=== PATIENT | male | born 1950 | race Caucasian/White ===

== ENCOUNTER 2017-11-09 06:55 | Outpatient (CLI) | payer MEDICARE, OTHER, SELFPAY ==
[2017-11-09 07:41] LABS: HCT 49.1 % (40.0-50.0); HGB 17.2 g/dL (13.5-17.5); Mean Corpuscular Hemoglobin 31.9 pg (27.0-33.0); Mean Corpuscular Volume 90.9 fL (80-95); Mean Platelet Volume 10.5 fL (8.0-11.0); Platelet Count 193 x1000/uL (130-400); RBC Distribution Width 13.9 % (11.8-14.1); White Blood Cell Count 8.32 k/cumm (4.4-10.8)
[2017-11-09 08:41] LABS: Ferritin 103 ng/mL (8-388)
[2017-11-10 09:35] LABS: PSA, Screening 1.5 ng/ml (0-4.5)
== END 2017-11-09 07:15 ==
PROVIDERS: PCP Family Medicine; Visit Provider Family Medicine
DX: E83.119 Hemochromatosis, unspecified (principal); Z12.5 Encounter for screening for malignant neoplasm of prostate; R73.01 Impaired fasting glucose; K76.0 Fatty (change of) liver, not elsewhere classified
CPT/HCPCS: 36415; 84153; 85027; 82728

== ENCOUNTER 2018-06-12 09:14 | Outpatient (CLI) | payer MEDICARE, OTHER, SELFPAY ==
[2018-06-12 14:05] LABS: HGB 16.3 g/dL (13.5-17.5)
[2018-06-12 15:30] LABS: Ferritin 146 ng/mL (8-388)
== END 2018-06-12 09:34 ==
PROVIDERS: PCP Family Medicine; Visit Provider Family Medicine
DX: E83.119 Hemochromatosis, unspecified (principal)
CPT/HCPCS: 36415; 82728; 85018

== ENCOUNTER 2018-09-19 10:18 | Outpatient (CLI) | payer MEDICARE, OTHER, SELFPAY ==
[2018-09-19 14:26] LABS: HCT 45.3 % (40.0-50.0); HGB 16.2 g/dL (13.5-17.5); Mean Corp. HGB Concentration 35.8 g/dL (32.0-36.0); Mean Corpuscular Hemoglobin 32.1 pg (27.0-33.0); Mean Corpuscular Volume 89.7 fL (80-95); Mean Platelet Volume 10.5 fL (8.0-11.0); Platelet Count 196 x1000/uL (130-400); RBC 5.05 m/cumm (4.50-6.00); RBC Distribution Width 13.9 % (11.8-14.1); White Blood Cell Count 8.47 k/cumm (4.4-10.8)
[2018-09-19 15:27] LABS: Ferritin 179 ng/mL (8-388)
== END 2018-09-19 10:38 ==
PROVIDERS: PCP Family Medicine; Visit Provider Family Medicine
DX: E83.119 Hemochromatosis, unspecified (principal); Z12.5 Encounter for screening for malignant neoplasm of prostate
CPT/HCPCS: 36415; 84153; 85027; 82728

== ENCOUNTER 2018-11-10 08:37 | Outpatient (CLI) | payer MEDICARE, OTHER, SELFPAY ==
[2018-11-10 16:36] LABS: ALT 39 U/L (16-63); AST 22 U/L (15-37); Albumin 4.2 g/dL (3.4-5.0); Alkaline Phosphatase 87 U/L (46-116); Bilirubin, Direct 0.12 mg/dL (0.00-0.20); Bilirubin, Total 0.6 mg/dL (0.2-1.0); CREATININE 0.92 mg/dL (0.70-1.30); Potassium 4.1 mmol/L (3.5-5.1); Total Protein 7.6 g/dL (6.4-8.2)
[2018-11-10 17:00] LABS: Ferritin 134 ng/mL (8-388)
== END 2018-11-10 08:57 ==
PROVIDERS: PCP Family Medicine; Visit Provider Family Medicine
DX: E83.119 Hemochromatosis, unspecified (principal); K76.0 Fatty (change of) liver, not elsewhere classified; I10 Essential (primary) hypertension
CPT/HCPCS: 36415; 80076; 82565; 82728; 84132

== ENCOUNTER 2019-01-01 02:16 | Outpatient (CLI) | payer MEDICARE, OTHER, SELFPAY | END 2019-01-01 02:36 | PROVIDERS: PCP Family Medicine; Visit Provider Family Medicine | DX: R00.0 Tachycardia, unspecified (principal); I47.2 Ventricular tachycardia; I49.1 Atrial premature depolarization | CPT/HCPCS: 93225 ==

== ENCOUNTER 2019-01-03 09:28 | Outpatient (CLI) | payer MEDICARE, OTHER, SELFPAY ==
[2019-01-03 16:03] LABS: Calculated LDL 108 mg/dL; Cholesterol 195 mg/dL (50-200); HDL Cholesterol 50 mg/dL (40-60); Triglyceride 188 mg/dL (30-150)
== END 2019-01-03 09:48 ==
PROVIDERS: PCP Family Medicine; Visit Provider Family Medicine
DX: K76.0 Fatty (change of) liver, not elsewhere classified (principal)
CPT/HCPCS: 36415; 80061

== ENCOUNTER 2019-01-03 16:31 | Outpatient (CLI) | payer MEDICARE, OTHER, SELFPAY ==
--- NOTE | 2019-01-04 08:21 | W.HOLTRPT ---
Holter Monitor Report Holter Monitor Note: This is a 2-day Holter monitor ordered for the indication of tachycardia. ?The patient was in normal sinus rhythm for the majority of the recording period. Heart rate ranged from 49 bpm to 136 bpm. Mean heart rate 72 bpm ?There were 5 episodes of supraventricular tachycardia. The longest lasted 4 beats. ?There were rare (less than 1%) PACs ?There were no episodes of ventricular tachycardia. There were rare (less than 1%) single ventricular ectopic beats. ?There were no episodes of atrial fibrillation, no pauses greater than 3 seconds, and no episodes of high degree heart block. Date of service: 01/04/19 Time of Service: 08:21
== END 2019-01-03 16:51 ==
PROVIDERS: PCP Family Medicine; Visit Provider Family Medicine
DX: R00.0 Tachycardia, unspecified (principal); I47.2 Ventricular tachycardia; I49.1 Atrial premature depolarization; K76.0 Fatty (change of) liver, not elsewhere classified
CPT/HCPCS: 36415; 80061; 93226

== ENCOUNTER 2019-01-04 08:21 | Outpatient (CLI) | payer MEDICARE, OTHER, SELFPAY | END 2019-01-04 08:41 | PROVIDERS: PCP Family Medicine; Referring Provider Family Medicine; Visit Provider Internal Medicine Cardiovascular Disease | DX: R00.0 Tachycardia, unspecified (principal); I47.2 Ventricular tachycardia; I49.1 Atrial premature depolarization | CPT/HCPCS: 93227 ==

== ENCOUNTER 2019-09-27 01:52 | Outpatient (CLI) | payer MEDICARE, OTHER, SELFPAY ==
[2019-09-27 13:40] LABS: ALT 21 U/L (16-63); AST 16 U/L (15-37); Albumin 4.3 g/dL (3.4-5.0); Alkaline Phosphatase 80 U/L (46-116); Bilirubin, Total 0.8 mg/dL (0.2-1.0); CREATININE 0.92 mg/dL (0.70-1.30); Calculated LDL 101 mg/dL (<100); Cholesterol 169 mg/dL (<200); Ferritin 127 ng/mL (26-388); HDL Cholesterol 50 mg/dL (40-60); Potassium 4.6 mmol/L (3.5-5.1); Total Protein 7.5 g/dL (6.4-8.2); Triglyceride 93 mg/dL (<150)
[2019-09-28 09:03] LABS: PSA, Screening 1.3 ng/mL (0.0-4.5)
== END 2019-09-27 02:12 ==
PROVIDERS: PCP Family Medicine; Visit Provider Family Medicine
DX: D64.9 Anemia, unspecified (principal); E83.119 Hemochromatosis, unspecified; I10 Essential (primary) hypertension; Z12.5 Encounter for screening for malignant neoplasm of prostate; G72.81 Critical illness myopathy; E78.5 Hyperlipidemia, unspecified
CPT/HCPCS: 36415; 80061; 80076; 84153; 82565; 82728; 84132

== ENCOUNTER 2020-06-24 02:32 | Outpatient (CLI) | payer MEDICARE, SELFPAY ==
[2020-06-24 13:19] LABS: AST 18 U/L (15-37); Calculated LDL 57 mg/dL (<100); Cholesterol 130 mg/dL (<200); Ferritin 178 ng/mL (26-388); HDL Cholesterol 64 mg/dL (40-60); Triglyceride 49 mg/dL (<150)
[2020-06-24 22:36] LABS: PSA, Screening 1.5 ng/mL (0.0-4.5)
== END 2020-06-24 02:33 | disposition home or self-care (01) ==
PROVIDERS: PCP Family Medicine; Visit Provider Family Medicine
DX: D64.9 Anemia, unspecified (principal); E78.5 Hyperlipidemia, unspecified; K76.0 Fatty (change of) liver, not elsewhere classified; Z12.5 Encounter for screening for malignant neoplasm of prostate
CPT/HCPCS: 36415; 80061; 84153; 82728; 84450

== ENCOUNTER 2020-10-02 04:12 | Outpatient (CLI) | payer MEDICARE, SELFPAY ==
[2020-10-02 16:23] LABS: Ferritin 187 ng/mL (26-388)
== END 2020-10-02 04:13 | disposition home or self-care (01) ==
LOC: LBO 04:12
PROVIDERS: PCP Family Medicine; Visit Provider Family Medicine
DX: D64.9 Anemia, unspecified (principal)
CPT/HCPCS: 36415; 82728

== ENCOUNTER 2020-10-15 08:59 | Outpatient (CLI) | payer MEDICARE, SELFPAY ==
[2020-10-15 15:35] LABS: HCT 40.8 % (40.0-50.0); HGB 14.1 g/dL (13.5-17.5); MCH 31.2 pg (27.0-33.0); MCHC 34.6 % (32.0-36.0); MCV 90.3 fL (80-95); MPV 10.7 fL (8.0-11.0); Platelet Count 233 10^3/uL (130-400); RBC 4.52 10^6/uL (4.36-5.78); RDW 13.3 % (11.8-14.1); RDW-SD 43.8 fL
[2020-10-15 16:48] LABS: Ferritin 178 ng/mL (26-388)
== END 2020-10-15 09:00 | disposition home or self-care (01) ==
LOC: LBO 09:01
PROVIDERS: PCP Family Medicine; Visit Provider Nurse Practitioner Family
DX: E83.119 Hemochromatosis, unspecified (principal)
CPT/HCPCS: 36415; 85027; 82728

== ENCOUNTER 2021-06-17 10:32 | Outpatient (CLI) | payer MEDICARE, SELFPAY ==
[2021-06-17 12:02] LABS: Anion Gap 9.9 mmol/L (3-11); BUN 11 mg/dL (7-18); CO2 29.1 mmol/L (21.0-32.0); CREATININE 0.8 mg/dL (0.70-1.30); Calcium 9.2 mg/dL (8.5-10.1); Calculated LDL 62 mg/dL (<100); Chloride 104 mmol/L (98-107); Cholesterol 135 mg/dL (<200); Ferritin 188 ng/mL (26-388); Glucose 102 mg/dL (74-106); HDL Cholesterol 49 mg/dL (40-60); Potassium 4.2 mmol/L (3.5-5.1); Sodium 143 mmol/L (136-145); Triglyceride 123 mg/dL (<150)
[2021-06-17 18:12] LABS: PSA, Screening 1.6 ng/mL (<=6.5)
[2021-06-18 20:12] LABS: Lab Add On Test DONE
[2021-06-18 20:23] LABS: Uric Acid 4.3 mg/dL (3.5-7.2)
[2021-06-23 14:41] LABS: Testosterone, Free 9.04 ng/dL (3.28-12.2); Testosterone, Total 476 ng/dL (240-950)
== END 2021-06-17 10:33 | disposition home or self-care (01) ==
LOC: LBO 10:34
PROVIDERS: PCP Family Medicine; Visit Provider Family Medicine
DX: Z00.00 Encounter for general adult medical examination without abnormal findings (principal); E87.1 Hypo-osmolality and hyponatremia; D64.9 Anemia, unspecified; Z12.5 Encounter for screening for malignant neoplasm of prostate; I10 Essential (primary) hypertension
CPT/HCPCS: 36415; 80048; 80061; 84153; 84402; 84403; 82728; 84550

== ENCOUNTER 2021-11-02 04:05 | Outpatient (CLI) | payer MEDICARE, SELFPAY ==
[2021-11-02 19:58] LABS: Ferritin 143 ng/mL (26-388)
== END 2021-11-02 04:06 | disposition home or self-care (01) ==
LOC: LBO 04:05
PROVIDERS: PCP Family Medicine; Visit Provider Family Medicine
DX: E83.119 Hemochromatosis, unspecified (principal)
CPT/HCPCS: 36415; 82728

== ENCOUNTER → 2021-11-16 08:31 | Outpatient (BNVA) | payer MEDICARE, SELFPAY | PROVIDERS: PCP Family Medicine; Referring Provider Family Medicine; Visit Provider Surgery | DX: Z12.11 Encounter for screening for malignant neoplasm of colon (principal) ==

== ENCOUNTER 2021-11-26 10:04 | Day surgery (SDC) | payer MEDICARE, SELFPAY ==
--- NOTE | 2021-11-25 21:21 | COLE_ITS ---
Colonoscopy Report Date of procedure: 11/26/21 Pre-op diagnosis general: screening colonoscopy Post-op diagnosis procedure note: other (Diverticulosis) Procedure: Screening colonoscopy Surgeon: Sin Christensen Anesthesia Type: General:No Airway Estimated blood loss (mL): 0 Pathology: none sent Complications: None Disposition: same day Prep: Miralax/Dulcolax Procedure Start Time: 13:32 Procedure End Time: 13:48 Retraction Time: 12 Findings: Pandiverticulosis Procedure Description: After the induction of monitored anesthetic care, and with the patient in left lateral decubitus position, I began by performing an external anorectal exam.? Perineum and skin were normal, as was the anal verge.? There was no evidence of external hemorrhoids.? Next, I performed a digital rectal exam.? I did not appreciate any abnormal findings.? Next, I advanced a colonoscope into the rectal vault.? I performed retroflexion.? I did not see signs of pathologic internal hemorrhoids.? Using insufflation, I then advanced the colonoscope beyond the rectal folds and into the sigmoid colon before advancing towards the cecum.? There was extensive pandiverticulosis. the quality of the prep was excellent.? The scope was noted to be in the cecum by identification of the ileocecal valve and appendiceal orifice.? I then began withdrawing the colon oscope using repeated irrigation as necessary for full evaluation of the colonic mucosa. ?Once the scope was withdrawn to the level of the rectum, great care was taken to examine portions of the rectal folds.? Finally, the scope was withdrawn and the patient was brought to the same-day surgery recovery unit as the anesthetic wore off. ?The findings and instructions were shared with the patient prior to discharge.
--- NOTE | 2021-11-25 21:22 | DSE_ITS ---
Date of service: 11/26/21 DS: Diagnosis Discharge Diagnosis (1) Diverticulosis: Status: Acute Asessment and Plan: Eat a blanced diet high in fiber Next screening colonoscopy 10 years Discharge Plan Disposition Patient Disposition: HOME Condition: Good Discharge Details Reason For Visit: Screening colonoscopy Attending Provider: Sin Christensen Primary Care Provider: Corbin Caban Home Meds and New Rx's Prescriptions: No Action magnesium 200 mg tablet 200 mg PO DAILY atorvastatin 10 mg tablet 10 mg PO DAILY cbd oil gel capsules PO PRN bisacodyl [Dulcolax (bisacodyl)] 5 mg tablet,delayed release (DR/EC) 5 mg PO ONCE Qty: 4 0RF Rx Instructions: Take according to provider's instructions for colonoscopy prep. polyethylene glycol 3350 17 gram/dose powder 17 g PO ONCE Qty: 238 0RF Rx Instructions: To be taken as directed by prescriber's office for colonoscopy prep. multivitamin [Daily Vitamin] 1 EACH tablet 1 tab PO DAILY ascorbic acid (vitamin C) [Vitamin C] 500 MG tablet 500 mg PO DAILY zinc amino acid chelate 50 MG tablet 50 mg PO DAILY budesonide-formoterol [Symbicort] 80-4.5 mcg/actuation HFA aerosol inhaler 2 puff IH BID Qty: 30.6 3RF amlodipine-benazepril 5-20 mg capsule 1 cap PO HS Discharge Instructions Instructions: Colonoscopy (DC) Additional Instructions: 1. If tolerated, consume a soft, low fiber diet for 1-2 days. [address] not drive, drink alcohol, operate machinery, make critical decisions, or do activities that require coordination or balance for 24 hours. 3. Because air was put into your colon during the procedure, expelling air from your rectum (passing gas or farting) is normal. 4. You may not have a bowel movement for 1-3 days because of the colonoscopy prep. This is normal. 5. Go directly to the emergency room if you notice any of the following: Develop chills (warm to touch), or if you have a thermometer and your temperature is above 101 Difficulty breathing or difficultly swallowing Persistent vomiting Severe abdominal pain, other than gas cramps Severe chest pain Black, tarry stools Any bleeding ? exceeding one tablespoon 6. Call your physician if the site where your intravenous was started becomes red, swollen, painful, and warm to touch. 7. Your physician has reviewed your pre-procedure medications. Please continue to take those medications as previously ordered. You will be given specific information/education regarding any changes to your medications before leaving. Activity:: Activity as Tolerated Diet:: As Tolerated Discharge Orders Discharge Orders: Discharge Order (Routine); Ordered 11/26/21 Ordered By: Sin Christensen DS: Data Vitals/I&O Vitals and I&O: Intake & Output 11/24/21 11/25/21 11/25/21 23:59 11:59 23:59 Weight 204 lb 15.984 oz PFSH All Active Problems Diverticulosis (Acute) Alcohol abuse (Acute 09/28/11) Aortic root dilatation (Acute) echo 10/17 echo 05/18-4.8 cm Asthma (Acute 01/05/11) Essential hypertension (Acute 04/10/13) Fatty liver (Acute 04/11/13) Hemochromatosis (Acute 08/21/12) Rosacea (Acute 04/27/07) Splenomegaly (Acute 04/11/13) Uric acid urolithiasis (Acute 04/11/13) History of umbilical hernia repair (Acute) Screening for colon cancer (Acute) Surgical History History of cataract surgery bilateral Repair of umbilical hernia (~06/2011) S/P rotator cuff repair left and right Family History Mother , AGE 90 Essential hypertension Heart disease Father , AGE 85 Essential hypertension Heart disease Stroke Sister Essential hypertension Asthma Maternal Grandfather Diabetes Essential hypertension Heart disease Paternal Grandfather No problems noted. Maternal Grandmother No problems noted. Paternal Grandmother Essential hypertension Heart disease Son Asthma Social History Smoking/Tobacco Use Status: Never Smoking risk assessment performed?: Yes Alcohol Intake: current Alcohol Intake frequency: 3 or more drinks per day Drug use: Occasionally Substance use type: marijuana Caregiver/Support person: No Household members: spouse Housing: house Communication Needs: None Do you need help understanding health information?: Never Pets and animals: No Sexually active: Yes Do you think of yourself as: straight/heterosexual Current gender identity: male What is your relationship status?: How often do you talk on the phone with friends or family?: once per week How often do you get together with friends or relatives?: three or more times per week How often do you attend religion or holiness services?: 1-3 times per year Do you belong to any clubs or organized social groups?: yes Panel score (0-1 are the most socially isolated patients): 3 Duration: 15-30 minutes/day Frequency: 1-2 times per week Anjelica/Yazidism: No preference Special anjelica needs: No Seatbelt use: always Helmet use: Yes Helmet use: always Drive intox or ride w/intox newspaper delivery driver: No Do you feel safe at home: Yes Do you feel safe in your relationship?: Yes
[2021-11-26 10:30] VITALS: BP 120/90; PULSE 66; RESP 18; TEMP 36.6; O2SAT 96
[2021-11-26] MEDS: Lactated Ringers 1,000 ML 80 ML IV (10:59)
--- NOTE | 2021-11-26 11:45 | ANES.PREOP_ITS ---
General Info Date of Service Date Performed: 11/26/21 Height: 5 ft 8.75 in Weight: 89.6 kg Body Mass Index (BMI): 29.3 Surgical Procedure: Operation Date: 11/26/21 11:50 Proposed Procedure Side Surgeon hattie Christensen MD Meds Allergies and Home Medications Allergies Allergy/AdvReac Type Severity Reaction Status Date / Time No Known Allergies Allergy Verified 11/26/21 10:42 Home Medication Medication Instructions Recorded multivitamin (Daily Vitamin tablet) 1 tab PO DAILY 06/15/12 ascorbic acid (vitamin C) 500 mg 500 mg PO DAILY 07/24/12 tablet (Vitamin C) zinc amino acid chelate 50 mg 50 mg PO DAILY 10/22/15 tablet magnesium 200 mg tablet 200 mg PO DAILY 10/16/19 atorvastatin 10 mg tablet 10 mg PO DAILY 07/01/20 cbd oil gel capsules PO PRN 10/10/20 budesonide-formoterol HFA 80 2 puff inhalation BID #30.6 grams 12/26/20 mcg-4.5 mcg/actuation aerosol inhaler (Symbicort) bisacodyl 5 mg tablet,delayed 5 mg PO ONCE #4 tabs 11/16/21 release (Dulcolax (bisacodyl)) polyethylene glycol 3350 17 17 g PO ONCE #238 grams 11/16/21 gram/dose oral powder amlodipine 5 mg-benazepril 20 mg 1 cap PO HS 11/25/21 capsule Current Visit Medications: Current Medications Generic Name Dose Route Start Last Admin Trade Name Freq PRN Reason Stop Dose Admin Hyoscyamine Sulfate 0.125 mg 11/26/21 08:25 Hyoscyamine 0.125 Mg Sl/Oral/Chew SL DIRECTED PRN Ringer's Solution 1,000 mls @ 80 mls/hr 11/26/21 06:00 11/26/21 10:59 IV 12/25/21 23:59 80 mls/hr INFUSION EDELMIRA Administration IV Miscellaneous Supplies 1 each 11/26/21 06:00 Iv Access IV 12/25/21 23:59 DIRECTED EDELMIRA Ondansetron HCl 4 mg 11/26/21 08:25 Ondansetron 4 Mg/2 Ml Vial IVP Q4H PRN PRN Nausea / Vomiting Sodium Chloride 0 ml 11/26/21 06:00 Normal Saline Flush 10 Ml Syr IV 12/25/21 23:59 PRN PRN Sodium Chloride 0 ml 11/26/21 06:00 Normal Saline 10 Ml Vial IJ 12/25/21 23:59 DIRECTED PRN Sterile Water 0 ml 11/26/21 06:00 Water,Injection,Sterile 10 Ml Vial IJ 12/25/21 23:59 DIRECTED PRN PFSH Active Problems Active Problems: Problem Status Onset Code Alcohol abuse 09/28/11 F10.10 Aortic root dilatation I77.810 Asthma 01/05/11 J45.909 Essential hypertension 04/10/13 I10 Fatty liver 04/11/13 K76.0 Hemochromatosis 08/21/12 E83.119 Rosacea 04/27/07 L71.9 Splenomegaly 04/11/13 R16.1 Uric acid urolithiasis 04/11/13 N20.9 History of umbilical hernia repair Z98.890, Z87.19 Screening for colon cancer Z12.11 Surgical History Surgical History (Updated 11/26/21 @ 10:41 by Faby Masterson) History of cataract surgery bilateral Repair of umbilical hernia (~06/2011) S/P rotator cuff repair left and right Tobacco Smoking/Tobacco Use Status: Never Passive smoking exposure: Yes Alcohol Alcohol Intake: current Alcohol intake frequency: 3 or more drinks per day Substance Use Substance use: Occasionally Substance use type: marijuana Vital Signs and Lab Results Vital Signs Most Recent Vital Signs in EMR: Most Recent Vital Signs Temp Pulse Resp BP Pulse Ox 36.6 C 66 18 120/90 96 11/26/21 10:30 11/26/21 10:30 11/26/21 10:30 11/26/21 10:30 11/26/21 10:30 Lab Results Blood Type / Crossmatch: No Data to Display Complete Blood Count: 2 No Data to Display Complete Metabolic Panel: No Data to Display Liver Function Panel: No Data to Display Coagulation Panel: No Data to Display Cardiac Panel: No Data to Display Arterial Blood Gas: No Data to Display Venous Blood Gas: No Data to Display Pancreas Panel: No Data to Display Thyroid Panel: No Data to Display Infectious Disease: No Data to Display Blood Cultures: No Data to Display Toxicology Panel: No Data to Display Anesthesia Assessment and Plan Anesthesia History Personal History: No History of Anesthesia Complications Family History: No Family History of Anesthesia Complications Exercise Tolerance Exercise Tolerance: Metabolic Equivalents>4 Pertinent Negatives Pertinent Negatives: No Symptoms of GERD Cardiac & Pulmonary Exam Cardiac Exam: Normal S1/S2 Heart Sounds Pulmonary Exam: Clear Bilateral Breath Sounds Implantable Cardiac Device Does patient have a Pacemaker or an ICD?: No Airway Exam Known Difficult Airway: No Mallampati Class: 1 Mouth Opening: Normal (> 3cm) Thyromental Distance: Greater than 3 cm Facial Hair: Full Gay Neck Range of Motion: Full ROM Neck Circumference: Normal Teeth Condition: Normal Dentition Airway Comments: Multiple crowns ASA Classification ASA Score: ASA 2 Emergency Case?: No NPO Status NPO Status: NPO Clears >2 hours, Solids >8 hours Anesthesia Plan Resuscitation Status: Full Code Anesthesia Technique: General Anesthesia Airway Planned: Natural Airway Monitors Used: Standard Monitors
[2021-11-26 11:47] VITALS: BMI 29.3
--- NOTE | 2021-11-26 13:55 | W.PM.DSUDISC ---
Discharge Plan Disposition Patient Disposition: HOME Condition: Good Discharge Details Reason For Visit: Screening colonoscopy Attending Provider: Sin Christensen Primary Care Provider: Corbin Caban Home Meds and New Rx's Prescriptions: Continued magnesium 200 mg tablet 200 mg PO DAILY atorvastatin 10 mg tablet 10 mg PO DAILY cbd oil gel capsules PO PRN multivitamin [Daily Vitamin] 1 EACH tablet 1 tab PO DAILY ascorbic acid (vitamin C) [Vitamin C] 500 MG tablet 500 mg PO DAILY zinc amino acid chelate 50 MG tablet 50 mg PO DAILY budesonide-formoterol [Symbicort] 80-4.5 mcg/actuation HFA aerosol inhaler 2 puff IH BID Qty: 30.6 3RF amlodipine-benazepril 5-20 mg capsule 1 cap PO HS Discontinued bisacodyl [Dulcolax (bisacodyl)] 5 mg tablet,delayed release (DR/EC) 5 mg PO ONCE Qty: 4 0RF Rx Instructions: Take according to provider's instructions for colonoscopy prep. polyethylene glycol 3350 17 gram/dose powder 17 g PO ONCE Qty: 238 0RF Rx Instructions: To be taken as directed by prescriber's office for colonoscopy prep. Discharge Instructions Instructions: Colonoscopy (DC), Diverticulitis Diet (DC), Diverticulosis (DC) Additional Instructions: 1. If tolerated, consume a soft, low fiber diet for 1-2 days. [address] not drive, drink alcohol, operate machinery, make critical decisions, or do activities that require coordination or balance for 24 hours. 3. Because air was put into your colon during the procedure, expelling air from your rectum (passing gas or farting) is normal. 4. You may not have a bowel movement for 1-3 days because of the colonoscopy prep. This is normal. 5. Go directly to the emergency room if you notice any of the following: Develop chills (warm to touch), or if you have a thermometer and your temperature is above 101 Difficulty breathing or difficultly swallowing Persistent vomiting Severe abdominal pain, other than gas cramps Severe chest pain Black, tarry stools Any bleeding ? exceeding one tablespoon 6. Call your physician if the site where your intravenous was started becomes red, swollen, painful, and warm to touch. 7. Your physician has reviewed your pre-procedure medications. Please continue to take those medications as previously ordered. You will be given specific information/education regarding any changes to your medications before leaving. Activity:: Activity as Tolerated Diet:: As Tolerated Discharge Orders Discharge Orders: Discharge Order (Routine); Ordered 11/26/21 Ordered By: Sin Christensen DS: Diagnosis Discharge Diagnosis (1) Diverticulosis: Status: Acute Asessment and Plan: Eat a balanced diet high in fiber Next colonoscopy in 10 years
[2021-11-26 13:56] VITALS: BP 94/64; PULSE 70; RESP 18; TEMP 36.6; O2SAT 98
--- NOTE | 2021-11-26 14:04 | W.ANESPOSTOP ---
Postoperative Evaluation Date, Time and Location Date Performed: 11/26/21 Time Performed: 13:56 Patient Location: Day Surgery Unit Vital Signs Most Recent Imported Vital Signs: Most Recent Vital Signs Temp Pulse Resp BP Pulse Ox 36.6 C 70 18 94/64 L 98 11/26/21 13:56 11/26/21 13:56 11/26/21 13:56 11/26/21 13:56 11/26/21 13:56 Pain Score Most Recent Pain Score: Most Recent Pain Score Pain Level 0 11/26/21 13:56 Assessment Mental Status: Awake (Alert & Oriented to Patient Baseline) Airway and Respiratory Function: Patent airway with normal (patient baseline) respiratory exam Cardiovascular Function: Hemodynamically Stable Hydration Status: Adequately Hydrated Nausea & Vomiting: No Nausea or Vomiting Pain: Pt. Denies Any Pain Peripheral Nerve Block: Patient did not receive a nerve block
[2021-11-26 14:26] VITALS: BP 120/81; PULSE 56; RESP 18; TEMP 36.2; O2SAT 99
--- NOTE | 2021-11-26 14:47 | W.ANESPOSTOP ---
Postoperative Evaluation Date, Time and Location Date Performed: 11/26/21 Time Performed: 14:48 Patient Location: Day Surgery Unit Vital Signs Most Recent Imported Vital Signs: Most Recent Vital Signs Temp Pulse Resp BP Pulse Ox 36.2 C L 56 L 18 120/81 99 11/26/21 14:26 11/26/21 14:26 11/26/21 14:26 11/26/21 14:26 11/26/21 14:26 Most Recent Vital Signs Temp Pulse Resp BP Pulse Ox 36.6 C 70 18 94/64 L 98 11/26/21 13:56 11/26/21 13:56 11/26/21 13:56 11/26/21 13:56 11/26/21 13:56 Pain Score Most Recent Pain Score: Most Recent Pain Score Pain Level 0 11/26/21 14:26 Assessment Mental Status: Awake (Alert & Oriented to Patient Baseline) Airway and Respiratory Function: Patent airway with normal (patient baseline) respiratory exam Cardiovascular Function: Hemodynamically Stable Hydration Status: Adequately Hydrated Nausea & Vomiting: No Nausea or Vomiting Pain: Pt. Denies Any Pain Peripheral Nerve Block: Patient did not receive a nerve block Postoperative Comments:: Patient was discharged prior to anesthesia being able to see them. Per RN patient was stable and denied any questions. Wanted to go home.
== END 2021-11-26 14:40 | disposition home or self-care (01) ==
PROVIDERS: PCP Family Medicine; Visit Provider Surgery
PROC: 0DJD8ZZ Inspection of Lower Intestinal Tract, Via Natural or Artificial Opening Endoscopic (ICD-10-PCS; CPT 45378; principal; 2021-11-26 11:45)
DX: Z12.11 Encounter for screening for malignant neoplasm of colon (principal); K57.30 Diverticulosis of large intestine without perforation or abscess without bleeding
CPT/HCPCS: G0121

== ENCOUNTER 2022-07-09 01:21 | Outpatient (CLI) | payer MEDICARE, SELFPAY ==
[2022-07-09 12:40] LABS: Calculated LDL 63 mg/dL (<100); Cholesterol 147 mg/dL (<200); Ferritin 139 ng/mL (26-388); HDL Cholesterol 63 mg/dL (40-60); Triglyceride 107 mg/dL (<150)
[2022-07-12 09:13] LABS: PSA, Screening 1.8 ng/mL (<=6.5)
== END 2022-07-09 01:22 | disposition home or self-care (01) ==
LOC: LOS 01:21
PROVIDERS: PCP Family Medicine; Visit Provider Family Medicine
DX: D64.9 Anemia, unspecified (principal); E78.5 Hyperlipidemia, unspecified; Z12.5 Encounter for screening for malignant neoplasm of prostate
CPT/HCPCS: 36415; 80061; 84153; 82728

== ENCOUNTER 2022-11-11 04:15 | Outpatient (CLI) | payer MEDICARE, SELFPAY ==
[2022-11-11 16:09] LABS: Ferritin 119 ng/mL (26-388)
== END 2022-11-11 04:16 | disposition home or self-care (01) ==
LOC: LBO 04:15
PROVIDERS: PCP Family Medicine; Visit Provider Family Medicine
DX: D64.9 Anemia, unspecified (principal)
CPT/HCPCS: 36415; 82728

== ENCOUNTER 2023-07-06 05:18 | Outpatient (CLI) | payer MEDICARE, SELFPAY ==
[2023-07-06 12:44] LABS: AST 16 U/L (15-37); Albumin 4.3 g/dL (3.4-5.0); Alkaline Phosphatase 76 U/L (46-116); Calculated LDL 96 mg/dL (<100); Cholesterol 181 mg/dL (<200); Ferritin 114 ng/mL (26-388); HDL Cholesterol 66 mg/dL (40-60); Triglyceride 96 mg/dL (<150)
[2023-07-06 13:00] LABS: ALT 22 U/L (16-63); Bilirubin, Total 1.1 mg/dL (0.2-1.0); Total Protein 7.7 g/dL (6.4-8.2)
[2023-07-06 13:09] LABS: Bilirubin, Direct 0.2 mg/dL (0.0-0.2)
[2023-07-06 18:23] LABS: PSA, Screening 1.7 ng/mL (<=6.5)
== END 2023-07-06 05:19 | disposition home or self-care (01) ==
LOC: LOS 05:19
PROVIDERS: PCP Family Medicine; Visit Provider Family Medicine
DX: D64.9 Anemia, unspecified (principal); Z12.5 Encounter for screening for malignant neoplasm of prostate; G72.89 Other specified myopathies; E78.5 Hyperlipidemia, unspecified
CPT/HCPCS: 36415; 80061; 80076; 84153; 82728

== ENCOUNTER 2023-11-02 14:08 | Outpatient (CLI) | payer MEDICARE, SELFPAY ==
--- OUTSIDE RECORDS SUMMARY | 2023-11-02 14:11 | XMS_ITS | Encounter Summary ---
Author Organization [facility] Address [facility] [place] [address] Care Team Providers Care Flooring Salesperson Name Role Phone Corbin Caban MD Primary Care Provider [phone] Reason for Visit * Reason Comments Medication Refill Encounter Details Date Type Department Care Team (Late st Contact Info) Description 05/05/2020 Refill Cardiology at [address] [id number] Jairo Davila MD [facility] [place] [address] Medication Refill Social History Tobacco Use Types Packs/Day Years Used Date Smoking Tobacco: Never Smokeless Tobacco: Never Alcohol Use Standard Drinks/Week Comments Yes 0 (1 standard drink = 0.6 oz pur e alcohol) Sex and Gender Information Value Date Recorded Sex Assigned at Not on file Gender Identity Not on file Sexual Orientation Not on file documented as of this encounter Miscellaneous Notes * Telephone Encounter - Vane Gibson RN - 05/09/2020 9:44 AM EST MIRELA: 11/16/19 Per assessment and Plan: #ASCVD, nonobstructive (aortic and coronary calcium), not on lipid lowering therapy, last??LDL 101,no anginal symptoms He attempted to take atorvastatin at a 20 mg dose but tells me it made him feel weird. He specifically denies muscle aches or history of rhabdomyolysis. This agent is indicated for both his ASCVD and thoracic aortic aneurysm. We will attempt a lower dose, and can increase in the future if patienttolerates. The patient was encouraged to reduce his daily alcohol intake. -Continue current BP medications. Use of rate lowering agents precluded by physiologic sinus bradycardia. -Monitor BP at home daily and record. -Re-attempt statin; script for atorvastatin 10 mg sent. -Follow up in 1 year with TTE at that time for surveillance of TAA. Next f/u visit scheduled for: not scheduled yet Vane Gibson fws faculty assistant [facility] [phone] documented in this encounter Plan of Treatment Upcoming Encounters Date Type Department Care Team (Late st Contact Info) Description 02/08/2024 9:00 AM EST Appointment Non-[place] [address] Garth Gaspar MD [facility] [place] [address] documented as of this encounter Visit Diagnoses Diagnosis ASCVD (arteriosclerotic cardiovascular disease) Unspecified cardiovascular disease documented in this encounter Care Teams Flooring Salesperson Relationship Specialty Start Date End Date Corbin Caban MD [address] [place] [address] PCP - General 11/12/14 documented as of this encounter
--- OUTSIDE RECORDS SUMMARY | 2023-11-02 14:11 | XMS_ITS | Encounter Summary ---
Author Organization [facility] Address [facility] [place] [address] Care Team Providers Care Structural [employer] Equipment Erector Name Role Phone Corbin Caban MD Primary Care Provider [phone] Reason for Referral * Diagnostic Test (Routine) - Closed Specialty Diagnoses / Procedures Referred By Contac t Referred To Contact Cardiology Diagnoses Ascending aorta dilatation Procedures Echocardiogram Transthoracic([facility]) Jairo Davila MD [facility] [place] [address] [facility] [place] [address] Referral ID Status Reason Start Date Expiration Date V isits Requested Visits Authorized [id number] Closed Specialty Service Requested 10/24/2020 10/24/2021 1 1 Reason for Visit * Diagnostic Test (Routine) - Closed Specialty Diagnoses / Procedures Referred By Contac t Referred To Contact Cardiology Diagnoses Ascending aorta dilatation Procedures Echocardiogram Transthoracic([facility] or [facility]) Jairo Davila MD [facility] [place] [address] [facility] [place] [address] Referral ID Status Reason Start Date Expiration Date V isits Requested Visits Authorized [id number] Closed Specialty Service Requested 10/24/2020 10/24/2021 1 1 Encounter Details Date Type Department Care Team (Latest Contact Info) Description 12/22/2020 9:05 AM EDT - 12/22/2020 11:59 PM EDT Hospital Encounter Non-[place] [phone] Jairo Davila MD [facility] [place] [address] Ascending aorta dilatation Discharge Disposition: Home Social History Tobacco Use Types Packs/Day Years Used Date Smoking Tobacco: Never Smokeless Tobacco: Never Alcohol Use Standard Drinks/Week Comments Yes 0 (1 standard drink = 0.6 oz pur e alcohol) Sex and Gender Information Value Date Recorded Sex Assigned at Not on file Gender Identity Not on file Sexual Orientation Not on file documented as of this encounter Medications at Time of Discharge Medication Sig Dispensed Refills Start Date End Date GARLIC ORAL Take by mouth daily. SYMBICORT 80-4.5 mcg/actuation HFA Aerosol Inhaler 11/17/2018 magnesium 250 mg Tablet Take 250 mg by mouth daily. ascorbic acid, Vitamin C, (Vitamin C) 500 mg tablet Take 500 mg by mouth daily. allopurinol (ZYLOPRIM) 300 mg tablet Take 150 mg by mouth daily. amlodipine-benazepril (LOTREL) 5-20 mg per capsule Take 1 capsule by mouth daily. multivitamin (THERAGRAN) tablet Take 1 tablet by mouth daily. ZINC ACETATE ORAL Take 1 tablet by mouth daily. atorvastatin (Lipitor) 10 mg TabletIndications:ASCVD (arteriosclerotic cardiovascular disease) TAKE 1 TABLET BY MOUTH EVERY EVENING 90 tablet 1 05/09/2020 03/09/2021 documented as of this encounter Plan of Treatment Upcoming Encounters Date Type Department Care Team (Late st Contact Info) Description 02/08/2024 9:00 AM EST Appointment Non[place] [id number] Garth Gaspar MD [facility] [place] [address] documented as of this encounter Procedures Procedure Name Priority Date/Time Associated Diagnosis Comments ECHO COMPLETE Routine 12/22/2020 9:56 AM EDT Ascending aorta dilatation documented in this encounter Results * ECHO COMPLETE (12/22/2020 9:56 AM EDT) EF 66 HEARTLAB SYSTEM Anatomical Region Laterality Modality Other 12/22/2020 Narrative 12/22/2020 10:23 AM EDT Procedure: ?Transthoracic Echocardiogram Patient: ?BUTTS DB ?(Age): 1950(70y) Med Rec#: ? [id number] ?Sex: ?M ? Site Loc: ? [facility] [place] ?Ht / Wt: ??175.26(cm)/88.4 Pt. Loc: ?Echo Lab ?BSA: ?2.04 Study Date: ?? 12/22/2020 ?Pt. Type: Outpatient Tape: ? Referring: SOCORRO Reading: David Delgado ([id number]) [employer] Vice President [employer] (Ex ): Lyric Barrera Diagnosis: *Thoracic aortic ectasia (I77.810) BP: ? 139/81 SUMMARY: 1. The left ventricular chamber size is normal. ??There is normal global left ventricular systolic function. ??The quantitative left ventricular ejection fraction by biplane Sagastume's method is 66%. ??There are no left ventricular segmental wall motion abnormalities. 2. The left atrium is normal in size. 3. There is mild (1+/4+) mitral regurgitation present. 4. There is mild (1+/4+) tricuspid regurgitation present. 5. There is moderate dilatation of the aortic root. 4.8 cm. 6. There is moderate dilatation of the ascending aorta. 4.4 cm. 7. Other details as noted below. 8. IMPRESSION: Measurements of the aortic root and ascending aorta are similar to the prior study from 11/16/19 (reported as 4.9 cm, 4.7 cm on prior respectively). ??Consider further follow-up with CT or MRI as clinically indicated. Findings ? : Study Quality: ? Adequate Left Ventricle: ? The left ventricular chamber size is normal. ?Left ventricular wall thickness is normal. ?There is normal global left ventricular systolic function. ?The quantitative left ventricular ejection fraction by biplane Sagastume's method is 66%. ?There are no left ventricular segmental wall motion abnormalities. ?There is a left ventricular septal wall motion abnormality observed, possibly due to the presence of a right bundle branch block. ?Left ventricular diastolic function is normal. ?Doppler assessment is consistent with normal left sided filling pressure. Left Atrium: ? The left atrium is normal in size. Right Ventricle: ? The right ventricle is normal in size. ?Right ventricular global systolic function is normal. ?No pulmonary hypertension is noted. ?The estimated pulmonary artery systolic pressure is [id number] mmHg. ?The estimated right atrial pressure is 3 mmHg. Right Atrium: ? The right atrium is mildly dilated. Aortic Valve: ? The aortic valve is trileaflet. The leaflets are thin with normal excursion. There is no aortic stenosis or regurgitation present. Mitral Valve: ? The mitral valve leaflets appear normal. ?Mitral valve leaflet mobility appears normal. ?There is no evidence of mitral stenosis. ?There is mild (1+/4+) mitral regurgitation present. Tricuspid Valve: ? The tricuspid valve leaflets are morphologically normal. ?Tricuspid valve leaflet mobility appears normal. ?There is mild (1+/4+) tricuspid regurgitation present. Pulmonic Valve: ? The pulmonic valve appears normal. ?There is mild (1+/4+) pulmonic regurgitation present. Pericardium: ? The pericardium appears normal and there is no evidence of a pericardial effusion. Aorta: ? There is moderate dilatation of the aortic root.4.8 (4.9 RPS) ?There is moderate dilatation of the ascending aorta.4.4 (4.7 RPS) ?There is mild dilatation of the aortic arch.3.6 cm ?The descending aorta is normal in size. ?The abdominal aorta is normal in size. Pulmonary Artery: ? The main pulmonary artery appears normal. Venous: ? The inferior vena cava appears normal in size. ?There is a greater than 50% respiratory change in the inferior vena cava dimension. Chambers 2D ?Value ?Units (Range) ? RVIDd ??Base ? 4 ?cm ? RVIDd ??Mid (AP) ? 3.1 ?cm ? IVSd (2D) ? 0.88 ? cm ? LVPWd (2D) ?0.88 ? cm ? IVS:LVPW ratio (2D) 1 ?ratio ? RWT (2D) ?0.39 ? ratio ? RWT PW (2D) ? 0.39 ? ratio ? LVIDd (2D) ?4.49 ? cm ? LVIDs (2D) ?3.15 ? cm ? LVIDd (2D) index ?2.2 ?cm/m2 ? LVIDs (2D) index ?1.54 ? cm/m2 ? LV FS (2D) ?29.78 ?% ? EF Teichholz (2D) ?? 57.03 ?% ? Ao root diameter (2D4.82 ? cm (2.1 - 3.6) ? Ascending Ao ?4.53 ? cm (2 - 3.5) ? Descending Ao ? 2.8 ?cm ? Volumes/Mass ?Value ?Units (Range) ? LA Area 4 CH ?15 ? cm2 (<21) ? LA ESV BP (A/L) inde20.75 ?ml/m2 ? RA AREA 4CH ? 18 ? cm2 ? LV ESV SP 4CH (MOD) 44.9 ? ml ? LV ESV SP 2CH (MOD) 42.35 ?ml ? LV EDV BP ? 133 ?ml ? LV ESV BP ? 44.84 ?ml ? LV EDV BP index ? 65.08 ?ml/m2 ? LV ESV BP index ? 21.94 ?ml/m2 ? BP EF (MOD) ? 66.28 ?% ? LV mass (2D) ?128.18 ? g ? LV mass (2D) index ??62.72 ?g/m2 ? Diastolic/Systolic Function ?Value ?Units (Range) ? MV E-wave Vmax ?0.86 ? m/sec ? MV deceleration qonf219.04 ? msec ? MV A-wave Vmax ?0.73 ? m/sec ? MV E:A ratio ?1.17 ? ratio ? LV septal e' Vmax ?? 0.09 ? m/sec ? LV lateral e' Vmax ??0.1 ?m/sec ? LV average e' Vmax ??0.1 ?m/sec ? LV E:e' septal ratio9.51 ? ratio ? LV E:e' lateral rati8.56 ? ratio ? LV average E:e' rati9.01 ? ratio ? Aortic Valve ?Value ?Units (Range) ? LVOT diameter ? 1.97 ? cm ? LVOT Vmax ? 1.11 ? m/sec ? LVOT VTI ?22.81 ?cm ? LVOT peak gradient ??4.91 ? mmHg ? LVOT mean gradient ??3.39 ? mmHg ? SV LVOT ? 69.4 ? ml ? CO LVOT ? 7.62 ? l/min ? Cardiac index ? 3.73 ? l/min/m2 ? Tricuspid Valve ?Value ?Units (Range) ? TAPSE ? 26 ? cm ? TR Vmax ? 1.82 ? m/sec ? TR peak gradient ?13.32 ?mmHg ? RAP ? 3 ?mmHg ? RVSP ?16.32 ?mmHg ? IVC diameter ?2 ?cm ? IVC Inspiration Vari50 ? % ? Pulmonic Valve/Qp:Qs ?Value ?Units (Range) ? MO end-diastolic Vma0.93 ? m/sec ? PA end-diastolic pre6.46 ? mmHg ? This report has been electronically signed by: David Delgado MD ? 12/22/2020 10:22:39 Images reviewed and interpretation verified [facility] Cardiac Ultrasound Laboratory Procedure Note David Delgado MD - 12/22/2020 Procedure: Transthoracic Echocardiogram Patient: RASHAWN ACE (Age): 1950(70y) Med Rec#: [id number] Sex: M Site Loc: [facility] [place] Ht / Wt: 175.26(cm)/88.4 Pt. Loc: Echo Lab BSA: 2.04 Study Date: 12/22/2020 Pt. Type: Outpatient Tape: Referring: SOCORRO Reading: David Delgado ([id number]) [employer]ant [employer]. Vice President [employer] (Ex ): Lyric Barrera Diagnosis: *Thoracic aortic ectasia (I77.810) BP: 139/81 SUMMARY: 1. The left ventricular chamber size is normal. There is normal global left ventricular systolic function. The quantitative left ventricular ejection fraction by biplane Sagastume's method is 66%. There are no left ventricular segmental wall motion abnormalities. 2. The left atrium is normal in size. 3. There is mild (1+/4+) mitral regurgitation present. 4. There is mild (1+/4+) tricuspid regurgitation present. 5. There is moderate dilatation of the aortic root. 4.8 cm. 6. There is moderate dilatation of the ascending aorta. 4.4 cm. 7. Other details as noted below. 8. IMPRESSION: Measurements of the aortic root and ascending aorta are similar to the prior study from 11/16/19 (reported as 4.9 cm, 4.7 cm on prior respectively). Consider further follow-up with CT or MRI as clinically indicated. Findings : Study Quality: Adequate Left Ventricle: The left ventricular chamber size is normal. Left ventricular wall thickness is normal. There is normal global left ventricular systolic function. The quantitative left ventricular ejection fraction by biplane Sagastume's method is 66%. There are no left ventricular segmental wall motion abnormalities. There is a left ventricular septal wall motion abnormality observed, possibly due to the presence of a right bundle branch block. Left ventricular diastolic function is normal. Doppler assessment is consistent with normal left sided filling pressure. Left Atrium: The left atrium is normal in size. Right Ventricle: The right ventricle is normal in size. Right ventricular global systolic function is normal. No pulmonary hypertension is noted. The estimated pulmonary artery systolic pressure is [id number] mmHg. The estimated right atrial pressure is 3 mmHg. Right Atrium: The right atrium is mildly dilated. Aortic Valve: The aortic valve is trileaflet. The leaflets are thin with normal excursion. There is no aortic stenosis or regurgitation present. Mitral Valve: The mitral valve leaflets appear normal. Mitral valve leaflet mobility appears normal. There is no evidence of mitral stenosis. There is mild (1+/4+) mitral regurgitation present. Tricuspid Valve: The tricuspid valve leaflets are morphologically normal. Tricuspid valve leaflet mobility appears normal. There is mild (1+/4+) tricuspid regurgitation present. Pulmonic Valve: The pulmonic valve appears normal. There is mild (1+/4+) pulmonic regurgitation present. Pericardium: The pericardium appears normal and there is no evidence of a pericardial effusion. Aorta: There is moderate dilatation of the aortic root.4.8 (4.9 RPS) There is moderate dilatation of the ascending aorta.4.4 (4.7 RPS) There is mild dilatation of the aortic arch.3.6 cm The descending aorta is normal in size. The abdominal aorta is normal in size. Pulmonary Artery: The main pulmonary artery appears normal. Venous: The inferior vena cava appears normal in size. There is a greater than 50% respiratory change in the inferior vena cava dimension. Chambers 2D Value Units (Range) RVIDd Base 4 cm RVIDd Mid (AP) 3.1 cm IVSd (2D) 0.88 cm LVPWd (2D) 0.88 cm IVS:LVPW ratio (2D) 1 ratio RWT (2D) 0.39 ratio RWT PW (2D) 0.39 ratio LVIDd (2D) 4.49 cm LVIDs (2D) 3.15 cm LVIDd (2D) index 2.2 cm/m2 LVIDs (2D) index 1.54 cm/m2 LV FS (2D) 29.78 % EF Teichholz (2D) 57.03 % Ao root diameter (2D4.82 cm (2.1 - 3.6) Ascending Ao 4.53 cm (2 - 3.5) Descending Ao 2.8 cm Volumes/Mass Value Units (Range) LA Area 4 CH 15 cm2 (<21) LA ESV BP (A/L) inde20.75 ml/m2 RA AREA 4CH 18 cm2 LV ESV SP 4CH (MOD) 44.9 ml LV ESV SP 2CH (MOD) 42.35 ml LV EDV BP 133 ml LV ESV BP 44.84 ml LV EDV BP index 65.08 ml/m2 LV ESV BP index 21.94 ml/m2 BP EF (MOD) 66.28 % LV mass (2D) 128.18 g LV mass (2D) index 62.72 g/m2 Diastolic/Systolic Function Value Units (Range) MV E-wave Vmax 0.86 m/sec MV deceleration [id number] msec MV A-wave Vmax 0.73 m/sec MV E:A ratio 1.17 ratio LV septal e' Vmax 0.09 m/sec LV lateral e' Vmax 0.1 m/sec LV average e' Vmax 0.1 m/sec LV E:e' septal ratio9.51 ratio LV E:e' lateral rati8.56 ratio LV average E:e' rati9.01 ratio Aortic Valve Value Units (Range) LVOT diameter 1.97 cm LVOT Vmax 1.11 m/sec LVOT VTI 22.81 cm LVOT peak gradient 4.91 mmHg LVOT mean gradient 3.39 mmHg SV LVOT 69.4 ml CO LVOT 7.62 l/min Cardiac index 3.73 l/min/m2 Tricuspid Valve Value Units (Range) TAPSE 26 cm TR Vmax 1.82 m/sec TR peak gradient 13.32 mmHg RAP 3 mmHg RVSP 16.32 mmHg IVC diameter 2 cm IVC Inspiration Vari50 % Pulmonic Valve/Qp:Qs Value Units (Range) MO end-diastolic Vma0.93 m/sec PA end-diastolic pre6.46 mmHg This report has been electronically signed by: David Delgado MD 12/22/2020 10:22:39 Images reviewed and interpretation verified [facility] Cardiac Ultrasound [facility] Jairo Davila MD ECHO ORDERABLES documented in this encounter Visit Diagnoses Diagnosis Ascending aorta dilatation Thoracic aortic ectasia documented in this encounter Care Teams Structural [employer] Equipment Erector Relationship Specialty Start Date End Date Corbin Caban MD [address] [place] [address] PCP - General 11/12/14 documented as of this encounter
--- OUTSIDE RECORDS SUMMARY | 2023-11-02 14:11 | XMS_ITS | Encounter Summary ---
Author Organization [facility] Address [facility] [place] [address] Care Team Providers Care Health Researcher Name Role Phone Corbin Caban MD Primary Care Provider [phone] Reason for Referral * Diagnostic Test (Routine) - Closed Specialty Diagnoses / Procedures Referred By Nikhil t Referred To Contact Cardiology Diagnoses Ascending aorta dilatation Procedures Echocardiogram Transthoracic Julisa Davila MD [facility] [place] [address] [facility] [place] [address] Referral ID Status Reason Start Date Expiration Date V isits Requested Visits Authorized [id number] Closed Specialty Service Requested 09/09/2022 09/09/2023 1 1 Encounter Details Date Type Department Care Team (Late st Contact Info) Description 09/09/2022 Orders Only Cardiology at [address] [phone] Julisa Davila MD [facility] [place] [address] Ascending aorta dilatation (Primary Dx) Social History Tobacco Use Types Packs/Day Years Used Date Smoking Tobacco: Never Smokeless Tobacco: Never Alcohol Use Standard Drinks/Week Comments Yes 0 (1 standard drink = 0.6 oz pur e alcohol) Sex and Gender Information Value Date Recorded Sex Assigned at Not on file Gender Identity Not on file Sexual Orientation Not on file documented as of this encounter Plan of Treatment Upcoming Encounters Date Type Department Care Team (Late st Contact Info) Description 02/08/2024 9:00 AM EST Appointment Non-Invasive Cardiology Lab [facility] [place] [phone] Garth Gaspar MD [facility] [place] [place] [address] documented as of this encounter Results * ECHO COMPLETE (12/07/2022 1:00 PM EDT) EF 55 HEARTLAB SYSTEM Anatomical Region Laterality Modality Cardiac Other 12/07/2022 12:3 2 PM EDT Narrative 12/07/2022 1:34 PM EDT ? Echocardiogram Report Name: DB LEVIN ? Study Date: 12/07/2022 12:32 PMBP: 127/77 mmHg ? Patient Location: 4A : 1950 ? Height: 69 in ? Account: [id number] Age: 72 yrs ? Weight: 200 lb Gender: Male ?BSA: 2.1 m2 Ordering Physician: JULISA DAVILA Referring Physician: JULISA DAVILA Performed By: Kourtney Molina RDCS Reason For Study: Ascending aorta dilatation [I77.810 (ICD-10-CM)] Exam Location: [facility]. Interpretation Summary 1. The left ventricle is normal in size and systolic function. LVEF is 55% by Sagastume's biplane. 2. The right ventricle is normal in size and function. PASP is estimated at 26 mmHg, assuming a right atrial pressure of 3 mmHg. 3. The aortic root is dilated, measured at 4.9 cm at the level of the sinuses of Valsalva. The ascending aorta is dilated, measured at 4.5 cm in maximum dimension. 4. There is no hemodynamically significant valve disease. 5. See body of report for additional findings. Aortic measurements are similar to the previous study dated 12/22/20, with root 4.9 cm (from 4.8 cm) and ascending 4.5 cm (from 4.4 cm). Procedure Complete-[id number]. Satisfactory quality. Left Ventricle Left ventricle is of normal size. Wall thickness is mildly increased. Left ventricular systolic function is normal. The left ventricular ejection fraction is 55% by Sagastume's biplane. Global longitudinal strain is measured at -18.0 %. (GE). There are no segmental wall motion abnormalities. Right Ventricle The right ventricle is of normal size. Right ventricular systolic function is normal. Left Atrium The left atrium is normal. There is no evidence for a patent foramen ovale. Right Atrium The right atrium is normal. Aortic Valve The aortic valve is structurally normal. There is no aortic stenosis. There is no aortic regurgitation. Mitral Valve The mitral valve is structurally and functionally normal. There is trace mitral regurgitation. Tricuspid Valve The tricuspid valve is structurally normal. There is trace tricuspid regurgitation. Pulmonic Valve The pulmonic valve appears to be structurally and functionally normal. There is trace pulmonic valve regurgitation. Great Arteries The aortic root is dilated. The diameter at the level of the sinuses of Valsalva is 4.9 cm. The maximum diameter of the ascending aorta is 4.5 cm. Venous Inferior vena cava is normal in size. Inferior vena cava collapse greater than 50% with respiration. Pericardium/Pleural The pericardium appears normal. Hemodynamics The peak right ventricular systolic pressure is 25.7 mmHg . The estimated right atrial pressure is 3mmHg. Left ventricular diastolic function is normal. Left ventricular filling pressure is normal. Ejection Fraction ?2D Measurements ? Volumes EF(MOD-bp): 54.5 % ?IVSd: 1.3 cm ? LAV(MOD- bp) Indexed: ?LVIDd: 4.3 cm ?LVIDs: 2.7 cm ?28.9 ml/m2 ?LVPWd: 1.2 cm ?RA A4Cs_phl: 17.2 cm2 ? EDV (MOD-bp) Index: 57.1 ?LV mass(C)d: 191.1 grams ? ESV (MOD-bp) Index: 26.0 ?LV mass(C)dI: 92.5 grams/m2 ?Ao root diam: 4.9 cm ?Ao root diam index: 2.4 ?asc Aorta Diam: 4.5 cm ?TAPSE_phl: 2.6 cm Doppler ?3D/Strain/TomTec TR max quinn: 238.1 cm/sec ??LV GLS (S3P): -18.0 % RVSP(TR): 25.7 mmHg LV V1 VTI: 21.9 cm Ao V2 VTI: 26.3 cm Ao Max: 119.7 cm/sec Ao valve max: 5.7 mmHg Ao valve mean: 3.1 mmHg MV E max quinn: 96.5 cm/sec MV A max quinn: 78.8 cm/sec MV E/A: 1.2 MVA(P1/2t): 4.8 cm2 Lat Peak E' Quinn: 8.8 cm/sec E/ e' (lat): 10.9 Med Peak E' Quinn: 8.0 cm/sec E/e' (med): 12.1 E/e' Average: 11.5 Dimensionless index Aov: 0.83 I ?WMSI = 1.00 ? % Normal = 100 ?Segments ??Size X - Cannot ?2 - ?4 - ?1-2 ? small Interpret ?1 - Normal ?? Hypokinetic 3 - Akinetic Dyskinetic ?? 3-5 ? moderate 5 - ? 6-14 ?large Aneurysmal ?15-16 ?? diffuse Procedure Note Virginia Perez MD - 12/07/2022 Echocardiogram Report Name: DB LEVIN Study Date: :32 PMBP: 127/77 mmHg Patient Location: : 1950 Height: 69 in Account: [id number] Age: 72 yrs Weight: 200 lb Gender: Male BSA: 2.1 m2 Ordering Physician: JULISA DAVILA Referring Physician: JULISA DAVILA Performed By: Kourtney Molina RDCS Reason For Study: Ascending aorta dilatation [I77.810 (ICD-10-CM)] Exam Location: [facility]. Interpretation Summary 1. The left ventricle is normal in size and systolic function. LVEF is 55%by Sagastume's biplane. 2. The right ventricle is normal in size and function. PASP is estimatedat 26 mmHg, assuming a right atrial pressure of 3 mmHg. 3. The aortic root is dilated, measured at 4.9 cm at the level of thesinuses of Valsalva. The ascending aorta is dilated, measured at 4.5 cm in maximumdimension. 4. There is no hemodynamically significant valve disease. 5. See body of report for additional findings. Aortic measurements aresimilar to the previous study dated 12/22/20, with root 4.9 cm (from 4.8 cm) andascending 4.5 cm (from 4.4 cm). Procedure Complete-[id number]. Satisfactory quality. Left Ventricle Left ventricle is of normal size. Wall thickness is mildly increased.Left ventricular systolic function is normal. The left ventricular ejectionfraction is 55% by Sagastume's biplane. Global longitudinal strain is measured at -18.0%. (GE). There are no segmental wall motion abnormalities. Right Ventricle The right ventricle is of normal size. Right ventricular systolic functionis normal. Left Atrium The left atrium is normal. There is no evidence for a patent foramenovale. Right Atrium The right atrium is normal. Aortic Valve The aortic valve is structurally normal. There is no aortic stenosis.There is no aortic regurgitation. Mitral Valve The mitral valve is structurally and functionally normal. There is tracemitral regurgitation. Tricuspid Valve The tricuspid valve is structurally normal. There is trace tricuspid regurgitation. Pulmonic Valve The pulmonic valve appears to be structurally and functionally normal.There is trace pulmonic valve regurgitation. Great Arteries The aortic root is dilated. The diameter at the level of the sinuses ofValsalva is 4.9 cm. The maximum diameter of the ascending aorta is 4.5 cm. Venous Inferior vena cava is normal in size. Inferior vena cava collapse greaterthan 50% with respiration. Pericardium/Pleural The pericardium appears normal. Hemodynamics The peak right ventricular systolic pressure is 25.7 mmHg . The estimatedright atrial pressure is 3mmHg. Left ventricular diastolic function is normal.Left ventricular filling pressure is normal. Ejection Fraction 2D Measurements Volumes EF(MOD-bp): 54.5 % IVSd: 1.3 cm LAV(MOD-bp)Indexed: LVIDd: 4.3 cm LVIDs: 2.7 cm 28.9 ml/m2 LVPWd: 1.2 cm RA A4Cs_phl: 17.2cm2 EDV (MOD-bp)Index: 57.1 LV mass(C)d: 191.1 grams ESV (MOD-bp)Index: 26.0 LV mass(C)dI: 92.5 grams/m2 Ao root diam: 4.9 cm Ao root diam index: 2.4 asc Aorta Diam: 4.5 cm TAPSE_phl: 2.6 cm Doppler 3D/Strain/TomTec TR max quinn: 238.1 cm/sec LV GLS (S3P): -18.0 % RVSP(TR): 25.7 mmHg LV V1 VTI: 21.9 cm Ao V2 VTI: 26.3 cm Ao Max: 119.7 cm/sec Ao valve max: 5.7 mmHg Ao valve mean: 3.1 mmHg MV E max quinn: 96.5 cm/sec MV A max quinn: 78.8 cm/sec MV E/A: 1.2 MVA(P1/2t): 4.8 cm2 Lat Peak E' Quinn: 8.8 cm/sec E/ e' (lat): 10.9 Med Peak E' Quinn: 8.0 cm/sec E/e' (med): 12.1 E/e' Average: 11.5 Dimensionless index Aov: 0.83 I WMSI = 1.00 % Normal = 100 SegmentsSize X - Cannot 2 - 4 - 1-2small Interpret 1 - Normal Hypokinetic 3 - Akinetic Dyskinetic 3-5moderate 5 - 6-14large Aneurysmal 15-16diffuse Julisa Davila MD E[facility] ORDERABLES documented in this encounter Visit Diagnoses Diagnosis Ascending aorta dilatation- Primary Thoracic aortic ectasia Ascending aorta dilatation Thoracic aortic ectasia documented in this encounter Care Teams Health Researcher Relationship Specialty Start Date End Date Corbin Caban MD [address] [place] [address] [address] [place] [address] PCP - General 11/12/14 documented as of this encounter
--- OUTSIDE RECORDS SUMMARY | 2023-11-02 14:11 | XMS_ITS | Encounter Summary ---
Author Organization [facility] [place] [address] Care Team Providers Care Grind Operator Name Role Phone Corbin Caban MD Primary Care Provider [phone] Reason for Visit * Reason Onset Date Comments Medication Refill 12/14/2019 Encounter Details Date Type Department Care Team (Late st Contact Info) Description 12/14/2019 Refill Cardiology at [address] [phone] Jairo Davila MD [facility] [place] [address] Medication Refill Social History Tobacco Use Types [...] 9:00 AM EST Appointment Non[place] [phone] Garth Gaspar MD [facility] [place] [address] documented as of this encounter Visit Diagnoses Diagnosis ASCVD (arteriosclerotic cardiovascular disease)- Primary Unspecified cardiovascular disease documented in this encounter Care Teams Grind Operator Relationship Specialty Start Date End Date Corbin Caban MD [address] [place] [address] [address] PCP - General 11/12/14 documented as of this encounter
--- OUTSIDE RECORDS SUMMARY | 2023-11-02 14:11 | XMS_ITS | Encounter Summary ---
Author Organization [facility] [place] [address] Care Team Providers Care Home Improvement Installer Name Role Phone Corbin Caban MD Primary Care Provider [phone] Reason for Referral * Diagnostic Test (Routine) - Closed Specialty Diagnoses / Procedures Referred By Contac t Referred To Contact Cardiology Diagnoses Thoracic aortic aneurysm without rupture Procedures Echocardiogram Transthoracic([facility]) Jairo Davila MD [facility] [address] [facility] [place] [address] Referral ID Status Reason Start Date Expiration Date V isits Requested Visits Authorized [id number] Closed Specialty Service Requested 08/06/2019 08/05/2020 1 1 Encounter Details Date Type Department Care Team (Latest Contact Info) Description 08/06/2019 1:00 PM EDT TH Visit (TeleHealth) Cardiology at [address] [address] Jairo Davila MD [facility] [address] Thoracic aortic aneurysm without rupture; Essential hypertension Social History Tobacco Use Types Packs/Day Years Used Date Smoking Tobacco: Never Smokeless Tobacco: Never Alcohol Use Standard Drinks/Week Comments Yes 0 (1 standard drink = 0.6 oz pur e alcohol) Sex and Gender Information Value Date Recorded Sex Assigned at Not on file Gender Identity Not on file Sexual Orientation Not on file documented as of this encounter Progress Notes * Jairo Davila MD - 08/06/2019 1:00 PM EDT [facility] CARDIOLOGY TELEHEALTH VISIT Today's Date: 08/06/19 Patient: Db Levin Date of : 1950 The patient verbally consented for a virtual visit, and understands that this visit will be billed.I explained that audio and visual tools may not be adequate for the care needed and that an in-person visit may be required. In the interest of providing needed care during this public health emergency, I proceeded with a telemedicine visit. HPI: Db Levin is a 69 y.o. year old male initially referred for the evaluation of tachycardia. Thepatient has had elevated heart rates at multiple visits with his cardiac surgeon, Dr. Merida, as well as the finding of a right bundle branch block. The patient previously followed with Dr. Macias at [facility]. Cardiac history is remarkable for thoracic aortic aneurysm, stable on serial follow-up with a trileaflet aortic valve. The patient also reports a history of shortness of breath attributed to asthma. He also has hemochromatosis treated with phlebotomy. Patient concerns today: None. Feeling well. Was in [place] for the winter, back in [place]. Keeping busy by fishing, doing outdoor work. No palpitations, chest pain, or other cardiopulmonary complaints. Satisfied with current quality of life, pleasantly conversational on interview today. He has intentionally lost weight, almost 20 pounds, and is very happy with this. Brief review of systems: Activity level: Moderate. No new orthopnea, PND, LE edema. No lightheadedness, dizziness, syncope/pre- syncope. No new CP. Patient Active Problem List Diagnosis ??? Hypertension ??? Hemochromatosis ??? Ascending aorta dilatation ??? Elevated liver function tests Past Medical History: Diagnosis Date ??? Asthma ??? Elevated liver function tests 10/07/2011 ??? Hypertension ??? Kidney stone Past Surgical History: Procedure Laterality Date ??? CATARACT REMOVAL WITH IMPLANT ??? ROTATOR CUFF REPAIR ??? UMBILICAL HERNIA REPAIR Allergies: No Known Allergies Current Outpatient Medications Medication Sig Dispense Refill ??? GARLIC ORAL Take by mouth daily. ??? SYMBICORT 80-4.5 mcg/actuation HFA Aerosol Inhaler ??? magnesium 250 mg Tablet Take 250 mg by mouth daily. ??? ascorbic acid (VITAMIN C) 500 mg tablet Take 500 mg by mouth daily. ??? allopurinol (ZYLOPRIM) 300 mg tablet Take 300 mg by mouth daily. ??? amlodipine-benazepril (LOTREL) 5-20 mg per capsule Take 1 capsule by mouth daily. ??? multivitamin (THERAGRAN) tablet Take 1 tablet by mouth daily. ??? ZINC ACETATE ORAL Take 1 tablet by mouth daily. Family History Problem Relation Age of Onset ??? Hypertension Father ??? Stroke Father ??? Hypertension Mother ??? Dementia Mother Social History Socioeconomic History ??? Marital status: Spouse name: Not on file ??? Number of children: Not on file ??? Years of education: Not on file ??? Highest education level: Not on file Occupational History ??? Not on file Social Needs ??? Financial resource strain: Not on file ??? Food insecurity Worry: Not on file Inability: Not on file ??? Transportation needs Medical: Not on file Non-medical: Not on file Tobacco Use ??? Smoking status: Never Smoker ??? Smokeless tobacco: Never Used Substance and Sexual Activity ??? Alcohol use: Yes ??? Drug use: No ??? Sexual activity: Not on file Lifestyle ??? Physical activity Days per week: Not on file Minutes per session: Not on file ??? Stress: Not on file Relationships ??? Social connections Talks on phone: Not on file Gets together: Not on file Attends catholic service: Not on file Active member of club or organization: Not on file Attends meetings of clubs or organizations: Not on file Relationship status: Not on file ??? Intimate partner violence Fear of current or ex partner: Not on file Emotionally abused: Not on file Physically abused: Not on file Forced sexual activity: Not on file Other Topics Concern ??? Service No ??? Blood Transfusions No ??? Caffeine Concern Not Asked ??? Occupational Exposure Not Asked ??? Hobby Hazards Not Asked ??? Sleep Concern Not Asked ??? Stress Concern Not Asked ??? Weight Concern Not Asked ??? Special Diet Not Asked ??? Back Care Not Asked ??? Exercise Not Asked ??? Bike Helmet Not Asked ??? Seat Belt Not Asked ??? Self-Exams Not Asked Social History Narrative Lives with significant other Son age 22 healthy Retired, worked as [employer] for the [employer] 4-5 oz of alcohol an evening, for the 5-10 years Vital signs at home: Not taking BP at home Weight 194 lbs. Labs: CBC, CMP, lipids reviewed in scanned documents. ?? ECGs: ECGs personally reviewed. 11/2013: Sinus tachycardia at 110 bpm. Possible inferior infarct. 11/18/17: Sinus rhythm at 73 bpm. Sinus arrhtymia. RBBB. 12/2018: Sinus bradycardia at 58 bpm. RBBB. ?? TTE (11/24/18): Transthoracic echo personally reviewed. 1. The left ventricular chamber size is normal. Left ventricular wall thickness is normal. There is normal global left ventricular systolic function. The quantitative left ventricular ejection fraction by biplane Sagastume's method is 67%. There are no left ventricular segmental wall motion abnormalities. 2. Right ventricular chamber size and systolic function are within normal limits. The estimated pulmonary artery systolic pressure is 21 mmHg. 3. The left atrium is normal in size. The right atrium is normal in size. 4. There is no hemodynamically significant valve disease. 5. There is moderate dilatation of the aortic root (4.8 cm), moderate dilatation of the ascending aorta (4.4 cm), and moderate dilatation of the aortic arch (4.1 cm). Compared to a prior study dated 11/18/17, aortic dimensions are unchanged. 6. See remainder of report for additional findings. Holter reviewed in scanned documents. CTA chest from 2013 personally reviewed. ? Assessment: #Question of arrhythmia, with sinus bradycardia on ECG, no evidence of arrhythmia with average HR 72 bpm on recent Holter #Thoracic aortic aneurysm, degenerative, with trileaflet and competent AV, no FH aortic dissection,stable on serial imaging, follows with Dr. Merida #ASCVD, nonobstructive (aortic and coronary calcium), not on lipid lowering therapy, last LDL 108, no anginal symptoms #Hypertension, borderline controlled #Right bundle branch block, chronic, without symptoms of bradyarrhythmia Noncardiac #Hemochromatosis, treated with phlebotomy This is a very pleasant 69 y.o. male with history as above who presents in follow-up. There was some concern about tachycardia prompted by resting ECGs at his cardiac surgeon's office, but Holter monitoring has shown no arrhythmia, and the patient reports no symptoms consistent with arrhythmia. Thepatient simply needs follow-up for his thoracic aortic aneurysm, hypertension, and nonobstructive ASCVD. The patient has 2 indications for initiation of lipid lowering therapy regardless of his lipidlevels, namely a degenerative thoracic aortic aneurysm and the finding of coronary calcium and aortic calcium, markers for likely nonobstructive ASCVD. The patient does deny any symptoms consistent with obstructive coronary disease. I recommended that he consider starting a statin despite the fact that his LDL is not significantly elevated. Plan as outlined below. -Start atorvastatin 20 mg daily. -Continue current blood pressure medications. Check BP at home and record. -A primary prevention aspirin should be considered. -TTE in 11/2019 for surveillance of TAA. -Follow up in 11/2019 at time of echo. Jairo Davila MD, [facility] Thank you for this referral. If you would like to discuss this patient, please contact me at [phone] or by email at [email or web address]. CC: MD Carlos Alberto Andrade MD [ X ]Today's visit utilized an audio only (telephone) connection. [ ]Today's visit utilized synchronous audio and video connection. documented in this encounter Plan of Treatment Upcoming Encounters Date Type Department Care Team (Late st Contact Info) Description 02/08/2024 9:00 AM EST Appointment [place] [address] Garth Gaspar MD [facility] [address] documented as of this encounter Results * ECHO COMPLETE (11/16/2019 2:40 PM EDT) EF 64 HEARTLAB SYSTEM Anatomical Region Laterality Modality Other 11/16/2019 Narrative 11/16/2019 3:58 PM EDT Procedure: ?Transthoracic Echocardiogram Patient: ?RASHAWN DB ?(Age): 1950(69y) Med Rec#: ? [id number] ?Sex: ?M ? Site Loc: ? [facility] ?Ht / Wt: ??175(cm)/98(kg) Pt. Loc: ?Echo Lab ?BSA: ?2.13 Study Date: ?? 11/16/2019 ?Pt. Type: Outpatient Tape: ? Referring: [facility] Reading: Naman Coe ([id number]) Rehab/Pre Vocational Counselor: Sandip Carmona RDCS Interpreting Fellow: Keyon Carvajal ([id number]) Diagnosis: *Thoracic aortic aneurysm, without rupture (I71.2) BP: ? 133/77 SUMMARY: 1. The left ventricular chamber size is normal. Basal septal hypertrophy is observed with no evidence of LVOT obstruction. There is normal global left ventricular systolic function with EF 64%. There are no left ventricular segmental wall motion abnormalities. 2. The right ventricle is normal in size with normal global systolic function. ??Pulmonary artery hypertension could not be assessed due to inadequate tricuspid regurgitation jet. 3. The left atrium is mildly dilated. The right atrium appears normal. 4. There is no hemodynamically significant valvular disease. 5. There is severe dilatation of the aortic root to 5.0 cm. There is moderate dilatation of the ascending aorta to 4.6 cm. There is mild dilatation of the aortic arch to 3.6 cm. 6. Compared to the prior echocardiogram from 11/24/2018, the measured aortic diameters have mildly increased. 7. See remainder of report for additional findings. Findings ? : Study Quality: ? Adequate Left Ventricle: ? The left ventricular chamber size is normal. ?Basal septal hypertrophy is observed. ?There is no evidence of LVOT obstruction. ?No ventricular septal defect is visualized. ?There is normal global left ventricular systolic function. ?The quantitative left ventricular ejection fraction by biplane Sagastume's method is 64%. ?There are no left ventricular segmental wall motion abnormalities. ?Left ventricular diastolic function is normal. ?Doppler assessment is consistent with normal left sided filling pressure. Left Atrium: ? The left atrium is mildly dilated.36.2 ml/m2 Right Ventricle: ? The right ventricle is normal in size. ?Right ventricular global systolic function is normal. ?Pulmonary artery hypertension could not be assessed due to inadequate tricuspid regurgitation jet. Right Atrium: ? The right atrium appears normal. Aortic Valve: ? The aortic valve is tricuspid. ?The aortic valve leaflets are mildly thickened. ?Systolic excursion of the aortic valve is normal. ?There is no evidence of aortic valve stenosis. ?There is no evidence of aortic regurgitation. Mitral Valve: ? The mitral valve leaflets are mildly thickened. ?There is no evidence of mitral stenosis. ?There is trace mitral regurgitation present. Tricuspid Valve: ? The tricuspid valve appears normal in structure and function. ?There is trace tricuspid regurgitation present. Pulmonic Valve: ? The pulmonic valve appears normal in structure and function. ?There is mild (1+/4+) pulmonic regurgitation present. Pericardium: ? The pericardium appears normal and there is no evidence of a pericardial effusion. ?A pericardial fat pad is visualized. Aorta: ? There is severe dilatation of the aortic root.5.0 cm ?There is moderate dilatation of the ascending aorta.4.6 cm ?There is mild dilatation of the aortic arch.3.6 cm Pulmonary Artery: ? The main pulmonary artery is not well visualized. Venous: ? The inferior vena cava appears dilated. ?There is a greater than 50% respiratory change in the inferior vena cava dimension. Misc: ? See remainder of report for additional findings. ?Two-dimensional echo, spectral Doppler and color Doppler performed. Chambers 2D ?Value ?Units (Range) ? IVSd (2D) ? 1.42 ? cm ? LVPWd (2D) ?1.01 ? cm ? IVS:LVPW ratio (2D) 1.41 ? ratio ? RWT (2D) ?0.57 ? ratio ? RWT PW (2D) ? 0.48 ? ratio ? LVIDd (2D) ?4.23 ? cm ? LVIDs (2D) ?2.83 ? cm ? LVIDd (2D) index ?1.98 ? cm/m2 ? LVIDs (2D) index ?1.33 ? cm/m2 ? LV FS (2D) ?33.1 ? % ? EF Teichholz (2D) ?? 62.04 ?% ? Ao root diameter (2D5 ?cm (2.1 - 3.6) ? Ascending Ao ?4.6 ?cm (2 - 3.5) ? Descending Ao ? 3.6 ?cm ? Volumes/Mass ?Value ?Units (Range) ? LA Area 4 CH ?23 ? cm2 (<21) ? RA AREA 4CH ? 15 ? cm2 ? LA ESV BP (MOD) inde36.16 ?ml/m2 ? LV ESV SP 4CH (MOD) 33.1 ? ml ? LV ESV SP 2CH (MOD) 20.7 ? ml ? LV EDV BP ? 78.9 ? ml ? LV ESV BP ? 28.2 ? ml ? LV EDV BP index ? 37 ? ml/m2 ? LV ESV BP index ? 13.23 ?ml/m2 ? BP EF (MOD) ? 64.26 ?% ? LV mass (2D) ?183.41 ? g ? LV mass (2D) index ??86.02 ?g/m2 ? Diastolic/Systolic Function ?Value ?Units (Range) ? MV E-wave Vmax ?0.78 ? m/sec ? MV deceleration [id number] ?msec ? MV A-wave Vmax ?0.74 ? m/sec ? MV E:A ratio ?1.05 ? ratio ? LV septal e' Vmax ?? 0.06 ? m/sec ? LV lateral e' Vmax ??0.09 ? m/sec ? LV average e' Vmax ??0.08 ? m/sec ? LV E:e' septal ratio13 ? ratio ? LV E:e' lateral rati8.67 ? ratio ? LV average E:e' rati10.4 ? ratio ? Tricuspid Valve ?Value ?Units (Range) ? RAP ? 8 ?mmHg ? Wall Motion: Segment Name ?Rest ? Base-Anteroseptal ?? Normal ? Base-Anterior ? Normal ? Base-Anterolateral ??Normal ? Base-Posterolateral Normal ? Base-Inferior ? Normal ? Base-Inferoseptal ?? Normal ? Mid-Anteroseptal ?Normal ? Mid-Anterior ?Normal ? Mid-Anterolateral ?? Normal ? Mid-Posterolateral ??Normal ? Mid-Inferior ?Normal ? Mid-Inferoseptal ?Normal ? Patrick-Septal ? Normal ? Patrick-Anterior ? Normal ? Patrick-Lateral ?Normal ? Patrick-Inferior ? Normal ? Patrick-Tip ?Normal ? This report has been electronically signed by: Naman Coe MD ? 11/16/2019 15:57:53 Images reviewed and interpretation verified [facility] Procedure Note Naman Coe MD - 11/16/2019 Procedure: Transthoracic Echocardiogram Patient: RASHAWN ACE (Age): 1950(69y) Med Rec#: [id number] Sex: M Site Loc: [facility] Ht / Wt: 175(cm)/98(kg) Pt. Loc: Echo Lab BSA: 2.13 Study Date: 11/16/2019 Pt. Type: Outpatient Tape: Referring: [facility] Reading: Naman Coe ([id number]) Rehab/Pre Vocational Counselor: Sandip Carmona [facility] Interpreting Fellow: Keyon Carvajal ([id number]) Diagnosis: *Thoracic aortic aneurysm, without rupture (I71.2) BP: 133/77 SUMMARY: 1. The left ventricular chamber size is normal. Basal septal hypertrophy is observed with no evidence of LVOT obstruction. There is normal global left ventricular systolic function with EF 64%. There are no left ventricular segmental wall motion abnormalities. 2. The right ventricle is normal in size with normal global systolic function. Pulmonary artery hypertension could not be assessed due to inadequate tricuspid regurgitation jet. 3. The left atrium is mildly dilated. The right atrium appears normal. 4. There is no hemodynamically significant valvular disease. 5. There is severe dilatation of the aortic root to 5.0 cm. There is moderate dilatation of the ascending aorta to 4.6 cm. There is mild dilatation of the aortic arch to 3.6 cm. 6. Compared to the prior echocardiogram from 11/24/2018, the measured aortic diameters have mildly increased. 7. See remainder of report for additional findings. Findings : Study Quality: Adequate Left Ventricle: The left ventricular chamber size is normal. Basal septal hypertrophy is observed. There is no evidence of LVOT obstruction. No ventricular septal defect is visualized. There is normal global left ventricular systolic function. The quantitative left ventricular ejection fraction by biplane Sagastume's method is 64%. There are no left ventricular segmental wall motion abnormalities. Left ventricular diastolic function is normal. Doppler assessment is consistent with normal left sided filling pressure. Left Atrium: The left atrium is mildly dilated.36.2 ml/m2 Right Ventricle: The right ventricle is normal in size. Right ventricular global systolic function is normal. Pulmonary artery hypertension could not be assessed due to inadequate tricuspid regurgitation jet. Right Atrium: The right atrium appears normal. Aortic Valve: The aortic valve is tricuspid. The aortic valve leaflets are mildly thickened. Systolic excursion of the aortic valve is normal. There is no evidence of aortic valve stenosis. There is no evidence of aortic regurgitation. Mitral Valve: The mitral valve leaflets are mildly thickened. There is no evidence of mitral stenosis. There is trace mitral regurgitation present. Tricuspid Valve: The tricuspid valve appears normal in structure and function. There is trace tricuspid regurgitation present. Pulmonic Valve: The pulmonic valve appears normal in structure and function. There is mild (1+/4+) pulmonic regurgitation present. Pericardium: The pericardium appears normal and there is no evidence of a pericardial effusion. A pericardial fat pad is visualized. Aorta: There is severe dilatation of the aortic root.5.0 cm There is moderate dilatation of the ascending aorta.4.6 cm There is mild dilatation of the aortic arch.3.6 cm Pulmonary Artery: The main pulmonary artery is not well visualized. Venous: The inferior vena cava appears dilated. There is a greater than 50% respiratory change in the inferior vena cava dimension. Misc: See remainder of report for additional findings. Two-dimensional echo, spectral Doppler and color Doppler performed. Chambers 2D Value Units (Range) IVSd (2D) 1.42 cm LVPWd (2D) 1.01 cm IVS:LVPW ratio (2D) 1.41 ratio RWT (2D) 0.57 ratio RWT PW (2D) 0.48 ratio LVIDd (2D) 4.23 cm LVIDs (2D) 2.83 cm LVIDd (2D) index 1.98 cm/m2 LVIDs (2D) index 1.33 cm/m2 LV FS (2D) 33.1 % EF Teichholz (2D) 62.04 % Ao root diameter (2D5 cm (2.1 - 3.6) Ascending Ao 4.6 cm (2 - 3.5) Descending Ao 3.6 cm Volumes/Mass Value Units (Range) LA Area 4 CH 23 cm2 (<21) RA AREA 4CH 15 cm2 LA ESV BP (MOD) inde36.16 ml/m2 LV ESV SP 4CH (MOD) 33.1 ml LV ESV SP 2CH (MOD) 20.7 ml LV EDV BP 78.9 ml LV ESV BP 28.2 ml LV EDV BP index 37 ml/m2 LV ESV BP index 13.23 ml/m2 BP EF (MOD) 64.26 % LV mass (2D) 183.41 g LV mass (2D) index 86.02 g/m2 Diastolic/Systolic Function Value Units (Range) MV E-wave Vmax 0.78 m/sec MV deceleration [id number] msec MV A-wave Vmax 0.74 m/sec MV E:A ratio 1.05 ratio LV septal e' Vmax 0.06 m/sec LV lateral e' Vmax 0.09 m/sec LV average e' Vmax 0.08 m/sec LV E:e' septal ratio13 ratio LV E:e' lateral rati8.67 ratio LV average E:e' rati10.4 ratio Tricuspid Valve Value Units (Range) RAP 8 mmHg Wall Motion: Segment Name Rest Base-Anteroseptal Normal Base-Anterior Normal Base-Anterolateral Normal Base-Posterolateral Normal Base-Inferior Normal Base-Inferoseptal Normal Mid-Anteroseptal Normal Mid-Anterior Normal Mid-Anterolateral Normal Mid-Posterolateral Normal Mid-Inferior Normal Mid-Inferoseptal Normal Patrick-Septal Normal Patrick-Anterior Normal Patrick-Lateral Normal Patrick-Inferior Normal Patrick-Tip Normal This report has been electronically signed by: Naman Coe MD 11/16/2019 15:57:53 Images reviewed and interpretation verified [facility] Ultrasound Laboratory Jairo Davila MD ECHO ORDERABLES documented in this encounter Visit Diagnoses Diagnosis Thoracic aortic aneurysm without rupture Thoracic aneurysm without mention of rupture Essential hypertension Unspecified essential hypertension Thoracic aortic aneurysm without rupture Thoracic aneurysm without mention of rupture documented in this encounter Care Teams Home Improvement Installer Relationship Specialty Start Date End Date Corbin Caban MD [address] [place] [address] PCP - General 11/12/14 documented as of this encounter
--- OUTSIDE RECORDS SUMMARY | 2023-11-02 14:11 | XMS_ITS | Encounter Summary ---
[facility] [place] [address] Care Team Providers Care Flower Arranger Name Role Phone Corbin Caban MD Primary Care Provider [phone] Reason for Referral * Diagnostic Test (Routine) - Closed Specialty Diagnoses / Procedures Referred By Contherminio t Referred To Contact Radiology Diagnoses Thoracic aortic aneurysm without rupture Procedures MRI Angiogram Chest wwo Contrast Jairo Davila MD [facility] [place] [address] [place] [address] Referral ID Status Reason Start Date Expiration Date V isits Requested Visits Authorized [id number] Closed Specialty Service Requested 06/26/2021 12/26/2022 1 1 Encounter Details Date Type Department Care Team (Latest Contact Info) Description 06/26/2021 10:00 AM EDT TH Visit (TeleHealth) Cardiology at [address] [address] Jairo Davila MD [facility] [place] [address] ASCVD (arteriosclerotic cardiovascular disease); Thoracic aortic aneurysm without rupture; Hyperlipidemia, unspecified hyperlipidemia type; Primary hypertension Social History Tobacco Use Types Packs/Day [...] Progress Notes * Jairo Davila MD - 06/26/2021 10:00 AM EDT [facility] CARDIOLOGY TELEHEALTH VISIT Today's Date: 06/24/21 Patient: Ramiro Levin Date of : 1950 The patient verbally consented for a virtual visit, and understands that this visit will be billed.I explained that audio and visual tools may not be adequate for the care needed and that an in-person visit may be required. In the interest of providing needed care during this public health emergency, I proceeded with a telemedicine visit. HPI: Ramiro Levin is a 71 y.o. year old male initially referred for the evaluation of tachycardia. ??The patient has had elevated heart rates at multiple visits with his cardiac surgeon, Dr. Merida,??as well as the finding of a right bundle branch block. ??The patient previously followed with Dr. Vitaly Kaur at [facility]??Counts Include [facility] B[facility] At [facility]. ??Cardiac history is remarkable for thoracicaortic aneurysm, stable on serial follow-up with a trileaflet aortic valve. ??The patient also reports a history of shortness of breath attributed to asthma. ??He also has hemochromatosis treated with phlebotomy. We previously started atorvastatin 20 mg daily. Last saw the patient in 11/2019, at which point he was doing well. He had a follow up echo in 12/2020 which showed stable aortic dimensions. Patient concerns today: The patient tells me today he has no specific cardiovascular concerns. He just returned from [place], where he was generally active without any cardiopulmonary symptoms. His blood pressure is runningin the 120s systolic at home. He just had labs drawn showing an LDL less than 70, specifics below. He feels generally well. Brief review of systems: Activity level: Moderate No new orthopnea, PND, LE edema. No [...] Outpatient Medications Medication Sig Dispense Refill ??? atorvastatin (Lipitor) 10 mg Tablet Take 1 tablet by mouth every evening. 90 tablet 0 ??? GARLIC ORAL Take by mouth daily. ??? SYMBICORT 80-4.5 mcg/actuation HFA Aerosol Inhaler ??? magnesium 250 mg Tablet Take 250 mg by mouth daily. ??? ascorbic acid (VITAMIN C) 500 mg tablet Take 500 mg by mouth daily. ??? allopurinol (ZYLOPRIM) 300 mg tablet Take 150 mg by mouth daily. ??? amlodipine-benazepril (LOTREL) [...] file Occupational History ??? Not on file Tobacco Use ??? Smoking status: Never Smoker ??? Smokeless tobacco: Never Used Vaping Use ??? Vaping Use: Never used Substance and Sexual Activity ??? Alcohol use: Yes ??? Drug use: No ??? 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 Labs: CBC, CMP, lipids reviewed in scanned documents. Patient brings with him labs. Cr 0.9. LDL 101. AST and ALT normal. Lipids: TC 135, LDL 62, HDL 49, TG 123. ?? ECGs: ECGs personally reviewed. 11/2013: Sinus tachycardia at 110 bpm. Possible inferior infarct. 11/18/17:??Sinus rhythm at 73 bpm. Sinus arrhtymia. RBBB. 12/2018:??Sinus bradycardia at 58 bpm. RBBB. ?? TTE [...] See remainder of report for additional findings. ?? TTE (11/2019): 1. The left ventricular chamber size is [...] from 11/24/2018, the measured aortic diameters have slightly increased. ?? TTE (12/2020): 1. The left ventricular chamber size is [...] with CT or MRI as clinically indicated. Holter reviewed in scanned documents. ?? CTA chest from 2013 personally reviewed. Assessment and recommendations: Cardiovascular #Prior concern for arrhythmia, with sinus rhythm on serial ECGs, no evidence of arrhythmia with average HR 72 bpm on Holter, no palpitations #Thoracic aortic aneurysm, degenerative, with trileaflet and competent AV, no FH aortic dissection,stable on serial imaging #ASCVD, nonobstructive (aortic and coronary calcium), not on lipid lowering therapy, last??LDL 62, no anginal symptoms #Hypertension, well controlled on home readings #Right bundle branch block, chronic, without symptoms of bradyarrhythmia Noncardiac #Hemochromatosis, treated with phlebotomy This is a very pleasant 71 y.o. male with history as above who presents in follow-up via telehealthvisit. He has no cardiopulmonary symptoms, is on reasonable medications, and has no complaints. Hisblood pressure is well controlled, and his thoracic aortic dimensions have been stable on serial car diac ultrasound. The patient has not had cross-sectional imaging of his aorta since 2013. He reports an adverse reaction to contrast, unclear exactly what, at that time. We will therefore schedule anMRA of the chest for comprehensive thoracic aortic evaluation to be done 1 year after his last echo, in November or December 2021. I provided refills for the patient's atorvastatin. He will continue his antihypertensive therapy. We will plan on follow-up in approximately 1 year, sooner if the patient develops any concerning symptoms. Jairo Davila MD, DANA, FACC, FACP, [facility] Cardi[facility] Thank you for this referral. If you would like to discuss this patient, please contact me at [phone] or by email at [email or web address]. CC: Corbin Caban MD [ X ]Today's visit utilized an audio only (telephone) connection. [ ]Today's visit utilized synchronous audio and video connection. documented in this encounter Plan of Treatment Upcoming Encounters Date Type Department Care Team (Late st Contact Info) Description 02/08/2024 9:00 AM EST Appointment Non-[place] [address] Garth Gaspar MD [facility] [place] [address] documented as of this encounter Results * MRI Angiogram Chest wwo Contrast (11/19/2021 11:49 AM EDT) Anatomical Region Laterality Modality Chest Magnetic Resonan ce Impressions 11/19/2021 2:34 PM EDT Diameters of the thoracic aorta as detailed above. No significant change compared to prior exam. Thank you for letting us participate in the care of this patient. ??If you are a health care provider and have any questions regarding this report, please contact the number below. ??For patients who have questions please contact the health acute care surgeon that requested your imaging first. ? Electronically signed by: Karma Licona MD, [facility] ([phone]), at 11/19/2021 2:34 PM Narrative 11/19/2021 2:34 PM EDT EXAMINATION: MRI ANGIOGRAM CHEST WWO CONTRAST CLINICAL HISTORY: Aortic aneurysm (TAA), considering treatment change TECHNIQUE: Axial HASTE without contrast. 3-chamber, LVOT, aortic valve plane, and sagittal oblique (candy cane) thoracic aorta cine steady-state free precession without contrast. ?? 3-D MRA during intravenous administration of 18 cc of Dotarem Postcontrast axial T1 weighted images. COMPARISON: Cardiac MRI 10/07/2011 FINDINGS: Tricuspid, trileaflet aortic valve. The opening area is within normal limits. No evidence of regurgitation. Diameters of the aorta are as follows: Sinuses of Valsalva: 50 mm cusp to cusp, 45 mm cusp to commissure Sinotubular junction: 39 mm Mid ascending thoracic aorta: 43 mm Mid aortic arch: 34 mm Mid descending thoracic aorta: 29 mm Aorta at the level of the diaphragm: 27 mm Common origin of the right brachiocephalic trunk and the left common carotid artery. Included imaging of the heart is within normal limits. No pericardial effusion. Nonvascular structures: No significant findings. Procedure Note Karma Jordan MD - 11/19/2021 EXAMINATION: MRI ANGIOGRAM CHEST WWO CONTRAST CLINICAL HISTORY: Aortic aneurysm (TAA), considering treatment change TECHNIQUE: Axial HASTE without contrast. 3-chamber, LVOT, aortic valve plane, and sagittal oblique (candy cane)thoracic aorta cine steady-state free precession without contrast. 3-D MRA during intravenous administration of 18 cc of Dotarem Postcontrast axial T1 weighted images. COMPARISON: Cardiac MRI 10/07/2011 FINDINGS: Tricuspid, trileaflet aortic valve. The opening area is within normallimits. No evidence of regurgitation. Diameters of the aorta are as follows: Sinuses of Valsalva: 50 mm cusp to cusp, 45 mm cusp to commissure Sinotubular junction: 39 mm Mid ascending thoracic aorta: 43 mm Mid aortic arch: 34 mm Mid descending thoracic aorta: 29 mm Aorta at the level of the diaphragm: 27 mm Common origin of the right brachiocephalic trunk and the left commoncarotid artery. Included imaging of the heart is within normal limits. No pericardialeffusion. Nonvascular structures: No significant findings. IMPRESSION Diameters of the thoracic aorta as detailed above. No significant change compared to prior exam. Thank you for letting us participate in the care of this patient. If youare a health care provider and have any questions regarding this report,please contact the number below. For patients who have questions please contactthe health acute care surgeon that requested your imaging first. Electronically signed by: Karma Licona MD, [facility] ([phone]), at 11/19/2021 2:34 PM Jairo Davila MD IMG MRI ORDERABLES documented in this encounter Visit Diagnoses Diagnosis ASCVD (arteriosclerotic cardiovascular disease) Unspecified cardiovascular disease Thoracic aortic aneurysm without rupture Thoracic aneurysm without mention of rupture Hyperlipidemia, unspecified hyperlipidemia type Primary hypertension Unspecified essential hypertension Thoracic aortic aneurysm without rupture Thoracic aneurysm without mention of rupture documented in this encounter Care Teams Flower Arranger Relationship Specialty Start Date End Date Corbin Caban MD [address] [place] [address] PCP - General 11/12/14 documented as of this encounter
--- OUTSIDE RECORDS SUMMARY | 2023-11-02 14:11 | XMS_ITS | Encounter Summary ---
[facility] Organization [facility] [place] [address] Care Team Providers Care Dye Feeder Name Role Phone Corbin Caban MD Primary Care Provider [phone] Reason for Visit * Reason Onset Date Comments Medication Refill 05/11/2021 atorvastatin Encounter Details Date Type Department Care Team (Late st Contact Info) Description 05/11/2021 Refill Cardiology at [address] [address] Margot Chavez RN Medication Refill (atorvastatin) Social History Tobacco Use Types Packs/Day Years [...] encounter Miscellaneous Notes * Telephone Encounter - Margot Chavez RN - 05/11/2021 9:33 AM EST To go to [facility] in [place] Chart reviewed MIRELA 11-16-19 FUV scheduled for 06-26-21 Requested Prescriptions Pending Prescriptions Disp Refills ??? atorvastatin (Lipitor) 10 mg Tablet 90 tablet 0 Sig: Take 1 tablet by mouth every evening. Margot Chavez RN 4A Cardiology documented in this encounter Plan of Treatment Upcoming Encounters Date Type Department Care Team (Late st Contact Info) Description 02/08/2024 9:00 AM EST Appointment Non-[place] [address] Garth Gaspar MD [facility] [place] [address] documented as of this encounter Visit Diagnoses Diagnosis ASCVD (arteriosclerotic cardiovascular disease) Unspecified cardiovascular disease documented in this encounter Care Teams Dye Feeder Relationship Specialty Start Date End Date Corbin Caban MD [address] [place] [address] PCP - General 11/12/14 documented as of this encounter
--- OUTSIDE RECORDS SUMMARY | 2023-11-02 14:11 | XMS_ITS | Encounter Summary ---
Author Organization [facility] Address [facility] [place] [address] Care Team Providers Care Computer Builder Name Role Phone Corbin Caban MD Primary Care Provider [phone] Reason for Referral * Diagnostic Test (Routine) - Closed Specialty Diagnoses / Procedures Referred By Contac t Referred To Contact Cardiology Diagnoses Thoracic aortic aneurysm without rupture Procedures Echocardiogram Transthoracic([facility]) Jairo Davila MD [facility] [place] [address] [facility] [place] [address] Referral ID Status Reason Start Date Expiration Date V isits Requested Visits Authorized [id number] Closed Specialty Service Requested 08/06/2019 08/05/2020 1 1 Reason for Visit * Diagnostic Test (Routine) - Closed Specialty Diagnoses / Procedures Referred By Contac t Referred To Contact Cardiology Diagnoses Thoracic aortic aneurysm without rupture Procedures Echocardiogram Transthoracic([facility]) Jairo Davila MD [facility] [place] [address] [facility] [place] [address] Referral ID Status Reason Start Date Expiration Date V isits Requested Visits Authorized [id number] Closed Specialty Service Requested 08/06/2019 08/05/2020 1 1 Encounter Details Date Type Department Care Team (Latest Contact Info) Description 11/16/2019 1:39 PM EDT - 11/16/2019 11:59 PM EDT Hospital Encounter Non-[place] [id number] Jairo Davila MD [facility] [place] [address] Thoracic aortic aneurysm without rupture Discharge Disposition: Home Social History Tobacco Use [...] by mouth daily. atorvastatin (Lipitor) 10 mg Tablet Take 1 tablet by mouth daily. 30 tablet 3 11/16/2019 12/14/2019 documented as of this encounter Plan of Treatment Upcoming Encounters Date Type Department Care Team (Late st Contact Info) Description 02/08/2024 9:00 AM EST Appointment Non-[place] [address] Garth Gaspar MD [facility] [place] [address] documented as of this encounter Procedures Procedure Name Priority Date/Time Associated Diagnosis Comments ECHO COMPLETE Routine 11/16/2019 2:40 PM EDT Thoracic aortic aneurysm without rupture documented in this encounter Results * ECHO COMPLETE (11/16/2019 2:40 PM EDT) EF 64 HEARTLAB SYSTEM Anatomical Region Laterality Modality Other 11/16/2019 Narrative 11/16/2019 3:58 PM EDT Procedure: ?Transthoracic Echocardiogram Patient: ?BUTTS DB ?(Age): 1950(69y) Med Rec#: ? [id number] ?Sex: ?M ? Site Loc: ? [facility] [place] ?Ht / Wt: ??175(cm)/98(kg) Pt. Loc: ?Echo Lab ?BSA: ?2.13 Study Date: ?? 11/16/2019 ?Pt. Type: Outpatient Tape: ? Referring: AHMADSHAWGILLIAN Reading: Naman Coe ([id number]) Potato Chip Sorter: Sandip Carmona [facility] Interpreting Fellow: Keyon Carvajal ([id number]) Diagnosis: *Thoracic aortic aneurysm, without rupture (I71.2) [...] Vmax ?0.78 ? m/sec ? MV deceleration [id number] ?msec ? MV A-wave Vmax ?0.74 ? [...] ? Mid-Inferior ?Normal ? Mid-Inferoseptal ?Normal ? [place]-Septal ? Normal ? [place]-Anterior ? Normal ? [place]-Lateral ?Normal ? [place]-Inferior ? Normal ? [place]-Tip ?Normal ? This report has been electronically signed by: Naman Coe MD ? 11/16/2019 15:57:53 Images reviewed and interpretation verified [facility] Cardiac Ultrasound Laboratory Procedure Note Naman Coe MD - 11/16/2019 Procedure: Transthoracic Echocardiogram Patient: RASHAWN SIDHU(Age): 1950(69y) Med Rec#: [id number] Sex: M Site Loc: [facility] [place] Ht / Wt: 175(cm)/98(kg) Pt. Loc: Echo Lab BSA: 2.13 Study Date: 11/16/2019 Pt. Type: Outpatient Tape: Referring: SOCORRO Reading: Naman Coe ([id number]) Potato Chip Sorter: Sandip Carmona [facility] Interpreting Fellow: Keyon Carvajal ([id number]) Diagnosis: *Thoracic aortic aneurysm, without rupture (I71.2) [...] MV E-wave Vmax 0.78 m/sec MV deceleration [id number] msec MV A-wave Vmax 0.74 m/sec MV [...] Normal Mid-Posterolateral Normal Mid-Inferior Normal Mid-Inferoseptal Normal Haw[place]orn-Septal Normal [place]-Anterior Normal [place]-Lateral Normal [place]-Inferior Normal [place]-Tip Normal This report has been electronically signed by: Naman Coe MD 11/16/2019 15:57:53 Images reviewed and interpretation verified [facility] Cardiac Ultrasound Laboratory Jairo Davila MD ECHO ORDERABLES documented in this encounter Visit Diagnoses Diagnosis Thoracic aortic aneurysm without rupture Thoracic aneurysm without mention of rupture documented in this encounter Care Teams Computer Builder Relationship Specialty Start Date End Date Corbin Caban MD [address] [place] [address] PCP - General 11/12/14 documented as of this encounter
--- OUTSIDE RECORDS SUMMARY | 2023-11-02 14:11 | XMS_ITS | Encounter Summary ---
Author Organization [facility] Address [facility] [place] [address] Care Team Providers Care Belt Turner Name Role Phone Corbin Caban MD Primary Care Provider [phone] Encounter Details Date Type Department Care Team (Late st Contact Info) Description 12/22/2018 11:20 AM EDT Office Visit Cardiology at [address] [place] [address] Jairo Davila MD [facility] [place] [address] Hypertension, unspecified type; Tachycardia; Thoracic aortic aneurysm without rupture; Cardiovascular event risk; Right bundle branch block (RBBB) Social History Tobacco Use Types Packs/Day Years Used Date Smoking Tobacco: Never Smokeless Tobacco: Never Alcohol Use Standard Drinks/Week Comments Yes 0 (1 standard drink = 0.6 oz pur e alcohol) Sex and Gender Information Value Date Recorded Sex Assigned at Not on file Gender Identity Not on file Sexual Orientation Not on file documented as of this encounter Last Filed Vital Signs Vital Sign Reading Time Taken Comments Blood Pressure 130/86 12/22/2018 10:56 AM EDT Pulse 60 12/22/2018 10:56 AM EDT Temperature - - Respiratory Rate - - Oxygen Saturation 98% 12/22/2018 10:56 AM EDT Inhaled Oxygen Concentration - - Weight 98.5 kg (217 lb 1.6 oz) 12/22/2018 10:56 AM EDT Height 175.3 cm (5' 9) 12/22/2018 10:56 AM EDT Body Mass Index 32.06 12/22/2018 10:56 AM EDT documented in this encounter Progress Notes * Jairo Davila MD - 12/22/2018 11:[address] [facility] Outpatient Cardiology Patient: Ramiro Levin : 1950 Reason for consult/follow up: Tachycardia PCP: Corbin Caban MD Referring: Carlos Alberto Merida MD History of present illness: Ramiro Levin is a 68 y.o. male kindly referred for the evaluation of tachycardia. The patient hashad elevated heart rates at multiple visits with his cardiac surgeon, Dr. Merida, as well as the finding of a right bundle branch block. The patient previously followed with Dr. Vitaly Kaur at [facility]. Cardiac history is remarkable for thoracic aortic aneurysm, stable on serial follow-up with a trileaflet aortic valve. The patient also reports a history of shortness of breath attributed to asthma. He also has hemochromatosis treated with phlebotomy. On interview today, the patient tells me that he occasionally takes his blood pressure at home. Systolic is running in the 120s 130s. He notes that his heart rate on serial home readings is in the 70s and 80s. He has not noticed palpitations or sensation of extra heartbeats, skipped heartbeats, or fast heart rates. He is a generally active individual, but does not exercise in a structured manner. He tells me that the most activity he gets is going up 2 flights of stairs, which he can do without issues. He denies orthopnea or PND. He denies chest pain or chest pressure at rest or with exertion. He denieslightheadedness, syncope, or presyncope at any point. He is taking medications as prescribed. He has never been recommended lipid-lowering therapy. Review of systems: Cardiovascular: Denies chest pain or other cardiopulmonary symptoms at rest or with exertion; no orthopnea, LE edema, or PND; no palpitations. All others negative. Patient Active Problem List Diagnosis ??? Hypertension [...] Outpatient Medications Medication Sig Dispense Refill ??? SYMBICORT 80-4.5 mcg/actuation HFA Aerosol Inhaler ??? magnesium 250 mg Tablet Take 250 mg by mouth daily. ??? INOSITOL ORAL Take 510 mg by mouth daily as needed. ??? ALBUTEROL, REFILL, INHL Inhale into the lungs as needed. ??? ascorbic acid (VITAMIN C) 500 mg [...] resource strain: Not on file ??? Food insecurity: Worry: Not on file Inability: Not on file ??? Transportation needs: Medical: Not on file Non-medical: Not on file Tobacco Use ??? Smoking status: Never Smoker ??? Smokeless tobacco: Never Used Substance and Sexual Activity ??? Alcohol use: Yes ??? Drug use: No ??? Sexual activity: Not on file Lifestyle ??? Physical activity: Days per week: Not on file Minutes per session: Not on file ??? Stress: Not on file Relationships ??? Social connections: Talks on phone: Not on file Gets together: Not on file Attends holiness service: Not on file Active member of club or organization: Not on file Attends meetings of clubs or organizations: Not on file Relationship status: Not on file ??? 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 Exam: Psych: The patient is able to relay the details of his medical course, and is oriented. There is nosuggestion of cognitive decline or memory issues or abnormal mood. ENT: Oropharynx clear with moist mucus membranes and no mucosal ulcerations. Cardiovascular: Heart rhythm is regular. PMI is palpated and is not displaced; there is no RV lift.S1 and S2 are normal. There is no systolic murmur, no diastolic murmur, no rubs or gallops. JVP is easily seen with the patient sitting upright and is estimated at less than 8 cm of water. There are no carotid bruits. Extremities: No LE edema. No stasis dermatitis or open ulcers. Respiratory: Clear to auscultation bilaterally; no labored breathing. Abdomen: Soft, nontender, and nondistended. No hepatosplenomegaly appreciated. Skin: No visible lesions or rashes. Neuro: No gross neurologic deficits. The patient can move all 4 limbs and has normal speech. There is no facial droop. Labs: There are no recent labs available for review. ECGs: ECGs personally reviewed. 11/2013: Sinus tachycardia at 110 bpm. Possible inferior infarct. 11/18/17: Sinus rhythm at 73 bpm. Sinus arrhtymia. RBBB. Today: Sinus bradycardia at 58 bpm. RBBB. TTE (11/24/18): Transthoracic echo personally reviewed. 1. [...] See remainder of report for additional findings. CTA chest from 2014 personally reviewed. Assessment: #Question of sinus tachycardia, with sinus bradycardia on ECG today #Thoracic aortic aneurysm, degenerative, with trileaflet and competent AV, no FH aortic dissection,stable on serial imaging #ASCVD, nonobstructive (aortic and coronary calcium), not on lipid lowering therapy, last lipid profile unknown, no anginal symptoms #Hypertension, borderline controlled #Right bundle branch block, chronic, without symptoms of bradyarrhythmia Noncardiac #Hemochromatosis, treated with phlebotomy This is a very pleasant 68 y.o. male with history as above referred for the evaluation of tachycardia. He has been noted to be tachycardic on prior visits with his cardiac surgeon, but he tells me that his heart rate usually runs in the 70s and 80s at home, and the patient is in sinus bradycardia today. I did review all available rhythm tracings. This shows sinus rhythm, on one ECG tracing sinus tachycardia in 2014, the others either sinus bradycardia or sinus rhythm with controlled rate. The patient tells me that his PCP has been following serial labs due to his history of hemochromatosis, and these have been on concerning. I would of course like to look at these myself. Regarding potential arrhythmia, the first step would be to establish whether this is sinus tachycardia or some other tachyarrhythmia. I recommended a 48-hour Holter in this vein. The patient will consider this, but does not seem inclined to work this up further. Work the patient to prefer a Holter, he would have to come back next week as we are out of Holter is in the office today. He may attempt to arrange it through his primary care physician. We reviewed that the diagnosis of right bundle branch block does notrequire in and of itself further work-up or testing, though the patient should be aware of and report any symptoms attributable to bradycardia, namely syncope, near syncope, low energy. Regarding other CV issues, the patient has 2 indications for initiation of lipid lowering therapy regardless of his lipid levels, namely a degenerative thoracic aortic aneurysm and the finding of coronary calcium and aortic calcium, markers for likely nonobstructive ASCVD. The patient does deny anysymptoms consistent with obstructive coronary disease. I recommended that he consider starting a sta tin. He is reluctant to do this at this point, but will discuss it with his primary care physician. Recommendations: -Obtain recent labs from PCP, including CBC, CMP, Mg, TSH. Patient states recently drawn. -Recommend Holter monitor. The patient will consider this and will try to arrange through his PCP. We have no Holters available in the clinic today, so a scheduled visit back to have one placed wouldbe a 4-hour round trip. -The initiation of a statin is recommended. The patient will consider this. -A primary prevention aspirin should be considered. -Continue current antihypertensive medications. -We will set up a follow up appointment when the patient returns to the area in July or August. Jairo Davila MD, [facility] Thank you for this referral. If there are questions or you would like to discuss this patient further, please contact me at [phone] (option [phone]) or by email at [email or web address]. CC: Carlos Alberto Caban MD documented in this encounter Plan of Treatment Upcoming Encounters Date Type Department Care Team (Late st Contact Info) Description 02/08/2024 9:00 AM EST Appointment Non-[place] [address] Garth Gaspar MD [facility] [place] [address] documented as of this encounter Procedures Procedure Name Priority Date/Time Associated Diagnosis Comments EKG 12-LEAD Routine 12/22/2018 11:03 AM EDT Hypertension, unspecified type Tachycardia documented in this encounter Results * EKG 12 Lead (12/22/2018 11:03 AM EDT) Ventricular rate 58 BPM MUSE SYSTEM Atrial Rate 58 BPM MUSE SYSTEM P-R Interval 154 ms MUSE SYSTEM QRS Duration 132 ms MUSE SYSTEM Q-T Interval 464 ms MUSE SYSTEM QTC Calculated (Bezet) 455 ms MUSE SYSTEM Calculated P [place] 16 degrees MUSE SYSTEM Calculated R [place] 61 degrees MUSE SYSTEM Calculated T [place] 38 degrees MUSE SYSTEM INTERPRETATION Sinus bradycardia Right bundle branch block Abnormal ECG When compared with ECG of 18-NOV-2017 14:26, T wave inversion no longer evident in Anterior leads Confirmed by MD SARAH, SANFORD ([id number]) on 12/22/2018 6:08:19 PM MUSE SYSTEM 12/22/2018 11:0 3 AM EDT 12/22/2018 6:08 PM EDT Jairo Davila MD ECG ORDERABLES MUSE SYSTEM documented in this encounter Visit Diagnoses Diagnosis Hypertension, unspecified type Tachycardia Tachycardia, unspecified Thoracic aortic aneurysm without rupture Thoracic aneurysm without mention of rupture Cardiovascular event risk Right bundle branch block (RBBB) documented in this encounter Care Teams Belt Turner Relationship Specialty Start Date End Date Corbin Caban MD [address] [place] [address] PCP - General 11/12/14 documented as of this encounter
--- OUTSIDE RECORDS SUMMARY | 2023-11-02 14:11 | XMS_ITS | Encounter Summary ---
Author Organization [facility] Address [facility] [place] [address] Care Team Providers Care Methodologist Name Role Phone Corbin Caban MD Primary Care Provider [phone] Encounter Details Date Type Department Care Team (Late st Contact Info) Description 11/24/2018 1:30 PM EDT Office [place] [address] Carlos Alberto Coreas MD [facility] DR CARD[place] [address] Aortic root aneurysm Social History Tobacco Use Types Packs/Day Years [...] Sign Reading Time Taken Comments Blood Pressure 132/76 11/24/2018 1:06 PM EDT Pulse 117 11/24/2018 1:06 PM EDT Temperature - - Respiratory Rate - - Oxygen Saturation 95% 11/24/2018 1:06 PM EDT Inhaled Oxygen Concentration - - Weight 97.3 kg (214 lb 8 oz) 11/24/2018 1:06 PM EDT 211lb Height 174 cm (5' 8.5) 11/24/2018 1:06 PM EDT Body Mass Index 32.14 11/24/2018 1:06 PM EDT documented in this encounter Progress Notes * Carlos Alberto Coreas MD - 11/24/2018 1:30 PM EDT I am seeing Mr. Levin in followup HE has been fine. No specific complaints. No chest pain or shortness of breath. ECHO shows normal LVEF, no valve disease, aortic root 4.8 cm and ascending aorta 4.4 cm Outpatient Medications Marked as Taking for the 11/24/18 encounter (Office Visit) with Carlos Alberto Coreas MD Medication Sig Dispense Refill ??? SYMBICORT 80-4.5 mcg/actuation HFA Aerosol Inhaler ??? magnesium 250 mg Tablet Take 250 mg by mouth daily. ??? [DISCONTINUED] VENTOLIN HFA 90 mcg/actuation HFA Aerosol Inhaler ??? INOSITOL ORAL Take 510 mg by [...] ORAL Take 1 tablet by mouth daily. Physical Exam: BP 132/76 Pulse (!) 117 Ht 174 cm (5' 8.5) Wt 97.3 kg (214 lb 8 oz) Comment: 211lb SpO2 95% BMI 32.14 kg/m?? Lung: CTA CV: RRR, no murmur A/P: Stable aortic exam with normal function on echo. I am still bothered by his relatively persistent tachycardia. ECG last year showed no arrhythmia, but a RBBB. I think he should have a more formal cardiology evaluation for his tachycardia. I have asked Dr. Wilson to see if he could see him in the near future for a more formal evaluation. Otherwise, I would like to see Mr. Levin in one year with CT of the chest. documented in this encounter Plan of Treatment Upcoming Encounters Date Type Department Care Team (Late st Contact Info) Description 02/08/2024 9:00 AM EST Appointment Non-[place]vasive [place] [address] Garth Gaspar MD [facility] [place] [address] documented as of this encounter Visit Diagnoses Diagnosis Aortic root aneurysm Aortic aneurysm of unspecified site without mention of rupture documented in this encounter Care Teams Methodologist Relationship Specialty Start Date End Date Corbin Caban MD [address] [place] [address] [address] [place] [address] PCP - General 11/12/14 documented as of this encounter
--- OUTSIDE RECORDS SUMMARY | 2023-11-02 14:11 | XMS_ITS | Encounter Summary ---
Author Organization [facility] Address [facility] [place] [address] Care Team Providers Care Disabilities Caregiver Name Role Phone Corbin Caban MD Primary Care Provider [phone] Encounter Details Date Type Department Care Team (Latest Contact Info) Description 11/16/2019 3:20 PM EDT Office Visit Cardiology at [address] [place] [id number] Jairo Davila MD [facility] [address] Ascending aorta dilatation; Essential hypertension; ASCVD (arteriosclerotic cardiovascular disease) Social History Tobacco Use Types Packs/Day Years [...] Sign Reading Time Taken Comments Blood Pressure 142/83 11/16/2019 2:50 PM EDT Pulse 56 11/16/2019 2:50 PM EDT Temperature - - Respiratory Rate - - Oxygen Saturation 98% 11/16/2019 2:50 PM EDT Inhaled Oxygen Concentration - - Weight 89.8 kg (197 lb 14.4 oz) 11/16/2019 2:50 PM EDT Height 177.8 cm (5' 10) 11/16/2019 2:50 PM EDT Body Mass Index 28.4 11/16/2019 2:50 PM EDT documented in this encounter Progress Notes * Jairo Davila MD - 11/16/2019 3:20 PM EDT [facility] Outpatient Cardiology Patient: Ramiro Levin : 1950 Reason for follow up: Tachycardia, thoracic aortic aneurysm PCP: Corbin Caban MD Referring: Carlos Alberto Merida MD History of present illness: Ramiro Levin is a 69 y.o. male initially referred for the evaluation of tachycardia. ??The patient has had elevated heart rates at multiple visits with his cardiac surgeon, Dr. Merida,??as well as the finding of a right bundle branch block. ??The patient previously followed with Dr. Vitaly Kaur at [facility]. ??Cardiac history is remarkable for thoracic aortic aneurysm, stable on serial follow-up with a trileaflet aortic valve. ??The patient also reports a history of shortness of breath attributed to asthma. ??He also has hemochromatosis treated with phlebotomy. At a visit in August, we started atorvastatin 20 mg daily and continued blood pressure medications. We noted that a primary prevention aspirin should be considered. Planned for TTE in 11/2019 for surveillance of TAA. On interview today, the patient tells me that he feels well. He has not had any palpitations. He remains physically active without limitation. He has not had chest pain, chest pressure, or other cardiopulmonary issues since her last follow-up. His blood pressure is running in the 120 systolic at home regularly. He is happy with his quality of life and his current functional status. He underwent transthoracic echo immediately before this appointment. Review of systems: Cardiovascular: Denies chest pain or other cardiopulmonary symptoms at rest or with exertion; no orthopnea, LE edema, or PND; no palpitations Constitutional: Denies fevers, chills, or night sweats. Neurological: No seizures, migraines, or history of prior strokes. Respiratory: Denies cough, shortness of breath, history of asthma, or exposure to TB. GI: Denies abdominal pain, dark stools, bloody stools, vomiting. : Denies buring, frequency, blood in urine, dribbling and inability to control bladder or historyof kidney stones. Musculoskeletal: Denies joint swelling, joint pain, back pain, trauma/falls or history of gout, arthritis, or osteoporosis. Endocrine: Denies problems with thyroid or history of diabetes. Heme/Lymph: Denies easy bruising, dark stools, or rhina bleeding. Psych: Denies feelings of depression or anxiety. All others negative. Patient Active Problem List [...] ORAL Take 1 tablet by mouth daily. ??? atorvastatin (Lipitor) 20 mg Tablet Take 1 tablet by mouth daily. 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 Exam: Psych: The patient is able to relay the details of his medical course, and is oriented. ENT: Oropharynx clear with moist mucus membranes and no mucosal ulcerations. Cardiovascular: Heart rhythm is regular, rate controlled. PMI is palpated and is not displaced; there is no RV lift. S1 and S2 are normal. There is no systolic murmur, no diastolic murmur, no rubs orgallops. JVP is easily seen with the patient sitting upright and is estimated at less than 8 cm of water. Extremities: No LE edema. No stasis dermatitis or open ulcers. Respiratory: Clear to auscultation bilaterally; no labored breathing. Abdomen: Soft, nontender, and nondistended. No hepatosplenomegaly appreciated. Skin: No visible lesions or rashes. Neuro: No gross neurologic deficits. The patient can move all 4 limbs and has normal speech. There is no facial droop. Labs: CBC, CMP, lipids reviewed in scanned documents. Patient brings with him labs. Cr 0.9. LDL 101. AST and ALT normal. ?? ECGs: ECGs personally reviewed. 11/2013: Sinus [...] See remainder of report for additional findings. TTE (today): 1. The left ventricular chamber size is [...] measured aortic diameters have slightly increased. ?? Holter reviewed in scanned documents. ?? CTA chest from 2013 personally reviewed. ? Assessment: Cardiovascular #Question of arrhythmia, with sinus rhythm on serial ECGs, no evidence of arrhythmia with average HR 72 bpm on Holter #Thoracic aortic aneurysm, degenerative, with trileaflet and competent AV, no FH aortic dissection,stable on serial imaging, follows with Dr. Merida #ASCVD, nonobstructive (aortic and coronary calcium), not on lipid lowering therapy, last LDL 101, no anginal symptoms #Hypertension, controlled on home readings #Right bundle branch block, chronic, without symptoms of bradyarrhythmia Noncardiac #Hemochromatosis, treated with phlebotomy This is a very pleasant 69 y.o. male with history as above who presents follow- up. We are surveilling his thoracic aortic aneurysm, which has shown very slight increase in dimensions since last echo a year ago, under threshold for aortic surgery. There is no aortic regurgitation or valve disease. The patient reports well-controlled blood pressures at home, in the 120s systolic consistently. He attempted to take atorvastatin at a 20 mg dose but tells me it made him feel weird. He specifically denies muscle aches or history of rhabdomyolysis. This agent is indicated for both his ASCVD and thoracic aortic aneurysm. We will attempt a lower dose, and can increase in the future if patient tolerates. The patient was encouraged to reduce his daily alcohol intake. -Continue current BP medications. Use of rate lowering agents precluded by physiologic sinus bradycardia. -Monitor BP at home daily and record. -Re-attempt statin; script for atorvastatin 10 mg sent. -Follow up in 1 year with TTE at that time for surveillance of TAA. Jairo Davila MD, [facility], [facility] Cardiovascular Medicine Thank you for this referral. If you would like to discuss this patient, please contact me at [phone] or by email at [email or web address]. CC: MD Corbin Sue MD documented in this encounter Plan of Treatment Upcoming Encounters Date Type Department Care Team (Late st Contact Info) Description 02/08/2024 9:00 AM EST Appointment Non[place] [phone] Garth Gaspar MD [facility] [place] [address] documented as of this encounter Procedures Procedure Name Priority Date/Time Associated Diagnosis Comments EKG 12-LEAD Routine 11/16/2019 2:51 PM EDT Ascending aorta dilatation documented in this encounter Results * EKG 12 Lead (11/16/2019 2:51 PM EDT) Ventricular rate 56 BPM MUSE SYSTEM Atrial Rate 56 BPM MUSE SYSTEM P-R Interval 152 ms MUSE SYSTEM QRS Duration 134 ms MUSE SYSTEM Q-T Interval 470 ms MUSE SYSTEM QTC Calculated (Bezet) 453 ms MUSE SYSTEM Calculated P [place] 50 degrees MUSE SYSTEM Calculated R [place] 57 degrees MUSE SYSTEM Calculated T [place] 42 degrees MUSE SYSTEM INTERPRETATION Sinus bradycardia Right bundle branch block Abnormal ECG When compared with ECG of 22-DEC-2018 11:03, No significant change was found Confirmed by MD MARCIN, RODNEY ([id number]) on 11/17/2019 5:41:29 PM MUSE SYSTEM 11/16/2019 2:51 PM EDT 11/17/2019 5:41 PM EDT Jairo Davila MD ECG ORDERABLES MUSE SYSTEM documented in this encounter Visit Diagnoses Diagnosis Ascending aorta dilatation Thoracic aortic ectasia Essential hypertension Unspecified essential hypertension ASCVD (arteriosclerotic cardiovascular disease) Unspecified cardiovascular disease documented in this encounter Care Teams Disabilities Caregiver Relationship Specialty Start Date End Date Corbin Caban MD [address] [place] [address] [address] [place] [address] PCP - General 11/12/14 documented as of this encounter
--- OUTSIDE RECORDS SUMMARY | 2023-11-02 14:11 | XMS_ITS | Encounter Summary ---
Author Organization [facility] [place] [address] Care Team Providers Care Prosthetic Lab Technician Name Role Phone Corbin Caban MD Primary Care Provider [phone] [phone] Encounter Details Date Type Department Care Team (Late st Contact Info) Description 01/11/2019 Telephone Cardiology at [address] [address] Jairo Davila MD [facility] [place] [place] [address] Social History Tobacco Use Types Packs/Day Years [...] encounter Miscellaneous Notes * Telephone Encounter - Jairo Davila MD - 01/11/2019 12:13 PM EST Holter results reviewed. Unremarkable. Average HR 72 bpm, no significant arrhythmias. Attempted to reach patient at home telephone number to communicate these results. Message left with callback number. Jairo Davila MD, DANA Cardiovascular Medicine documented in this encounter Plan of Treatment Upcoming Encounters Date Type Department Care Team (Late st Contact Info) Description 02/08/2024 9:00 AM EST Appointment Non[place] [address] Garth Gaspar MD [facility] [place] [address] documented as of this encounter Visit Diagnoses Not on filedocumented in this encounter Care Teams Prosthetic Lab Technician Relationship Specialty Start Date End Date Corbin Caban MD [address] [place] [address] PCP - General 11/12/14 documented as of this encounter
--- OUTSIDE RECORDS SUMMARY | 2023-11-02 14:11 | XMS_ITS | Encounter Summary ---
Author Organization [facility] [place] [address] Care Team Providers Care Networker Name Role Phone Corbin Caban MD Primary Care Provider [phone] [phone] Encounter Details Date Type Department Care Team (Latest Contact Info) Description 12/07/2022 Travel Social History Tobacco Use Types Packs/Day Years [...] 9:00 AM EST Appointment Non-[place] [address] Garth Gaspar MD [facility] [place] [address] documented as of this encounter Visit Diagnoses Not on filedocumented in this encounter Care Teams Networker Relationship Specialty Start Date End Date Corbin Caban MD [address] [place] [address] PCP - General 11/12/14 documented as of this encounter
--- OUTSIDE RECORDS SUMMARY | 2023-11-02 14:11 | XMS_ITS | Encounter Summary ---
Author Organization [facility] Address [facility] [place] [address] Care Team Providers Care Gun Striper Name Role Phone Corbin Caban MD Primary Care Provider [phone] Reason for Referral * Diagnostic Test (Routine) - New Request Specialty Diagnoses / Procedures Referred By Nikhil robledo Referred To Contact Cardiology Diagnoses Ascending aorta dilatation ASCVD (arteriosclerotic cardiovascular disease) Procedures Echocardiogram Transthoracic Fco Verduzco PA [facility] [place] [address] [facility] [place] [address] Referral ID Status Reason Start Date Expiration Date Visits Requested Visits Authorized [id number] New Request Specialty Service Requested 12/07/2022 12/07/2023 1 1 Encounter Details Date Type Department Care Team (Latest Contact Info) Description 12/07/2022 2:00 PM EDT Office Visit Cardiology at [address] [address] Fco Verduzco PA [facility] [place] [address] Ascending aorta dilatation; ASCVD (arteriosclerotic cardiovascular disease) Social History Tobacco [...] Sign Reading Time Taken Comments Blood Pressure 129/80 12/07/2022 1:38 PM EDT Pulse 53 12/07/2022 1:38 PM EDT Temperature - - Respiratory Rate - - Oxygen Saturation 99% 12/07/2022 1:38 PM EDT Inhaled Oxygen Concentration - - Weight 91.7 kg (202 lb 3.2 oz) 12/07/2022 1:38 P M EDT Height - - Body Mass Index 29.86 10/02/2021 9:04 AM EDT documented in this encounter Progress Notes * Fco Verduzco PA - 12/07/2022 2:00 PM EDT [facility] Interventional Cardiology Reason for Visit: follow up: routine: tachycardia + RBBB Primary provider: Corbin Caban MD [address] [place] [address] [address] [place] [address] Silver Service Waiter: Jairo Davila MD ([facility] Cards) Problem List: HTN Ascending Aorta Dilation Asthma, chronic Patient Active Problem List Diagnosis Hypertension Hemochromatosis Ascending aorta dilatation Elevated liver function tests HPI: Ramiro Levin is a 72 y.o. male very pleasant patient who has previously followed with Dr Davila and who is seen in cardiology clinic for evaluation of his aortic dilation with imaging completedtoday. The patient previously followed with Dr. Vitaly Kaur at [facility]. Cardiac history is remarkable for thoracic aortic aneurysm, stable on serial follow-up with a trileaflet aortic valve. The patient also reports a history of shortness of breath attributed to asthma. Jarod has hemochromatosis treated with phlebotomy. We previously started atorvastatin 20 mg daily. He had a follow up echo in 12/2020 which showed stable aortic dimension Last visit with Dr Davila was about six months ago. At that time, repeat imaging was completed. The TAA has been stable across various modalities. He lives in [facility]. He loves golfing and fishing. He is active, with golf, around the house,and other activities. He reports that he has no perceived limitations in activities. He has no chest pain, pressure or palpitations. He has no shortness of breath. No peripheral edema, no lightheaded episodes or syncope. He states he is doing quite well. Never smoker. + Hx Family Hx CAD He will be going to [place] next week, for the winter, until June. He goes to [place], which he says is [place], as in the last few years he has kicked out the Spring breakers. ALLERGIES: No Known Allergies MEDICATIONS: Current Outpatient Medications: atorvastatin (Lipitor) 10 mg Tablet, Take 1 tablet by mouth every evening., Disp: 90 tablet, Rfl: 3 GARLIC ORAL, Take by mouth daily., Disp: , Rfl: SYMBICORT 80-4.5 mcg/actuation HFA Aerosol Inhaler, , Disp: , Rfl: magnesium 250 mg Tablet, Take 250 mg by mouth daily., Disp: , Rfl: ascorbic acid, Vitamin C, (Vitamin C) 500 mg tablet, Take 500 mg by mouth daily., Disp: , Rfl: amlodipine-benazepril (LOTREL) 5-20 mg per capsule, Take 1 capsule by mouth daily., Disp: , Rfl: multivitamin (THERAGRAN) tablet, Take 1 tablet by mouth daily., Disp: , Rfl: ZINC ACETATE ORAL, Take 1 tablet by mouth daily., Disp: , Rfl: allopurinol (ZYLOPRIM) 300 mg tablet, Take 150 mg by mouth daily., Disp: , Rfl: ROS: CONSTITUTIONAL: No weight loss, fever, chills, weakness or fatigue. HEENT: Eyes: No visual loss, blurred vision, double vision or scleral iscterus. No sinus tendernessor palpable thyromegaly. SKIN: No rashes. CARDIOVASCULAR: No chest pain, chest pressure or chest discomfort. No palpitations No edema. No orthopnea or PND. No syncope RESPIRATORY: No shortness of breath, cough or sputum. No hemoptysis GASTROINTESTINAL: No anorexia, nausea, vomiting or diarrhea. No abdominal pain. No BRBPR or melena GENITOURINARY: No hematuria or dysuria NEUROLOGICAL: No headache, dizziness, syncope, paralysis, ataxia, numbness or tingling in the extremities. No change in bowel or bladder control. MUSCULOSKELETAL: No muscle, back pain, joint pain or stiffness. HEMATOLOGIC: No anemia, bleeding or bruising. LYMPHATICS: No enlarged nodes. No history of splenectomy. PSYCHIATRIC: No history of depression or anxiety. ENDOCRINOLOGIC: No reports of sweating, cold or heat intolerance. No polyuria or polydipsia. ALLERGIES: No history of asthma, hives, eczema or rhinitis. PHYSICAL EXAM: Constitutional: In general, alert and oriented X 3 pleasant male The patient readily recounts the specifics of his medical care and can easily ambulate around the exam room. Vitals Flowsheet Row Office Visit from 12/07/2022 in Cardiology at [facility] Weight 91.7 kg (202 lb 3.2 oz) Heart Rate 53 BP 129/80 Patient Position Sitting SpO2 99 % Eyes: No scleral icterus or pale conjunctiva; no corneal arcus Ears, Nose, mouth, throat: No sinus tenderness; moist oral mucosa; no epistaxis; no visible thyromegaly Respiratory: Clear to auscultation bilaterally with good air entry bilaterally GI: No abdominal pain; + bowel sounds; no rigidity or guarding Cardiovascular: The heart rate is regular. S1 and S2 are normal and unobscured. There are no audible murmurs. Carotid upstroke is normal with no audible carotid bruits MSK: No joint deformity; No evidence of tendon xanthomas Skin: No visible rashes or bruises Neuro: Non-focal. Moves all extremities without limitation. CN nerves not examined. Psych: Mood appropriate Extremity: RLE: No LE edema LLE: No LE edema RUE: 2+ radial pulse LUE: 2+ radial pulse DIAGNOSTIC TESTS: TTE ECHO TODAY: 12/07/2022 Interpretation Summary 1. The left ventricle is [...] and ascending 4.5 cm (from 4.4 cm). ECGs: ECGs personally reviewed. 11/2013: Sinus tachycardia at 110 bpm. Possible inferior infarct. 11/18/17: Sinus rhythm at 73 bpm. Sinus arrhtymia. RBBB. 12/2018: Sinus bradycardia at 58 bpm. RBBB. TTE [...] remainder of report for additional findings. TTE (11/2019): 1. The left ventricular chamber [...] the measured aortic diameters have slightly increased. TTE (12/2020): 1. The left ventricular chamber [...] with CT or MRI as clinically indicated. MRI ANGIO CHEST 11/2021 FINDINGS: Tricuspid, trileaflet aortic valve. The opening [...] the level of the diaphragm: 27 mm A/P: Ramiro Levin is a 72 y.o. male seen in cardiology clinic for follow up discussion of his tachycardia and ascending aorta dilation. Medical history includes chronic asthma, hypertension, thoracic aortic dilation, hemachromatosis. The patient is clinically asymptomatic and hemodynamically stable. Today we reviewed his medical history and prior and recent imaging. This is reassuring as his TAA has been quite stable, and he is asymptomatic, with good BP control. HTN: well controlled on current meds with focus on walking and eating well. Aortic root dilation: asymptomatic. Stable sizing on repeat TTE today. Preserved LVEF. Trileaflet aortic valve, no connective tissue disease history, no aortic valve regurg. Follow up imaging of TAA with either TTE vs MRI chest vs CT scan (he has had all modalities previously, but TTE most recently) to monitor sizing. Follow up one year, with repeat TTE. We will see him sooner should he develop any symptoms. No medication changes today. JOSR Alvarez 12/07/2022 2:07 PM [facility] Pager [phone] A total of 44 minutes spent on this visit including chart review, review of tests and pertinent imaging studies as well as direct communication with patient. documented in this encounter Plan of Treatment Upcoming Encounters Date Type Department Care Team (Late st Contact Info) Description 02/08/2024 9:00 AM EST Appointment Non-[place] [address] Garth Gaspar MD [facility] [place] [address] Scheduled Orders Name Type Priority Associated Diagnoses Orde r Schedule Echocardiogram Transthoracic Echocardiography Routine Ascending aorta dilatation ASCVD (arteriosclerotic cardiovascular disease) Expected: 12/08/2023 (Approximate), Expires: 03/07/2024 documented as of this encounter Visit Diagnoses Diagnosis Ascending aorta dilatation Thoracic aortic ectasia ASCVD (arteriosclerotic cardiovascular disease) Unspecified cardiovascular disease documented in this encounter Care Teams Gun Striper Relationship Specialty Start Date End Date Corbin Caban MD [address] [facility] [place] [address] PCP - General 11/12/14 documented as of this encounter
--- OUTSIDE RECORDS SUMMARY | 2023-11-02 14:11 | XMS_ITS | Encounter Summary ---
Author Organization [facility] Address [facility] [place] [address] Care Team Providers Care Program Coordinator Name Role Phone Corbin Caban MD Primary Care Provider [phone] Reason for Referral * Diagnostic Test (Routine) - Closed Specialty Diagnoses / Procedures Referred By Nikhil robledo Referred To Contact Cardiology Diagnoses Ascending aorta dilatation Procedures Echocardiogram Transthoracic Julisa Davila MD [facility] [address] [facility] [place] [address] Referral ID Status Reason Start Date Expiration Date V isits Requested Visits Authorized [id number] Closed Specialty Service Requested 09/09/2022 09/09/2023 1 1 Reason for Visit * Diagnostic Test (Routine) - Closed Specialty Diagnoses / Procedures Referred By Nikhil robledo Referred To Contact Cardiology Diagnoses Ascending aorta dilatation Procedures Echocardiogram Transthoracic Julisa Davila MD [facility] [address] [facility] [place] [address] Referral ID Status Reason Start Date Expiration Date V isits Requested Visits Authorized [id number] Closed Specialty Service Requested 09/09/2022 09/09/2023 1 1 Encounter Details Date Type Department Care Team (Latest Contact Info) Description 12/07/2022 12:13 PM EDT - 12/07/2022 11:59 PM EDT Hospital Encounter Non-[place]vasive [place] [phone] Julisa Davila MD [facility] [place] [address] Ascending aorta dilatation Discharge Disposition: Home Social [...] Sig Dispensed Refills Start Date End Date atorvastatin (Lipitor) 10 mg tabletIndications:ASCVD (arteriosclerotic cardiovascular disease) Take 1 tablet by mouth every evening. 90 tablet 3 12/07/2022 GARLIC ORAL Take by mouth daily. SYMBICORT [...] ORAL Take 1 tablet by mouth daily. documented as of this encounter Plan of Treatment Upcoming Encounters Date Type Department Care Team (Late st Contact Info) Description 02/08/2024 9:00 AM EST Appointment Non-[place] [phone] Garth Gaspar MD [facility] [address] documented as of this encounter Procedures Procedure Name Priority Date/Time Associated Diagnosis Comments ECHO COMPLETE Routine 12/07/2022 1:00 PM EDT Ascending aorta dilatation documented in this encounter Results * ECHO COMPLETE (12/07/2022 1:00 PM EDT) EF 55 HEARTLAB SYSTEM Anatomical Region Laterality Modality Cardiac Other 12/07/2022 12:3 2 PM EDT Narrative 12/07/2022 1:34 PM EDT ? Echocardiogram Report Name: DB LEVIN ? Study Date: 12/07/2022 12:32 PMBP: 127/77 mmHg ? Patient Location: 4A : 1950 ? Height: 69 in ? Account: [id number] Age: 72 yrs ? Weight: 200 lb Gender: Male ?BSA: 2.1 m2 Ordering Physician: JULISA DAVILA Referring Physician: JULISA DAVILA Performed By: Kourtney Molina RDCS Reason For Study: Ascending aorta dilatation [I77.810 (ICD-10-CM)] Exam Location: [facility]. Interpretation Summary 1. The left ventricle is [...] ascending 4.5 cm (from 4.4 cm). Procedure Complete-[id number]. Satisfactory quality. Left Ventricle Left ventricle is [...] Echocardiogram Report Name: DB LEVIN Study Date: 2:32 PMBP: 127/77 mmHg Patient Location: 4A : 1950 Height: 69 in Account: [id number] Age: 72 yrs Weight: 200 lb Gender: Male BSA: 2.1 m2 Ordering Physician: JULISA DAVILA Referring Physician: JULISA DAVILA Performed By: Kourtney Molina RDCS Reason For Study: Ascending aorta dilatation [I77.810 (ICD-10-CM)] Exam Location: [facility]. Interpretation Summary 1. The left ventricle is [...] andascending 4.5 cm (from 4.4 cm). Procedure Complete-[id number]. Satisfactory quality. Left Ventricle Left ventricle is [...] ectasia documented in this encounter Care Teams Program Coordinator Relationship Specialty Start Date End Date Corbin Caban MD [address] [place] [address] PCP - General 11/12/14 documented as of this encounter
--- OUTSIDE RECORDS SUMMARY | 2023-11-02 14:11 | XMS_ITS | Encounter Summary ---
Author Organization [facility] Address [facility] [place] [address] Care Team Providers Care Muff Winder Name Role Phone Corbin Caban MD Primary Care Provider [phone] [phone] Encounter Details Date Type Department Care Team (Late st Contact Info) Description 11/06/2019 Orders Only Cardiology at [address] [phone] Amanda Wade RN Ascending aorta dilatation Social History Tobacco Use Types Packs/Day Years [...] 9:00 AM EST Appointment Non[place] [address] Garth Gaspar MD [facility] [place] [address] documented as of this encounter Results * EKG 12 Lead (11/16/2019 2:51 PM EDT) Ventricular rate 56 BPM MUSE SYSTEM Atrial Rate 56 BPM MUSE SYSTEM P-R Interval 152 ms MUSE SYSTEM QRS Duration 134 ms MUSE SYSTEM Q-T Interval 470 ms MUSE SYSTEM QTC Calculated (Bezet) 453 ms MUSE SYSTEM Calculated P [place] 50 degrees MUSE SYSTEM Calculated R [place] 57 degrees MUSE SYSTEM Calculated T [place] 42 degrees MUSE SYSTEM INTERPRETATION Sinus bradycardia [...] ectasia documented in this encounter Care Teams Muff Winder Relationship Specialty Start Date End Date Corbin Caban MD [address] [place] [address] PCP - General 11/12/14 documented as of this encounter
--- OUTSIDE RECORDS SUMMARY | 2023-11-02 14:11 | XMS_ITS | Encounter Summary ---
Author Organization [facility] [place] [address] Care Team Providers Care Brake Rider Name Role Phone Corbin Caban MD Primary Care Provider [phone] [phone] Reason for Referral * Diagnostic Test (Routine) - Closed Specialty Diagnoses / Procedures Referred By Sydac t Referred To Contact Cardiology Diagnoses Aortic root dilatation Procedures Echocardiogram Transthoracic(Leb) Radha Olvera [employer] [facility] [place] [address] [facility] [place] [address] Referral ID Status Reason Start Date Expiration Date V isits Requested Visits Authorized [id number] Closed Specialty Service Requested 10/04/2018 10/04/2019 1 1 Reason for Visit * Diagnostic Test (Routine) - Closed Specialty Diagnoses / Procedures Referred By Contac t Referred To Contact Cardiology Diagnoses Aortic root dilatation Procedures Echocardiogram Transthoracic(Leb) Radha Olvera [facility] [place] [address] [facility] [place] [address] Referral ID Status Reason Start Date Expiration Date V isits Requested Visits Authorized [id number] Closed Specialty Service Requested 10/04/2018 10/04/2019 1 1 Encounter Details Date Type Department Care Team (Latest Contact Info) Description 11/24/2018 11:46 AM EDT - 11/24/2018 11:59 PM EDT Hospital Encounter Non-[place] [phone] Radha Olvera APRN [facility] [place] [address] Aortic root dilatation Discharge Disposition: Home Social History Tobacco [...] Sig Dispensed Refills Start Date End Date SYMBICORT 80-4.5 mcg/actuation HFA Aerosol Inhaler 11/17/2018 [...] ORAL Take 1 tablet by mouth daily. INOSITOL ORAL Take 510 mg by mouth daily as needed. 08/03/2019 ALBUTEROL, REFILL, INHL Inhale into the lungs as needed. 08/03/2019 documented as of this encounter Plan of Treatment Upcoming Encounters Date Type Department Care Team (Late st Contact Info) Description 02/08/2024 9:00 AM EST Appointment Non-[place] [address] Garth Gaspar MD [facility] [place] [address] documented as of this encounter Procedures Procedure Name Priority Date/Time Associated Diagnosis Comments ECHO COMPLETE Routine 11/24/2018 12:44 PM EDT Aortic root dilatation documented in this encounter Results * ECHO COMPLETE (11/24/2018 12:44 PM EDT) EF 67 HEARTLAB SYSTEM Anatomical Region Laterality Modality Other 11/24/2018 Narrative 11/24/2018 12:50 PM EDT Procedure: ?Transthoracic Echocardiogram Patient: ?BUTTS DB ?(Age): 1950(68y) Med Rec#: ? [id number] ?Sex: ?M ? [place] [facility] [place]Ht / Wt: ??175(cm)/94(kg) Pt. Loc: ?Echo Lab ?BSA: ?2.09 Study Date: ?? 11/24/2018 ?Pt. Type: Outpatient Tape: ? Referring: YVONNE Reading: Jairo Davila ??([id number]) Specialty Cook: Jose Rivera [facility] Diagnosis: *Thoracic aortic ectasia (I77.810) BP: ? 124/86 SUMMARY: 1. The left ventricular chamber size [...] ventricular wall thickness is normal. ?There is no evidence of LVOT obstruction. ?No ventricular septal defect is visualized. ?There is normal global left ventricular systolic function. ?The quantitative left ventricular ejection fraction by biplane Sagastume's method is 67%. ?There are no left ventricular segmental wall motion abnormalities. ?The left ventricular diastolic filling pattern is consistent with impaired LV relaxation. ?Doppler assessment is consistent with normal left sided filling pressure. Left Atrium: ? The left atrium is normal in size. ?There is no evidence of a patent foramen ovale by color Doppler. Right Ventricle: ? Right ventricular chamber size, wall thickness, and systolic function are within normal limits. ?The estimated pulmonary artery systolic pressure is 21 mmHg. ?The estimated right atrial pressure is 3 mmHg. Right Atrium: ? The right atrium is normal in size. Aortic Valve: ? The aortic valve is tricuspid. ?Systolic excursion of the aortic valve is normal. ?There is no evidence of aortic valve stenosis. ?There is a trace of aortic regurgitation present. Mitral Valve: ? The mitral valve leaflets appear normal. ?There is trace mitral regurgitation present. Tricuspid Valve: ? The tricuspid valve leaflets are morphologically normal. ?There is trace tricuspid regurgitation present. Pulmonic Valve: ? The pulmonic valve appears normal. ?There is trace pulmonic regurgitation present. Pericardium: ? The pericardium appears normal and there is no evidence of a pericardial effusion. Aorta: ? There is moderate dilatation of the aortic root.4.8cm ?There is moderate dilatation of the ascending aorta. 4.4cm from the RSB as well. ?There is moderate dilatation of the aortic arch. 4.1cm ?The descending aorta is normal in size. ?The abdominal aorta is normal in size. Pulmonary Artery: ? The main pulmonary artery appears normal. Venous: ? The inferior vena cava appears normal in size. ?There is a greater than 50% respiratory change in the inferior vena cava dimension. Misc: ? There is no hemodynamically significant valve disease. ?See remainder of report for additional findings. ?Two-dimensional echo, spectral Doppler and color Doppler performed. Chambers 2D ?Value ?Units (Range) ? IVSd (2D) ? 1.1 ?cm ? LVPWd (2D) ?1 ?cm ? IVS:LVPW ratio (2D) 1.2 ?ratio ? RWT (2D) ?0.5 ?ratio ? RWT PW (2D) ? 0.5 ?ratio ? LVIDd (2D) ?4.3 ?cm ? LVIDs (2D) ?2.6 ?cm ? LVIDd (2D) index ?2.1 ?cm/m2 ? LVIDs (2D) index ?1.2 ?cm/m2 ? LV FS (2D) ?40 ? % ? EF Teichholz (2D) ?? 70 ? % ? Ao root diameter (2D4.8 ?cm (2.1 - 3.6) ? Ascending Ao ?4.4 ?cm (2 - 3.5) ? Volumes/Mass ?Value ?Units (Range) ? LA Area 4 CH ?21.7 ? cm2 (<21) ? LA ESV BP (A/L) inde36 ? ml/m2 ? RA AREA 4CH ? 16.8 ? cm2 ? LV ESV SP 4CH (MOD) 30 ? ml ? LV ESV SP 2CH (MOD) 24.3 ? ml ? LV EDV BP ? 83.7 ? ml ? LV ESV BP ? 27.8 ? ml ? LV EDV BP index ? 40 ? ml/m2 ? LV ESV BP index ? 13.3 ? ml/m2 ? BP EF (MOD) ? 67 ? % ? LV mass (2D) ?149.6 ?g ? LV mass (2D) index ??71.6 ? g/m2 ? Diastolic/Systolic Function ?Value ?Units (Range) ? MV E-wave Vmax ?0.6 ?m/sec ? MV deceleration reaa121.9 ?msec ? MV A-wave Vmax ?0.9 ?m/sec ? MV E:A ratio ?0.7 ?ratio ? LV septal e' Vmax ?? 0.1 ?m/sec ? LV lateral e' Vmax ??0.1 ?m/sec ? LV average e' Vmax ??0.1 ?m/sec ? LV E:e' septal ratio7.9 ?ratio ? LV E:e' lateral rati7 ?ratio ? LV average E:e' rati7.9 ?ratio ? Tricuspid Valve ?Value ?Units (Range) ? TR Vmax ? 2.1 ?m/sec ? TR peak gradient ?18.3 ? mmHg ? RAP ? 3 ?mmHg ? RVSP ?21 ? mmHg ? Wall Motion: Segment Name ?Rest ? Base-Anteroseptal ?? Normal ? Base-Anterior ? Normal ? Base-Anterolateral ??Normal ? Base-Posterolateral Normal ? Base-Inferior ? Normal ? Base-Inferoseptal ?? Normal ? Mid-Anteroseptal ?Normal ? Mid-Anterior ?Normal ? Mid-Anterolateral ?? Normal ? Mid-Posterolateral ??Normal ? Mid-Inferior ?Normal ? Mid-Inferoseptal ?Normal ? [place]-Septal ? Normal ? [place]-Anterior ? Normal ? [place]-Lateral ?Normal ? [place]-Inferior ? Normal ? [place]-Tip ?Normal ? This report has been electronically signed by: Jairo Davila MD ? 11/24/2018 12:50:15 Images reviewed and interpretation verified [facility] Cardiac Ultrasound Laboratory Procedure Note Jairo Davila MD - 11/24/2018 Procedure: Transthoracic Echocardiogram Patient: OLLIE ACE DOB(Age): 1950(68y) Med Rec#: [id number] Sex: M [place] [facility] [place]t / Wt: 175(cm)/94(kg) Pt. Loc: Echo Lab BSA: 2.09 Study Date: 11/24/2018 Pt. Type: Outpatient Tape: Referring: YVONNE Reading: Jairo Davila ([id number]) Specialty Cook: Jose Rivera [facility] Diagnosis: *Thoracic aortic ectasia (I77.810) BP: 124/86 SUMMARY: 1. The left ventricular chamber size [...] ventricular wall thickness is normal. There is no evidence of LVOT obstruction. No ventricular septal defect is visualized. There is normal global left ventricular systolic function. The quantitative left ventricular ejection fraction by biplane Sagastume's method is 67%. There are no left ventricular segmental wall motion abnormalities. The left ventricular diastolic filling pattern is consistent with impaired LV relaxation. Doppler assessment is consistent with normal left sided filling pressure. Left Atrium: The left atrium is normal in size. There is no evidence of a patent foramen ovale by color Doppler. Right Ventricle: Right ventricular chamber size, wall thickness, and systolic function are within normal limits. The estimated pulmonary artery systolic pressure is 21 mmHg. The estimated right atrial pressure is 3 mmHg. Right Atrium: The right atrium is normal in size. Aortic Valve: The aortic valve is tricuspid. Systolic excursion of the aortic valve is normal. There is no evidence of aortic valve stenosis. There is a trace of aortic regurgitation present. Mitral Valve: The mitral valve leaflets appear normal. There is trace mitral regurgitation present. Tricuspid Valve: The tricuspid valve leaflets are morphologically normal. There is trace tricuspid regurgitation present. Pulmonic Valve: The pulmonic valve appears normal. There is trace pulmonic regurgitation present. Pericardium: The pericardium appears normal and there is no evidence of a pericardial effusion. Aorta: There is moderate dilatation of the aortic root.4.8cm There is moderate dilatation of the ascending aorta. 4.4cm from the RSB as well. There is moderate dilatation of the aortic arch. 4.1cm The descending aorta is normal in size. The abdominal aorta is normal in size. Pulmonary Artery: The main pulmonary artery appears normal. Venous: The inferior vena cava appears normal in size. There is a greater than 50% respiratory change in the inferior vena cava dimension. Misc: There is no hemodynamically significant valve disease. See remainder of report for additional findings. Two-dimensional echo, spectral Doppler and color Doppler performed. Chambers 2D Value Units (Range) IVSd (2D) 1.1 cm LVPWd (2D) 1 cm IVS:LVPW ratio (2D) 1.2 ratio RWT (2D) 0.5 ratio RWT PW (2D) 0.5 ratio LVIDd (2D) 4.3 cm LVIDs (2D) 2.6 cm LVIDd (2D) index 2.1 cm/m2 LVIDs (2D) index 1.2 cm/m2 LV FS (2D) 40 % EF Teichholz (2D) 70 % Ao root diameter (2D4.8 cm (2.1 - 3.6) Ascending Ao 4.4 cm (2 - 3.5) Volumes/Mass Value Units (Range) LA Area 4 CH 21.7 cm2 (<21) LA ESV BP (A/L) inde36 ml/m2 RA AREA 4CH 16.8 cm2 LV ESV SP 4CH (MOD) 30 ml LV ESV SP 2CH (MOD) 24.3 ml LV EDV BP 83.7 ml LV ESV BP 27.8 ml LV EDV BP index 40 ml/m2 LV ESV BP index 13.3 ml/m2 BP EF (MOD) 67 % LV mass (2D) 149.6 g LV mass (2D) index 71.6 g/m2 Diastolic/Systolic Function Value Units (Range) MV E-wave Vmax 0.6 m/sec MV deceleration qpsb884.9 msec MV A-wave Vmax 0.9 m/sec MV E:A ratio 0.7 ratio LV septal e' Vmax 0.1 m/sec LV lateral e' Vmax 0.1 m/sec LV average e' Vmax 0.1 m/sec LV E:e' septal ratio7.9 ratio LV E:e' lateral rati7 ratio LV average E:e' rati7.9 ratio Tricuspid Valve Value Units (Range) TR Vmax 2.1 m/sec TR peak gradient 18.3 mmHg RAP 3 mmHg RVSP 21 mmHg Wall Motion: Segment Name Rest Base-Anteroseptal Normal Base-Anterior Normal Base-Anterolateral Normal Base-Posterolateral Normal Base-Inferior Normal Base-Inferoseptal Normal Mid-Anteroseptal Normal Mid-Anterior Normal Mid-Anterolateral Normal Mid-Posterolateral Normal Mid-Inferior Normal Mid-Inferoseptal Normal [place]-Septal Normal [place]-Anterior Normal [place]-Lateral Normal [place]-Inferior Normal [place]-Tip Normal This report has been electronically signed by: Jairo Davila MD 11/24/2018 12:50:15 Images reviewed and interpretation verified [facility] Cardiac Ultrasound Laboratory Radha May KRISHNA ECHO ORDERABLES documented in this encounter Visit Diagnoses Diagnosis Aortic root dilatation Thoracic aortic ectasia documented in this encounter Care Teams Brake Rider Relationship Specialty Start Date End Date Corbin Caban MD [address] [place] [address] [address] [place] [address] PCP - General 11/12/14 documented as of this encounter
--- OUTSIDE RECORDS SUMMARY | 2023-11-02 14:11 | XMS_ITS | Encounter Summary ---
Author Organization [facility] [place] [address] Care Team Providers Care Service Dispatcher Name Role Phone Corbin Caban MD Primary Care Provider [phone] [phone] Encounter Details Date Type Department Care Team (Late st Contact Info) Description 08/03/2019 Telephone Cardiology at [address] [phone] Rachel Buchanan LNA Social History Tobacco Use Types Packs/Day Years [...] encounter Miscellaneous Notes * Telephone Encounter - Rachel Phillips LNA - 08/03/2019 3:36 PM EDT Patient taking all medications listed. Reported morning weight of 194.2 lbs. No other vitals to report. No recent hospitalizations. No concerns. Patient confirmed August 05 telephone visit. documented in this encounter Plan of Treatment Upcoming Encounters Date Type Department Care Team (Late st Contact Info) Description 02/08/2024 9:00 AM EST Appointment Non-Invasive [place] [phone] Garth Gaspar MD [facility] [place] [address] documented as of this encounter Visit Diagnoses Not on filedocumented in this encounter Care Teams Service Dispatcher Relationship Specialty Start Date End Date Corbin Caban MD [address] [facility] [place] [address] PCP - General 11/12/14 documented as of this encounter
--- OUTSIDE RECORDS SUMMARY | 2023-11-02 14:11 | XMS_ITS | Encounter Summary ---
[place] [address] Care Team Providers Care Teletypist Name Role Phone Corbin Caban MD Primary Care Provider +1 [phone] Reason for Visit * Reason Onset Date Comments Other 01/09/2019 Holter results Encounter Details Date Type Department Care Team (Late st Contact Info) Description 01/09/2019 Telephone Cardiology at [address] [address] Precious Spicer, RN Other (Holter results ) Social History Tobacco Use Types Packs/Day Years [...] encounter Miscellaneous Notes * Telephone Encounter - Precious Spicer RN - 01/09/2019 3:58 PM EST Voice message received from Ramiro requesting follow up from Dr Davila re: Holter results . Patient can be reached at his cell # [phone]. Leaving this coming Tuesday01/14/19 for 5 months and would like results before leaving . Forward to Dr Davila ,results have been scanned into pt's EMR. documented in this encounter Plan of Treatment Upcoming Encounters Date Type Department Care Team (Late st Contact Info) Description 02/08/2024 9:00 AM EST Appointment Non-Invasive [place] [address] Garth Gaspar MD [facility] [place] [address] documented as of this encounter Visit Diagnoses Not on filedocumented in this encounter Care Teams Teletypist Relationship Specialty Start Date End Date Corbin Caban MD [address] [place] [address] PCP - General 11/12/14 documented as of this encounter
--- OUTSIDE RECORDS SUMMARY | 2023-11-02 14:11 | XMS_ITS | Clinical Summary ---
Author Organization [facility] Address [facility] [place] [address] Care Team Providers Care Acid Conditioning Worker Name Role Phone Corbin Caban MD Primary Care Provider +1 [phone] Allergies No known active allergies Medications Medication Sig Dispensed Refills Start Date End Date Status allopurinol (ZYLOPRIM) 300 mg tablet Take 150 mg by mouth daily. Active amlodipine-benazepril (LOTREL) 5-20 mg per capsule Take 1 capsule by mouth daily. Active multivitamin (THERAGRAN) tablet Take 1 tablet by mouth daily. Active ZINC ACETATE ORAL Take 1 tablet by mouth daily. Active ascorbic acid, Vitamin C, (Vitamin C) 500 mg tablet Take 500 mg by mouth daily. Active SYMBICORT 80-4.5 mcg/actuation HFA Aerosol Inhaler 11/17/2018 Active magnesium 250 mg Tablet Take 250 mg by mouth daily. Active GARLIC ORAL Take by mouth daily. Active atorvastatin (Lipitor) 10 mg tabletIndications:ASCVD (arteriosclerotic cardiovascular disease) Take 1 tablet by mouth every evening. 90 tablet 3 12/07/2022 Active Active Problems Problem Noted Date Diagnosed Date Hypertension 02/16/2013 Hemochromatosis 02/16/2013 Ascending aorta dilatation 02/16/2013 Elevated liver function tests 10/07/2011 Encounters Date Type Department Care Team Description 10/05/2023 Orders [place] [phone] Fco Verduzco PA Aneurysm of ascending aorta without rupture from Last 3 Months Family History Medical History Relation Comments Hypertension Father Stroke Father Dementia Mother Hypertension Mother Relation Status Comments Father (Age 85) Mother Alive Sister Alive Social History Tobacco Use Types Packs/Day Years Used Date Smoking Tobacco: Never Smokeless Tobacco: Never Alcohol Use Standard Drinks/Week Comments Yes 0 (1 standard drink = 0.6 oz pur e alcohol) Sex and Gender Information Value Date Recorded Sex Assigned at Not on file Gender Identity Not on file Sexual Orientation Not on file Last Filed Vital Signs Vital Sign Reading Time Taken Comments Blood Pressure 129/80 12/07/2022 1:38 PM EDT Pulse 53 12/07/2022 1:38 PM EDT Temperature - - Respiratory Rate - - Oxygen Saturation 99% 12/07/2022 1:38 PM EDT Inhaled Oxygen Concentration - - Weight 91.7 kg (202 lb 3.2 oz) 12/07/2022 1:38 P M EDT Height 175.3 cm (5' 9) 10/02/2021 9:04 AM EDT Body Mass Index 29.86 10/02/2021 9:04 AM EDT Plan of Treatment Upcoming Encounters Date Type Department Care Team (Late st Contact Info) Description 02/08/2024 9:00 AM EST Appointment Non-[place] [address] Garth Gaspar MD [facility] [place] [address] Health Maintenance Due Date Last Done Comments CT Colonography 1950 Colonoscopy 1950 Colorectal Cancer Screening 1950 FIT DNA 1950 FIT 1950 Sigmoidoscopy (10 year) with FIT yearly 1950 Sigmoidoscopy 1950 Hepatitis C Screening 1969 Tdap adult 1970 Tetanus vaccine 1970 Zoster vaccine (1 of 2) 2001 Advance Directive 2006 Pneumoccocal Vaccine: 65+ (1 of 1 - PCV) 2016 Covid-19 Vaccine (1 - 2022-24 season) 2022 Influenza (Flu) vaccine (1 o f 1 - Influenza standard series) 11/06/2023 Diabetes Screening (HgbA1C or Glucose) Discontinued , 11/12/2014 Procedures Procedure Name Priority Date/Time Associated Diagnosis Comments COMPREHENSIVE METABOLIC PANEL Routine 07/22/2015 10:41 AM EDT Hemochromatosis from Last 3 Months or Most Recently Relevant to Health Maintenance Results * Comprehensive metabolic panel (non-fasting) (07/22/2015 10:41 AM EDT) Glucose 103 65 - 199 mg/dL [facility] Comment:Diabetes: >=200 mg/d L plus symptoms Blood Urea Nitrogen 17 10 - 20 mg/dL [facility] Creatinine 0.92 0.80 - 1.50 mg/dL [facility] Comment: Please note that the pediatric reference intervals supplied above were not validated at [facility]. Results from pediatric patients should be interpreted in conjunction to the patient's age, height and muscle mass. Sodium 145 135 - 145 mmol/L [facility] Potassium 4.5 3.5 - 5.0 mmol/L [facility] Comment: Please note: ??Patients with WBC >100,000 may have falsely elevated Potassium levels. ??For accurate Potassium quantification in these patients send serum separator tube (gold top) for subsequent determinations. ??Contact the Clinical Chemistry Laboratory if there are any questions. Chloride 104 98 - 107 mmol/L [facility] Carbon Dioxide 26 22 - 31 mmol/L [facility] Anion Gap 15 5 - 15 mmol/L [facility] Calcium 9.6 8.5 - 10.5 mg/dL [facility] Protein, Total 7.4 6.1 - 8.0 gm/dL [facility] Albumin 4.9 3.2 - 5.2 gm/dL [facility] Aspartate Aminotransferase 17 0 - 39 unit/L [facility] Alanine Aminotransferase 14 0 - 55 unit/L [facility] Alkaline Phosphatase 75 40 - 120 unit/L [facility] Bilirubin, Total 0.7 0.2 - 1.3 mg/dL [facility] Bilirubin, Direct 0.1 0.0 - 0.3 mg/dL [facility] Est Glomerular Filtration Rate >60 >=60 [facility] Comment: This estimated GFR (eGFR) value was calculated using the MDRD equation which has been validated on patients between the ages of 18 and 70. The MDRD should not be used to assess kidney function in patients < 18 years of age or in patients with extremes of body mass, or in patients with acute kidney failure. This value should be multiplied by 1.2 for patients. For further information please copy and paste the following links into your internet browser. [email or web address] [email or web address]://[email or web address]/[email or web address] Blood specimen (specimen) 07/22/2015 10:41 AM EDT 07/22/2015 10:50 AM EDT Narrative Resulting Agency Comment Spec In Lab Ariel Hays MD CHEMISTRY ORDERABLE S [facility] [place] [address] from Last 3 Months or Most Recently Relevant to Health Maintenance Care Teams Acid Conditioning Worker Relationship Specialty Start Date End Date Corbin Caban MD [address] [facility] [address] [place] [address] PCP - General 11/12/14
--- OUTSIDE RECORDS SUMMARY | 2023-11-02 14:11 | XMS_ITS | Encounter Summary ---
Author Organization [facility] [address] Care Team Providers Care Screen Making Supervisor Name Role Phone Corbin Caban MD Primary Care Provider [phone] [phone] Encounter Details Date Type Department Care Team (Late st Contact Info) Description 12/22/2020 Telephone Cardiology at [address] [phone] Margot Chavez RN Social History Tobacco Use Types Packs/Day Years [...] Telephone Encounter - Margot Chavez RN - 12/22/2020 1:56 PM EDT As per Dr. Davila Please call patient to let him know that his aortic size is unchanged. Thanks. Clear connection established. Message given- voiced his appreciation for the call. Margot Chavez RN 4A Cardiology documented in this encounter Plan of Treatment Upcoming Encounters Date Type Department Care Team (Late st Contact Info) Description 02/08/2024 9:00 AM EST Appointment Non-[place] [phone] Garth Gaspar MD [facility] [place] [address] documented as of this encounter Visit Diagnoses Not on filedocumented in this encounter Care Teams Screen Making Supervisor Relationship Specialty Start Date End Date Corbin Caban MD [address] [place] [address] [address] [facility] 1 [place] [address] PCP - General 11/12/14 documented as of this encounter
--- OUTSIDE RECORDS SUMMARY | 2023-11-02 14:11 | XMS_ITS | Encounter Summary ---
Author Organization [facility] [place] [address] Care Team Providers Care Office Analyst Name Role Phone Corbin Caban MD Primary Care Provider [phone] [phone] Reason for Visit * Reason Onset Date Comments Medication Problem 03/09/2021 atorvastatin 10 mg Encounter Details Date Type Department Care Team (Late st Contact Info) Description 03/09/2021 Refill Cardiology at [address] [phone] Margto Chavez RN Medication Problem (atorvastatin 10 mg) Social History Tobacco Use Types Packs/Day Years [...] Telephone Encounter - Margot Chavez RN - 03/09/2021 11:11 AM EST 2 VM left requesting a refill. 2nd vm asked for it to go to [facility] in [place] at [phone] Chart reviewed. Last visit with Dr. Davila 9-20 Re-attempt statin; script for atorvastatin 10 mg sent. -Follow up in 1 year with TTE at that time for surveillance of TAA Will send note to pharmacy and route to scheduling. Requested Prescriptions Pending Prescriptions Disp Refills ??? atorvastatin (Lipitor) 10 mg Tablet 90 tablet 0 Sig: Take 1 tablet by mouth every evening. Margot Chavez RN 4A Cardiology documented in this encounter Plan of Treatment Upcoming Encounters Date Type Department Care Team (Late st Contact Info) Description 02/08/2024 9:00 AM EST Appointment Non-[place] [address] Garth Gaspar MD [facility] [place] [address] documented as of this encounter Visit Diagnoses Diagnosis ASCVD (arteriosclerotic cardiovascular disease) Unspecified cardiovascular disease documented in this encounter Care Teams Office Analyst Relationship Specialty Start Date End Date Corbin Caban MD [address] [place] [address] PCP - General 11/12/14 documented as of this encounter
--- OUTSIDE RECORDS SUMMARY | 2023-11-02 14:11 | XMS_ITS | Encounter Summary ---
Author Organization [facility] Address [facility] [place] [address] Care Team Providers Care Automotive Consultant Name Role Phone Corbin Caban MD Primary Care Provider [phone] [phone] Reason for Referral * Diagnostic Test (Routine) - Closed Specialty Diagnoses / Procedures Referred By Contac t Referred To Contact Cardiology Diagnoses Ascending aorta dilatation Procedures Echocardiogram Transthoracic([facility] Jairo Davila MD [facility] [place] [address] [facility] [place] [address] Referral ID Status Reason Start Date Expiration Date V isits Requested Visits Authorized [id number] Closed Specialty Service Requested 10/24/2020 10/24/2021 1 1 Encounter Details Date Type Department Care Team (Late st Contact Info) Description 10/24/2020 Orders Only Cardiology at [address] [address] Jairo Davila MD [facility] [place] [address] Ascending aorta dilatation (Primary Dx) Social History [...] 9:00 AM EST Appointment Non-Invasive [place] [address] Garth Gaspar MD [facility] [place] [address] documented as of this encounter Results * ECHO COMPLETE (12/22/2020 9:56 AM EDT) EF 66 HEARTLAB SYSTEM Anatomical Region Laterality Modality Other 12/22/2020 Narrative 12/22/2020 10:23 AM EDT Procedure: ?Transthoracic Echocardiogram Patient: ?BUTTS DB ?(Age): 1950(70y) Med Rec#: ? [id number] ?Sex: ?M ? Site Loc: ? [facility] [place] ?Ht / Wt: ??175.26(cm)/88.4 Pt. Loc: ?Echo Lab ?BSA: ?2.04 Study Date: ?? 12/22/2020 ?Pt. Type: Outpatient Tape: ? Referring: SOCORRO Reading: David Delgado ([id number]) Applications Specialist: Lyric Barrera Diagnosis: *Thoracic aortic ectasia (I77.810) [...] ?The estimated pulmonary artery systolic pressure is 16.8715670382470 mmHg. ?The estimated right atrial pressure is [...] Vmax ?0.86 ? m/sec ? MV deceleration yscb678.04 ? msec ? MV A-wave Vmax ?0.73 [...] ? Pulmonic Valve/Qp:Qs ?Value ?Units (Range) ? [place] end-diastolic Vma0.93 ? m/sec ? PA end-diastolic pre6.46 ? mmHg ? This report has been electronically signed by: David Delgado MD ? 12/22/2020 10:22:39 Images reviewed and interpretation verified [facility] Cardiac Ultrasound Laboratory Procedure Note David Delgado MD - 12/22/2020 Procedure: Transthoracic Echocardiogram Patient: RASHAWN SIDHU(Age): 1950(70y) Med Rec#: [id number] Sex: M Site Loc: [facility] [place] Ht / Wt: 175.26(cm)/88.4 Pt. Loc: Echo Lab BSA: 2.04 Study Date: 12/22/2020 Pt. Type: Outpatient Tape: Referring: [facility] Reading: David Delgado ([id number]) Applications Specialist: Lyric Barrera Diagnosis: *Thoracic aortic ectasia (I77.810) [...] The estimated pulmonary artery systolic pressure is 16.5770978230503 mmHg. The estimated right atrial pressure is [...] MV E-wave Vmax 0.86 m/sec MV deceleration qhns825.04 msec MV A-wave Vmax 0.73 m/sec MV [...] Vari50 % Pulmonic Valve/Qp:Qs Value Units (Range) [place] end-diastolic Vma0.93 m/sec PA end-diastolic pre6.46 mmHg This report has been electronically signed by: David Delgado MD 12/22/2020 10:22:39 Images reviewed and interpretation verified [facility] Cardiac Ultrasound Laboratory Jairo Davila MD ECHO ORDERABLES documented in this encounter Visit Diagnoses Diagnosis Ascending aorta dilatation- Primary Thoracic aortic ectasia Ascending aorta dilatation Thoracic aortic ectasia documented in this encounter Care Teams Automotive Consultant Relationship Specialty Start Date End Date Corbin Caban MD [address] [place] [address] PCP - General 11/12/14 documented as of this encounter
--- OUTSIDE RECORDS SUMMARY | 2023-11-02 14:11 | XMS_ITS | Encounter Summary ---
Author Organization [facility] Address [facility] [place] [address] Care Team Providers Care Quality Control Lead Name Role Phone Corbin Caban MD Primary Care Provider [phone] [phone] Reason for Referral * Diagnostic Test (Routine) - Closed Specialty Diagnoses / Procedures Referred By Nikhil t Referred To Contact Cardiology Diagnoses Aortic root dilatation Procedures Echocardiogram Transthoracic([place]) Radha Olvera APRN [facility] [place] [address] [facility] [place] [address] Referral ID Status Reason Start Date Expiration Date V isits Requested Visits Authorized [id number] Closed Specialty Service Requested 10/04/2018 10/04/2019 1 1 Encounter Details Date Type Department Care Team (Late st Contact Info) Description 10/04/2018 Orders [place] [phone] Radha Olvera HUMAN RESOURCES COMPLIANCE MANAGER [facility] [place] [address] Aortic root dilatation Social History Tobacco Use Types Packs/Day [...] 9:00 AM EST Appointment Non-Invasive [place] [phone] Garth Gaspar MD [facility] [place] [address] documented as of this encounter Results * ECHO COMPLETE (11/24/2018 12:44 PM EDT) EF 67 HEARTLAB SYSTEM Anatomical Region Laterality Modality Other 11/24/2018 Narrative 11/24/2018 12:50 PM EDT Procedure: ?Transthoracic Echocardiogram Patient: ?RASHAWN ACE ?(Age): 1950(68y) Med Rec#: ? [id number] ?Sex: ?M ? [place] Loc: ? [facility] [place] ?Ht / Wt: ??175(cm)/94(kg) Pt. Loc: ?Echo Lab ?BSA: ?2.09 Study Date: ?? 11/24/2018 ?Pt. Type: Outpatient Tape: ? Referring: YVONNE Reading: Jairo Davila ??([id number]) Digital Specialist: Jose Rivera RDCS Diagnosis: *Thoracic aortic ectasia (I77.810) BP: ? [...] E-wave Vmax ?0.6 ?m/sec ? MV deceleration vypr602.9 ?msec ? MV A-wave Vmax ?0.9 ?m/sec [...] ? Mid-Inferior ?Normal ? Mid-Inferoseptal ?Normal ? [place]-Septal ? Normal ? [place]-Anterior ? Normal ? [place]-Lateral ?Normal ? [place]-Inferior ? Normal ? [place]-Tip ?Normal ? This report has been electronically signed by: Jairo Davila MD ? 11/24/2018 12:50:15 Images reviewed and interpretation verified [facility] Cardiac Ultrasound Laboratory Procedure Note Jairo Davila MD - 11/24/2018 Procedure: Transthoracic Echocardiogram Patient: RASHAWN SIDHU(Age): 1950(68y) Med Rec#: [id number] Sex: M Site Loc: [facility] [place] Ht / Wt: 175(cm)/94(kg) Pt. Loc: Echo Lab BSA: 2.09 Study Date: 11/24/2018 Pt. Type: Outpatient Tape: Referring: YVONNE Reading: Jairo Davila ([id number]) Digital Specialist: Jose Rivera [facility] Diagnosis: *Thoracic aortic ectasia (I77.810) BP: 124/86 [...] MV E-wave Vmax 0.6 m/sec MV deceleration obfe970.9 msec MV A-wave Vmax 0.9 m/sec MV [...] Normal Mid-Posterolateral Normal Mid-Inferior Normal Mid-Inferoseptal Normal [place]ometown-Septal Normal [place]-Anterior Normal [place]-Lateral Normal [place]-Inferior Normal [place]ometown-Tip Normal This report has been electronically signed by: Jairo Davila MD 11/24/2018 12:50:15 Images reviewed and interpretation verified [facility] Cardiac Ultrasound Laboratory Radha Olvera APRN ECHO ORDERABLES documented in this encounter Visit Diagnoses Diagnosis Aortic root dilatation Thoracic aortic ectasia Aortic root dilatation Thoracic aortic ectasia documented in this encounter Care Teams Quality Control Lead Relationship Specialty Start Date End Date Corbin Caban MD [address] [place] [address] PCP - General 11/12/14 documented as of this encounter
--- OUTSIDE RECORDS SUMMARY | 2023-11-02 14:11 | XMS_ITS | Encounter Summary ---
Author Organization [facility] [place] [address] Care Team Providers Care Window Decorator Name Role Phone Corbin Caban MD Primary Care Provider [phone] [phone] Reason for Referral * Diagnostic Test (Routine) - New Request Specialty Diagnoses / Procedures Referred By Nikhil robledo Referred To Contact Cardiology Diagnoses Aneurysm of ascending aorta without rupture Procedures Echocardiogram Transthoracic Fco Verduzco PA [facility] [place] [address] [facility] [place] [address] Referral ID Status Reason Start Date Expiration Date Visits Requested Visits Authorized [id number] New Request Specialty Service Requested 10/05/2023 10/04/2024 1 1 Encounter Details Date Type Department Care Team (Late st Contact Info) Description 10/05/2023 [place] [address] Fco Verduzco PA [facility] [place] [address] Aneurysm of ascending aorta without rupture Social History Tobacco Use Types Packs/Day Years [...] 9:00 AM EST Appointment [place] [address] Garth aGspar MD [facility] [place] [address] Scheduled Orders Name Type Priority Associated Diagnoses Order Schedule Echocardiogram Transthoracic Echocardiography Routine Aneurysm Of Ascending Aorta Without Rupture Expected: 11/05/2023, Expires: 10/04/2024 documented as of this encounter Visit Diagnoses Diagnosis Aneurysm of ascending aorta without rupture documented in this encounter Care Teams Window Decorator Relationship Specialty Start Date End Date Corbin Caban MD [address] [place] [address] PCP - General 11/12/14 documented as of this encounter
--- OUTSIDE RECORDS SUMMARY | 2023-11-02 14:11 | XMS_ITS | Encounter Summary ---
Author Organization [facility] [address] Care Team Providers Care Fender Mechanic Name Role Phone Corbin Caban MD Primary Care Provider [phone] [phone] Reason for Visit * Reason Onset Date Comments Results 11/25/2021 Encounter Details Date Type Department Care Team (Late st Contact Info) Description 11/25/2021 Telephone Cardiology at [address] [phone] Margot Chavez RN Results Social History Tobacco Use Types Packs/Day Years [...] Telephone Encounter - Margot Chavez RN - 11/25/2021 8:02 AM EDT ----- Message from Jairo Davila MD sent at 11/24/2021 9:01 AM EDT ----- Could you please call the patient and let him know that his aortic size looks stable on his recent MR in comparison to his last echo? Would simply recommend good blood pressure control and continued surveillance, echo in 1 year. Thanks. Clear connection established. Appreciative of the call message given romi Chavez RN 4A Cardiology documented in this encounter Plan of Treatment Upcoming Encounters Date Type Department Care Team (Late st Contact Info) Description 02/08/2024 9:00 AM EST Appointment Non-Invasive [place] [address] Garth Gaspar MD [facility] [address] documented as of this encounter Visit Diagnoses Not on filedocumented in this encounter Care Teams Fender Mechanic Relationship Specialty Start Date End Date Corbin Caban MD [address] [place] [address] [address] [facility] [address] [place] [address] PCP - General 11/12/14 documented as of this encounter
--- OUTSIDE RECORDS SUMMARY | 2023-11-02 14:11 | XMS_ITS | Encounter Summary ---
Author Organization [facility] [place] [address] Care Team Providers Care Apple Sorter Name Role Phone Corbin Caban MD Primary Care Provider [phone] [phone] Reason for Referral * Diagnostic Test (Routine) - Closed Specialty Diagnoses / Procedures Referred By Contac t Referred To Contact Radiology Diagnoses Thoracic aortic aneurysm without rupture Procedures MRI Angiogram Chest ww Contrast Jairo Davila MD [facility] [place] [address] [place] [address] Referral ID Status Reason Start Date Expiration Date V isits Requested Visits Authorized [id number] Closed Specialty Service Requested 06/26/2021 12/26/2022 1 1 Reason for Visit * Diagnostic Test (Routine) - Closed Specialty Diagnoses / Procedures Referred By Contac t Referred To Contact Radiology Diagnoses Thoracic aortic aneurysm without rupture Procedures MRI Angiogram Chest [facility] Contrast Jairo Davila MD [facility] [place] [address] [place] [address] Referral ID Status Reason Start Date Expiration Date V isits Requested Visits Authorized [id number] Closed Specialty Service Requested 06/26/2021 12/26/2022 1 1 Encounter Details Date Type Department Care Team (Latest Contact Info) Description 11/19/2021 9:53 AM EDT - 11/19/2021 11:59 PM EDT Hospital [place] [address] Jairo Davila MD [facility] [place] [address] Thoracic aortic aneurysm without rupture Discharge Disposition: [...] (Lipitor) 10 mg TabletIndications:ASCVD (arteriosclerotic cardiovascular disease) Take 1 tablet by mouth every evening. 90 tablet 3 06/26/2021 12/07/2022 documented as of this encounter Plan of Treatment Upcoming Encounters Date Type Department Care Team (Late st Contact Info) Description 02/08/2024 9:00 AM EST Appointment Non-[place] [address] Garth Gaspar MD [facility] [place] [address] documented as of this encounter Procedures Procedure Name Priority Date/Time Associated Diagnosis Comments MRI CHEST ANGIOGRAM WITH AND WITHOUT CONTRAST Routine 11/19/2021 11:49 AM EDT Thoracic aortic aneurysm without rupture documented in this encounter Results * MRI Angiogram Chest [...] who have questions please contact the health healthcare architect that requested your imaging first. ? Electronically signed by: Karma Licona MD, [facility] ([phone]), at 11/19/2021 2:34 PM Narrative 11/19/2021 2:34 [...] patients who have questions please contactthe health healthcare architect that requested your imaging first. Jairo Davila MD [facility] MRI ORDERABLES documented in this encounter Visit Diagnoses Diagnosis Thoracic aortic aneurysm without rupture Thoracic aneurysm without mention of rupture documented in this encounter Administered Medications Inactive Administered Medications - up to 3 most recent administrations Medication Order MAR Action Action Date Dose Rate Site gadoterate meglumine (Dotarem) (0.5 mMol/mL) injection solution 0-100 mL 0-100 mL, Intravenous, ONCE PRN, 1 dose, Starting on Kimi 11/19/21 at 1149, Until Kimi 11/19/21 at 1149, Per Protocol, Radiology Contrast, Routine Given 11/19/2021 11:49 AM EDT 18 mLs documented in this encounter Care Teams Apple Sorter Relationship Specialty Start Date End Date Corbin Caban MD [address] [place] [address] PCP - General 11/12/14 documented as of this encounter
--- OUTSIDE RECORDS SUMMARY | 2023-11-02 14:11 | XMS_ITS | Encounter Summary ---
Author Organization [facility] [place] [address] Care Team Providers Care Proof Inspector Name Role Phone Corbin Caban MD Primary Care Provider [phone] Reason for Referral * Diagnostic Test (Routine) - Closed Specialty Diagnoses / Procedures Referred By Contac t Referred To Contact Cardiology Diagnoses Aortic dilatation Procedures Echocardiogram Transthoracic(Leb) Radha Olvera BEV[employer] F[employer] STONER AND POLISHER [facility] [place] [address] [facility] [place] [address] Referral ID Status Reason Start Date Expiration Date V isits Requested Visits Authorized [id number] Closed Specialty Service Requested 09/26/2017 09/26/2018 1 1 Reason for Visit * Diagnostic Test (Routine) - Closed Specialty Diagnoses / Procedures Referred By Contac t Referred To Contact Cardiology Diagnoses Aortic dilatation Procedures Echocardiogram Transthoracic(Leb) Radha Olvera [facility] [place] [address] [facility] [place] [address] Referral ID Status Reason Start Date Expiration Date V isits Requested Visits Authorized [id number] Closed Specialty Service Requested 09/26/2017 09/26/2018 1 1 Encounter Details Date Type Department Care Team (Latest Contact Info) Description 11/18/2017 12:06 PM EDT - 11/18/2017 11:59 PM EDT Hospital Encounter Non[place] [address] Radha Olvera APRN [facility] [place] [address] Aortic dilatation Discharge Disposition: Home Social History Tobacco [...] Sig Dispensed Refills Start Date End Date ascorbic acid, Vitamin C, (Vitamin C) 500 [...] 9:00 AM EST Appointment Non-[place] [address] Garth Gaspar MD [facility] [place] [address] documented as of this encounter Procedures Procedure Name Priority Date/Time Associated Diagnosis Comments ECHO COMPLETE Routine 11/18/2017 1:35 PM EDT Aortic dilatation documented in this encounter Results * ECHO COMPLETE (11/18/2017 1:35 PM EDT) EF 72 HEARTUbersnap SYSTEM Anatomical Region Laterality Modality Other 11/18/2017 Narrative 11/18/2017 2:24 PM EDT Procedure: ?Transthoracic Echocardiogram Patient: ?BUTTS DB ?(Age): 1950(67y) Med Rec#: ? [id number] ?Sex: ?M ? Site Loc: ? DH ?Ht / Wt: ??175(cm)/95(kg) Pt. Loc: ?Echo Lab ?BSA: ?2.1 Study Date: ?? 11/18/2017 ?Pt. Type: Outpatient Tape: ? Referring: YVONNE Reading: Sam Sawant ([id number]) Moto Mix Operator: Shahbaz Lovell Interpreting Fellow: Jay Newsome ([id number]) Diagnosis: *Aortic ectasia, unspecified site (I77.819) BP: ? 140/85 SUMMARY: 1. The left ventricular chamber size is normal. There are no left ventricular segmental wall motion abnormalities. There is normal global left ventricular systolic function with EF 72% by biplane Sagastume's method. 2. Right ventricular chamber size, wall thickness, and systolic function are within normal limits. 3. The right and left atrium are normal in size. 4. There is no hemodynamically significant valve disease. 5. There is moderate dilatation of the aortic root (4.8cm). There is moderate dilatation of the ascending aorta (4.4cm). There is moderate dilatation of the aortic arch (4.2cm). 6. Compared to prior echo 11/2016, ascending aorta diameter increased from 4.1cm to 4.4cm. Findings ? : Left Ventricle: ? The left ventricular chamber size is normal. ?Left ventricular wall thickness is normal. ?There is no evidence of LVOT obstruction. ?No ventricular septal defect is visualized. ?There is normal global left ventricular systolic function. ?The quantitative left ventricular ejection fraction by biplane Sagastume's method is 72%. ?There are no left ventricular segmental wall motion abnormalities. ?Doppler assessment is consistent with normal left sided filling pressure. Left Atrium: ? The left atrium is normal in size. ?There is no evidence of a patent foramen ovale by color Doppler. Right Ventricle: ? Right ventricular chamber size, wall thickness, and systolic function are within normal limits. ?The right ventricle is normal in size. ?Right ventricular global systolic function is normal. ?Pulmonary artery hypertension could not be assessed due to inadequate tricuspid regurgitation jet. Right Atrium: ? The right atrium is [...] ?There is moderate dilatation of the ascending aorta.4.4cm from the RSB. ?There is moderate dilatation of the aortic arch.4.2cm Pulmonary Artery: ? The main pulmonary artery appears normal. Venous: ? The inferior vena cava appears normal in size. ?There is a greater than 50% respiratory change in the inferior vena cava dimension. Misc: ? There is no hemodynamically significant valve disease. ?Two-dimensional echo, spectral Doppler and color Doppler performed. Chambers 2D ?Value ?Units (Range) ? IVSd (2D) ? 1.3 ?cm ? LVPWd (2D) ?1 ?cm ? LVIDd (2D) ?3.8 ?cm ? LVIDs (2D) ?2.5 ?cm ? LV FS (2D) ?33.1 ? % ? EF Teichholz (2D) ?? 62.5 ? % ? Ao root diameter (2D4.8 ?cm (2.1 - 3.6) ? Ascending Ao ?4.4 ?cm (2 - 3.5) ? Volumes/Mass ?Value ?Units (Range) ? LV ESV SP 4CH (MOD) 27.7 ? ml ? LV ESV SP 2CH (MOD) 21.4 ? ml ? LV EDV BP ? 87.6 ? ml ? LV ESV BP ? 24.6 ? ml ? BP EF (MOD) ? 71.9 ? % ? Diastolic/Systolic Function ?Value ?Units (Range) ? MV E-wave Vmax ?0.9 ?m/sec ? MV deceleration ddmh554.4 ?msec ? MV A-wave Vmax ?0.8 ?m/sec ? MV E:A ratio ?1.1 ?ratio ? Pulmonic Valve/Qp:Qs ?Value ?Units (Range) ? OR end-diastolic Vma0.8 ?m/sec ? Wall Motion: Segment Name ?Rest ? Base-Anteroseptal ?? Normal ? Base-Anterior ? Normal ? Base-Anterolateral ??Normal ? Base-Posterolateral Normal ? Base-Inferior ? Normal ? Base-Inferoseptal ?? Normal ? Mid-Anteroseptal ?Normal ? Mid-Anterior ?Normal ? Mid-Anterolateral ?? Normal ? Mid-Posterolateral ??Normal ? Mid-Inferior ?Normal ? Mid-Inferoseptal ?Normal ? [place]-Septal ? Normal ? [place]-Anterior ? Normal ? [place]-Lateral ?Normal ? [place]-Inferior ? Normal ? [place]-Tip ?Normal ? This report has been electronically signed by: Sam Sawant MD ? 11/18/2017 14:23:50 Images reviewed and interpretation verified [facility] Cardiac Ultrasound Laboratory Procedure Note Sam Sawant MD - 11/18/2017 Procedure: Transthoracic Echocardiogram Patient: RASHAWN ACE (Age): 1950(67y) Med Rec#: [id number] Sex: M Site Loc: [facility] Ht / Wt: 175(cm)/95(kg) Pt. Loc: Echo Lab BSA: 2.1 Study Date: 11/18/2017 Pt. Type: Outpatient Tape: Referring: YVONNE Reading: Sam Sawant ([id number]) Moto Mix Operator: Shahbaz Lovell Interpreting Fellow: Jay Newsome ([id number]) Diagnosis: *Aortic ectasia, unspecified site (I77.819) BP: 140/85 SUMMARY: 1. The left ventricular chamber size is normal. There are no left ventricular segmental wall motion abnormalities. There is normal global left ventricular systolic function with EF 72% by biplane Sagastume's method. 2. Right ventricular chamber size, wall thickness, and systolic function are within normal limits. 3. The right and left atrium are normal in size. 4. There is no hemodynamically significant valve disease. 5. There is moderate dilatation of the aortic root (4.8cm). There is moderate dilatation of the ascending aorta (4.4cm). There is moderate dilatation of the aortic arch (4.2cm). 6. Compared to prior echo 11/2016, ascending aorta diameter increased from 4.1cm to 4.4cm. Findings : Left Ventricle: The left ventricular chamber size is normal. Left ventricular wall thickness is normal. There is no evidence of LVOT obstruction. No ventricular septal defect is visualized. There is normal global left ventricular systolic function. The quantitative left ventricular ejection fraction by biplane Sagastume's method is 72%. There are no left ventricular segmental wall motion abnormalities. Doppler assessment is consistent with normal left sided filling pressure. Left Atrium: The left atrium is normal in size. There is no evidence of a patent foramen ovale by color Doppler. Right Ventricle: Right ventricular chamber size, wall thickness, and systolic function are within normal limits. The right ventricle is normal in size. Right ventricular global systolic function is normal. Pulmonary artery hypertension could not be assessed due to inadequate tricuspid regurgitation jet. Right Atrium: The right atrium is normal [...] There is moderate dilatation of the ascending aorta.4.4cm from the RSB. There is moderate dilatation of the aortic arch.4.2cm Pulmonary Artery: The main pulmonary artery appears normal. Venous: The inferior vena cava appears normal in size. There is a greater than 50% respiratory change in the inferior vena cava dimension. Misc: There is no hemodynamically significant valve disease. Two-dimensional echo, spectral Doppler and color Doppler performed. Chambers 2D Value Units (Range) IVSd (2D) 1.3 cm LVPWd (2D) 1 cm LVIDd (2D) 3.8 cm LVIDs (2D) 2.5 cm LV FS (2D) 33.1 % EF Teichholz (2D) 62.5 % Ao root diameter (2D4.8 cm (2.1 - 3.6) Ascending Ao 4.4 cm (2 - 3.5) Volumes/Mass Value Units (Range) LV ESV SP 4CH (MOD) 27.7 ml LV ESV SP 2CH (MOD) 21.4 ml LV EDV BP 87.6 ml LV ESV BP 24.6 ml BP EF (MOD) 71.9 % Diastolic/Systolic Function Value Units (Range) MV E-wave Vmax 0.9 m/sec MV deceleration sszn476.4 msec MV A-wave Vmax 0.8 m/sec MV E:A ratio 1.1 ratio Pulmonic Valve/Qp:Qs Value Units (Range) OR end-diastolic Vma0.8 m/sec Wall Motion: Segment Name Rest Base-Anteroseptal Normal Base-Anterior Normal Base-Anterolateral Normal Base-Posterolateral Normal Base-Inferior Normal Base-Inferoseptal Normal Mid-Anteroseptal Normal Mid-Anterior Normal Mid-Anterolateral Normal Mid-Posterolateral Normal Mid-Inferior Normal Mid-Inferoseptal Normal [place]-Septal Normal [place]-Anterior Normal [place]-Lateral Normal [place]-Inferior Normal [place]-Tip Normal This report has been electronically signed by: Sam Sawant MD 11/18/2017 14:23:50 Images reviewed and interpretation verified [facility] Cardiac Ultrasound Laboratory Radha May KRISHNA ECHO ORDERABLES documented in this encounter Visit Diagnoses Diagnosis Aortic dilatation Aortic ectasia, unspecified site documented in this encounter Care Teams Proof Inspector Relationship Specialty Start Date End Date Corbin Caban MD [address] [place] [address] PCP - General 11/12/14 documented as of this encounter
--- OUTSIDE RECORDS SUMMARY | 2023-11-02 14:11 | XMS_ITS | Encounter Summary ---
Author Organization [facility] Address [facility] [place] [address] Care Team Providers Care Lasting Machine Operator Hand Method Name Role Phone Corbin Caban MD Primary Care Provider [phone] Encounter Details Date Type Department Care Team (Late st Contact Info) Description 12/20/2018 Orders Only Cardiology at [address] [phone] Jairo Davila MD [facility] [address] [place], [place] [id number] Hypertension, unspecified type; Tachycardia Social History Tobacco Use Types Packs/Day Years [...] 9:00 AM EST Appointment Non-Invasive [place] [address] Garth Gaspar MD [facility] [place] [address] documented as of this encounter Results * EKG 12 Lead (12/22/2018 11:03 AM EDT) Ventricular rate 58 BPM MUSE SYSTEM Atrial Rate 58 BPM MUSE SYSTEM P-R Interval 154 ms MUSE SYSTEM QRS Duration 132 ms MUSE SYSTEM Q-T Interval 464 ms MUSE SYSTEM QTC Calculated (Bezet) 455 ms MUSE SYSTEM Calculated P [place] 16 degrees MUSE SYSTEM Calculated R [place] 61 degrees MUSE SYSTEM Calculated T [place] 38 degrees MUSE SYSTEM INTERPRETATION Sinus bradycardia Right bundle branch block Abnormal ECG When compared with ECG of 18-NOV-2017 14:26, T wave inversion no longer evident in Anterior leads Confirmed by MD SMITH ARMIN ([id number]) on 12/22/2018 6:08:19 PM MUSE SYSTEM 12/22/2018 11:0 3 AM EDT 12/22/2018 6:08 PM EDT Jairo Davila MD ECG ORDERABLES MUSE SYSTEM documented in this encounter Visit Diagnoses Diagnosis Hypertension, unspecified type Tachycardia Tachycardia, unspecified documented in this encounter Care Teams Lasting Machine Operator Hand Method Relationship Specialty Start Date End Date Corbin Caban MD [address] [place] [address] PCP - General 11/12/14 documented as of this encounter
--- OUTSIDE RECORDS SUMMARY | 2023-11-02 14:11 | XMS_ITS | Encounter Summary ---
Author Organization [facility] [place] [address] Care Team Providers Care Make Ready Worker Name Role Phone Corbin Caban MD Primary Care Provider [phone] Encounter Details Date Type Department Care Team (Late st Contact Info) Description 12/22/2018 External Results Cardiology at [address] [phone] Social History Tobacco Use Types Packs/Day Years [...] 9:00 AM EST Appointment Non-Invasive [place] [address] Garth Gaspar MD [facility] [place] [address] documented as of this encounter Procedures Procedure Name Priority Date/Time Associated Diagnosis Comments EXTERNAL LAB RESULTS Routine 09/20/2018 documented in this encounter Results * External Lab Results (09/20/2018) Historical Provider CHEMISTRY ORDERAB LES documented in this encounter Visit Diagnoses Not on filedocumented in this encounter Care Teams Make Ready Worker Relationship Specialty Start Date End Date Corbin Caban MD [address] [place] [id number] PCP - General 11/12/14 documented as of this encounter
--- OUTSIDE RECORDS SUMMARY | 2023-11-02 14:12 | XMS_ITS | Encounter Summary ---
Author Organization [facility] Address [facility] [place] [address] Care Team Providers Care Entertainment Director Name Role Phone Corbin Caban MD Primary Care Provider [phone] Encounter Details Date Type Department Care Team (Late st Contact Info) Description 09/24/2013 Orders Only [place] [address] Alexander Anderson PA [facility] DR [place]IOTH[place] [address] Social History Tobacco Use Types Packs/Day Years [...] 9:00 AM EST Appointment Non-[place] [address] Garth Gaspar MD [facility] [place] [address] documented as of this encounter Visit Diagnoses Not on filedocumented in this encounter Care Teams Entertainment Director Relationship Specialty Start Date End Date Corbin Caban MD [address] [place] [address] PCP - General 11/12/14 documented as of this encounter
--- OUTSIDE RECORDS SUMMARY | 2023-11-02 14:12 | XMS_ITS | Encounter Summary ---
Author Organization [facility] Address [facility] [place] [address] Care Team Providers Care Junior Database Administrator Name Role Phone Marisela Boland MD Primary Care Provider [phone] Encounter Details Date Type Department Care Team (Late st Contact Info) Description 11/28/2013 3:10 PM EDT Follow-Up [place] [address] Carlos Alberto Coreas MD [facility] [address] [place] [address] tachycardia (Primary Dx); Ascending aorta dilatation Social History Tobacco Use [...] Sign Reading Time Taken Comments Blood Pressure 120/88 11/28/2013 3:06 PM EDT Pulse 120 11/28/2013 3:06 PM EDT Temperature - - Respiratory Rate - - Oxygen Saturation - - Inhaled Oxygen Concentration - - Weight 95.7 kg (211 lb) 11/28/2013 3:06 PM EDT Height 175.3 cm (5' 9) 11/28/2013 3:06 PM EDT Body Mass Index 31.16 11/28/2013 3:06 PM EDT documented in this encounter Progress Notes * Carlos Alberto Coreas MD - 11/28/2013 3:54 PM EDT I am seeing Mr. Levin in followup of dilated ascending aorta. He has had no new problems since I last saw him. Today he feels very anxious about the study. He felt flushed after the CT scan and shows up in clinic tachycardic. No hives, rash or breathing problems. No itching. No chest pain or shortness of breath. Planning to spend the winter in [place]. CT scan shows unchanged ascending aorta And root measurements at 4.0 cm ascending aorta and 4.8 cm root. No evidence of rupture or dissection. EKG shows sinus tachycardia at 110 BPM Outpatient Prescriptions Marked as Taking for the 11/28/13 encounter (Follow-Up) with Carlos Alberto Coreas MD Medication Sig Dispense Refill ??? ALBUTEROL, REFILL, INHL Inhale into the [...] mouth daily. ??? ZINC ACETATE ORAL Take by mouth. Physical Exam: BP 120/88 Pulse 120 Ht 175.3 cm (5' 9) Wt 95.709 kg (211 lb) BMI 31.15 kg/m2 Lung: exp. wheeze at bases CV: tachycardia, no murmur No rash or hives A/P: Aortic measurements are stable with no evidence of acute aortic problem. I am concerned about the tachycardia, but can find no obvious problem. This could be a dye reaction. Patient drove himself here and is unwilling to take benadryl now. He has no other signs of dye reaction. His HR did dropover the course of the appointment (96 by the end of the appointment). He will check his HR tomorrow and if it is greater than 90, he will call his PCP. We talked about his ETOH consumption and the need to decrease this or stop altogether. I would plan to see him in one year with an ECHO for followup of his aortic root and aortic valve function. documented in this encounter Plan of Treatment Upcoming Encounters Date Type Department Care Team (Late st Contact Info) Description 02/08/2024 9:00 AM EST Appointment Non-[place] [phone] Garth Gaspar MD [facility] [place] [address] documented as of this encounter Procedures Procedure Name Priority Date/Time Associated Diagnosis Comments EKG 12-LEAD Routine 11/28/2013 3:15 PM EDT tachycardia documented in this encounter Results * EKG 12 Lead (11/28/2013 3:15 PM EDT) Ventricular rate 110 BPM MUSE SYSTEM Atrial Rate 110 BPM MUSE SYSTEM P-R Interval 150 ms MUSE SYSTEM QRS Duration 80 ms MUSE SYSTEM Q-T Interval 338 ms MUSE SYSTEM QTC Calculated (Bezet) 457 ms MUSE SYSTEM Calculated P [place] 57 degrees MUSE SYSTEM Calculated R [place] 53 degrees MUSE SYSTEM Calculated T [place] 53 degrees MUSE SYSTEM INTERPRETATION Sinus tachycardia Possible prior infarct in ??Inferior leads No previous ECGs available Confirmed by MD Sivan, Rachel ([id number]) on 11/30/2013 9:02:22 AM MUSE SYSTEM 11/28/2013 3:15 PM EDT 11/30/2013 9:02 AM EDT Carlos Alberto Coreas MD ECG ORDERABLES MUSE SYSTEM documented in this encounter Visit Diagnoses Diagnosis tachycardia- Primary Atrial fibrillation Ascending aorta dilatation Thoracic aortic ectasia documented in this encounter Care Teams Junior Database Administrator Relationship Specialty Start Date End Date Marisela Boland MD [address] [place] [address] PCP - General 09/22/11 11/11/14 documented as of this encounter
--- OUTSIDE RECORDS SUMMARY | 2023-11-02 14:12 | XMS_ITS | Encounter Summary ---
Author Organization [facility] Address [facility] [place] [address] Care Team Providers Care Rn Observation Name Role Phone Marisela Boland MD Primary Care Provider [phone] Encounter Details Date Type Department Care Team (Late st Contact Info) Description 03/22/2014 Orders [place] [phone] Vitaly Ta PA [facility] [place] [address] Ascending aortic aneurysm Social History Tobacco Use Types Packs/Day [...] 9:00 AM EST Appointment Non-Invasive [place] [phone] Garth Gaspar MD [facility] [place] [address] documented as of this encounter Visit Diagnoses Diagnosis Ascending aortic aneurysm Thoracic aneurysm without mention of rupture documented in this encounter Care Teams Rn Observation Relationship Specialty Start Date End Date Marisela Boland MD [address] [place] [address] PCP - General 09/22/11 11/11/14 documented as of this encounter
--- OUTSIDE RECORDS SUMMARY | 2023-11-02 14:12 | XMS_ITS | Encounter Summary ---
Author Organization [facility] [place] [address] Care Team Providers Care Financial Services Assistant Name Role Phone Corbin Caban MD Primary Care Provider [phone] Reason for Referral * Diagnostic Test (Routine) - Closed Specialty Diagnoses / Procedures Referred By Nikhil robledo Referred To Contact Cardiology Diagnoses Dilated aortic root Procedures Echocardi[facility] [place] [address] [facility] [place] [address] Referral ID Status Reason Start Date Expiration Date V isits Requested Visits Authorized [id number] Closed Specialty Service Requested 12/05/2015 12/05/2016 1 1 Reason for Visit * Diagnostic Test (Routine) - Closed Specialty Diagnoses / Procedures Referred By Contac t Referred To Contact Cardiology Diagnoses Dilated aortic root Procedures Echocardiogram Transthoracic(Leb) [place] [facility] [place] [address] [facility] [place] [address] Referral ID Status Reason Start Date Expiration Date V isits Requested Visits Authorized [id number] Closed Specialty Service Requested 12/05/2015 12/05/2016 1 1 Encounter Details Date Type Department Care Team (Latest Contact Info) Description 12/05/2015 9:49 AM EDT - 12/05/2015 11:59 PM EDT Hospital Encounter Non-Invasive [place] [phone] Carlos Alberto Coreas MD [facility] [place] [address] Dilated aortic root Discharge Disposition: Home Social History Tobacco Use [...] mg by mouth daily as needed. 08/03/2019 fluticasone-salmeterol (ADVAIR DISKUS) 250-50 mcg/dose Disk with Device Inhale 1 puff into the lungs every 12 hours as needed (seasonally). 11/19/2016 ALBUTEROL, REFILL, [facility] Inhale into the lungs as needed. 08/03/2019 documented as of this encounter Plan of Treatment Upcoming Encounters Date Type Department Care Team (Late st Contact Info) Description 02/08/2024 9:00 AM EST Appointment Non-Invasive [place] [phone] Garth Gaspar MD [facility] [place] [address] documented as of this encounter Procedures Procedure Name Priority Date/Time Associated Diagnosis Comments ECHO COMPLETE Routine 12/05/2015 10:50 AM EDT Dilated aortic root documented in this encounter Results * ECHO COMPLETE (12/05/2015 10:50 AM EDT) EF 63 HEARTLAB SYSTEM Anatomical Region Laterality Modality Other 12/05/2015 Narrative 12/05/2015 11:02 AM EDT Procedure: ?Transthoracic Echocardiogram Patient: ?BUTTS DB ?(Age): 1950(65y) Med Rec#: ? [id number] ?Sex: ?M ? Site Loc: ? [place] ?Ht / Wt: ??175(cm)/88.91(k Pt. Loc: ?Echo Lab ?BSA: ?2.05 Study Date: ?? 12/05/2015 ?Pt. Type: Outpatient Tape: ? Referring: Carlos Alberto Coreas Referring: EMERY IBARRA Reading: Sarwat Melara ([id number]) Fur Scraper: Danae Thompson BA, [facility] Diagnosis: *ICD-10-PCS Thoracic aortic ectasia (I77.810) CPT Codes: *Echo Full (37293) *Spectral Doppler (63724) *Color Doppler (30674) BP: ? 140/90 SUMMARY: 1. There is normal global left ventricular systolic function. ??The quantitative left ventricular ejection fraction by biplane Sagastume's method is 63%. ??There are no left ventricular segmental wall motion abnormalities. 2. Right ventricular chamber size, wall thickness, and systolic function are within normal limits. 3. There is moderate dilatation of the aortic root. (4.7 cm) ??There is moderate dilatation of the ascending aorta. (4.0 cm) ??There is mild dilatation of the aortic arch. (3.8 cm) 4. When compared with study dated 12/20/14, no significant change was found. 5. See remainder of report for additional findings. Findings ? : Study Quality: ? Adequate Left Ventricle: ? The left ventricular chamber size is normal. ?Left ventricular wall thickness is normal. ?There is normal global left ventricular systolic function. ?The quantitative left ventricular ejection fraction by biplane Sagastume's method is 63%. ?There are no left ventricular segmental wall motion abnormalities. ?Doppler assessment is consistent with normal left sided filling pressure. Left Atrium: ? The left atrium is normal in size. (23 ml/m2 by volume index) Right Ventricle: ? Right ventricular chamber size, wall thickness, and systolic function are within normal limits. ?Pulmonary artery hypertension could not be assessed due to inadequate tricuspid regurgitation jet. Right Atrium: ? The right atrium appears normal. Aortic Valve: ? The aortic valve is trileaflet. The leaflets are thin with normal excursion. There is no aortic stenosis or regurgitation present. Mitral Valve: ? The mitral valve appears normal in structure and function. ?There is mild (1+/4+) mitral regurgitation present. Tricuspid Valve: ? The tricuspid valve appears normal in structure and function. ?There is trace tricuspid regurgitation present. Pulmonic Valve: ? The pulmonic valve appears normal in structure and function. ?There is trace pulmonic regurgitation present. Pericardium: ? The pericardium appears normal and there is no evidence of a pericardial effusion. Aorta: ? There is moderate dilatation of the aortic root. (4.7 cm) ?There is moderate dilatation of the ascending aorta. (4.0 cm) ?There is mild dilatation of the aortic arch. (3.8 cm) ?The abdominal aorta is normal in size. (2.1 cm) Pulmonary Artery: ? The main pulmonary artery appears normal. Venous: ? The inferior vena cava appears normal in size. ?There is a greater than 50% respiratory change in the inferior vena cava dimension. Misc: ? See remainder of report for additional findings. ?Two-dimensional echo, spectral Doppler and color Doppler performed. Chambers 2D ?Value ?Units (Range) ? IVSd (2D) ? 1 ?cm ? LVPWd (2D) ?0.9 ?cm ? IVS:LVPW ratio (2D) 1.1 ?ratio ? LVIDd (2D) ?4.5 ?cm ? LVIDs (2D) ?3 ?cm ? LVIDd (2D) index ?2.2 ?cm/m2 ? LVIDs (2D) index ?1.4 ?cm/m2 ? LV FS (2D) ?35 ? % ? EF Teichholz (2D) ?? 64 ? % ? Ao root diameter (2D4.7 ?cm (2.1 - 3.6) ? Ascending Ao ?4 ?cm (2 - 3.5) ? Aortic arch ? 3.8 ?cm ? Abd Ao ?2.1 ?cm ? Volumes/Mass ?Value ?Units (Range) ? LA Area 4 CH ?19.1 ? cm2 (<21) ? RA AREA 4CH ? 16.1 ? cm2 ? LA ESV SP 4CH (MOD) 42.6 ? ml ? LA ESV SP 2CH (MOD) 50.5 ? ml ? LA ESV BP (MOD) ? 46.4 ? ml ? LA ESV BP (MOD) inde22.6 ? ml/m2 ? LV ESV SP 4CH (MOD) 30.9 ? ml ? LV ESV SP 2CH (MOD) 17.1 ? ml ? LV EDV BP ? 64.3 ? ml ? LV ESV BP ? 23.9 ? ml ? BP EF (MOD) ? 63 ? % ? LV mass (2D) ?137.6 ?g ? LV mass (2D) index ??67.1 ? g/m2 ? Diastolic/Systolic Function ?Value ?Units (Range) ? MV E-wave Vmax ?1 ?m/sec ? MV deceleration [id number] ?msec ? MV A-wave Vmax ?0.7 ?m/sec ? MV E:A ratio ?1.3 ?ratio ? LV septal e' Vmax ?? 0.1 ?m/sec ? LV lateral e' Vmax ??0.1 ?m/sec ? LV average e' Vmax ??0.1 ?m/sec ? LV E:e' septal ratio16.3 ? ratio ? LV E:e' lateral rati9.8 ?ratio ? LV average E:e' rati12.3 ? ratio ? Tricuspid Valve ?Value ?Units (Range) ? TAPSE ? 2.1 ?cm ? Pulmonic Valve/Qp:Qs ?Value ?Units (Range) ? MD end-diastolic Vma0.9 ?m/sec ? Measurement Trending Name ? 12/05/2015 ? LV EDV BP ?64.3 LVIDd (2D) ? 4.52 LV ESV BP ?23.9 LA ESV BP (MOD) ?46.4 LVIDs (2D) ? 2.95 Wall Motion: Segment Name ?Rest ? Base-Anteroseptal ?? Normal ? Base-Anterior ? Normal ? Base-Anterolateral ??Normal ? Base-Posterolateral Normal ? Base-Inferior ? Normal ? Base-Inferoseptal ?? Normal ? Mid-Anteroseptal ?Normal ? Mid-Anterior ?Normal ? Mid-Anterolateral ?? Normal ? Mid-Posterolateral ??Normal ? Mid-Inferior ?Normal ? Mid-Inferoseptal ?Normal ? [place]-Septal ? Normal ? [place]-Anterior ? Normal ? [place]-Lateral ?Normal ? [place]-Inferior ? Normal ? [place]-Tip ?Normal ? This report has been electronically signed by: Sarwat Melara M.D. ? 12/05/2015 11:01:36 Images reviewed and interpretation verified [facility] Cardiac [facility] Procedure Note Sarwat Melara MD - 12/05/2015 Procedure: Transthoracic Echocardiogram Patient: RASHAWN ACE (Age): 1950(65y) Med Rec#: [id number] Sex: M Site Loc: [place] Ht / Wt: 175(cm)/88.91(k Pt. Loc: Echo Lab BSA: 2.05 Study Date: 12/05/2015 Pt. Type: Outpatient Tape: Referring: Carlos Alberto Coreas Referring: EMERY IBARRA Reading: Sarwat Melara ([id number]) Fur Scraper: Danae Thompson BA, [facility] Diagnosis: *ICD-10-PCS Thoracic aortic ectasia (I77.810) CPT Codes: *Echo Full (46513) *Spectral Doppler (66477) *Color Doppler (37790) BP: 140/90 SUMMARY: 1. There is normal global left ventricular systolic function. The quantitative left ventricular ejection fraction by biplane Sagastume's method is 63%. There are no left ventricular segmental wall motion abnormalities. 2. Right ventricular chamber size, wall thickness, and systolic function are within normal limits. 3. There is moderate dilatation of the aortic root. (4.7 cm) There is moderate dilatation of the ascending aorta. (4.0 cm) There is mild dilatation of the aortic arch. (3.8 cm) 4. When compared with study dated 12/20/14, no significant change was found. 5. See remainder of report for additional findings. Findings : Study Quality: Adequate Left Ventricle: The left ventricular chamber size is normal. Left ventricular wall thickness is normal. There is normal global left ventricular systolic function. The quantitative left ventricular ejection fraction by biplane Sagastume's method is 63%. There are no left ventricular segmental wall motion abnormalities. Doppler assessment is consistent with normal left sided filling pressure. Left Atrium: The left atrium is normal in size. (23 ml/m2 by volume index) Right Ventricle: Right ventricular chamber size, wall thickness, and systolic function are within normal limits. Pulmonary artery hypertension could not be assessed due to inadequate tricuspid regurgitation jet. Right Atrium: The right atrium appears normal. Aortic Valve: The aortic valve is trileaflet. The leaflets are thin with normal excursion. There is no aortic stenosis or regurgitation present. Mitral Valve: The mitral valve appears normal in structure and function. There is mild (1+/4+) mitral regurgitation present. Tricuspid Valve: The tricuspid valve appears normal in structure and function. There is trace tricuspid regurgitation present. Pulmonic Valve: The pulmonic valve appears normal in structure and function. There is trace pulmonic regurgitation present. Pericardium: The pericardium appears normal and there is no evidence of a pericardial effusion. Aorta: There is moderate dilatation of the aortic root. (4.7 cm) There is moderate dilatation of the ascending aorta. (4.0 cm) There is mild dilatation of the aortic arch. (3.8 cm) The abdominal aorta is normal in size. (2.1 cm) Pulmonary Artery: The main pulmonary artery appears normal. Venous: The inferior vena cava appears normal in size. There is a greater than 50% respiratory change in the inferior vena cava dimension. Misc: See remainder of report for additional findings. Two-dimensional echo, spectral Doppler and color Doppler performed. Chambers 2D Value Units (Range) IVSd (2D) 1 cm LVPWd (2D) 0.9 cm IVS:LVPW ratio (2D) 1.1 ratio LVIDd (2D) 4.5 cm LVIDs (2D) 3 cm LVIDd (2D) index 2.2 cm/m2 LVIDs (2D) index 1.4 cm/m2 LV FS (2D) 35 % EF Teichholz (2D) 64 % Ao root diameter (2D4.7 cm (2.1 - 3.6) Ascending Ao 4 cm (2 - 3.5) Aortic arch 3.8 cm Abd Ao 2.1 cm Volumes/Mass Value Units (Range) LA Area 4 CH 19.1 cm2 (<21) RA AREA 4CH 16.1 cm2 LA ESV SP 4CH (MOD) 42.6 ml LA ESV SP 2CH (MOD) 50.5 ml LA ESV BP (MOD) 46.4 ml LA ESV BP (MOD) inde22.6 ml/m2 LV ESV SP 4CH (MOD) 30.9 ml LV ESV SP 2CH (MOD) 17.1 ml LV EDV BP 64.3 ml LV ESV BP 23.9 ml BP EF (MOD) 63 % LV mass (2D) 137.6 g LV mass (2D) index 67.1 g/m2 Diastolic/Systolic Function Value Units (Range) MV E-wave Vmax 1 m/sec MV deceleration [id number] msec MV A-wave Vmax 0.7 m/sec MV E:A ratio 1.3 ratio LV septal e' Vmax 0.1 m/sec LV lateral e' Vmax 0.1 m/sec LV average e' Vmax 0.1 m/sec LV E:e' septal ratio16.3 ratio LV E:e' lateral rati9.8 ratio LV average E:e' rati12.3 ratio Tricuspid Valve Value Units (Range) TAPSE 2.1 cm Pulmonic Valve/Qp:Qs Value Units (Range) MD end-diastolic Vma0.9 m/sec Measurement Trending Name 12/05/2015 LV EDV BP 64.3 LVIDd (2D) 4.52 LV ESV BP 23.9 LA ESV BP (MOD) 46.4 LVIDs (2D) 2.95 Wall Motion: Segment Name Rest Base-Anteroseptal Normal Base-Anterior Normal Base-Anterolateral Normal Base-Posterolateral Normal Base-Inferior Normal Base-Inferoseptal Normal Mid-Anteroseptal Normal Mid-Anterior Normal Mid-Anterolateral Normal Mid-Posterolateral Normal Mid-Inferior Normal Mid-Inferoseptal Normal [place]-Septal Normal [place]-Anterior Normal [place]-Lateral Normal [place]-Inferior Normal [place]-Tip Normal This report has been electronically signed by: Sarwat Melara M.D. 12/05/2015 11:01:36 Images reviewed and interpretation verified [facility] Cardiac Ul[facility] Carlos Alberto Coreas MD ECHO ORDERABLES documented in this encounter Visit Diagnoses Diagnosis Dilated aortic root Thoracic aortic ectasia documented in this encounter Care Teams Financial Services Assistant Relationship Specialty Start Date End Date Corbin Caban MD [address] [place] [address] PCP - General 11/12/14 documented as of this encounter
--- OUTSIDE RECORDS SUMMARY | 2023-11-02 14:12 | XMS_ITS | Encounter Summary ---
Author Organization [facility] [place] [address] Care Team Providers Care Marketing Support Specialist Name Role Phone Marisela Boland MD Primary Care Provider Encounter Details Date Type Department Care Team (Late st Contact Info) Description 10/04/2014 [place] [phone] Josiane Mahoney MD [facility] [place] [address] Elevated LFTs; Iron overload; Enlarged liver Social History Tobacco Use Types Packs/Day Years [...] 9:00 AM EST Appointment Non-Invasive [place] [phone] Garth Gaspar MD [facility] [place] [address] Scheduled Orders Name Type Priority Associated Diagnoses Orde r Schedule CBC (with Diff) Lab Routine Elevated LFTs Iron overload Every 6 months for 2 Occurrences starting 10/04/2014 until 10/05/2015, 1 completed Comprehensive metabolic panel (non-fasting) Lab Routine Elevated LFTs Iron overload Every 6 months for 2 Occurrences starting 10/04/2014 until 10/05/2015, 1 completed Prothrombin Time Lab Routine Elevated LFTs Iron overload Every 6 months for 2 Occurrences starting 10/04/2014 until 10/05/2015, 1 completed documented as of this encounter Results * AFP tumor marker (07/22/2015 10:41 AM EDT) Alpha Fetoprotein 2.5 <=8.3 ng/mL [facility] Blood specimen (specimen) 07/22/2015 10:41 AM EDT 07/22/2015 10:50 AM EDT Narrative Resulting Agency Comment Spec In Lab Josiane Mahoney MD CHEMISTRY ORDERABLES [facility] [place] [address] * US abdomen complete with vascular (11/12/2014 1:58 PM EDT) Anatomical Region Laterality Modality Abdomen Ultrasound 11/12/2014 1:58 PM EDT Narrative 11/12/2014 2:09 PM EDT Abdominal Duplex ? (Signed Final 11/12/2014 02:08 pm) Patient Info ID #: ? [id number] ? : [birth year] (64 yrs) Name: ? DB LEVIN ?Visit Date:11/12/2014 01:53 pm Performed By Performed By: ?Padmini Gore RDMS Attending: ? Karla Franco MD Referred By: ? JOSIANE MAHONEY MD Service(s) Provided ??UABDCVASC - Abdominal Complete Survey with Vascular - 96638, 19690 ??[id number], [id number] Indications ??Elevated lft's; iron overload; screen for hepatoma and portal ??hypertension ----- Liver ----- Right Lobe Length: ?? 18.8 ?? cm Echogenicity/Echotexture: ?? Increased in echogenicity diffusely Fatty ? liver Portal Veins: ?Patent Hepatic Veins: ?? Patent Comment: ?Smooth liver capsule Gallbladder Cholelithiasis: ?No stones visualized Wall Thickness: ?2.7 mm Focal Tenderness: ?Negative Harvey's sign Comment: ?Polyps largest measuring 4mm Biliary Tract Intrahepatic Ducts: ?? Normal Extrahepatic Ducts: ?? Normal Common Duct Size: ? 3.0 ? mm -------- Pancreas -------- Head: ? Normal Tail: ? Poorly visualized due to overlying bowel Body: ? Normal ------ Spleen ------ Size (cm) ? L: 11.2 Comment: ?Normal size and appearance Right Kidney Size (cm) ? L: 12.1 ?AP: ??5.3 ? TV: ??5.8 Cortical Thickness: ?Normal Cortical Echogenicity: ?? Normal Hydronephrosis: ?No sonographic evidence Left Kidney Size (cm) ? L: 11.5 ?AP: ??5.3 ? TV: ??5.8 Cortical Thickness: ?Normal Cortical Echogenicity: ?? Normal Hydronephrosis: ?No sonographic evidence ----- Aorta ----- Measurements (cm): Proximal ?AP: ??2.7 ? TV: ??2.1 Mid ? AP: ??2.0 ? TV: ??1.6 Distal ?AP: ??1.5 ? TV: ??1.8 Comment: ?Normal in caliber --- IVC --- Proximal portion, normal in caliber Hepatic-Portal Duplex ? PSV ? EDV ? Waveform ? (cm/s) ??(cm/s) Hepatic Artery: ?? 73.9 ?28.1 ?Patent Right Hepatic ? Patent Vein: Middle Hepatic ?Patent Vein: Left Hepatic ?Patent Vein: Main Portal ? 30.4 ?Patent Vein: Right Portal ?Patent Vein: Left Portal Vein: ? Patent IVC: ?Patent Impression Ultrasound - Abdomen Complete - Summary Enlarged echogenic liver wihtout focal mass consistent with steatosis superimposed on patient's known hemochromatosis. Essentially stable gallbladdder polyps. Ultrasound - Vascular evaluation - Summary Normal directional flow and waveforms in PV, hepatic artery and hepatic veins. I ??viewed the images and agree with the above interpretation. ?Karla Brock MD Electronically Signed Final Report ?? 11/12/2014 02:08 pm Procedure Note Karla Leung MD - 11/12/2014 Abdominal Duplex (Signed Final 11/12/2014 02:08 pm) Patient Info ID #: [id number] : [birth year] (64 yrs) Name: DB LEVIN Visit Date:11/12/2014 01:53 pm Performed By Performed By: Padmini Gore RDMS Attending: Karla Franco MD Referred By: JOSIANE MAHONEY MD Service(s) Provided UABDCVASC - Abdominal Complete Survey with Vascular - 23536, 15339 [id number] Indications Elevated lft's; iron overload; screen for hepatoma and portal hypertension ----- Liver ----- Right Lobe Length: 18.8 cm Echogenicity/Echotexture: Increased in echogenicity diffusely Fatty liver Portal Veins: Patent Hepatic Veins: Patent Comment: Smooth liver capsule Gallbladder Cholelithiasis: No stones visualized Wall Thickness: 2.7 mm Focal Tenderness: Negative Harvey's sign Comment: Polyps largest measuring 4mm Biliary Tract Intrahepatic Ducts: Normal Extrahepatic Ducts: Normal Common Duct Size: 3.0 mm -------- Pancreas -------- Head: Normal Tail: Poorly visualized due to overlying bowel Body: Normal ------ Spleen ------ Size (cm) L: 11.2 Comment: Normal size and appearance Right Kidney Size (cm) L: 12.1 AP: 5.3 TV: 5.8 Cortical Thickness: Normal Cortical Echogenicity: Normal Hydronephrosis: No sonographic evidence Left Kidney Size (cm) L: 11.5 AP: 5.3 TV: 5.8 Cortical Thickness: Normal Cortical Echogenicity: Normal Hydronephrosis: No sonographic evidence ----- Aorta ----- Measurements (cm): Proximal AP: 2.7 TV: 2.1 Mid AP: 2.0 TV: 1.6 Distal AP: 1.5 TV: 1.8 Comment: Normal in caliber --- IVC --- Proximal portion, normal in caliber Hepatic-Portal Duplex PSV EDV Waveform (cm/s) (cm/s) Hepatic Artery: 73.9 28.1 Patent Right Hepatic Patent Vein: Middle Hepatic Patent Vein: Left Hepatic Patent Vein: Main Portal 30.4 Patent Vein: Right Portal Patent Vein: Left Portal Vein: Patent IVC: Patent Impression Ultrasound - Abdomen Complete - Summary Enlarged echogenic liver wihtout focal mass consistent with steatosis superimposed on patient's known hemochromatosis. Essentially stable gallbladdder polyps. Ultrasound - Vascular evaluation - Summary Normal directional flow and waveforms in PV, hepatic artery and hepatic veins. I viewed the images and agree with the above interpretation. Karla Brock MD Electronically Signed Final Report 11/12/2014 02:08 pm Josiane Mahoney MD IMG US GEN ORDERABLE S * AFP tumor marker (11/12/2014 12:26 PM EDT) Alpha Fetoprotein 1.7 <=8.3 ng/mL [facility] Blood specimen (specimen) 11/12/2014 12:26 PM EDT 11/12/2014 12:33 PM EDT Narrative Resulting Agency Comment Spec In Lab Josiane Mahoney MD CHEMISTRY ORDERABLES [facility] * Prothrombin Time (11/12/2014 12:26 PM EDT) Prothrombin Time 13.2 12.0 - 15.0 sec [facility] Comment: Transfusion Committee Guidelines: INR less than 2.0, PTT less than OR equal to 43.5 seconds, or Fibrinogen greater than or equal to 100 mg/dl indicate adequate procoagulant activity for hemostasis in patients without underlying bleeding disorders. International Normalization Ratio 1.0 0.9 - 1.1 [facility] Blood specimen (specimen) 11/12/2014 12:26 PM EDT 11/12/2014 12:33 PM EDT Narrative Resulting Agency Comment Spec In Lab Josiane Mahoney MD HEMATOLOGY ORDERABLE S [facility] * (ABNORMAL) Comprehensive metabolic panel (non-fasting) (11/12/2014 12:26 PM EDT) [facility] Glucose 100 65 - 199 mg/dL [facility] Comment:Diabetes: >=200 mg/d L plus symptoms Blood Urea Nitrogen 10 10 - 20 mg/dL [facility] MILLENNIUM Creatinine 0.93 0.80 - 1.50 mg/dL [facility] MILLENNIUM Comment: Please note that the pediatric reference intervals supplied above were not validated at [facility] [place] [place]. Results from pediatric patients should be interpreted in conjunction to the patient's age, height and muscle mass. Sodium 143 135 - 145 mmol/L [facility]ENNI[facility] Potassium 4.2 3.5 - 5.0 mmol/L [facility] Comment: Please note: ??Patients with WBC >100,000 may have falsely elevated Potassium levels. ??For accurate Potassium quantification in these patients send serum separator tube (gold top) for subsequent determinations. ??Contact the Clinical Chemistry Laboratory if there are any questions. Chloride 104 98 - 107 mmol/L [facility] MILLENNI[facility] Carbon Dioxide 23 22 - 31 mmol/L [facility] MILLENNI[facility] Anion Gap 16(H) 5 - 15 mmol/L [facility] Calcium 9.5 8.5 - 10.5 mg/dL [facility] Protein, Total 7.4 6.1 - 8.0 gm/dL [facility] Albumin 4.6 3.2 - 5.2 gm/dL [facility] M[facility] Aspartate Aminotransferase 26 0 - 39 unit/L [facility] Alanine Aminotransferase 28 0 - 55 unit/L [facility] M[facility] Alkaline Phosphatase 73 40 - 120 unit/L [facility] MILLENNIUM Bilirubin, Total 0.9 0.2 - 1.3 mg/dL [facility] MILLENNIUM Bilirubin, Direct 0.2 0.0 - 0.3 mg/dL [facility] MILLENNIUM Est Glomerular Filtration Rate >60 >=60 [facility] MILLENNIUM Comment: This estimated GFR (eGFR) value was [...] the following links into your internet browser. [email or web address] Blood specimen (specimen) 11/12/2014 12:26 PM EDT 11/12/2014 12:33 PM EDT Narrative Resulting Agency Comment Spec In Lab Josiane Mahoney MD CHEMISTRY ORDERABLES Performing Organization Address City/State/[place] Phone Number [facility] documented in this encounter Visit Diagnoses Diagnosis Elevated LFTs Other abnormal blood chemistry Iron overload Other disorders of iron metabolism Enlarged liver Hepatomegaly Elevated LFTs Other abnormal blood chemistry Iron overload Other disorders of iron metabolism Enlarged liver Hepatomegaly documented in this encounter Care Teams Marketing Support Specialist Relationship Specialty Start Date End Date Marisela Boland MD [address] [place] [address] PCP - General 09/22/11 11/11/14 documented as of this encounter
--- OUTSIDE RECORDS SUMMARY | 2023-11-02 14:12 | XMS_ITS | Encounter Summary ---
Author Organization [facility] Address [facility] [place] [address] Care Team Providers Care Licensed Practical Vocational Nurse Name Role Phone Corbin Caban MD Primary Care Provider [phone] Encounter Details Date Type Department Care Team (Late st Contact Info) Description 12/20/2014 2:50 PM EDT Office [place] [address] Carlos Alberto Coreas MD [facility] DR CARDIOTHORACIC [place] [address] Ascending aorta dilatation; Essential hypertension Social History Tobacco Use Types [...] Sign Reading Time Taken Comments Blood Pressure 130/92 12/20/2014 2:27 PM EDT Pulse 84 12/20/2014 2:27 PM EDT Temperature - - Respiratory Rate - - Oxygen Saturation 97% 12/20/2014 2:27 PM EDT Inhaled Oxygen Concentration - - Weight 96.6 kg (213 lb) 12/20/2014 2:27 PM EDT Height 175.3 cm (5' 9) 12/20/2014 2:27 PM EDT Body Mass Index 31.45 12/20/2014 2:27 PM EDT documented in this encounter Progress Notes * Carlos Alberto Coreas MD - 12/20/2014 3:21 PM EDT I am seeing Mr. Levin in followup of his dilated aorta. He has not had any new problems in the past year. No chest pain or shortness of breath. He has beenrunning borderline high blood pressures. He is actively trying to decrease his drinking. ECHO today shows lVEF 65%, no AI, 1+ MR, aortic root measures 4.8 cm, ascending aorta measures 4.2 cm Outpatient Prescriptions Marked as Taking for the 12/20/14 encounter (Office Visit) with Carlos Alberto Coreas MD Medication Sig Dispense Refill ??? aspirin 81 mg Tablet, Delayed Release (E.C.) Take 81 mg by mouth daily. ??? ascorbic acid (VITAMIN C) 500 mg tablet Take 500 mg by mouth daily. ??? allopurinol (ZYLOPRIM) 300 mg tablet Take 300 mg by mouth daily. ??? amlodipine-benazepril (LOTREL) 5-20 mg per capsule Take 1 capsule by mouth daily. ??? multivitamin (THERAGRAN) tablet Take 1 tablet by mouth daily. ??? ZINC ACETATE ORAL Take by mouth. Physical Exam: BP 130/92 mmHg Pulse 84 Ht 175.3 cm (5' 9) Wt 96.616 kg (213 lb) BMI 31.44 kg/m2 SpO2 97% Lung: CTA CV: RRR, no murmur nml pulse exam A/P: Stable aortic root and ascending aorta. I would like to see him in one year with a repeat ECHO. documented in this encounter Plan of Treatment Upcoming Encounters Date Type Department Care Team (Late st Contact Info) Description 02/08/2024 9:00 AM EST Appointment Non-Invasive [place] [address] Garth Gaspar MD [facility] [place] [address] documented as of this encounter Visit Diagnoses Diagnosis Ascending aorta dilatation Thoracic aortic ectasia Essential hypertension Unspecified essential hypertension documented in this encounter Care Teams Licensed Practical Vocational Nurse Relationship Specialty Start Date End Date Corbin Caban MD [address] [place] [address] [address] [place] [address] PCP - General 11/12/14 documented as of this encounter
--- OUTSIDE RECORDS SUMMARY | 2023-11-02 14:12 | XMS_ITS | Encounter Summary ---
Author Organization [facility] [place] [address] Care Team Providers Care Business Law Professor Name Role Phone Corbin Caban MD Primary Care Provider [phone] Reason for Referral * Diagnostic Test (Routine) - Closed Specialty Diagnoses / Procedures Referred By Nikhil t Referred To Contact Cardiology Diagnoses Preop cardiovascular exam Procedures Echocardiogram Transthoracic(Leb) Grecia Miguel APRN [address] [facility] [place] [address] [facility] [place] [address] Referral ID Status Reason Start Date Expiration Date V isits Requested Visits Authorized [id number] Closed Specialty Service Requested 10/18/2016 10/18/2017 1 1 Encounter Details Date Type Department Care Team (Late st Contact Info) Description 10/14/2016 Orders [place] [address] Grecia Miguel APRN [address] [place] [address] [place] [address] Preop cardiovascular exam Social History Tobacco Use Types Packs/Day Years [...] 9:00 AM EST Appointment Non-Invasive [place] [address] Garth Gaspar MD [facility] [place] [address] documented as of this encounter Results * ECHO COMPLETE (11/19/2016 1:03 PM EDT) EF [employer] Anatomical Region Laterality Modality Other 11/19/2016 Narrative 11/19/2016 1:14 PM EDT Procedure: ?Transthoracic Echocardiogram Patient: ?BUTTS DB ?(Age): 1950(66y) Med Rec#: ? [id number] ?Sex: ?M ? Site Loc: ? [facility] ?Ht / Wt: ??175(cm)/94(kg) Pt. Loc: ?Echo Lab ?BSA: ?2.09 Study Date: ?? 11/19/2016 ?Pt. Type: Inpatient Tape: ? Referring: SHARRI Reading: Sam Sawant ([id number]) Paint Dipper: Lay Weir Diagnosis: *ICD-10-PCS Encounter for preprocedural cardiovascular examination (Z01.810) BP: ? 141/92 SUMMARY: 1. The left ventricular chamber size is normal. Basal septal hypertrophy is observed. There is no evidence of LVOT obstruction. There are no left ventricular segmental wall motion abnormalities. There is normal global left ventricular systolic function. The quantitative left ventricular ejection fraction by biplane Sagastume's method is 73%. Left ventricular diastolic function is normal. 2. The right ventricle is normal in size. Right ventricular global systolic function is normal. 3. There is moderate dilatation of the aortic root. (4.8 cm) There is moderate dilatation of the ascending aorta. (4.1 cm) ??There is a trace of aortic regurgitation present. These measurements are essentially unchanged compared to those reported on the prior study from 12/05/15. 4. See remainder of report for additional findings. Findings ? : Left Ventricle: ? The left ventricular chamber size is normal. ?Basal septal hypertrophy is observed. ?There is no evidence of LVOT obstruction. ?No ventricular septal defect is visualized. ?There is normal global left ventricular systolic function. ?The quantitative left ventricular ejection fraction by biplane Sagastume's method is 73%. ?There are no left ventricular segmental wall motion abnormalities. ?Left ventricular diastolic function is normal. ?Doppler assessment is consistent with normal left sided filling pressure. Left Atrium: ? The left atrium is normal in size. ?There is no evidence of a patent foramen ovale by color Doppler. Right Ventricle: ? The right ventricle is normal in size. ?Right ventricular global systolic function is normal. ?Pulmonary artery hypertension could not be assessed due to inadequate tricuspid regurgitation jet. ?The estimated right atrial pressure is 3 mmHg. Right Atrium: ? The right atrium is normal in size. Aortic Valve: ? The aortic valve is probably tricuspid. ?Systolic excursion of the aortic valve [...] valve appears normal in structure and function. ?The pulmonic valve appears normal. ?There is trace pulmonic regurgitation present. Pericardium: ? The pericardium appears normal and there is no evidence of a pericardial effusion. Aorta: ? There is moderate dilatation of the aortic root. (4.8 cm) ?There is moderate dilatation of the ascending aorta. (4.1 cm) ?There is mild dilatation of the aortic arch. Pulmonary Artery: ? The main pulmonary artery appears normal. Venous: ? The inferior vena cava appears normal in size. ?There is a greater than 50% respiratory change in the inferior vena cava dimension. Misc: ? Two-dimensional echo, spectral Doppler and color Doppler performed. Chambers 2D ?Value ?Units (Range) ? IVSd (2D) ? 1.3 ?cm ? LVPWd (2D) ?1 ?cm ? IVS:LVPW ratio (2D) 1.3 ?ratio ? RWT (2D) ?0.5 ?ratio ? RWT PW (2D) ? 0.5 ?ratio ? LVIDd (2D) ?4.2 ?cm ? LVIDs (2D) ?2.3 ?cm ? LVIDd (2D) index ?2 ?cm/m2 ? LVIDs (2D) index ?1.1 ?cm/m2 ? LV FS (2D) ?45 ? % ? EF Teichholz (2D) ?? 77 ? % ? Ao root diameter (2D4.8 ?cm (2.1 - 3.6) ? Ascending Ao ?4.1 ?cm (2 - 3.5) ? Volumes/Mass ?Value ?Units (Range) ? LA Area 4 CH ?18.9 ? cm2 (<21) ? LA ESV BP (A/L) inde26 ? ml/m2 ? RA AREA 4CH ? 14.5 ? cm2 ? LV ESV SP 4CH (MOD) 25.4 ? ml ? LV ESV SP 2CH (MOD) 19.2 ? ml ? LV EDV BP ? 83 ? ml ? LV ESV BP ? 22.4 ? ml ? LV EDV BP index ? 39.7 ? ml/m2 ? LV ESV BP index ? 10.7 ? ml/m2 ? BP EF (MOD) ? 73 ? % ? LV mass (2D) ?161 ?g ? LV mass (2D) index ??77 ? g/m2 ? Diastolic/Systolic Function ?Value ?Units (Range) ? MV E-wave Vmax ?0.9 ?m/sec ? MV deceleration lrwy375.5 ?msec ? MV A-wave Vmax ?0.8 ?m/sec ? MV E:A ratio ?1.2 ?ratio ? LV septal e' Vmax ?? 0.1 ?m/sec ? LV lateral e' Vmax ??0.1 ?m/sec ? LV average e' Vmax ??0.1 ?m/sec ? LV E:e' septal ratio8.2 ?ratio ? LV E:e' lateral rati7.5 ?ratio ? LV average E:e' rati7.5 ?ratio ? Tricuspid Valve ?Value ?Units (Range) ? RAP ? 3 ?mmHg ? Wall Motion: Segment Name ?Rest ? Base-Anteroseptal ?? Normal ? Base-Anterior ? Normal ? Base-Anterolateral ??Normal ? Base-Posterolateral Normal ? Base-Inferior ? Normal ? Base-Inferoseptal ?? Normal ? Mid-Anteroseptal ?Normal ? Mid-Anterior ?Normal ? Mid-Anterolateral ?? Normal ? Mid-Posterolateral ??Normal ? Mid-Inferior ?Normal ? Mid-Inferoseptal ?Normal ? [place]-Septal ? Normal ? [place]-Anterior ? Normal ? [place]-Lateral ?Normal ? [place]-Inferior ? Normal ? [place]-Tip ?Normal ? This report has been electronically signed by: Sam Sawant MD ? 11/19/2016 13:13:59 Images reviewed and interpretation verified [facility] Cardiac Ultrasound Laboratory Procedure Note Sam Sawant MD - 11/19/2016 Procedure: Transthoracic Echocardiogram Patient: RASHAWN ACE (Age): 1950(66y) Med Rec#: [id number] Sex: M Site Loc: [facility] Ht / Wt: 175(cm)/94(kg) Pt. Loc: Echo Lab BSA: 2.09 Study Date: 11/19/2016 Pt. Type: Inpatient Tape: Referring: SHARRI Reading: Sam Sawant ([id number]) Paint Dipper: Lay Weir Diagnosis: *ICD-10-PCS Encounter for preprocedural cardiovascular examination (Z01.810) BP: 141/92 SUMMARY: 1. The left ventricular chamber size is normal. Basal septal hypertrophy is observed. There is no evidence of LVOT obstruction. There are no left ventricular segmental wall motion abnormalities. There is normal global left ventricular systolic function. The quantitative left ventricular ejection fraction by biplane Sagastume's method is 73%. Left ventricular diastolic function is normal. 2. The right ventricle is normal in size. Right ventricular global systolic function is normal. 3. There is moderate dilatation of the aortic root. (4.8 cm) There is moderate dilatation of the ascending aorta. (4.1 cm) There is a trace of aortic regurgitation present. These measurements are essentially unchanged compared to those reported on the prior study from 12/05/15. 4. See remainder of report for additional findings. Findings : Left Ventricle: The left ventricular chamber size is normal. Basal septal hypertrophy is observed. There is no evidence of LVOT obstruction. No ventricular septal defect is visualized. There is normal global left ventricular systolic function. The quantitative left ventricular ejection fraction by biplane Sagastume's method is 73%. There are no left ventricular segmental wall motion abnormalities. Left ventricular diastolic function is normal. Doppler assessment is consistent with normal left sided filling pressure. Left Atrium: The left atrium is normal in size. There is no evidence of a patent foramen ovale by color Doppler. Right Ventricle: The right ventricle is normal in size. Right ventricular global systolic function is normal. Pulmonary artery hypertension could not be assessed due to inadequate tricuspid regurgitation jet. The estimated right atrial pressure is 3 mmHg. Right Atrium: The right atrium is normal in size. Aortic Valve: The aortic valve is probably tricuspid. Systolic excursion of the aortic valve [...] valve appears normal in structure and function. The pulmonic valve appears normal. There is trace pulmonic regurgitation present. Pericardium: The pericardium appears normal and there is no evidence of a pericardial effusion. Aorta: There is moderate dilatation of the aortic root. (4.8 cm) There is moderate dilatation of the ascending aorta. (4.1 cm) There is mild dilatation of the aortic arch. Pulmonary Artery: The main pulmonary artery appears normal. Venous: The inferior vena cava appears normal in size. There is a greater than 50% respiratory change in the inferior vena cava dimension. Misc: Two-dimensional echo, spectral Doppler and color Doppler performed. Chambers 2D Value Units (Range) IVSd (2D) 1.3 cm LVPWd (2D) 1 cm IVS:LVPW ratio (2D) 1.3 ratio RWT (2D) 0.5 ratio RWT PW (2D) 0.5 ratio LVIDd (2D) 4.2 cm LVIDs (2D) 2.3 cm LVIDd (2D) index 2 cm/m2 LVIDs (2D) index 1.1 cm/m2 LV FS (2D) 45 % EF Teichholz (2D) 77 % Ao root diameter (2D4.8 cm (2.1 - 3.6) Ascending Ao 4.1 cm (2 - 3.5) Volumes/Mass Value Units (Range) LA Area 4 CH 18.9 cm2 (<21) LA ESV BP (A/L) inde26 ml/m2 RA AREA 4CH 14.5 cm2 LV ESV SP 4CH (MOD) 25.4 ml LV ESV SP 2CH (MOD) 19.2 ml LV EDV BP 83 ml LV ESV BP 22.4 ml LV EDV BP index 39.7 ml/m2 LV ESV BP index 10.7 ml/m2 BP EF (MOD) 73 % LV mass (2D) 161 g LV mass (2D) index 77 g/m2 Diastolic/Systolic Function Value Units (Range) MV E-wave Vmax 0.9 m/sec MV deceleration gueh037.5 msec MV A-wave Vmax 0.8 m/sec MV E:A ratio 1.2 ratio LV septal e' Vmax 0.1 m/sec LV lateral e' Vmax 0.1 m/sec LV average e' Vmax 0.1 m/sec LV E:e' septal ratio8.2 ratio LV E:e' lateral rati7.5 ratio LV average E:e' rati7.5 ratio Tricuspid Valve Value Units (Range) RAP 3 mmHg Wall Motion: Segment Name Rest Base-Anteroseptal Normal Base-Anterior Normal Base-Anterolateral Normal Base-Posterolateral Normal Base-Inferior Normal Base-Inferoseptal Normal Mid-Anteroseptal Normal Mid-Anterior Normal Mid-Anterolateral Normal Mid-Posterolateral Normal Mid-Inferior Normal Mid-Inferoseptal Normal [place]-Septal Normal Dallas-Anterior Normal [place]-Lateral Normal Dallas-Inferior Normal Dallas-Tip Normal This report has been electronically signed by: Sam Sawant MD 11/19/2016 13:13:59 Images reviewed and interpretation verified [facility] Cardiac Ultrasound Laboratory Grecia Miguel APRN ECHO ORDERABLES documented in this encounter Visit Diagnoses Diagnosis Preop cardiovascular exam Pre-operative cardiovascular examination Preop cardiovascular exam Pre-operative cardiovascular examination documented in this encounter Care Teams Business Law Professor Relationship Specialty Start Date End Date Corbin Caban MD [address] [place] [address] PCP - General 11/12/14 documented as of this encounter
--- OUTSIDE RECORDS SUMMARY | 2023-11-02 14:12 | XMS_ITS | Encounter Summary ---
Author Organization [facility] Address [facility] [place] [address] Care Team Providers Care Electric Refrigerator Servicer Name Role Phone Marisela Boland MD Primary Care Provider Encounter Details Date Type Department Care Team (Late st Contact Info) Description 03/16/2013 Orders [place] [id number] Abelino Bee APRN [facility] DR GASTROENTEROLOGY DEPT. [place], [place] [id number] Elevated LFTs; Iron overload Social History Tobacco Use Types Packs/Day Years [...] 9:00 AM EST Appointment Non-Invasive [place]iology [place] [address] Garth Gaspar MD [facility] [place] [address] documented as of this encounter Results * US abdomen complete (04/09/2013 10:37 AM EST) Anatomical Region Laterality Modality Abdomen, Vascular Ultrasound 04/09/2013 10:3 7 AM EST Narrative 04/09/2013 11:18 AM EST ?Abdominal ? (Signed Final 04/09/2013 11:18 am) Patient Info ID: ? [id number] ? : ??[birth year] (63 yrs) Name: ? DB LEVIN ?Visit Date: 04/09/2013 09:37 am Performed By Performed By: ?Perla Newberry RDMS Attending: ? Syed TRUJILLO, Mirela JGwen Referred By: ? ABELINO BEE WELDING TESTER Service(s) Provided [facility] - Abdominal Complete Survey - [id number] ? [id number] Indications iron overload, possible cirrhosis. evaluate liver mass ----- Liver ----- Right Lobe Length: ?? 18.6 ?? cm Echogenicity/Echotexture: ?? Fatty liver focal sparing Comment: ?Mild hepatomegaly Gallbladder Cholelithiasis: ?No stones visualized Focal Tenderness: ?Negative sonographic Harvey's sign Comment: ?Multiple polyps seen, largest measuring 3.8 mm. Biliary Tract Intrahepatic Ducts: ?? Normal Extrahepatic Ducts: ?? Normal Common Duct Size: ? 2 ? mm -------- Pancreas -------- Head: ? Visualized Tail: ? Poorly visualized due to overlying bowel Body: ? Visualized ------ Spleen ------ Size (cm) ?L: ??13.1 Comment: ?Splenomegaly- mild Right Kidney Size (cm) ?L: ??11 Cortical Thickness: ?Normal Cortical Echogenicity: ?? Normal Hydronephrosis: ?No sonographic evidence Left Kidney Size (cm) ?L: ??10.9 Cortical Thickness: ?Normal Cortical Echogenicity: ?? Normal Hydronephrosis: ?No sonographic evidence ----- Aorta ----- Measurements (cm): Proximal ? AP: ?? 2.9 Comment: ?Normal in caliber where visualized --- IVC --- Normal in caliber where visualized Impression Ultrasound - Abdomen Complete - Summary 1. Enlarged and mildly echogenic liver, may be seen in iron deposition.. 2. Splenomegaly. I ??viewed the images and agree with the above interpretation. Thank you for allowing us to participate in the care of DB LEVIN. Please do not hesitate to call if you have any questions. ?Mirela Lynch MD Electronically Signed Final Report ?? 04/09/2013 11:18 am Procedure Note Mirela Lynch MD - 04/09/2013 Abdominal (Signed Final 04/09/2013 11:18 am) Patient Info ID: [id number] : [birth year] (63 yrs) Name: DB LEVIN Visit Date: 04/09/2013 09:37 am Performed By Performed By: Perla Newberry RDMS Attending: Mirela Lynch MD Referred By: ABELINO BEE APRN Service(s) Provided [facility] - Abdominal Complete Survey - [id number] Indications iron overload, possible cirrhosis. evaluate liver mass ----- Liver ----- Right Lobe Length: 18.6 cm Echogenicity/Echotexture: Fatty liver focal sparing Comment: Mild hepatomegaly Gallbladder Cholelithiasis: No stones visualized Focal Tenderness: Negative sonographic Harvey's sign Comment: Multiple polyps seen, largest measuring 3.8 mm. Biliary Tract Intrahepatic Ducts: Normal Extrahepatic Ducts: Normal Common Duct Size: 2 mm -------- Pancreas -------- Head: Visualized Tail: Poorly visualized due to overlying bowel Body: Visualized ------ Spleen ------ Size (cm) L: 13.1 Comment: Splenomegaly- mild Right Kidney Size (cm) L: 11 Cortical Thickness: Normal Cortical Echogenicity: Normal Hydronephrosis: No sonographic evidence Left Kidney Size (cm) L: 10.9 Cortical Thickness: Normal Cortical Echogenicity: Normal Hydronephrosis: No sonographic evidence ----- Aorta ----- Measurements (cm): Proximal AP: 2.9 Comment: Normal in caliber where visualized --- IVC --- Normal in caliber where visualized Impression Ultrasound - Abdomen Complete - Summary 1. Enlarged and mildly echogenic liver, may be seen in iron deposition.. 2. Splenomegaly. I viewed the images and agree with the above interpretation. Thank you for allowing us to participate in the care of DB LEVIN. Please do not hesitate to call if you have any questions. Mirela Lynch MD Electronically Signed Final Report 04/09/2013 11:18 am Hermelinda Lasren MD IMG US GEN ORDERABLE S documented in this encounter Visit Diagnoses Diagnosis Elevated LFTs Other abnormal blood chemistry Iron overload Other disorders of iron metabolism Elevated LFTs Other abnormal blood chemistry Iron overload Other disorders of iron metabolism documented in this encounter Care Teams Electric Refrigerator Servicer Relationship Specialty Start Date End Date Marisela Boland MD [address] [place] [address] PCP - General 09/22/11 11/11/14 documented as of this encounter
--- OUTSIDE RECORDS SUMMARY | 2023-11-02 14:12 | XMS_ITS | Encounter Summary ---
Author Organization [facility] Address [facility] [place] [address] Care Team Providers Care Sports Development Officer Name Role Phone Marisela Boland MD Primary Care Provider [phone] Encounter Details Date Type Department Care Team (Late st Contact Info) Description 10/29/2013 Orders Only [place] [address] Carlos Alberto Coreas MD [facility] [place] [address] Social History Tobacco Use Types Packs/Day Years [...] 9:00 AM EST Appointment Non-[place] [address] Garth Gaspar MD [facility] [place] [address] documented as of this encounter Visit Diagnoses Not on filedocumented in this encounter Care Teams Sports Development Officer Relationship Specialty Start Date End Date Marisela Boland MD [address] [place] [address] PCP - General 09/22/11 11/11/14 documented as of this encounter
--- OUTSIDE RECORDS SUMMARY | 2023-11-02 14:12 | XMS_ITS | Encounter Summary ---
Author Organization [facility] Address [facility] [place] [address] Care Team Providers Care Croze Cutter Helper Name Role Phone Corbin Caban MD Primary Care Provider [phone] Encounter Details Date Type Department Care Team (Latest Contact Info) Description 07/22/2015 1:45 PM EDT Procedure [place] [phone] Ariel Hays MD [facility] DR GASTROENTEROLOGY DEPT. [place] [id number] PATIENT NOT SEEN Social History Tobacco Use Types Packs/Day Years [...] Sign Reading Time Taken Comments Blood Pressure 118/77 07/22/2015 1:23 PM EDT Pulse 83 07/22/2015 1:23 PM EDT Temperature - - Respiratory Rate - - Oxygen Saturation - - Inhaled Oxygen Concentration - - Weight 90.9 kg (200 lb 6.4 oz) 07/22/2015 1:23 PM EDT Weighed with shoes. Height 175.3 cm (5' 9) 07/22/2015 1:23 PM EDT Body Mass Index 29.59 07/22/2015 1:23 PM EDT documented in this encounter Progress Notes * Ariel Hays MD - 07/22/2015 1:54 PM EDT This patient was not seen in this encounter. documented in this encounter Plan of Treatment Upcoming Encounters Date Type Department Care Team (Late st Contact Info) Description 02/08/2024 9:00 AM EST Appointment Non-Invasive [place] [address] Garth Gaspar MD [facility] [place] [address] documented as of this encounter Visit Diagnoses Diagnosis DH PATIENT NOT SEEN documented in this encounter Care Teams Croze Cutter Helper Relationship Specialty Start Date End Date Corbin Caban MD [address] [facility] [address] [place] [address] PCP - General 11/12/14 documented as of this encounter
--- OUTSIDE RECORDS SUMMARY | 2023-11-02 14:12 | XMS_ITS | Encounter Summary ---
Author Organization [facility] Address [facility] [place] [address] Care Team Providers Care Marine Electrician Name Role Phone Corbin Caban MD Primary Care Provider [phone] Encounter Details Date Type Department Care Team (Latest Contact Info) Description 07/22/2015 10:48 AM EDT - 07/22/2015 11:59 PM EDT Hospital Encounter [place] [id number] Pastor Palomino MD [facility] [address] [place]STROENTER[place] [address] Hemochromatosis Discharge Disposition: Home Social History Tobacco Use [...] 9:00 AM EST Appointment Non-Invasive Cardiology Lab [facility] [place] [address] Garth Gaspar MD [facility] [place] [address] documented as of this encounter Procedures Procedure Name Priority Date/Time Associated Diagnosis Comments US ABDOMEN LIMITED Routine 07/22/2015 11 :45 AM EDT Hemochromatosis documented in this encounter Results * US Abdomen Limited (07/22/2015 11:45 AM EDT) Anatomical Region Laterality Modality Abdomen Ultrasound 07/22/2015 11:4 6 AM EDT Impressions 07/22/2015 12:14 PM EDT Impression Abdomen Limited Summary 1. ??Diffuse hepatic steatosis with focal fatty sparing. ??No sonographic evidence of cirrhosis. ??No hepatic masses. 2. ??Multiple gallbladder polyps. ??No gallstones. ??No intra- hepatic/extrahepatic duct dilation. I ??viewed the images and agree with the above interpretation. ?Mirelase Makayla Lynch MD Electronically Signed Final Report ?? 07/22/2015 12:14 pm Narrative 07/22/2015 12:14 PM EDT Abdominal ?(Signed Final 07/22/2015 12:14 pm) Patient Info ID #: ? [id number] ?: ??[birth year] (65 yrs) Name: ? DB LOPEZAshly ? Visit Date: 07/22/2015 11:46 am Performed By Performed By: ? Pollo Brantley RDMS Attending: ?Syed TRUJILLO, Mirela Prasad Associate: ?Baljit TRUJILLO, Jese Prasad Referred By: ?PASTOR PALOMINO MD Service(s) Provided ??UABDLIM - Abdominal Limited Survey Single ? [id number] ??Organ or Quadrant - [id number] Indications ??Elevated liver enzymes Comparison Ultrasound: ABD. VASC. 07/22/15 ----- Liver ----- Right Lobe Length: ?? 16.5 ?? cm Echogenicity/Echotexture: ?? Increased in echogenicity diffusely Portal Veins: ?Patent Comment: ?Focal fatty sparing near galllbladder fossa. Gallbladder Cholelithiasis: ?No stones visualized Wall Thickness: ?1.4 mm Focal Tenderness: ?Negative sonographic Harvey's sign Comment: ?Multiple polyps seen in the neck of the gallbladder ? and one seen in the fundus. Biliary Tract Intrahepatic Ducts: ?? Normal Extrahepatic Ducts: ?? Normal Common Duct Size: ? 2.0 ? mm -------- Pancreas -------- Head: ? Normal Tail: ? Poorly visualized due to overlying bowel Body: ? Normal Right Kidney Size (cm) ?L: ??11.7 Cortical Thickness: ?Normal Cortical Echogenicity: ?? Normal Hydronephrosis: ?No sonographic evidence ----- Aorta ----- Measurements (cm): Proximal ? AP: ?? 2.1 --- IVC --- Normal in caliber where visualized. Procedure Note Mirela Lynch MD - 07/22/2015 Abdominal (Signed Final 07/22/2015 12:14 pm) Patient Info ID #: [id number] : [birth year] (65 yrs) Name: DB LEVIN Visit Date: 07/22/2015 11:46 am Performed By Performed By: Pollo Brantley RDMS Attending: Mirela Lynch MD Associate: Jese Smiley MD Referred By: PASTOR PALOMINO MD Service(s) Provided UABDLIM - Abdominal Limited Survey Single [id number] Organ or Quadrant - [id number] Indications Elevated liver enzymes Comparison Ultrasound: ABD. VASC. 07/22/15 ----- Liver ----- Right Lobe Length: 16.5 cm Echogenicity/Echotexture: Increased in echogenicity diffusely Portal Veins: Patent Comment: Focal fatty sparing near galllbladder fossa. Gallbladder Cholelithiasis: No stones visualized Wall Thickness: 1.4 mm Focal Tenderness: Negative sonographic Harvey's sign Comment: Multiple polyps seen in the neck of the gallbladder and one seen in the fundus. Biliary Tract Intrahepatic Ducts: Normal Extrahepatic Ducts: Normal Common Duct Size: 2.0 mm -------- Pancreas -------- Head: Normal Tail: Poorly visualized due to overlying bowel Body: Normal Right Kidney Size (cm) L: 11.7 Cortical Thickness: Normal Cortical Echogenicity: Normal Hydronephrosis: No sonographic evidence ----- Aorta ----- Measurements (cm): Proximal AP: 2.1 --- IVC --- Normal in caliber where visualized. IMPRESSION Impression Abdomen Limited Summary 1. Diffuse hepatic steatosis with focal fatty sparing. No sonographic evidence of cirrhosis. No hepatic masses. 2. Multiple gallbladder polyps. No gallstones. No intra- hepatic/extrahepatic duct dilation. I viewed the images and agree with the above interpretation. Mirela Lynch MD Electronically Signed Final Report 07/22/2015 12:14 pm Pastor Palomino MD IM US GEN ORDERABL ES documented in this encounter Visit Diagnoses Diagnosis Hemochromatosis Other hemochromatosis documented in this encounter Care Teams Marine Electrician Relationship Specialty Start Date End Date Corbin Caban MD [address] [place] [address] PCP - General 11/12/14 documented as of this encounter
--- OUTSIDE RECORDS SUMMARY | 2023-11-02 14:12 | XMS_ITS | Encounter Summary ---
Author Organization [facility] Address [facility] [place] [address] Care Team Providers Care Personal Injury Legal Assistant Name Role Phone Marisela Boland MD Primary Care Provider [phone] Encounter Details Date Type Department Care Team (Latest Contact Info) Description 11/28/2013 11:46 AM EDT - 11/28/2013 11:59 PM EDT Hospital Encounter [place] [phone] CLINIC, Carlos Alberto Torrez MD [facility] [place] [address] Discharge Disposition: Home Social History Tobacco Use [...] ORAL Take 1 tablet by mouth daily. ALBUTEROL, REFILL, INHL Inhale into the lungs as needed. 08/03/2019 documented as of this encounter Plan of Treatment Upcoming Encounters Date Type Department Care Team (Late st Contact Info) Description 02/08/2024 9:00 AM EST Appointment Non-[place] [address] Garth Gaspar MD [facility] [place] [address] documented as of this encounter Procedures Procedure Name Priority Date/Time Associated Diagnosis Comments CT ANGIOGRAM OF CHEST AND ABDOMEN W CONTRAST Routine 11/28/2013 12:31 PM EDT documented in this encounter Results * CTA of Chest and Abdomen With Contrast (11/28/2013 12:31 PM EDT) Anatomical Region Laterality Modality Computed Tomogra phy 11/28/2013 12:3 1 PM EDT Narrative 11/29/2013 8:20 AM EDT Examination CTA of Chest and Abdomen With ??without Contrast Clinical History dilated ascending aorta Comparison CT chest 11/08/2012. ?? Technique Helically acquired contrast enhanced CTA of the chest, abdomen, and pelvis with intravenous contrast. Total contrast administered 110 cc Omnipaque 350. Three-dimensional reconstruction was reconstructed on obtained on separate workstation. ?? Findings Vascular findings: ?? Ectasia of the ascending aorta which measures 4.5 cm in maximal axial dimension, which has slightly enlarged since 2013 exam. Ascending aorta tapers to normal caliber at the level of the arch. No descending thoracic or aortic abdominal aneurysm. Scattered non hemodynamically significant arthrosclerotic calcification of the abdominal aorta. Non hemodynamically significant atherosclerotic calcification at the origin of the celiac trunk. The SMA and JO are widely patent. Single renal arteries bilaterally which are widely patent. Bilateral iliac vessels are widely patent. ?? Nonvascular findings: ?? Chest: ?? Hazy airspace opacity in the dependent portion of both lung bases consistent with atelectasis. Otherwise the lungs are clear. No mediastinal or hilar lymphadenopathy. The vessels of the mediastinum are remarkable. No pericardial effusion or pleural effusion. Other mediastinal structures are unremarkable. Imaged portion of the lower neck is within normal limits. ?? Abdomen/pelvis: ?? Normal enhancement of the liver parenchyma with no suspicious hepatic mass. ??No intrahepatic or extrahepatic ductal dilation. ??The gallbladder is normal. The spleen, adrenals, and pancreas are within normal limits. ??Prompt bilateral symmetric enhancement of the kidneys with no suspicious renal mass. No retroperitoneal, mesenteric, or pelvic lymphadenopathy. ?? Normal appearance of the stomach, small and large bowel. ??No bowel wall thickening or dilation. The appendix is normal. ??Scattered diverticulum noted within the sigmoid and descending colon with no evidence of acute diverticulitis. Filled bladder with no bladder wall thickening or focal mass. ?? Incidentally noted a right-sided fat containing inguinal hernia. ?? Scattered degenerative changes of the lumbar spine is noted. No acute or aggressive osseous lesions. ?? Impression Ectasia of the ascending aorta which measures 4.5 cm in maximal axial dimensions which has slightly enlarged since 2013 exam. The ascending aorta tapers to normal caliber at the level of the arch. No descending thoracic or abdominal aneurysm. Film and interpretation reviewed by the attending Procedure Note Vitaly Wilkins MD - 11/29/2013 Examination CTA of Chest and Abdomen With without Contrast Clinical History dilated ascending aorta Comparison CT chest 11/08/2012. Technique Helically acquired contrast enhanced CTA of the chest, abdomen, and pelviswith intravenous contrast. Total contrast administered 110 cc Omnipaque 350. Three-dimensional reconstruction was reconstructed on obtained on separate workstation. Findings Vascular findings: Ectasia of the ascending aorta which measures 4.5 cm in maximal axial dimension, which has slightly enlarged since 2013 exam. Ascending aortatapers to normal caliber at the level of the arch. No descending thoracic oraortic abdominal aneurysm. Scattered non hemodynamically significantarthrosclerotic calcification of the abdominal aorta. Non hemodynamically significant atherosclerotic calcification at the origin of the celiac trunk. The SMAand JO are widely patent. Single renal arteries bilaterally which are widely patent. Bilateral iliac vessels are widely patent. Nonvascular findings: Chest: Hazy airspace opacity in the dependent portion of both lung basesconsistent with atelectasis. Otherwise the lungs are clear. No mediastinal or hilar lymphadenopathy. The vessels of the mediastinum are remarkable. Nopericardial effusion or pleural effusion. Other mediastinal structures areunremarkable. Imaged portion of the lower neck is within normal limits. Abdomen/pelvis: Normal enhancement of the liver parenchyma with no suspicious hepaticmass. No intrahepatic or extrahepatic ductal dilation. The gallbladder is normal.The spleen, adrenals, and pancreas are within normal limits. Prompt bilateral symmetric enhancement of the kidneys with no suspicious renal mass. No retroperitoneal, mesenteric, or pelvic lymphadenopathy. Normal appearance of the stomach, small and large bowel. No bowel wall thickening or dilation. The appendix is normal. Scattered diverticulumnoted within the sigmoid and descending colon with no evidence of acute diverticulitis. Filled bladder with no bladder wall thickening or focalmass. Incidentally noted a right-sided fat containing inguinal hernia. Scattered degenerative changes of the lumbar spine is noted. No acute or aggressive osseous lesions. Impression Ectasia of the ascending aorta which measures 4.5 cm in maximal axial dimensions which has slightly enlarged since 2013 exam. The ascendingaorta tapers to normal caliber at the level of the arch. No descending thoracicor abdominal aneurysm. Film and interpretation reviewed by the attending Alexander OVALLES IMReilly CT ORDERABLES documented in this encounter Visit Diagnoses Not on filedocumented in this encounter Administered Medications Inactive Administered Medications - up to 3 most recent administrations Medication Order MAR Action Action Date Dose Rate Site iohexol (OMNIPAQUE) 350 mg iodine/mL injection 38,500 mg 38,500 mg (110 mL), Intravenous, ONCE PRN, 1 dose, Starting on Tue11/28/13 at 1235, Until Tue11/28/13 at 1236, Per Protocol, Routine Given 11/28/2013 12:36 PM EDT 38,500 mg documented in this encounter Care Teams Personal Injury Legal Assistant Relationship Specialty Start Date End Date Marisela Boland MD [address] [place] [address] PCP - General 09/22/11 11/11/14 documented as of this encounter
--- OUTSIDE RECORDS SUMMARY | 2023-11-02 14:12 | XMS_ITS | Encounter Summary ---
Author Organization [facility] [place] [address] Care Team Providers Care Gut Carrier Name Role Phone Marisela Boland MD Primary Care Provider [phone] Encounter Details Date Type Department Care Team (Latest Contact Info) Description 04/09/2013 8:43 AM EST - 04/09/2013 11:59 PM EST Hospital [place] [address] Elevated LFTs; Iron overload Social History Tobacco [...] ORAL Take 1 tablet by mouth daily. fluticasone-salmeterol (ADVAIR) 250-50 mcg/dose diskus inhaler Inhale 1 puff into the lungs 2 times daily. 11/28/2013 documented as of this encounter Plan of Treatment Upcoming Encounters Date Type Department Care Team (Late st Contact Info) Description 02/08/2024 9:00 AM EST Appointment Non-[place] [address] Garth Gaspar MD [facility] [place] [address] documented as of this encounter Procedures Procedure Name Priority Date/Time Associated Diagnosis Comments US ABDOMEN COMPLETE Routine 04/09/2013 1 0:37 AM EST Elevated LFTs Iron overload documented in this encounter Results * US abdomen complete (04/09/2013 10:37 AM EST) Anatomical Region Laterality Modality Abdomen, Vascular Ultrasound 04/09/2013 10:3 7 AM EST Narrative 04/09/2013 11:18 AM EST ?Abdominal ? (Signed Final 04/09/2013 11:18 am) Patient Info ID: ? [id number] ? : ??[birth year] (63 yrs) Name: ? DB LEVIN ?Visit Date: 04/09/2013 09:37 am Performed By Performed By: ?Perla Newberry RDMS Attending: ? Syed TRUJILLO, Mirela JGwen Referred By: ? ABELINO QUEEN APRN Service(s) Provided [facility] - Abdominal Complete Survey - [id number] ? [id number] Indications iron overload, possible cirrhosis. evaluate liver [...] Final 04/09/2013 11:18 am) Patient Info ID: [id number] : 52 (63 yrs) Name: DB LEVIN Visit Date: 04/09/2013 09:37 am Performed By Performed By: Perla Newberry RDMS Attending: Mirela Lynch MD. Referred By: ABELINO QUEEN APRN Service(s) Provided [facility] - Abdominal Complete Survey - [id number] Indications iron overload, possible cirrhosis. evaluate liver [...] Signed Final Report 04/09/2013 11:18 am Hermelinda Larsen MD IMG US GEN ORDERABLE S documented in this encounter Visit Diagnoses Diagnosis Elevated LFTs Other abnormal blood chemistry Iron overload Other disorders of iron metabolism documented in this encounter Care Teams Gut Carrier Relationship Specialty Start Date End Date Marisela Boland MD [address] [place] [address] PCP - General 09/22/11 11/11/14 documented as of this encounter
--- OUTSIDE RECORDS SUMMARY | 2023-11-02 14:12 | XMS_ITS | Encounter Summary ---
Author Organization [facility] Address [facility] [place] [address] Care Team Providers Care Loom Operator Apprentice Name Role Phone Corbin Caban MD Primary Care Provider [phone] Reason for Visit * Reason Comments Follow-up Encounter Details Date Type Department Care Team (Late st Contact Info) Description 07/22/2015 1:30 PM EDT Office [place] [phone] Ariel Hays MD [facility] [place] [address] Fatty liver Social History Tobacco Use Types Packs/Day [...] Time Taken Comments Blood Pressure 118/77 07/22/2015 1:19 PM EDT Pulse 83 07/22/2015 1:19 PM EDT Temperature - - Respiratory Rate - - Oxygen Saturation - - Inhaled Oxygen Concentration - - Weight 90.9 kg (200 lb 6.4 oz) 07/22/2015 1:19 PM EDT Weighed with shoes. Height 175.3 cm (5' 9) 07/22/2015 1:19 PM EDT Body Mass Index 29.59 07/22/2015 1:19 PM EDT documented in this encounter Progress Notes * Ariel Hays MD - 07/22/2015 1:29 PM EDT Ramiro Levin [id number] PCP CORBIN CABAN MD 07/22/15 Subjective: Patient ID: Ramiro Levin is a 65 y.o. male with possible end stage liver disease due to ETOH and hemochromatosis. In about 2006 was noted to have a ferritin level was about 3000, he does not believe he had genetic tests, he did not have a liver biopsy. He was told he had Hemochromatosis, initially he had phlebotomies Every two week to monthly for the about three months, then he had phleb every 3-6 months. He reports his last therapuetic phlebotomy was in December 2013 . 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 This is further complicated by his alcohol intake which can varybut historically has included 4-5 drinks of hard alcohol on a nightly basis. He stopped drinking for the months of November and December, and then again for the month of March. He has not had a phlebotomy for over a year and his last ferritin level was 203 in February of 2012. His liver tests were normal ast 19, alt 21. Returns 11-12-2014. Still drinking 4-5 drinks per day. Had recent dental infection and received antibiotics. Gave blood to [facility] and told it was rejected and further testing needed. No ascites, edema, encephalopathy, GI bleeding, weight stable, energy level good. Returns 07-22-2015 Feeling well, 4 ounces per day. Dd have phlebotomy last - 2015. Has lost 10 lbs.No ascites, edema, encephalopathy or GI bleeding Patient Active Problem List Diagnosis Code ??? Elevated liver function tests R79.89 ??? Hypertension I10 ??? Hemochromatosis E83.119 ??? Ascending aorta dilatation I77.810 Current Outpatient Prescriptions Medication Sig Dispense Refill ??? INOSITOL ORAL Take 510 mg by mouth daily. ??? fluticasone-salmeterol (ADVAIR DISKUS) 250-50 mcg/dose Disk with Device Inhale 1 puff into the lungs every 12 hours as needed (seasonally). ??? ALBUTEROL, REFILL, INHL Inhale into the [...] ??? ZINC ACETATE ORAL Take by mouth. No current facility-administered medications for this visit. Objective: Physical Exam Vitals: 07/22/15 1319 BP: 118/77 Pulse: 83 Body mass index is 29.59 kg/(m^2). Constitutional: He appears well-developed and well-nourished. HENT: telangectasia across nose Head: Normocephalic and atraumatic. Eyes: Pupils are equal, round, and reactive to light. No scleral icterus. Neck: No thyromegaly present. Cardiovascular: Normal rate, regular rhythm and normal heart sounds. No murmur heard. Pulmonary/Chest: Effort normal and breath sounds normal. He has no wheezes. Abdominal: Soft. There is no hepatomegaly . No tenderness. Musculoskeletal: He exhibits no edema. Neurological: He is alert and oriented to person, place, and time. Skin: Skin is warm and dry. Psychiatric: He has a normal mood and affect. His behavior is normal. RESULTS Lab Results Component Value Date AFP 1.7 11/12/2014 Chemistry Component Value Date/Time NA 145 07/22/2015 1041 K 4.5 07/22/2015 1041 CL 104 07/22/2015 1041 CO2 26 07/22/2015 1041 BUN 17 07/22/2015 1041 CREATININE 0.92 07/22/2015 1041 Component Value Date/Time CALCIUM 9.6 07/22/2015 1041 ALKPHOS 75 07/22/2015 1041 AST 17 07/22/2015 1041 ALT 14 07/22/2015 1041 BILITOT 0.7 07/22/2015 1041 Lab Results Component Value Date WBC 7.5 07/22/2015 HGB 17.2 07/22/2015 HCT 48.5 07/22/2015 MCV 88.7 07/22/2015 PLATELET 184 07/22/2015 Lab Results Component Value Date INR 0.9 07/22/2015 Recent Labs 07/22/15 1041 ALBUMIN 4.9 US 07-22-2015 Abdomen Limited Summary 1. Diffuse hepatic steatosis with focal fatty sparing. No sonographic evidence of cirrhosis. No hepatic masses. 2. Multiple gallbladder polyps. No gallstones. No intra- hepatic/extrahepatic duct dilation. Assessment and Plan: 65 y.o. male with history of ETOH abuse and hemochromatosis with suspition of end stage liver disease 1. End stage liver disease. Stable normal liver enzymes normal liver function. Ate just before visit so unable ot perform fibroscanWill perform fibroscan when returns in 6 months 2.Iron overload, has been donating blood about once a year last in December 2013. Ferritin was 296 last fall eading to phlebotomy, goal < 150, todays value pending. Will donate blood once he has [facility] evaluate for abnormal test. ? Ast/alt from antibiotic? 3. Alcohol use,continues. Advised abstinence. Fatty infiltration of US, in part ANDREA likely with ETOH 4. HCC surveillance. Needs US every 6 months Disposition: Return six months with ultrasound and cmp, cbc, inr, ferritin(labs performed at home, lab slip given), fibroscan Ariel Hays MD 25 of this 30 minute visit in face to face discussion regarding disease, prognosis and treatment documented in this encounter Plan of Treatment Upcoming Encounters Date Type Department Care Team (Late st Contact Info) Description 02/08/2024 9:00 AM EST Appointment Non-[place]vasive [place] [address] Garth Gaspar MD [facility] [place] [address] documented as of this encounter Visit Diagnoses Diagnosis Fatty liver Other chronic nonalcoholic liver disease documented in this encounter Care Teams Loom Operator Apprentice Relationship Specialty Start Date End Date Corbin Caban MD [address] [place] [address] PCP - General 11/12/14 documented as of this encounter
--- OUTSIDE RECORDS SUMMARY | 2023-11-02 14:12 | XMS_ITS | Encounter Summary ---
Author Organization Formerly [facility] [place] [address] Care Team Providers Care Land Surveyor Assistant Name Role Phone Marisela Boland MD Primary Care Provider Reason for Visit * Reason Comments Cirrhosis Encounter Details Date Type Department Care Team (Late st Contact Info) Description 10/12/2013 1:00 PM EDT [place] [id number] CLINIC, Carmelina Bah APRN [facility] GASTROENTER[place] [address] Elevated liver function tests; Iron overload Discharge Disposition: Home Social History Tobacco Use [...] Sign Reading Time Taken Comments Blood Pressure 125/76 10/12/2013 12:30 PM EDT Pulse 80 10/12/2013 12:30 PM EDT Temperature - - Respiratory Rate - - Oxygen Saturation - - Inhaled Oxygen Concentration - - Weight 96.2 kg (212 lb) 10/12/2013 12:30 PM EDT Height 175.3 cm (5' 9) 10/12/2013 12:30 PM EDT Body Mass Index 31.31 10/12/2013 12:30 PM EDT documented in this encounter Progress Notes * Carmelina Bee APRN - 10/12/2013 12:02 PM EDT Subjective: Patient ID: Db Levin is a 63 y.o. male. GI PROBLEM LIST: 1. Iron overload Diagnosed (2006)with HH( by PCP) when presented with ferritin of 3000 De-ironed with 6- 8 phlebotomies, no phlebotomy for over one year ferritin then 190 HETEROZYGOUS POSITIVE FOR BOTH THE C282Y AND H63D HFE MUTATIONS (10/2011) Refuses liver biopsy 1 unit phlebotomy 09/2012 Ferritin 151 (10/02/12) 2. Alcohol Consumes 4-5 alcoholic drinks nightly 3. Possible cirrhosis Firm liver edge No indication on imaging plt count and albumin normal Mr. Levin is a 62 year old male who had a new PCP about 5 years ago who checked his liver tests andferritin and these were found to elevated. He believes his ferritin level was about 3000, he does not believe he had genetic tests, he did not have a liver biopsy. He was told he had Hemochromatosis,initially he had phlebotomies Every two week to monthly for the about three months, then he had phleb every 3-6 months. His last phlebotomy was about 14 months ago, he believes his ferritin was [id number] on last check. 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 This is further complicated by his alcohol intake which can vary but historically has included 4-5 drinks of hard alcohol on a nightly basis. He stopped drinking for the months of November and December, and then again for the month of March. He has not had a phlebotomy for over a year and his last ferritin level was 203 in February of 2012. His liver tests were normal ast 19, alt 21. He reports his last therapuetic phlebotomy was in September 2012 and a ferritin level drawn on 10/02/12 shows a ferritin level of 151. 10/12/13 Ultrasound - Abdomen Complete - Summary 1. Mildly increased hepatic echogenicity, similar to prior, suggestive of hepatosteatosis. No sonographic evidence of cirrhosis or sequela of portal hypertension. No focal hepatic mass. 2. Stable 3 mm gallbladder polyp at the neck. Other previously seen gallbladder polyps not seen today's exam. 3. Limited evaluation of the pancreas due to overlying bowel gas. Results for DB LEVIN ( ) as of 10/12/2013 12:03 04/09/2013 12:09 10/12/2013 09:32 PT 12.6 13.6 INR 0.9 1.0 Total Protein 7.5 7.5 Albumin 4.6 4.6 Total Bilirubin 0.8 0.7 Bili, Direct 0.1 0.2 Alk Phos 69 82 AST 20 31 ALT 19 28 AFP 1.6 1.9 Abd Ultrasound 04/09/2013 1. Enlarged and mildly echogenic liver, may be seen in iron deposition.. 2. Splenomegaly. Outside Labs: 10/02/12 Wbc 7, hg 15.7, plt 201 Creat 0.9, na 140, kcl 4.4 Ferritin 151 Review of Systems Constitutional: Negative for fever, chills and unexpected weight change. Respiratory: Negative for cough and shortness of breath. Cardiovascular: Negative for chest pain and leg swelling. Gastrointestinal: Negative for nausea, vomiting, abdominal pain, blood in stool and anal bleeding. Objective: Physical Exam Constitutional: He is oriented to person, place, and time. He appears well- developed and well-nourished. HENT: Head: Normocephalic and atraumatic. Eyes: Pupils are [...] mood and affect. His behavior is normal. Assessment and Plan: Mr. Levin is a 63 year old male with elevated liver tests, which are currently normal based on labsdone today. He likely Has a combination of factors including , iron over load, and alcohol related fatty liver. Given the suspicion of cirrhosis will continue with biannual hepatoma surveillance withabdominal ultrasound and labs. 1. Iron overload, has been donating blood about once a year, ferritin level from today is pending, if over 150 will phlebotomize. 2. Alcohol use,continues. I will plan to see him back in six months with ultrasound and cmp, cbc, inr and afp prior to the appt. documented in this encounter Plan of Treatment Upcoming Encounters Date Type Department Care Team (Late st Contact Info) Description 02/08/2024 9:00 AM EST Appointment Non-Invasive Cardiology Lab [facility] [place] [address] Garth Gaspar MD [facility] [place] [address] documented as of this encounter Procedures Procedure Name Priority Date/Time Associated Diagnosis Comments AFP TUMOR MARKER Routine 10/12/2013 9:32 AM EDT Elevated liver function tests Iron overload PROTHROMBIN TIME Routine 10/12/2013 9:32 AM EDT Elevated liver function tests Iron overload FERRITIN Routine 10/12/2013 9:32 AM EDT HEPATIC FUNCTION PANEL Routine 10/12/2013 9:32 AM EDT Elevated liver function tests Iron overload documented in this encounter Results * Ferritin (10/12/2013 9:32 AM EDT) Pathologist [facility] Ferritin 270 30 - 400 ng/mL [facility] [place] Comment: Pediatric reference ranges not verified at [facility], interpret with caution. Reference ranges for females greater than 50 years of age approach values for men, i.e., 30-400 ng/mL. Blood specimen (specimen) 10/12/2013 9:32 AM EDT 10/12/2013 12:22 PM EDT Narrative Resulting Agency Comment Spec In Lab Ariel Hays MD CHEMISTRY ORDERABLE S [facility] [place] * Hepatic Function Panel (10/12/2013 9:32 AM EDT) [facility] Protein, Total 7.5 6.4 - 8.3 gm/dL [facility] [place] Albumin 4.6 3.2 - 5.2 gm/dL CERNER MILLENNIUM Aspartate Aminotransferase 31 0 - 39 unit/L CERNER MILLENNIUM Alanine Aminotransferase 28 0 - 55 unit/L CERNER MILLENNIUM Alkaline Phosphatase 82 40 - 120 unit/L CERNER MILLENNIUM Bilirubin, Total 0.7 0.2 - 1.3 mg/dL CERNER MILLENNIUM Bilirubin, Direct 0.2 0.0 - 0.3 mg/dL CERNER MILLENNIUM Blood specimen (specimen) 10/12/2013 9:32 AM EDT 10/12/2013 9:37 AM EDT Narrative Resulting Agency Comment Spec In Lab Ariel Hays MD CHEMISTRY ORDERABLE S Performing Organization Address [facility] de Phone Number LYSSA LONDONIUM * Prothrombin Time (10/12/2013 9:32 AM EDT) Prothrombin Time 13.6 12.5 - 15.5 sec CERNER MILLENNIUM Comment: [facility] Transfusion Committee Guidelines: INR less than 2.0, PTT less than OR equal to 43.5 seconds, or Fibrinogen greater than or equal to 100 mg/dl indicate adequate procoagulant activity for hemostasis in patients without underlying bleeding disorders. International Normalization Ratio 1.0 0.9 - 1.1 CERNER MILLENNIUM Blood specimen (specimen) 10/12/2013 9:32 AM EDT 10/12/2013 9:37 AM EDT Narrative Resulting Agency Comment Spec In Lab Ariel Hays MD HEMATOLOGY ORDERABL ES Performing Organization Address [facility] de Phone Number LYSSA MALAGON * AFP tumor marker (10/12/2013 9:32 AM EDT) Alpha Fetoprotein 1.9 <=8.3 ng/mL CERNER MILLENNIUM Blood specimen (specimen) 10/12/2013 9:32 AM EDT 10/12/2013 9:37 AM EDT Narrative Resulting Agency Comment Spec In Lab Ariel Hays MD CHEMISTRY ORDERABLE S Performing Organization Address [facility] de Phone Number CERNER MILLENNIUM documented in this encounter Visit Diagnoses Diagnosis Elevated liver function tests Other abnormal blood chemistry Iron overload Other disorders of iron metabolism documented in this encounter Care Teams Land Surveyor Assistant Relationship Specialty Start Date End Date Marisela Boland MD [address] [place] [address] PCP - General 09/22/11 11/11/14 documented as of this encounter
--- OUTSIDE RECORDS SUMMARY | 2023-11-02 14:12 | XMS_ITS | Encounter Summary ---
Author Organization [facility] [place] [address] Care Team Providers Care Finnish Rubber Name Role Phone Corbin Caban MD Primary Care Provider [phone] Reason for Referral * Diagnostic Test (Routine) - Closed Specialty Diagnoses / Procedures Referred By Contherminio t Referred To Contact Cardiology Diagnoses Dilated aortic root Procedures Echocardiogram Transthoracic(Leb) Emery Ibarra PROFESSOR OF BIBLICAL STUDIES [facility] [place] [address] [facility] [place] [address] Referral ID Status Reason Start Date Expiration Date V isits Requested Visits Authorized [id number] Closed Specialty Service Requested 12/05/2015 12/05/2016 1 1 Encounter Details Date Type Department Care Team ([facility] Contact Info) Description 10/27/2015 Orders [place] [address] [place] b[place] [facility] [place] [address] Dilated aortic root Social History Tobacco Use Types Packs/Day Years [...] 9:00 AM EST Appointment [place] [phone] Garth Gaspar MD [facility] [place] [address] documented as of this encounter Results * ECHO COMPLETE (12/05/2015 10:50 AM EDT) EF 63 HEARTMotion Math SYSTEM Anatomical Region Laterality Modality Other 12/05/2015 Narrative 12/05/2015 11:02 AM EDT Procedure: ?Transthoracic Echocardiogram Patient: ?BUTTS DB ?(Age): 1950(65y) Med Rec#: ? [id number] ?Sex: ?M ? Site Loc: ? [facility] ?Ht / Wt: ??175(cm)/88.91(k Pt. Loc: ?Echo Lab ?BSA: ?2.05 Study Date: ?? 12/05/2015 ?Pt. Type: Outpatient Tape: ? Referring: Carlos Alberto Coreas Referring: EMERY IBARRA Reading: Sarwat Melara ([id number]) Associate Director Of Nursing: Danae Thompson BA, [facility] Diagnosis: *ICD-10-PCS Thoracic aortic ectasia (I77.810) CPT Codes: *Echo Full (92383) *Spectral Doppler (72487) *Color Doppler (49208) BP: ? 140/90 SUMMARY: 1. There is [...] E-wave Vmax ?1 ?m/sec ? MV deceleration [id number] ?msec ? MV A-wave Vmax ?0.7 ?m/sec [...] ? Pulmonic Valve/Qp:Qs ?Value ?Units (Range) ? MT end-diastolic Vma0.9 ?m/sec ? Measurement Trending Name [...] ? Mid-Inferior ?Normal ? Mid-Inferoseptal ?Normal ? [place]-Septal ? Normal ? [place]-Anterior ? Normal ? [place]-Lateral ?Normal ? [place]-Inferior ? Normal ? [place]-Tip ?Normal ? This report has been electronically signed by: Sarwat Melara M.D. ? 12/05/2015 11:01:36 Images reviewed and interpretation verified [facility] Cardiac Ultrasound Laboratory Procedure Note Sarwat Melara MD - 12/05/2015 Procedure: Transthoracic Echocardiogram Patient: RASHAWN SIDHU(Age): 1950(65y) Med Rec#: [id number] Sex: M Site Loc: [facility] Ht / Wt: 175(cm)/88.91(k Pt. Loc: Echo Lab BSA: 2.05 Study Date: 12/05/2015 Pt. Type: Outpatient Tape: Referring: Carlos Alberto Coreas Referring: EMERY IBARRA Reading: Sarwat Melara ([id number]) Associate Director Of Nursing: Danae Thompson BA, [facility] Diagnosis: *ICD-10-PCS Thoracic aortic ectasia (I77.810) CPT Codes: *Echo Full (48527) *Spectral Doppler (65384) *Color Doppler (98334) BP: 140/90 SUMMARY: 1. There is normal [...] MV E-wave Vmax 1 m/sec MV deceleration [id number] msec MV A-wave Vmax 0.7 m/sec MV E:A ratio 1.3 ratio LV septal e' Vmax 0.1 m/sec LV lateral e' Vmax 0.1 m/sec LV average e' Vmax 0.1 m/sec LV E:e' septal ratio16.3 ratio LV E:e' lateral rati9.8 ratio LV average E:e' rati12.3 ratio Tricuspid Valve Value Units (Range) TAPSE 2.1 cm Pulmonic Valve/Qp:Qs Value Units (Range) MT end-diastolic Vma0.9 m/sec Measurement Trending Name 12/05/2015 LV EDV BP 64.3 LVIDd (2D) 4.52 LV ESV BP 23.9 LA ESV BP (MOD) 46.4 LVIDs (2D) 2.95 Wall Motion: Segment Name Rest Base-Anteroseptal Normal Base-Anterior Normal Base-Anterolateral Normal Base-Posterolateral Normal Base-Inferior Normal Base-Inferoseptal Normal Mid-Anteroseptal Normal Mid-Anterior Normal Mid-Anterolateral Normal Mid-Posterolateral Normal Mid-Inferior Normal Mid-Inferoseptal Normal [place]-Septal Normal [place]-Anterior Normal [place]-Lateral Normal [place]-Inferior Normal [place]-Tip Normal This report has been electronically signed by: Sarwat Melara M.D. 12/05/2015 11:01:36 Images reviewed and interpretation verified [facility] Cardiac Ultrasound Laboratory Carlos Alberto Coreas MD ECHO ORDERABLES documented in this encounter Visit Diagnoses Diagnosis Dilated aortic root Thoracic aortic ectasia Dilated aortic root Thoracic aortic ectasia documented in this encounter Care Teams Finnish Rubber Relationship Specialty Start Date End Date Corbin Caban MD [address] [place] [address] PCP - General 11/12/14 documented as of this encounter
--- OUTSIDE RECORDS SUMMARY | 2023-11-02 14:12 | XMS_ITS | Encounter Summary ---
[place] [address] Care Team Providers Care Cross Cut Saw Operator Name Role Phone Corbin Caban MD Primary Care Provider [phone] Reason for Referral * Diagnostic Test (Routine) - Closed Specialty Diagnoses / Procedures Referred By Nikhil robledo Referred To Contact Cardiology Diagnoses Preop cardiovascular exam Procedures Echocardiogram Transthoracic(Leb) Grecia Miguel APRN [address] [place] [address] [place] [address] [facility] [place] [address] Referral ID Status Reason Start Date Expiration Date V isits Requested Visits Authorized [id number] Closed Specialty Service Requested 10/18/2016 10/18/2017 1 1 Reason for Visit * Diagnostic Test (Routine) - Closed Specialty Diagnoses / Procedures Referred By Nikhil robledo Referred To Contact Cardiology Diagnoses Preop cardiovascular exam Procedures Echocardiogram Transthoracic(Leb) Grecia Miguel APRN [address] [place] [address] [place] [address] [facility] [place] [address] Referral ID Status Reason Start Date Expiration Date V isits Requested Visits Authorized [id number] Closed Specialty Service Requested 10/18/2016 10/18/2017 1 1 Encounter Details Date Type Department Care Team (Latest Contact Info) Description 11/19/2016 11:57 AM EDT - 11/19/2016 11:59 PM EDT Hospital Encounter Non-[place] [address] Grecia Miguel, WEB PRODUCTION MANAGER [address] [facility] [place] [place] [address] Preop cardiovascular exam Discharge Disposition: Home Social History Tobacco Use [...] 9:00 AM EST Appointment Non-[place] [phone] Garth Gaspar MD [facility] [place] [address] documented as of this encounter Procedures Procedure Name Priority Date/Time Associated Diagnosis Comments ECHO COMPLETE Routine 11/19/2016 1:03 PM EDT Preop cardiovascular exam documented in this encounter Results * ECHO COMPLETE (11/19/2016 1:03 PM EDT) EF 73 HEARTLAB SYSTEM Anatomical Region Laterality Modality Other 11/19/2016 Narrative 11/19/2016 1:14 PM EDT Procedure: ?Transthoracic Echocardiogram Patient: ?RASHAWN ACE ?(Age): 1950(66y) Med Rec#: ? [id number] ?Sex: ?M ? Site Loc: ? [facility] ?Ht / Wt: ??175(cm)/94(kg) Pt. Loc: ?Echo Lab ?BSA: ?2. Study Date: ?? 11/19/2016 ?Pt. Type: Inpatient Tape: ? Referring: SHARRI Reading: Sam Sawant ([id number]) Train Control Technician: Lay Weir Diagnosis: *ICD-10-PCS Encounter for preprocedural [...] E-wave Vmax ?0.9 ?m/sec ? MV deceleration [id number] ?msec ? MV A-wave Vmax ?0.8 ?m/sec [...] ? Mid-Inferior ?Normal ? Mid-Inferoseptal ?Normal ? [place]-Septal ? Normal ? [place]-Anterior ? Normal ? [place]-Lateral ?Normal ? [place]-Inferior ? Normal ? [place]-Tip ?Normal ? This report has been electronically signed by: Sam Sawant MD ? 11/19/2016 13:13:59 Images reviewed and interpretation verified [facility] Cardiac Ultrasound Laboratory Procedure Note Sam Sawant MD - 11/19/2016 Procedure: Transthoracic Echocardiogram Patient: RASHAWN ACE (Age): 1950(66y) Med Rec#: [id number] Sex: M Site Loc: [facility] Ht / Wt: 175(cm)/94(kg) Pt. Loc: Echo Lab BSA: 2.09 Study Date: 11/19/2016 Pt. Type: Inpatient Tape: Referring: SHARRI Reading: Sam Sawant ([id number]) Train Control Technician: Lay Weir Diagnosis: *ICD-10-PCS Encounter for preprocedural [...] MV E-wave Vmax 0.9 m/sec MV deceleration [id number] msec MV A-wave Vmax 0.8 m/sec MV [...] Normal Mid-Posterolateral Normal Mid-Inferior Normal Mid-Inferoseptal Normal [place]-Septal Normal [place]-Anterior Normal [place]-Lateral Normal [place]-Inferior Normal [place]-Tip Normal This report has been electronically signed by: Sam Sawant MD 11/19/2016 13:13:59 Images reviewed and interpretation verified [facility] Cardiac Ultrasound Laboratory Grecia Miguel ERENDIRA ECHO ORDERABLES documented in this encounter Visit Diagnoses Diagnosis Preop cardiovascular exam Pre-operative cardiovascular examination documented in this encounter Care Teams Cross Cut Saw Operator Relationship Specialty Start Date End Date Corbin Caban MD [address] [place] [address] PCP - General 11/12/14 documented as of this encounter
--- OUTSIDE RECORDS SUMMARY | 2023-11-02 14:12 | XMS_ITS | Encounter Summary ---
Author Organization [facility] Address [facility] [place] [address] Care Team Providers Care Rehabilitation Case Coordinator Name Role Phone Mariseal Boland MD Primary Care Provider [phone] Encounter Details Date Type Department Care Team (Late st Contact Info) Description 10/29/2013 Orders Only [place] [address] Alexander Anderson PA [facility] DR CARDIOTHORACIC [place] [address] Ascending aorta dilatation (Primary Dx) Social History [...] 9:00 AM EST Appointment Non-[place] [address] Garth Gaspar MD [facility] [place] [address] documented as of this encounter Visit Diagnoses Diagnosis Ascending aorta dilatation- Primary Thoracic aortic ectasia documented in this encounter Care Teams Rehabilitation Case Coordinator Relationship Specialty Start Date End Date Marisela Boland MD [address] [place] [address] PCP - General 09/22/11 11/11/14 documented as of this encounter
--- OUTSIDE RECORDS SUMMARY | 2023-11-02 14:12 | XMS_ITS | Encounter Summary ---
Author Organization [facility] Address [facility] [place] [address] Care Team Providers Care Area Plant Manager Name Role Phone Corbin Caban MD Primary Care Provider [phone] Encounter Details Date Type Department Care Team (Latest Contact Info) Description 11/12/2014 12:17 PM EDT - 11/12/2014 11:59 PM EDT [place] [address] Hermelinda Larsen MD [facility] [place] [address] Elevated LFTs; Iron overload Discharge Disposition: Home Social History [...] Take 1 tablet by mouth daily. fluticasone-salmeterol (ADVAIR DISKUS) 250-50 mcg/dose Disk with Device Inhale 1 puff into the lungs every 12 hours as needed (seasonally). 11/19/2016 ALBUTEROL, REFILL, INHL Inhale into the lungs as needed. 08/03/2019 documented as of this encounter Plan of Treatment Upcoming Encounters Date Type Department Care Team (Late st Contact Info) Description 02/08/2024 9:00 AM EST Appointment [facility] [place] [address] Garth Gaspar MD [facility] [place] [address] documented as of this encounter Procedures Procedure Name Priority Date/Time Associated Diagnosis Comments HEMOGRAM Routine 11/12/2014 12:26 PM EDT Elevated LFTs Iron overload DIFFERENTIAL, AUTOMATED Routine 11/12/2014 12:26 PM EDT Elevated LFTs Iron overload AFP TUMOR MARKER Routine 11/12/2014 12:2 6 PM EDT Elevated LFTs Iron overload PROTHROMBIN TIME Routine 11/12/2014 12:2 6 PM EDT Elevated LFTs Iron overload CBC (WITH DIFF) Routine 11/12/2014 12:26 PM EDT Elevated LFTs Iron overload COMPREHENSIVE METABOLIC PANEL Routine 11/12/2014 12:26 PM EDT Elevated LFTs Iron overload documented in this encounter Results * Differential, Automated (11/12/2014 12:26 PM EDT) Neutrophil % 53.7 % CERNER MILLENNIUM Neutrophil Absolute 4.20 1.50 - 6.30 x10(3)/mcL CERNER MILLENNIUM Lymph % 33.0 % CERNER MILLENNIUM Lymphocytes Abs 2.6 1.0 - 3.6 x10(3)/mcL CERNER MILLENNIUM Monocyte % 7.3 % CERNER MILLENNIUM Monocyte Abs 0.6 0.2 - 1.0 x10(3)/mcL CERNER MILLENNIUM Eos % 5.6 % CERNER MILLENNIUM Eosinophils Abs 0.4 0.0 - 0.5 x10(3)/mcL CERNER MILLENNIUM Basophil % 0.3 % CERNER MILLENNIUM Baso Absolute 0.0 0.0 - 0.2 x10(3)/mcL CERNER MILLENNIUM Immature Gran % 0.10 % CERN ER MILLENNIUM Comment: Immature granulocytes(IG's)percentage and absolute count will include metamyelocytes, myelocytes, and promyelocytes. Blood smears from CBCs yielding IG's will be scanned manually for concordance. If this scan disagrees with the automated IG or if promyelocytes are noted, a manual differential will be performed. Immature Gran Absolute 0.01 0.00 - 0.05 x10(3)/mcL CERNER MILLENNIUM Blood specimen (specimen) 11/12/2014 12:26 PM EDT 11/12/2014 12:33 PM EDT Narrative Resulting Agency Comment Spec In Lab Hermelinda Larsen MD HEMATOLOGY ORDERABLE S CERNER MILLENNIUM * (ABNORMAL) Hemogram (11/12/2014 12:26 PM EDT) White Blood Cell 7.8 4.0 - 10.0 x10(3)/mc L CERNER MILLENNIUM Red Blood Cell 5.14 4.63 - 6.08 x10(6)/mc L CERNER MILLENNIUM Hemoglobin 16.9 13.7 - 17.5 gm/dL CERNER MILLENNIUM Hematocrit 47.2 40.0 - 51.0 % CERNER MILLENNIUM Mean Cell Volume 91.8 79.0 - 92.0 fL CERNER MILLENNIUM Mean Cell Hemoglobin 32.9(H) 25.6 - 32.2 pg CERNER MILLENNIUM Mean Cell Hemoglobin Concentration 35.8 32.0 - 36.5 gm/dL CERNER MILLENNIUM Platelet 198 145 - 370 x10(3)/mc L CERNER MILLENNIUM RDW Standard Deviation 46.2(H) 35.0 - 46.0 fL CERNER MILLENNIUM RDW coefficient of variation 13.7 10.9 - 14.4 % CERNER MILLENNIUM Mean Platelet Volume 10.8 9.0 - 12.0 fL CERNER MILLENNIUM Blood specimen (specimen) 11/12/2014 12:26 PM EDT 11/12/2014 12:33 PM EDT Narrative Resulting Agency Comment Spec In Lab Hermelinda Larsen MD HEMATOLOGY ORDERABLE S Performing Organization Address [facility] de Phone Number LYSSA MALAGON * AFP tumor marker (11/12/2014 12:26 PM EDT) Alpha Fetoprotein 1.7 <=8.3 ng/mL [facility] Blood specimen (specimen) 11/12/2014 12:26 PM EDT 11/12/2014 12:33 PM EDT Narrative Resulting Agency Comment Spec In Lab Hermelinda Larsen MD CHEMISTRY ORDERABLES Performing Organization Address [facility] Phone Number [facility] * Prothrombin Time (11/12/2014 12:26 PM EDT) Pathologist [facility] Prothrombin Time 13.2 12.0 - 15.0 sec [facility] Comment: Transfusion Committee Guidelines: INR less than 2.0, PTT less than OR equal to 43.5 seconds, or Fibrinogen greater than or equal to 100 mg/dl indicate adequate procoagulant activity for hemostasis in patients without underlying bleeding disorders. International Normalization Ratio 1.0 0.9 - 1.1 [facility] Blood specimen (specimen) 11/12/2014 12:26 PM EDT 11/12/2014 12:33 PM EDT Narrative Resulting Agency Comment Spec In Lab Hermelinda Larsen MD HEMATOLOGY ORDERABLE S Performing Organization Address [facility] Phone Number LYSSA MALAGON * (ABNORMAL) Comprehensive metabolic panel (non-fasting) (11/12/2014 12:26 PM EDT) Glucose 100 65 - 199 mg/dL [facility] Comment:Diabetes: >=200 mg/d L plus symptoms Blood Urea Nitrogen 10 10 - 20 mg/dL [facility] Creatinine 0.93 0.80 - 1.50 mg/dL [facility] [employer] PublishingENNIUM Comment: Please note that the pediatric reference intervals supplied above were not validated at [facility]. Results from pediatric patients should be interpreted [...] the following links into your internet browser. [email or web address] [email or web address] Blood specimen (specimen) 11/12/2014 12:26 PM EDT 11/12/2014 12:33 PM EDT Narrative Resulting Agency Comment Spec In Lab Hermelinda Larsen MD CHEMISTRY ORDERABLES LYSSA MALAGON documented in this encounter Visit Diagnoses Diagnosis Elevated LFTs Other abnormal blood chemistry Iron overload Other disorders of iron metabolism documented in this encounter Care Teams Area Plant Manager Relationship Specialty Start Date End Date Corbin Caban MD [address] [place] [address] PCP - General 11/12/14 documented as of this encounter
--- OUTSIDE RECORDS SUMMARY | 2023-11-02 14:12 | XMS_ITS | Encounter Summary ---
Author Organization [facility] Address [facility] [place] [address] Care Team Providers Care Canal Structure Operator Name Role Phone Marisela Boland MD Primary Care Provider [phone] Reason for Visit * Reason Comments Laser Treatment Encounter Details Date Type Department Care Team (Latest Contact Info) Description 12/04/2013 4:00 PM EDT Office Visit Dermatology at [facility] [address] [place] [address] Vitaly Martinez MD [facility] [place] [address] Telangiectasia (Primary Dx) Discharge Disposition: Home Social History Tobacco Use Types Packs/Day Years Used Date Smoking Tobacco: Never Smokeless Tobacco: Never Alcohol Use Standard Drinks/Week Comments Yes 0 (1 standard drink = 0.6 oz pur e alcohol) Sex and Gender Information Value Date Recorded Sex Assigned at Not on file Gender Identity Not on file Sexual Orientation Not on file documented as of this encounter Patient Instructions * Patient Instructions* Yobani Chaidez LPN - 12/04/2013 4:12 PM EDT Vascular Beam (vbeam) Post Treatment: 1. Important to stay out of direct sunlight and apply sunscreen following laser treatment 2. Ok to apply cool compress for comfort, DO NOT apply ice directly to the skin 3. Ok to continue daily skin hygiene and regime (ok to apply moisturizers and makeup to treated area, ect.) 4. Do not apply Retin A products for 2-3 days following treatment, as they will be irritating following laser procedure 5. Tylenol may be taken for discomfort For further questions and concerns contact: [phone] Nurse message line [phone] Alexa (Dr. Martinez's Appointment Elementary Substitute Teacher) In any case of emergency for weekends and off hours please contact [facility] main number and ask for human service specialist construction superintendent at [phone] documented in this encounter Progress Notes * Vitaly Martinez MD - 12/04/2013 3:38 PM EDT Provider: Chayo Martinez M.D. ([id number]) Chief Problem: 1. Rosacea & Telangiectasias 2. Here for Discussion of Treatment options HISTORY & DISCUSSION: 63 y.o. year old male, here for a medical consultation visit and discussion of rosacea and telangiectasias treatment options, including the possibility of laser treatment. Established patient to me. Topical medical therapy, camoflage, surgical options, including laser, discussed. Over half of thisvisit devoted to these options and expectations. Patient most interested in laser therapy today. V-beam/pulsed dye laser is most appropriate for the patient. Discussed potential adverse events including pain or stinging, possible bruising (common), hyperpigmentation and hypopigmentation, edema, erosion or blister formation (uncommon). Patient clearly understood these potential risks. Consent Multiple treatments will be required for optimum benefit.Total number of treatments depend on the baseline degree of telangiectasia, patient's response, expectations and desires. Most patients require 3 to 5 laser treatments. Patient clearly understood this. The patient knows that the V-Beam Laser, for this purpose is strictly a cosmetic procedure, insurances will not cover these procedures, and we will not submit it to the company. The patient will haveto pay for the procedure, at the time of the procedure/visit. EXAMINATION: Focal examination of the face. Rosacea changes and increased telangiectasias scattered over the central face. Nose, malar cheeks and chin involved. Appropriate for laser therapy. - Moderate amount of vascular changes DIAGNOSIS/ASSESSMENT: 1. Rosacea & Telangiectasias 2. V-Beam/Pulsed Dye Laser therapy PLAN: LASER PROCEDURE 1. Patient decided to have the laser procedure performed today, after the medical consultation and brief discussion above. Verbal consent, expectations, and potential adverse events discussed. Written consent signed and recorded in the medical record. 2. Use of eye protection/eye tenorio performed, and post-laser care, sun avoidance, mild [place] laser discussed. Patient knows to call if there are any questions. V-Beam Laser Settings: - V-Beam (595 nm): 8.5 J/m2 @ 10 msec Spot Size: 10mm Pulses: 127 8. J/m2 @ 20 msec Spot Size:10mm Pulses: 25 V-Beam Laser Procedure: Applied V-beam guided head at skin surface, cryospray pre-laser, overlapping areas slightly, pulseduntil area adequately covered. No immediate post-laser complications. Follow-up as discussed. Call clinic with questions post-laser Follow up: Cosmetic cost today: $350.00 I am documenting this encounter acting as the scribe for and in the presence of YOBANI De La Rosa LPN I performed the above scribed service and agree with the accuracy of the documentation in this encounter, MD Chayo Deshpande M.D. Section of Dermatology documented in this encounter Plan of Treatment Upcoming Encounters Date Type Department Care Team (Late st Contact Info) Description 02/08/2024 9:00 AM EST Appointment Non-[place] [address] Garth Gaspar MD [facility] [place] [address] documented as of this encounter Visit Diagnoses Diagnosis Telangiectasia- Primary Other and unspecified capillary diseases documented in this encounter Care Teams Canal Structure Operator Relationship Specialty Start Date End Date Marisela Boland MD [address] [place] [address] PCP - General 09/22/11 11/11/14 documented as of this encounter
--- OUTSIDE RECORDS SUMMARY | 2023-11-02 14:12 | XMS_ITS | Encounter Summary ---
Author Organization [facility] Address [facility] [place] [address] Care Team Providers Care Inspector Packer Glass Container Name Role Phone Corbin Caban MD Primary Care Provider [phone] Encounter Details Date Type Department Care Team (Late st Contact Info) Description 11/19/2016 2:10 PM EDT Office Visit [place] [address] Carlos Alberto Coreas MD [facility] [place] [address] Ascending aorta dilatation Social History Tobacco Use [...] Sign Reading Time Taken Comments Blood Pressure 143/95 11/19/2016 2:28 PM EDT Pulse 79 11/19/2016 2:28 PM EDT Temperature - - Respiratory Rate - - Oxygen Saturation 97% 11/19/2016 2:28 PM EDT Inhaled Oxygen Concentration - - Weight 95 kg (209 lb 8 oz) 11/19/2016 2:28 PM ED T Height 175.3 cm (5' 9) 11/19/2016 2:28 PM EDT Body Mass Index 30.94 11/19/2016 2:28 PM EDT documented in this encounter Progress Notes * Carlos Alberto Coreas MD - 11/19/2016 2:10 PM EDT I am seeing Mr. Levin in followup of his dilated aorta. HE has had no new problems since I last saw him. HE does not have specialist followup for his liveror hemachromatosis. HE is currently following with his PCP. He denies chest pain, shortness of breath, syncope or palpitations. HE has about 3-4oz of ETOH daily. He still tries to remain active. ECHO today shows LVEF 73%, trace AI, 4.8 cm root, 4.1 cm ascending aorta unchanged compared to lastyear Outpatient Prescriptions Marked as Taking for the 11/19/16 encounter (Office Visit) with Carlos Alberto Coreas MD Medication Sig Dispense Refill ??? INOSITOL ORAL Take 510 mg by mouth daily. ??? ALBUTEROL, REFILL, INHL Inhale into the [...] ORAL Take by mouth. Physical Exam: BP (!) 143/95 Pulse 79 Ht 175.3 cm (5' 9) Wt 95 kg (209 lb 8 oz) SpO2 97% BMI 30.94 kg/m2 Lung: CTA CV: RRR, no murmur No carotid bruit No JVD No edema A/P: Stable ascending aortic diameter. HE says his BP runs much lower at home. I again encouraged him to decrease ETOH intake. We discussed starting a regular exercise program. I would like to see him in one year with a repeat ECHO for followup of his aorta. documented in this encounter Plan of Treatment Upcoming Encounters Date Type Department Care Team (Late st Contact Info) Description 02/08/2024 9:00 AM EST Appointment Non-[place] [address] Garth Gaspar MD [facility] [place] [address] documented as of this encounter Visit Diagnoses Diagnosis Ascending aorta dilatation Thoracic aortic ectasia documented in this encounter Care Teams Inspector Packer Glass Container Relationship Specialty Start Date End Date Corbin Caban MD [address] [place] [address] PCP - General 11/12/14 documented as of this encounter
--- OUTSIDE RECORDS SUMMARY | 2023-11-02 14:12 | XMS_ITS | Encounter Summary ---
Author Organization [facility] [place] [address] Care Team Providers Care Hotel Maid Name Role Phone Corbin Caban MD Primary Care Provider [phone] Reason for Referral * Diagnostic Test (Routine) - Closed Specialty Diagnoses / Procedures Referred By Nikhil t Referred To Contact Cardiology Diagnoses Aortic dilatation Procedures Echocardiogram Transthoracic(Leb) Radha Olvera APRN [facility] [place] [address] [facility] [place] [address] Referral ID Status Reason Start Date Expiration Date V isits Requested Visits Authorized [id number] Closed Specialty Service Requested 09/26/2017 09/26/2018 1 1 Encounter Details Date Type Department Care Team (Late st Contact Info) Description 09/26/2017 Orders [place] [address] Radha Olvera TODDLER NANNY [facility] [address] Aortic dilatation Social History Tobacco Use Types Packs/Day [...] EST Appointment Non-Invasive [place] [address] Garth Gaspar MD [facility] [place] [address] documented as of this encounter Results * ECHO COMPLETE (11/18/2017 1:35 PM EDT) EF 72 HEARTLAB SYSTEM Anatomical Region Laterality Modality Other 11/18/2017 Narrative 11/18/2017 2:24 PM EDT Procedure: ?Transthoracic Echocardiogram Patient: ?RASHAWN ACE ?(Age): 1950(67y) Med Rec#: ? [id number] ?Sex: ?M ? Site Loc: ? [facility] ?Ht / Wt: ??175(cm)/95(kg) Pt. Loc: ?Echo Lab ?BSA: ?2.1 Study Date: ?? 11/18/2017 ?Pt. Type: Outpatient Tape: ? Referring: YVONNE Reading: Sam Sawant ([id number]) Community Service Director: Shahbaz Lovell Interpreting Fellow: Jay Newsome ([id number]) Diagnosis: *Aortic ectasia, unspecified site (I77.819) BP: [...] E-wave Vmax ?0.9 ?m/sec ? MV deceleration [id number] ?msec ? MV A-wave Vmax ?0.8 ?m/sec ? MV E:A ratio ?1.1 ?ratio ? Pulmonic Valve/Qp:Qs ?Value ?Units (Range) ? [place] end-diastolic Vma0.8 ?m/sec ? Wall Motion: Segment Name ?Rest ? Base-Anteroseptal ?? Normal ? Base-Anterior ? Normal ? Base-Anterolateral ??Normal ? Base-Posterolateral Normal ? Base-Inferior ? Normal ? Base-Inferoseptal ?? Normal ? Mid-Anteroseptal ?Normal ? Mid-Anterior ?Normal ? Mid-Anterolateral ?? Normal ? Mid-Posterolateral ??Normal ? Mid-Inferior ?Normal ? Mid-Inferoseptal ?Normal ? [employer]-Septal ? Normal ? [employer]-Anterior ? Normal ? [employer]-Lateral ?Normal ? [employer]-Inferior ? Normal ? [employer]-Tip ?Normal ? This report has been electronically signed by: Sam Sawant MD ? 11/18/2017 14:23:50 Images reviewed and interpretation verified [facility] Cardiac Ultrasound [facility] Procedure Note Sam Sawant MD - 11/18/2017 Procedure: Transthoracic Echocardiogram Patient: RASHAWN SIDHU(Age): 1950(67y) Med Rec#: [id number] Sex: M Site Loc: [facility] Ht / Wt: 175(cm)/95(kg) Pt. Loc: Echo Lab BSA: 2.1 Study Date: 11/18/2017 Pt. Type: Outpatient Tape: Referring: YVONNE Reading: Sam Sawant ([id number]) Community Service Director: Shahbaz Lovell Interpreting Fellow: Jay Newsome ([id number]) Diagnosis: *Aortic ectasia, unspecified site (I77.819) BP: [...] MV E-wave Vmax 0.9 m/sec MV deceleration [id number] msec MV A-wave Vmax 0.8 m/sec MV E:A ratio 1.1 ratio Pulmonic Valve/Qp:Qs Value Units (Range) [place] end-diastolic Vma0.8 m/sec Wall Motion: Segment Name Rest Base-Anteroseptal Normal Base-Anterior Normal Base-Anterolateral Normal Base-Posterolateral Normal Base-Inferior Normal Base-Inferoseptal Normal Mid-Anteroseptal Normal Mid-Anterior Normal Mid-Anterolateral Normal Mid-Posterolateral Normal Mid-Inferior Normal Mid-Inferoseptal Normal [employer]-Septal Normal [employer]-Anterior Normal [employer]-Lateral Normal [employer]-Inferior Normal [employer]-Tip Normal This report has been electronically signed by: Sam Sawant MD 11/18/2017 14:23:50 Images reviewed and interpretation verified [facility] Cardiac [facility]ound [facility] ECHO ORDERABLES documented in this encounter Visit Diagnoses Diagnosis Aortic dilatation Aortic ectasia, unspecified site Aortic dilatation Aortic ectasia, unspecified site documented in this encounter Care Teams Hotel Maid Relationship Specialty Start Date End Date Corbin Caban MD [address] [place] [address] PCP - General 11/12/14 documented as of this encounter
--- OUTSIDE RECORDS SUMMARY | 2023-11-02 14:12 | XMS_ITS | Encounter Summary ---
Author Organization Count Includes [facility] Address [facility] [place] [address] Care Team Providers Care Consultant In Ergonomics And Safety Name Role Phone Corbin Caban MD Primary Care Provider [phone] [phone] Encounter Details Date Type Department Care Team (Latest Contact Info) Description 12/20/2014 12:59 PM EDT - 12/20/2014 11:59 PM EDT Hospital Encounter Non-[place] [phone] H/O aortic root repair Discharge Disposition: Home Social History Tobacco Use [...] ORAL Take 1 tablet by mouth daily. aspirin 81 mg Tablet, Delayed Release (E.C.) Take 81 mg by mouth daily. 07/22/2015 fluticasone-salmeterol (ADVAIR DISKUS) 250-50 mcg/dose Disk with Device Inhale 1 puff into the lungs every 12 hours as needed (seasonally). 11/19/2016 ALBUTEROL, REFILL, INHL Inhale into the lungs as needed. 08/03/2019 documented as of this encounter Plan of Treatment Upcoming Encounters Date Type Department Care Team (Late st Contact Info) Description 02/08/2024 9:00 AM EST Appointment Non-[place] [address] Garth Gaspar MD [facility] [place] [address] documented as of this encounter Procedures Procedure Name Priority Date/Time Associated Diagnosis Comments ECHO COMPLETE Routine 12/20/2014 1:47 PM EDT H/O aortic root repair documented in this encounter Results * ECHO COMPLETE (12/20/2014 1:47 PM EDT) EF 65 HEARTLAB SYSTEM Anatomical Region Laterality Modality Other 12/20/2014 Narrative 12/20/2014 2:34 PM EDT Procedure: ?Transthoracic Echocardiogram Patient: ?BUTTS DB ?(Age): 1950(64y) Med Rec#: ? [id number] ?Sex: ?M ? [place] Loc[place] ? [facility] ?Ht / Wt: ??175(cm)/97(kg) Pt. Loc: ?Echo Lab ?BSA: ?2.12 Study Date: ?? 12/20/2014 ?Pt. Type: Outpatient Tape: ? Referring: Carlos Alberto Coreas Reading: Vitaly Queen ([id number]) Social Sciences Instructor: Shaylee Morales Interpreting Fellow: Chase Carpenter Diagnosis: *ICD-10-PCS Other specified postprocedural states (Z98.89) CPT Codes: *Echo Full (96237) *Spectral Doppler (58166) *Color Doppler (46132) BP: ? 142/101 SUMMARY: 1. Left ventricular chamber size, global, and segmental systolic function are within normal limits. Ejection fraction is estimated to be 65%. ??Mild concentric left ventricular hypertrophy is observed. ??Doppler assessment is consistent with normal left sided filling pressure. 2. Right ventricular chamber size, wall thickness, and systolic function are within normal limits. Pulmonary artery pressures could not be assessed due to inadequate tricuspid regurgitation jet. 3. There is mild (1+/4+) mitral regurgitation present. There is mild (1+/4+) pulmonic regurgitation present. 4. There is dilatation of the aortic root (4.8cm). There is dilatation of the ascending aorta (4.2cm). 5. No prior study for comparison. See remainder of report for additional findings. FINDINGS: ? Left Ventricle ?Left ventricular chamber size, wall thickness, global and segmental systolic function are within normal limits. Ejection fraction is estimated to be 65%. ?Mild concentric left ventricular hypertrophy is observed. ?There are no left ventricular segmental wall motion abnormalities. ?Doppler assessment is consistent with normal left sided filling pressure. Left Atrium ?The left atrium is normal in size.(29 ml/m2) Right Ventricle ?Right ventricular chamber size, wall thickness, and systolic function are within normal limits. ?Pulmonary artery hypertension could not be assessed due to inadequate tricuspid regurgitation jet. ?The estimated right atrial pressure is 3 mmHg. Right Atrium ?The right atrium appears normal. Aortic Valve ?The aortic valve is trileaflet. The leaflets are thin with normal excursion. There is no aortic stenosis or regurgitation present. Mitral Valve ?The mitral valve appears normal in structure and function. ?There is mild (1+/4+) mitral regurgitation present. Tricuspid Valve ?The tricuspid valve appears normal in structure and function. ?There is trace tricuspid regurgitation present. Pulmonic Valve ?There is mild (1+/4+) pulmonic regurgitation present. Pericardium ?The pericardium appears normal and there is no evidence of a pericardial effusion. Aorta ?There is moderate dilatation of the aortic root. ?The aortic root dimension is ( ) cm at the level of the sinuses.(4.8 cm) ?There is moderate dilatation of the ascending aorta. ?The ascending aorta dimension is ( ) cm.(4.2 cm) Pulmonary Artery ?The main pulmonary artery appears normal. Venous ?The inferior vena cava appears normal in size. ?There is a greater than 50% respiratory change in the inferior vena cava dimension. Misc ?See remainder of report for additional findings. ?Two-dimensional echo, spectral Doppler and color Doppler performed. Chambers 2D ?Value ?Units (Range) ? IVSd (2D) ? 1.2 ?cm ? LVPWd (2D) ?1.2 ?cm ? IVS:LVPW ratio (2D) 1.1 ?ratio ? LVIDd (2D) ?4.6 ?cm ? LVIDs (2D) ?2.8 ?cm ? LVIDd (2D) index ?2.2 ?cm/m2 ? LVIDs (2D) index ?1.3 ?cm/m2 ? LV FS (2D) ?39 ? % ? EF Teichholz (2D) ?? 70 ? % ? Ao root diameter (2D4.8 ?cm (2.1 - 3.6) ? Ascending Ao ?4.2 ?cm (2 - 3.5) ? Volumes/Mass ?Value ?Units (Range) ? LA Area 4 CH ?19.9 ? cm2 (<21) ? LA ESV BP (A/L) inde29.1 ? ml/m2 ? RA AREA 4CH ? 15 ? cm2 ? LA ESV SP 4CH (MOD) 54.7 ? ml ? LA ESV SP 2CH (MOD) 57.9 ? ml ? LV mass (2D) ?203.3 ?g ? LV mass (2D) index ??95.9 ? g/m2 ? Diastolic/Systolic Function ?Value ?Units (Range) ? MV E-wave Vmax ?0.8 ?m/sec ? MV deceleration aqjd406.6 ?msec ? MV A-wave Vmax ?0.8 ?m/sec ? MV E:A ratio ?1.1 ?ratio ? LV septal e' Vmax ?? 0.1 ?m/sec ? LV E:e' septal ratio10.6 ? ratio ? Tricuspid Valve ?Value ?Units (Range) ? RAP ? 3 ?mmHg ? Measurement Trending Name ? 12/20/2014 ? LVIDd (2D) ? 4.59 LVIDs (2D) ? 2.8 Wall Motion: Segment Name ?Rest ? Base-Anteroseptal ?? Normal ? Base-Anterior ? Normal ? Base-Anterolateral ??Normal ? Base-Posterolateral Normal ? Base-Inferior ? Normal ? Base-Inferoseptal ?? Normal ? Mid-Anteroseptal ?Normal ? Mid-Anterior ?Normal ? Mid-Anterolateral ?? Normal ? Mid-Posterolateral ??Normal ? Mid-Inferior ?Normal ? Mid-Inferoseptal ?Normal ? Meridian-Septal ? Normal ? Meridian-Anterior ? Normal ? Meridian-Lateral ?Normal ? Meridian-Inferior ? Normal ? Meridian-Tip ?Normal ? This report has been electronically signed by: Vitaly Queen MD ? 12/20/2014 14:33:48 Images reviewed and interpretation verified [facility] Cardiac Ultrasound Laboratory Procedure Note Vitaly Queen MD - 12/20/2014 Procedure: Transthoracic Echocardiogram Patient: RASHAWN SIDHU(Age): 1950(64y) Med Rec#: [id number] Sex: M [place] Loc[place] [facility] Ht / Wt: 175(cm)/97(kg) Pt. Loc: Echo Lab BSA: 2.12 Study Date: 12/20/2014 Pt. Type: Outpatient Tape: Referring: Carlos Alberto Coreas Reading: Vitaly Queen ([id number]) Social Sciences Instructor: Shaylee Morales Interpreting Fellow: Chase Carpenter Diagnosis: *ICD-10-PCS Other specified postprocedural states (Z98.89) CPT Codes: *Echo Full (18847) *Spectral Doppler (38922) *Color Doppler (90853) BP: 142/101 SUMMARY: 1. Left ventricular chamber size, global, and segmental systolic function are within normal limits. Ejection fraction is estimated to be 65%. Mild concentric left ventricular hypertrophy is observed. Doppler assessment is consistent with normal left sided filling pressure. 2. Right ventricular chamber size, wall thickness, and systolic function are within normal limits. Pulmonary artery pressures could not be assessed due to inadequate tricuspid regurgitation jet. 3. There is mild (1+/4+) mitral regurgitation present. There is mild (1+/4+) pulmonic regurgitation present. 4. There is dilatation of the aortic root (4.8cm). There is dilatation of the ascending aorta (4.2cm). 5. No prior study for comparison. See remainder of report for additional findings. FINDINGS: Left Ventricle Left ventricular chamber size, wall thickness, global and segmental systolic function are within normal limits. Ejection fraction is estimated to be 65%. Mild concentric left ventricular hypertrophy is observed. There are no left ventricular segmental wall motion abnormalities. Doppler assessment is consistent with normal left sided filling pressure. Left Atrium The left atrium is normal in size.(29 ml/m2) Right Ventricle Right ventricular chamber size, wall thickness, and systolic function are within normal limits. Pulmonary artery hypertension could not be assessed due to inadequate tricuspid regurgitation jet. The estimated right atrial pressure is 3 mmHg. Right Atrium The right atrium appears normal. Aortic Valve The aortic valve is trileaflet. The leaflets are thin with normal excursion. There is no aortic stenosis or regurgitation present. Mitral Valve The mitral valve appears normal in structure and function. There is mild (1+/4+) mitral regurgitation present. Tricuspid Valve The tricuspid valve appears normal in structure and function. There is trace tricuspid regurgitation present. Pulmonic Valve There is mild (1+/4+) pulmonic regurgitation present. Pericardium The pericardium appears normal and there is no evidence of a pericardial effusion. Aorta There is moderate dilatation of the aortic root. The aortic root dimension is ( ) cm at the level of the sinuses.(4.8 cm) There is moderate dilatation of the ascending aorta. The ascending aorta dimension is ( ) cm.(4.2 cm) Pulmonary Artery The main pulmonary artery appears normal. Venous The inferior vena cava appears normal in size. There is a greater than 50% respiratory change in the inferior vena cava dimension. Misc See remainder of report for additional findings. Two-dimensional echo, spectral Doppler and color Doppler performed. Chambers 2D Value Units (Range) IVSd (2D) 1.2 cm LVPWd (2D) 1.2 cm IVS:LVPW ratio (2D) 1.1 ratio LVIDd (2D) 4.6 cm LVIDs (2D) 2.8 cm LVIDd (2D) index 2.2 cm/m2 LVIDs (2D) index 1.3 cm/m2 LV FS (2D) 39 % EF Teichholz (2D) 70 % Ao root diameter (2D4.8 cm (2.1 - 3.6) Ascending Ao 4.2 cm (2 - 3.5) Volumes/Mass Value Units (Range) LA Area 4 CH 19.9 cm2 (<21) LA ESV BP (A/L) inde29.1 ml/m2 RA AREA 4CH 15 cm2 LA ESV SP 4CH (MOD) 54.7 ml LA ESV SP 2CH (MOD) 57.9 ml LV mass (2D) 203.3 g LV mass (2D) index 95.9 g/m2 Diastolic/Systolic Function Value Units (Range) MV E-wave Vmax 0.8 m/sec MV deceleration kqax049.6 msec MV A-wave Vmax 0.8 m/sec MV E:A ratio 1.1 ratio LV septal e' Vmax 0.1 m/sec LV E:e' septal ratio10.6 ratio Tricuspid Valve Value Units (Range) RAP 3 mmHg Measurement Trending Name 12/20/2014 LVIDd (2D) 4.59 LVIDs (2D) 2.8 Wall Motion: Segment Name Rest Base-Anteroseptal Normal Base-Anterior Normal Base-Anterolateral Normal Base-Posterolateral Normal Base-Inferior Normal Base-Inferoseptal Normal Mid-Anteroseptal Normal Mid-Anterior Normal Mid-Anterolateral Normal Mid-Posterolateral Normal Mid-Inferior Normal Mid-Inferoseptal Normal Meridian-Septal Normal Meridian-Anterior Normal Meridian-Lateral Normal Meridian-Inferior Normal Meridian-Tip Normal This report has been electronically signed by: Vitaly Queen MD 12/20/2014 14:33:48 Images reviewed and interpretation verified [facility] Cardiac Ultrasound Laboratory Carlos Alberto Coreas MD ECHO ORDERABLES documented in this encounter Visit Diagnoses Diagnosis H/O aortic root repair Personal history of surgery to heart and great vessels, presenting hazards to health documented in this encounter Care Teams Consultant In Ergonomics And Safety Relationship Specialty Start Date End Date Corbin Caban MD [address] [place] [address] PCP - General 11/12/14 documented as of this encounter
--- OUTSIDE RECORDS SUMMARY | 2023-11-02 14:12 | XMS_ITS | Encounter Summary ---
Author Organization Formerly [facility] [place] [address] Care Team Providers Care Shipping Manager Name Role Phone Corbin Caban MD Primary Care Provider [phone] Encounter Details Date Type Department Care Team (Late st Contact Info) Description 11/27/2014 Orders [place] [phone] Radha Olvera APRN [facility] [place] [address] Ascending aorta dilatation Social History Tobacco Use [...] 9:00 AM EST Appointment Non-[place] [phone] Garth Gaspar MD [facility] [place] [address] documented as of this encounter Visit Diagnoses Diagnosis Ascending aorta dilatation Thoracic aortic ectasia documented in this encounter Care Teams Shipping Manager Relationship Specialty Start Date End Date Corbin Caban MD [address] [place], [place] [address] PCP - General 11/12/14 documented as of this encounter
--- OUTSIDE RECORDS SUMMARY | 2023-11-02 14:12 | XMS_ITS | Encounter Summary ---
Author Organization [facility] Address [facility] [place] [address] Care Team Providers Care Trash Hauler Name Role Phone Corbin Caban MD Primary Care Provider [phone] [phone] Encounter Details Date Type Department Care Team (Latest Contact Info) Description 11/12/2014 12:32 PM EDT - 11/12/2014 11:59 PM EDT Hospital Encounter [place] [phone] Elevated LFTs; Iron overload; Enlarged liver Social [...] 9:00 AM EST Appointment Non-Invasive [place] [phone] Garth Gaspar MD [facility] [place] [address] documented as of this encounter Procedures Procedure Name Priority Date/Time Associated Diagnosis Comments US ABDOMEN COMPLETE WITH VASCULAR Routine 11/12/2014 1:58 PM EDT Elevated LFTs Iron overload Enlarged liver documented in this encounter Results * US abdomen complete with vascular (11/12/2014 1:58 PM EDT) Anatomical Region Laterality Modality Abdomen Ultrasound 11/12/2014 1:58 PM EDT Narrative 11/12/2014 2:09 PM EDT Abdominal Duplex ? (Signed Final 11/12/2014 02:08 pm) Patient Info ID #: ? [id number] ? : [birth year] (64 yrs) Name: ? DB LEVIN ?Visit Date:11/12/2014 01:53 pm Performed By Performed By: ?Padmini Gore RDMS Attending: ? Salvador TRUJILLO, Karla Domingo Referred By: ? JOSIANE MAHONEY MD Service(s) Provided ??UABDCVASC - Abdominal Complete Survey with Vascular - 40045, 97589 ??[id number], [id number] Indications ??Elevated lft's; iron overload; screen for [...] 11/12/2014 02:08 pm) Patient Info ID #: [id number] : [birth year] (64 yrs) Name: DB LEVIN Visit Date:11/12/2014 01:53 pm Performed By Performed By: Padmini Gore RDMS Attending: Karla Franco MD Referred By: JOSIANE MAHONEY MD Service(s) Provided UABDCVASC - Abdominal Complete Survey with Vascular - 55492, 95780 [id number], [id number] Indications Elevated lft's; iron overload; screen for [...] Mahoney MD IMG US GEN ORDERABLE S documented in this encounter Visit Diagnoses Diagnosis Elevated LFTs Other abnormal blood chemistry Iron overload Other disorders of iron metabolism Enlarged liver Hepatomegaly documented in this encounter Care Teams Trash Hauler Relationship Specialty Start Date End Date Corbin Caban MD [address] [facility] [address] [place] [address] PCP - General 11/12/14 documented as of this encounter
--- OUTSIDE RECORDS SUMMARY | 2023-11-02 14:12 | XMS_ITS | Encounter Summary ---
Author Organization [facility] Address [facility] [place] [address] Care Team Providers Care Sliver Lap Tender Name Role Phone Corbin Caban MD Primary Care Provider [phone] [phone] Reason for Visit * Reason Comments Follow-up Encounter Details Date Type Department Care Team (Late st Contact Info) Description 11/12/2014 3:00 PM EDT Follow-Up [place]ology [place] [phone] CLINIC, Ariel Fernandes MD [facility] DR [place]STRO[place] [address] Hemochromatosis Discharge Disposition: Home Social History Tobacco [...] Sign Reading Time Taken Comments Blood Pressure 138/86 11/12/2014 2:34 PM EDT Pulse 67 11/12/2014 2:34 PM EDT Temperature - - Respiratory Rate - - Oxygen Saturation - - Inhaled Oxygen Concentration - - Weight 96.9 kg (213 lb 9.6 oz) 11/12/2014 2:34 P M EDT Height 175.3 cm (5' 9) 11/12/2014 2:34 PM EDT Body Mass Index 31.54 11/12/2014 2:34 PM EDT documented in this encounter Progress Notes * Ariel Hays MD - 11/12/2014 3:13 PM EDT Ramiro Levin [id number] PCP CORBIN CABAN MD (General) 11/12/2014 Subjective: Patient ID: Ramiro Levin is a 64 y.o. male with possible end stage liver [...] infection and received antibiotics. Gave blood to [facility] and told it was rejected and further testing needed. No ascites, edema, encephalopathy, GI bleeding, weight stable, energy level good. Patient Active Problem List Diagnosis Code ??? Elevated liver function tests 790.6 ??? Hypertension 401.9 ??? Hemochromatosis 275.03 ??? Ascending aorta dilatation 447.71 Current Outpatient Prescriptions Medication Sig Dispense Refill ??? fluticasone-salmeterol (ADVAIR DISKUS) 250-50 mcg/dose Disk with Device Inhale 1 puff into the lungs every 12 hours. ??? ALBUTEROL, REFILL, INHL Inhale into the [...] medications for this visit. Objective: Physical Exam Filed Vitals: 11/12/14 1434 BP: 138/86 Pulse: 67 Body mass index is 31.53 kg/(m^2). Constitutional: He appears well-developed and well-nourished. HENT: Head: Normocephalic and atraumatic. [...] 1.7 11/12/2014 Chemistry Component Value Date/Time NA 143 11/12/2014 1226 K 4.2 11/12/2014 1226 CL 104 11/12/2014 1226 CO2 23 11/12/2014 1226 BUN 10 11/12/2014 1226 CREATININE 0.93 11/12/2014 1226 Component Value Date/Time CALCIUM 9.5 11/12/2014 1226 ALKPHOS 73 11/12/2014 1226 AST 26 11/12/2014 1226 ALT 28 11/12/2014 1226 BILITOT 0.9 11/12/2014 1226 Lab Results Component Value Date WBC 7.8 11/12/2014 HGB 16.9 11/12/2014 HCT 47.2 11/12/2014 MCV 91.8 11/12/2014 PLATELET 198 11/12/2014 Lab Results Component Value Date INR 1.0 11/12/2014 Recent Labs 11/12/14 1226 ALBUMIN 4.6 11-13-2014 Ultrasound - Abdomen Complete - Summary Enlarged echogenic liver wihtout focal mass consistent with steatosis superimposed on patient's known hemochromatosis. Essentially stable gallbladdder polyps. Ultrasound - Vascular evaluation - Summary Normal directional flow and waveforms in PV, hepatic artery and hepatic veins. Assessment and Plan: 64 y.o. male with history of ETOH abuse and hemochromatosis with suspition of end stage liver disease 1. End stage liver disease. Stable normal liver enzymes normal liver function. Will perform fibroscan when returns in 6 months 2.Iron overload, has been donating blood about once a year last in December 2013. Last ferritin was 150, goal < 150, will donate blood once he has [facility] evaluate for abnormal test. ? Ast/alt from antibiotic? 3. Alcohol use,continues. Advised abstinence 4. HCC surveillance. Needs US every 6 months Disposition: Return six months with ultrasound and cmp, cbc, inr, ferritin, fibroscan Ariel Hays MD 25 of this 30 minute visit in face to face discussion regarding disease, prognosis and treatment documented in this encounter Plan of Treatment Upcoming Encounters Date Type Department Care Team (Late st Contact Info) Description 02/08/2024 9:00 AM EST Appointment Non-[place] [address] Garth Gaspar MD [facility] [place] [address] documented as of this encounter Results * Iron and TIBC (07/22/2015 10:41 AM EDT) Pathologist [facility] Iron 146 45 - 160 mcg/dL [facility] TIBC 299 250 - 450 mcg/dL [facility] Iron Saturation 49 20 - 50 % [facility] Blood specimen (specimen) 07/22/2015 10:41 AM EDT 07/22/2015 10:50 AM EDT Narrative Resulting Agency Comment Spec In Lab Ariel Hays MD CHEMISTRY ORDERABLE S [facility] [place] [address] * Ferritin (07/22/2015 10:41 AM EDT) Ferritin 120 30 - 400 ng/mL [facility] Comment: Pediatric reference ranges not verified at [facility], interpret with caution. Reference ranges for females greater than 50 years of age approach values for men, i.e., 30-400 ng/mL. Blood specimen (specimen) 07/22/2015 10:41 AM EDT 07/22/2015 10:50 AM EDT Narrative Resulting Agency Comment Spec In Lab Ariel Hays MD CHEMISTRY ORDERABLE S Performing Organization Address [facility] de Phone Number [facility] [place] [address] * Prothrombin Time (07/22/2015 10:41 AM EDT) Prothrombin Time 12.7 12.0 - 15.0 sec [facility] Comment: An INR <2.0 indicates adequate procoagulant activity for hemostasis in most patients without underlying bleeding disorders, though the INR may not adequately reflect hemostatic capacity in patients with liver disease and synthetic impairment. The recommended target INR range for therapeutic anticoagulation is 2.0 ? 3.0 for most applications, though lower and higher ranges may be appropriate depending on clinical circumstances. International Normalization Ratio 0.9 0.9 - 1.1 [facility] Blood specimen (specimen) 07/22/2015 10:41 AM EDT 07/22/2015 10:50 AM EDT Narrative Resulting Agency Comment Spec In Lab Ariel Hays MD HEMATOLOGY ORDERABL ES Performing Organization Address [facility] de Phone Number [facility] [place] [address] * Comprehensive metabolic panel (non-fasting) (07/22/2015 10:41 AM EDT) Glucose 103 65 - 199 mg/dL [facility] Comment:Diabetes: >=200 mg/d L plus symptoms Blood Urea Nitrogen 17 10 - 20 mg/dL [facility] Creatinine 0.92 0.80 - 1.50 mg/dL [facility] Comment: Please note that the pediatric reference intervals supplied above were not validated at [facility]. Results from pediatric patients should be interpreted in conjunction to the patient's age, height and muscle mass. Sodium 145 135 - 145 mmol/L [facility] Potassium 4.5 3.5 - 5.0 mmol/L [facility] Comment: Please note: ??Patients with WBC >100,000 may have falsely elevated Potassium levels. ??For accurate Potassium quantification in these patients send serum separator tube (gold top) for subsequent determinations. ??Contact the Clinical Chemistry Laboratory if there are any questions. Chloride 104 98 - 107 mmol/L [facility] Carbon Dioxide 26 22 - 31 mmol/L [facility] Anion Gap 15 5 - 15 mmol/L [facility] Calcium 9.6 8.5 - 10.5 mg/dL [facility] Protein, Total 7.4 6.1 - 8.0 gm/dL [facility] Albumin 4.9 3.2 - 5.2 gm/dL [facility] Aspartate Aminotransferase 17 0 - 39 unit/L [facility] Alanine Aminotransferase 14 0 - 55 unit/L [facility] Alkaline Phosphatase 75 40 - 120 unit/L [facility] Bilirubin, Total 0.7 0.2 - 1.3 mg/dL [facility] Bilirubin, Direct 0.1 0.0 - 0.3 mg/dL [facility] Est Glomerular Filtration Rate >60 >=60 [facility] Comment: This estimated GFR (eGFR) value [...] the following links into your internet browser. [email or web address] Blood specimen (specimen) 07/22/2015 10:41 AM EDT 07/22/2015 10:50 AM EDT Narrative Resulting Agency Comment Spec In Lab Ariel Hays MD CHEMISTRY ORDERABLE S [facility] [place] [address] documented in this encounter Visit Diagnoses Diagnosis Hemochromatosis Other hemochromatosis documented in this encounter Care Teams Sliver Lap Tender Relationship Specialty Start Date End Date Corbin Caban MD [address] [place] [address] PCP - General 11/12/14 documented as of this encounter
--- OUTSIDE RECORDS SUMMARY | 2023-11-02 14:12 | XMS_ITS | Encounter Summary ---
Author Organization [facility] Address [facility] [place] [address] Care Team Providers Care Ballistics Expert Forensic Name Role Phone Corbin Caban MD Primary Care Provider [phone] Encounter Details Date Type Department Care Team (Latest Contact Info) Description 07/22/2015 12:00 PM EDT Laboratory Appointment Lab [address] [place] [phone] Hemochromatosis; Elevated LFTs; Iron overload Social History Tobacco [...] 9:00 AM EST Appointment Non-[place] [phone] Garth Gaspar MD [facility] [place] [address] documented as of this encounter Procedures Procedure Name Priority Date/Time Associated Diagnosis Comments HEMOGRAM Routine 07/22/2015 10:41 AM EDT Hemochromatosis DIFFERENTIAL, AUTOMATED Routine 07/22/2015 10:41 AM EDT Hemochromatosis IRON AND TIBC Routine 07/22/2015 10:41 AM EDT Hemochromatosis AFP TUMOR MARKER Routine 07/22/2015 10:4 1 AM EDT Elevated LFTs Iron overload PROTHROMBIN TIME Routine 07/22/2015 10:4 1 AM EDT Hemochromatosis CBC (WITH DIFF) Routine 07/22/2015 10:41 AM EDT Hemochromatosis FERRITIN Routine 07/22/2015 10:41 AM EDT Hemochromatosis COMPREHENSIVE METABOLIC PANEL Routine 07/22/2015 10:41 AM EDT Hemochromatosis documented in this encounter Results * Differential, Automated (07/22/2015 10:41 AM EDT) Neutrophil % 53.4 % [facility] Neutrophil Absolute 4.02 1.50 - 6.30 x10(3)/[facility] Lymph % 34.0 % [facility] Lymphocytes Abs 2.6 1.0 - 3.6 x10(3)/[facility] Monocyte % 7.8 % [facility] Monocyte Abs 0.6 0.2 - 1.0 x10(3)/[facility] Eos % 4.6 % [facility] Eosinophils Abs 0.4 0.0 - 0.5 x10(3)/[facility] Basophil % 0.1 % [facility] Baso Absolute 0.0 0.0 - 0.2 x10(3)/[facility] Immature Gran % 0.10 % [facility] Comment: Immature granulocytes(IG's)percentage and absolute count will include metamyelocytes, myelocytes, and promyelocytes. Blood smears from CBCs yielding IG's will be scanned manually for concordance. If this scan disagrees with the automated IG or if promyelocytes are noted, a manual differential will be performed. Immature Gran Absolute 0.01 0.00 - 0.05 x10(3)/[facility] Blood specimen (specimen) 07/22/2015 10:41 AM EDT 07/22/2015 10:50 AM EDT Narrative Resulting Agency Comment Spec In Lab Ariel Hays MD HEMATOLOGY ORDERABL ES Performing Organization Address [facility]/ZIP Co de Phone Number [facility] [place] [address] * (ABNORMAL) Hemogram (07/22/2015 10:41 AM EDT) White Blood Cell 7.5 4.0 - 10.0 x10(3)/mc L [facility] Red Blood Cell 5.47 4.63 - 6.08 x10(6)/mc L [facility] Hemoglobin 17.2 13.7 - 17.5 gm/dL [facility] Hematocrit 48.5 40.0 - 51.0 % [facility] Mean Cell Volume 88.7 79.0 - 92.0 fL [facility] Mean Cell Hemoglobin 31.4 25.6 - 32.2 pg [facility] Mean Cell Hemoglobin Concentration 35.5 32.0 - 36.5 gm/dL [facility] Platelet 184 145 - 370 x10(3)/mc L [facility] RDW Standard Deviation 46.3(H) 35.0 - 46.0 fL [facility] RDW coefficient of variation 14.2 10.9 - 14.4 % [facility] Mean Platelet Volume 11.4 9.0 - 12.0 fL [facility] Blood specimen (specimen) 07/22/2015 10:41 AM EDT 07/22/2015 10:50 AM EDT Narrative Resulting Agency Comment Spec In Lab Ariel Hays MD HEMATOLOGY ORDERABL ES Performing Organization Address [facility] Co de Phone Number [facility] [place] [address] * AFP tumor marker (07/22/2015 10:41 AM EDT) Alpha Fetoprotein 2.5 <=8.3 ng/mL [facility] Blood specimen (specimen) 07/22/2015 10:41 AM EDT 07/22/2015 10:50 AM EDT Narrative Resulting Agency Comment Spec In Lab Hermelinda Larsen MD CHEMISTRY ORDERABLES [facility] [place] [address] * Iron and TIBC (07/22/2015 10:41 AM EDT) [facility] Iron 146 45 - 160 mcg/dL [facility] TIBC 299 250 - 450 mcg/dL [facility] Iron Saturation 49 20 - 50 % [facility] Blood specimen (specimen) 07/22/2015 10:41 AM EDT 07/22/2015 10:50 AM EDT Narrative Resulting Agency Comment Spec In Lab Ariel Hays MD CHEMISTRY ORDERABLE S Performing Organization Address City/[facility]/ZIP Co de Phone Number [facility] [place] [address] * Ferritin (07/22/2015 10:41 AM EDT) [facility] Ferritin 120 30 - 400 ng/mL [facility] Comment: Pediatric reference ranges not verified at [facility], interpret with caution. Reference ranges for females greater than 50 years of age approach values for men, i.e., 30-400 ng/mL. Blood specimen (specimen) 07/22/2015 10:41 AM EDT 07/22/2015 10:50 AM EDT Narrative Resulting Agency Comment Spec In Lab Ariel Hays MD CHEMISTRY ORDERABLE S [facility] [place] [address] * Prothrombin Time (07/22/2015 10:41 AM EDT) Prothrombin Time 12.7 12.0 - 15.0 sec [facility] Comment: An INR <2.0 indicates [...] International Normalization Ratio 0.9 0.9 - 1.1 [facility] Blood specimen (specimen) 07/22/2015 10:41 AM EDT 07/22/2015 10:50 AM EDT Narrative Resulting Agency Comment Spec In Lab Ariel Hays MD HEMATOLOGY ORDERABL ES [facility] [place] [address] * Comprehensive metabolic panel (non-fasting) (07/22/2015 10:41 AM EDT) Pathologist [facility] Glucose 103 65 - 199 mg/dL [facility] Comment:Diabetes: >=200 mg/d L plus symptoms Blood Urea Nitrogen 17 10 - 20 mg/dL [facility] Creatinine 0.92 0.80 - 1.50 mg/dL [facility] Comment: Please note that the pediatric reference intervals supplied above were not validated at [facility]. Results from pediatric patients should be interpreted in conjunction to the patient's age, height and muscle mass. Sodium 145 135 - 145 mmol/L [facility] Potassium 4.5 3.5 - 5.0 mmol/L [facility] Comment: Please note: ??Patients with WBC >100,000 may have falsely elevated Potassium levels. ??For accurate Potassium quantification in these patients send serum separator tube (gold top) for subsequent determinations. ??Contact the Clinical Chemistry Laboratory if there are any questions. Chloride 104 98 - 107 mmol/L [facility] Carbon Dioxide 26 22 - 31 mmol/L [facility] Anion Gap 15 5 - 15 mmol/L [facility] Calcium 9.6 8.5 - 10.5 mg/dL [facility] Protein, Total 7.4 6.1 - 8.0 gm/dL [facility] Albumin 4.9 3.2 - 5.2 gm/dL [facility] Aspartate Aminotransferase 17 0 - 39 unit/L [facility] Alanine Aminotransferase 14 0 - 55 unit/L [facility] Alkaline Phosphatase 75 40 - 120 unit/L [facility] Bilirubin, Total 0.7 0.2 - 1.3 mg/dL [facility] Bilirubin, Direct 0.1 0.0 - 0.3 mg/dL [facility] Est Glomerular Filtration Rate >60 >=60 [facility] Comment: This estimated GFR (eGFR) [...] the following links into your internet browser. [email or web address] [email or web address] Blood specimen (specimen) 07/22/2015 10:41 AM EDT 07/22/2015 10:50 AM EDT Narrative Resulting Agency Comment Spec In Lab Ariel Hays MD CHEMISTRY ORDERABLE S [facility] [place] [address] documented in this encounter Visit Diagnoses Diagnosis Hemochromatosis Other hemochromatosis Elevated LFTs Other abnormal blood chemistry Iron overload Other disorders of iron metabolism documented in this encounter Care Teams Ballistics Expert Forensic Relationship Specialty Start Date End Date Corbin Caabn MD [address] [place] [address] PCP - General 11/12/14 documented as of this encounter
--- OUTSIDE RECORDS SUMMARY | 2023-11-02 14:12 | XMS_ITS | Encounter Summary ---
Author Organization [facility] Address [facility] [place] [address] Care Team Providers Care Boot Trimmer Name Role Phone Marisela Boland MD Primary Care Provider [phone] Reason for Visit * Reason Comments Advice Only telangictasisa Encounter Details Date Type Department Care Team (Latest Contact Info) Description 04/09/2013 1:15 PM EST Office Visit Dermatology at [facility] [address] [place] [address] Vitaly Martinez MD [facility] [place] [address] Telangiectasia (Primary Dx) Discharge Disposition: Home Social [...] as of this encounter Progress Notes * Vitaly Martinez MD - 04/09/2013 1:10 PM EST Images from the original note were not included. Ramiro Ollie 04/09/2013 [id number] Chayo Martinez MD ([id number]) Chief Problem: 1.Telangiectasias History: 63 y.o. year old male. New patient to me. Specific concerns today vascular changes on face. Review of Systems: Feels well, no fatigue, no weight loss, no other skin concerns Current Outpatient Prescriptions on File Prior to Visit Medication Sig Dispense Refill ??? ascorbic acid (VITAMIN C) 500 mg tablet Take 500 mg by mouth daily. ??? fluticasone-salmeterol (ADVAIR) 250-50 mcg/dose diskus inhaler Inhale 1 puff into the lungs 2 times daily. ??? allopurinol (ZYLOPRIM) 300 mg tablet Take 300 mg by mouth daily. ??? amlodipine-benazepril (LOTREL) 5-20 mg per capsule Take 1 capsule by mouth daily. ??? multivitamin (THERAGRAN) tablet Take 1 tablet by mouth daily. ??? ZINC ACETATE ORAL Take by mouth. Examination: Patient was alert, well-appearing and in no noticeable distress. A focal skin exam was performed, including the face Specific findings: 1. Telangiectasias 2. Photo documentation taken with patient permission see below Assessment/Diagnosis: 1. Telangiectasias Treatment/Plan: Discussion - Spent over half of this visit discussing pathophysiology and the diagnosis, and counselling this patient on treatment options, expectations and follow-up plan. - Specifically discussed: 1. Treatment options Vascular laser discussed with patient , aware this will not completely resolvethe vascular changes even after several treatments, but will help Quoted $350 for first treatment and $225 for the second and third treatment. Follow up: Patient will call for appointment due to busy schedule I am documenting this encounter acting as the scribe for and in the presence of NICOLLE De La Rosa LPN. I performed the above scribed service and agree with the accuracy of the documentation in this encounter, Chayo Martinez MD documented in this encounter Plan of Treatment Upcoming Encounters Date Type Department Care Team (Late st Contact Info) Description 02/08/2024 9:00 AM EST Appointment Non-[place] [address] Garth Gasapr MD [facility] [place] [address] documented as of this encounter Visit Diagnoses Diagnosis Telangiectasia- Primary Other and unspecified capillary diseases documented in this encounter Care Teams Boot Trimmer Relationship Specialty Start Date End Date Marisela Boland MD [address] [place] [address] PCP - General 09/22/11 11/11/14 documented as of this encounter
--- OUTSIDE RECORDS SUMMARY | 2023-11-02 14:12 | XMS_ITS | Encounter Summary ---
Author Organization [facility] [address] Care Team Providers Care Digester Operator Helper Name Role Phone Marisela Boland MD Primary Care Provider [phone] Reason for Visit * Reason Onset Date Comments Advice Only 04/02/2013 Encounter Details Date Type Department Care Team (Late st Contact Info) Description 04/02/2013 [place] [address] Tamy Rae, filtering machine tender helper Only Social History Tobacco Use Types Packs/Day Years [...] encounter Miscellaneous Notes * Telephone Encounter - Tamy Rae RN - 04/02/2013 4:48 PM EST Left message for patient, in response to his inquiry. On 03/30 he had BMP, PSA, cholesterol panel checked at [facility]. For his upcoming visit with Jn Duggan, he also needs hepatic function panel, AFP, INR(Dx: suspected cirrhosis.) Await call back. documented in this encounter Plan of Treatment Upcoming Encounters Date Type Department Care Team (Late st Contact Info) Description 02/08/2024 9:00 AM EST Appointment Non-[place] [address] Garth Gaspar MD [facility] [place] [address] documented as of this encounter Visit Diagnoses Not on filedocumented in this encounter Care Teams Digester Operator Helper Relationship Specialty Start Date End Date Marisela Boland MD [address] [place] [address] PCP - General 09/22/11 11/11/14 documented as of this encounter
--- OUTSIDE RECORDS SUMMARY | 2023-11-02 14:12 | XMS_ITS | Encounter Summary ---
Author Organization [facility] Address [facility] [address] Care Team Providers Care Sewing Department Supervisor Name Role Phone Corbin Caban MD Primary Care Provider [phone] Encounter Details Date Type Department Care Team (Late st Contact Info) Description 11/18/2017 2:10 PM EDT Office [place] [address] Carlos Alberto Coreas MD [facility] DR CARDIOTHORACIC [place] [address] Tachycardia; Ascending aorta dilatation Social History Tobacco Use [...] Sign Reading Time Taken Comments Blood Pressure 128/78 11/18/2017 2:14 PM EDT Pulse 98 11/18/2017 2:14 PM EDT Temperature - - Respiratory Rate - - Oxygen Saturation 95% 11/18/2017 2:1 4 PM EDT Inhaled Oxygen Concentration - - Weight 93.9 kg (207 lb) 11/18/2017 2:14 PM EDT patient stated from recent physical Height 175.3 cm (5' 9) 11/18/2017 2:14 PM EDT Body Mass Index 30.57 11/18/2017 2:14 PM EDT documented in this encounter Progress Notes * Carlos Alberto Coreas MD - 11/18/2017 2:10 PM EDT I am seeing Mr. Levin in followup of ascending and root dilation. HE has been doing well. He relates no particular problems. HE denies chest pain or shortness of breath. BP has been better over this past year. ECHO shows no real change with 4.8 cm root and 4.3 cm ascending aorta. LVEF is normal with no significant AI. Outpatient Prescriptions Marked as Taking for the 11/18/17 encounter (Office Visit) with Carlos Alberto Coreas [...] tablet by mouth daily. Physical Exam: BP 128/78 Pulse 98 Ht 175.3 cm (5' 9) Wt 93.9 kg (207 lb) Comment: patient stated from recent physical SpO2 95% BMI 30.57 kg/m2 LUNG: CTA CV: IRREG, no murmur symmetric pulses EKG due to the perceived irregular heart beat shows sinus rhythm with RBBB A/P: Stable aortic exam. I would like to see him again in one year with repeat ECHO. documented in this encounter Plan of Treatment Upcoming Encounters Date Type Department Care Team (Late st Contact Info) Description 02/08/2024 9:00 AM EST Appointment Non[place] [address] Garth Gaspar MD [facility] [place] [address] documented as of this encounter Procedures Procedure Name Priority Date/Time Associated Diagnosis Comments EKG 12-LEAD Routine 11/18/2017 2:26 PM EDT Tachycardia documented in this encounter Results * EKG 12 Lead (11/18/2017 2:26 PM EDT) Ventricular rate 73 BPM MUSE SYSTEM Atrial Rate 73 BPM MUSE SYSTEM P-R Interval 150 ms MUSE SYSTEM QRS Duration 130 ms MUSE SYSTEM Q-T Interval 396 ms MUSE SYSTEM QTC Calculated (Bezet) 436 ms MUSE SYSTEM Calculated P [place] 46 degrees MUSE SYSTEM Calculated R [place] 53 degrees MUSE SYSTEM Calculated T [place] 31 degrees MUSE SYSTEM INTERPRETATION Sinus rhythm with marked sinus arrhythmia Right bundle branch block Abnormal ECG When compared with ECG of 28-NOV-2013 15:15, Vent. rate has decreased BY ??37 BPM Right bundle branch block is now Present Confirmed by MD Kelton, Sarwat ([id number]) on 11/18/2017 4:13:35 PM MUSE SYSTEM 11/18/2017 2:26 PM EDT 11/18/2017 4:13 PM EDT Carlos Alberto Coreas MD ECG ORDERABLES MUSE SYSTEM documented in this encounter Visit Diagnoses Diagnosis Tachycardia Tachycardia, unspecified Ascending aorta dilatation Thoracic aortic ectasia documented in this encounter Care Teams Sewing Department Supervisor Relationship Specialty Start Date End Date Corbin Caban MD [address] [place] [address] PCP - General 11/12/14 documented as of this encounter
--- OUTSIDE RECORDS SUMMARY | 2023-11-02 14:12 | XMS_ITS | Encounter Summary ---
Author Organization [facility] [place] [address] Care Team Providers Care Speech Professor Name Role Phone Marisela Boland MD Primary Care Provider [phone] Encounter Details Date Type Department Care Team (Late st Contact Info) Description 09/24/2014 Orders [place] [address] Radha Olvera APRN [facility] [place] [address] H/O aortic root repair Social History Tobacco Use Types Packs/Day Years [...] 9:00 AM EST Appointment Non-[place] [address] Garth Gaspar MD [facility] [place] [address] documented as of this encounter Results * ECHO COMPLETE (12/20/2014 1:47 PM EDT) EF 65 HEARTLAB SYSTEM Anatomical Region Laterality Modality Other 12/20/2014 Narrative 12/20/2014 2:34 PM EDT Procedure: ?Transthoracic Echocardiogram Patient: ?RASHANW DB ?(Age): 1950(64y) Med Rec#: ? [id number] ?Sex: ?M ? Site Loc: ? [facility] [place] ?Ht / Wt: ??175(cm)/97(kg) Pt. Loc: ?Echo Lab ?BSA: ?2.12 Study Date: ?? 12/20/2014 ?Pt. Type: Outpatient Tape: ? Referring: Carlos Alberto Coreas Reading: Vitaly Queen ([id number]) Credit Control Clerk: Shaylee Morales Interpreting Fellow: Chase Carpenter Diagnosis: *ICD-10-PCS Other specified postprocedural states (Z98.89) CPT Codes: *Echo Full (72117) *Spectral Doppler (47322) *Color Doppler ([id number]) BP: ? 142/101 SUMMARY: 1. Left ventricular [...] E-wave Vmax ?0.8 ?m/sec ? MV deceleration qcbi569.6 ?msec ? MV A-wave Vmax ?0.8 ?m/sec [...] ? Mid-Inferior ?Normal ? Mid-Inferoseptal ?Normal ? [place]-Septal ? Normal ? [place]-Anterior ? Normal ? [place]-Lateral ?Normal ? [place]-Inferior ? Normal ? [place]-Tip ?Normal ? This report has been electronically signed by: Vitaly Queen MD ? 12/20/2014 14:33:48 Images reviewed and interpretation verified [facility] Cardiac Ultrasound Laboratory Procedure Note Vitaly Queen MD - 12/20/2014 Procedure: Transthoracic Echocardiogram Patient: RASHAWN ACE (Age): 1950(64y) Med Rec#: [id number] Sex: M Site Loc: [facility] [place] Ht / Wt: 175(cm)/97(kg) Pt. Loc: Echo Lab BSA: 2.12 Study Date: 12/20/2014 Pt. Type: Outpatient Tape: Referring: Carlos Alberto Coreas Reading: Vitaly Queen ([id number]) Credit Control Clerk: Shaylee Morales Interpreting Fellow: Chase Carpenter Diagnosis: *ICD-10-PCS Other specified postprocedural states (Z98.89) CPT Codes: *Echo Full (15119) *Spectral Doppler (69730) *Color Doppler (97153) BP: 142/101 SUMMARY: 1. Left ventricular chamber [...] MV E-wave Vmax 0.8 m/sec MV deceleration embj839.6 msec MV A-wave Vmax 0.8 m/sec MV [...] Normal Mid-Posterolateral Normal Mid-Inferior Normal Mid-Inferoseptal Normal [place]-Septal Normal [place]-Anterior Normal [place]-Lateral Normal [place]-Inferior Normal [place]-Tip Normal This report has been electronically signed by: Vitaly Queen MD 12/20/2014 14:33:48 Images reviewed and interpretation verified [facility] Cardiac Ultrasound Laboratory Carlos Alberto Coreas MD ECHO ORDERABLES documented in this encounter Visit Diagnoses Diagnosis H/O aortic root repair Personal history of surgery to heart and great vessels, presenting hazards to health H/O aortic root repair Personal history of surgery to heart and great vessels, presenting hazards to health documented in this encounter Care Teams Speech Professor Relationship Specialty Start Date End Date Marisela Boland MD [address] [place] [address] PCP - General 09/22/11 11/11/14 documented as of this encounter
--- OUTSIDE RECORDS SUMMARY | 2023-11-02 14:12 | XMS_ITS | Encounter Summary ---
Author Organization [facility] [place] [address] Care Team Providers Care Pottery Striper Name Role Phone Marisela Boland MD Primary Care Provider [phone] Reason for Visit * Reason Comments Follow-up Encounter Details Date Type Department Care Team (Late st Contact Info) Description 04/09/2013 11:00 AM EST [place] [id number] CLINIC, Abelino Bah APRN [facility] [place] [address] Cirrhosis of liver (Primary Dx); Elevated liver function tests; Iron overload Discharge [...] Sign Reading Time Taken Comments Blood Pressure 116/86 04/09/2013 10:58 AM EST Pulse 84 04/09/2013 10:58 AM EST Temperature - - Respiratory Rate - - Oxygen Saturation - - Inhaled Oxygen Concentration - - Weight 94.3 kg (208 lb) 04/09/2013 10:58 AM EST Height 177.8 cm (5' 10) 04/09/2013 10:58 AM EST Body Mass Index 29.84 04/09/2013 10:58 AM EST documented in this encounter Progress Notes * Abelino Bee APRN - 04/09/2013 11:08 AM EST Subjective: Patient ID: Db Levin is a 63 y.o. male. GI PROBLEM LIST: 1. Iron overload Diagnosed with HH( by PCP) when presented with ferritin [...] months ago, he believes his ferritin was [id number] on last check. AFter his initial visit [...] 10/02/12 shows a ferritin level of 151. Results for DB LEVIN ( ) as of 04/11/2013 10:39 Ref. Range 04/09/2013 12:09 PT Latest Range: 12.0-15.0 sec 12.6 INR Latest Range: 0.9-1.1 0.9 Total Protein Latest Range: 6.4-8.3 gm/dL 7.5 Albumin Latest Range: 3.2-5.2 gm/dL 4.6 Total Bilirubin Latest Range: 0.2-1.3 mg/dL 0.8 Bili, Direct Latest Range: 0.0-0.3 mg/dL 0.1 Alk Phos Latest Range: 40-120 unit/L 69 AST Latest Range: 0-39 unit/L 20 ALT Latest Range: 0-55 unit/L 19 AFP Latest Range: <=8.3 ng/mL 1.6 Abd Ultrasound 04/09/2013 1. Enlarged and mildly echogenic liver, may be seen in iron deposition.. 2. Splenomegaly. Outside Labs: 10/02/12 Wbc 7, hg 15.7, plt 201 Creat 0.9, na 140, kcl 4.4 Ferritin 151 02/11/12 tprot 7.3, alb 4.3, tbili 0.68, ap 93, ast 19, alt 21, ferritin 203 05/19/12 abd ultrasound Liver appears normal Review of Systems Constitutional: Negative for fever, [...] has no wheezes. Abdominal: Soft. There is hepatomegaly . No tenderness. Musculoskeletal: He exhibits no edema. Neurological: He is alert and oriented to person, place, and time. Skin: Skin is warm and dry. Psychiatric: He has a normal mood and affect. His behavior is normal. Assessment and Plan: Mr. Levin is a 62 year old male with elevated liver tests, which are currently normal based on labsdone today. He likely Has a combination of factors including , iron over load, and alcohol related fatty liver. Given the suspicion of cirrhosis will continue with biannual hepatoma surveillance withabdominal ultrasound and labs. We had a long discussion about the imaging issue as he needs an CT scan in the fall and wonders if he can get an abdominal CT at the same time. 1. Iron overload, will have a phlebotomy with a bring his ferritin down below 100. He has previously had this arranged through his PCP and prefers to do this again with her. 2. Alcohol use, he is considering cutting back on his drinking. Support given on cutting down. I will plan to see him back in six months with ultrasound and cmp, cbc, inr and afp prior to the appt. documented in this encounter Plan of Treatment Upcoming Encounters Date Type Department Care Team (Late st Contact Info) Description 02/08/2024 9:00 AM EST Appointment Non-[place] [address] Garth Gaspar MD [facility] [place] [address] documented as of this encounter Procedures Procedure Name Priority Date/Time Associated Diagnosis Comments AFP TUMOR MARKER Routine 04/09/2013 12:0 9 PM EST Elevated liver function tests Iron overload PROTHROMBIN TIME Routine 04/09/2013 12:0 9 PM EST Elevated liver function tests Iron overload HEPATIC FUNCTION PANEL Routine 04/09/2013 12:09 PM EST Elevated liver function tests Iron overload documented in this encounter Results * US abdomen complete (10/12/2013 11:26 AM EDT) Anatomical Region Laterality Modality Abdomen, Vascular Ultrasound 10/12/2013 11:2 6 AM EDT Narrative 10/12/2013 1:24 PM EDT Abdominal ?(Signed Final 10/12/2013 01:24 ? pm) Patient Info ID #: ? [id number] ?: ??[birth year] (63 yrs) Name: ? DB LEVIN ? Visit Date: 10/12/2013 11:22 am Performed By Performed By: ?Aide ANDRADE, Tory Associate: ? Andrez TRUJILLO, Ally Attending: ? Gaby Choi MD Referred By: ? ABELINO BEE ELECTROPLATING LABORER Service(s) Provided ??[facility] - Abdominal Complete Survey - [id number] ? [id number] Indications ??cirrhosis Comparison Abdominal utlrasound 04/09/13. ----- Liver ----- Right Lobe Length: ?? 19.0 ?? cm Echogenicity/Echotexture: ?? Mildly increased echogenicity with ? areas of focal sparing Comment: ?No focal hepatic mass. ??Smooth capsular contour. Gallbladder Cholelithiasis: ?No stones visualized Wall Thickness: ?Normal wall thickness Focal Tenderness: ?Negative sonographic Harvey's sign Comment: ?Stable 3mm polyp seen within the neck. Other ? previously seen polyps are not seen on today's ? exam. Biliary Tract Intrahepatic Ducts: ?? Normal Extrahepatic Ducts: ?? Normal Common Duct Size: ? 3.0 ? mm -------- Pancreas -------- Head: ? Normal Tail: ? Limited visualizationl Body: ? Limited visualization ------ Spleen ------ Size (cm) ?L: ??10.8 ?AP: ??10.8 ?TV: ??5.1 Vol (ml): ?311.5 Comment: ?Normal appearance. Right Kidney Size (cm) ?L: ??11.3 Cortical Thickness: ?Normal Cortical Echogenicity: ?? Normal Hydronephrosis: ?No sonographic evidence Left Kidney Size (cm) ?L: ??12.0 Cortical Thickness: ?Normal Cortical Echogenicity: ?? Normal Hydronephrosis: ?No sonographic evidence ----- Aorta ----- Measurements (cm): Proximal ? AP: ?? 2.4 Mid ?AP: ?? 2.0 Distal ? AP: ?? 1.8 Rt Iliac ? AP: ?? 1.2 Lt Iliac ? AP: ?? 1.1 Comment: ?Normal in caliber where visualized. --- IVC --- Normal in caliber where visualized. Fluid Collections No ascites seen. Impression Ultrasound - Abdomen Complete - Summary 1. Mildly increased hepatic echogenicity, similar to prior, suggestive of hepatosteatosis. ??No sonographic evidence of cirrhosis or sequela of portal hypertension. No focal hepatic mass. 2. Stable 3 mm gallbladder polyp at the neck. ??Other previously seen gallbladder polyps not seen today's exam. 3. Limited evaluation of the pancreas due to overlying bowel gas. I ??viewed the images and agree with the above interpretation. ?Gaby Choi MD Electronically Signed Final Report ?? 10/12/2013 01:24 pm Film and interpretation reviewed by the attending Procedure Note Gaby Choi MD - 10/12/2013 Abdominal (Signed Final 10/12/2013 01:24 pm) Patient Info ID #: [id number] : [birth year] (63 yrs) Name: DB LEVIN Visit Date: 10/12/2013 11:22 am Performed By Performed By: Tory Noble RDMS Associate: Ally Maguire MD Attending: Gaby Choi MD Referred By: ABELINO BEE APRN Service(s) Provided [facility] - Abdominal Complete Survey - [id number] Indications cirrhosis Comparison Abdominal utlrasound 04/09/13. ----- Liver ----- Right Lobe Length: 19.0 cm Echogenicity/Echotexture: Mildly increased echogenicity with areas of focal sparing Comment: No focal hepatic mass. Smooth capsular contour. Gallbladder Cholelithiasis: No stones visualized Wall Thickness: Normal wall thickness Focal Tenderness: Negative sonographic Harvey's sign Comment: Stable 3mm polyp seen within the neck. Other previously seen polyps are not seen on today's exam. Biliary Tract Intrahepatic Ducts: Normal Extrahepatic Ducts: Normal Common Duct Size: 3.0 mm -------- Pancreas -------- Head: Normal Tail: Limited visualizationl Body: Limited visualization ------ Spleen ------ Size (cm) L: 10.8 AP: 10.8 TV: 5.1 Vol (ml): 311.5 Comment: Normal appearance. Right Kidney Size (cm) L: 11.3 Cortical Thickness: Normal Cortical Echogenicity: Normal Hydronephrosis: No sonographic evidence Left Kidney Size (cm) L: 12.0 Cortical Thickness: Normal Cortical Echogenicity: Normal Hydronephrosis: No sonographic evidence ----- Aorta ----- Measurements (cm): Proximal AP: 2.4 Mid AP: 2.0 Distal AP: 1.8 Rt Iliac AP: 1.2 Lt Iliac AP: 1.1 Comment: Normal in caliber where visualized. --- IVC --- Normal in caliber where visualized. Fluid Collections No ascites seen. Impression Ultrasound - Abdomen Complete - Summary 1. Mildly increased hepatic echogenicity, similar to prior, suggestive of hepatosteatosis. No sonographic evidence of cirrhosis or sequela of portal hypertension. No focal hepatic mass. 2. Stable 3 mm gallbladder polyp at the neck. Other previously seen gallbladder polyps not seen today's exam. 3. Limited evaluation of the pancreas due to overlying bowel gas. I viewed the images and agree with the above interpretation. Gaby Choi MD Electronically Signed Final Report 10/12/2013 01:24 pm Film and interpretation reviewed by the attending Ariel Hays MD IMG US GEN ORDERABL ES * Hepatic Function Panel (04/09/2013 12:09 PM EST) Protein, Total 7.5 6.4 - 8.3 gm/dL CERNER MILLENNIUM Albumin 4.6 3.2 - 5.2 gm/dL CERNER MILLENNIUM Aspartate Aminotransferase 20 0 - 39 unit/L CERNER MILLENNIUM Alanine Aminotransferase 19 0 - 55 unit/L CERNER MILLENNIUM Alkaline Phosphatase 69 40 - 120 unit/L CERNER MILLENNIUM Bilirubin, Total 0.8 0.2 - 1.3 mg/dL CERNER MILLENNIUM Bilirubin, Direct 0.1 0.0 - 0.3 mg/dL CERNER MILLENNIUM Blood specimen (specimen) 04/09/2013 12:09 PM EST 04/09/2013 12:19 PM EST Narrative Resulting Agency Comment Spec In Lab Ariel Hays MD CHEMISTRY ORDERABLE S CERNER MILLENNIUM * Prothrombin Time (04/09/2013 12:09 PM EST) Prothrombin Time 12.6 12.0 - 15.0 sec CERNER MILLENNIUM Comment: [facility] Transfusion Committee Guidelines: INR less than 2.0, PTT less than OR equal to 43.5 seconds, or Fibrinogen greater than or equal to 100 mg/dl indicate adequate procoagulant activity for hemostasis in patients without underlying bleeding disorders. International Normalization Ratio 0.9 0.9 - 1.1 CERNER MILLENNIUM Blood specimen (specimen) 04/09/2013 12:09 PM EST 04/09/2013 12:19 PM EST Narrative Resulting Agency Comment Spec In Lab Ariel Hays MD HEMATOLOGY ORDERABL ES Performing Organization Address City/[facility] Co de Phone Number LYSSA MALAGON * AFP tumor marker (04/09/2013 12:09 PM EST) Alpha Fetoprotein 1.6 <=8.3 ng/mL LYSSA MALAGON Blood specimen (specimen) 04/09/2013 12:09 PM EST 04/09/2013 12:19 PM EST Narrative Resulting Agency Comment Spec In Lab Ariel Hays MD CHEMISTRY ORDERABLE S Performing Organization Address [facility] Co de Phone Number LYSSA MALAGON documented in this encounter Visit Diagnoses Diagnosis Cirrhosis of liver- Primary Cirrhosis of liver without mention of alcohol Elevated liver function tests Other abnormal blood chemistry Iron overload Other disorders of iron metabolism Cirrhosis of liver Cirrhosis of liver without mention of alcohol documented in this encounter Care Teams Pottery Striper Relationship Specialty Start Date End Date Marisela Boland MD [address] [place] [address] PCP - General 09/22/11 11/11/14 documented as of this encounter
--- OUTSIDE RECORDS SUMMARY | 2023-11-02 14:12 | XMS_ITS | Encounter Summary ---
Author Organization [facility] Address [facility] [place] [address] Care Team Providers Care Bun Icer Name Role Phone Corbin Caban MD Primary Care Provider [phone] Encounter Details Date Type Department Care Team (Late st Contact Info) Description 12/05/2015 11:20 AM EDT Office Visit [place] [address] Carlos Alberto Coreas MD [facility] DR [place] [address] Ascending aorta dilatation Social History Tobacco Use [...] Sign Reading Time Taken Comments Blood Pressure 110/79 12/05/2015 11:17 AM EDT Pulse 91 12/05/2015 11:17 AM EDT Temperature - - Respiratory Rate - - Oxygen Saturation 96% 12/05/2015 11:17 AM EDT room air Inhaled Oxygen Concentration - - Weight 93.5 kg (206 lb 3.2 oz) 12/05/2015 11:17 AM EDT Height 175.3 cm (5' 9) 12/05/2015 11:17 AM EDT Body Mass Index 30.45 12/05/2015 11:17 AM EDT documented in this encounter Progress Notes * Carlos Alberto Coreas MD - 12/05/2015 11:20 AM EDT I am seeing Mr. Levin in followup of dilated ascending aorta. He was this past August. He has stopped eating beef and with that has had some weightloss. Hefeels great. No chest pains, syncope or presyncope. ECHO shows LVEF 65%, aortic root 4.7 cm, ascending aorta 4.0 cm (previous 4.8 and 4.2) No Known Allergies Outpatient Prescriptions Marked as Taking for the 12/05/15 encounter (Office Visit) with Carlos Alberto Coreas [...] ORAL Take by mouth. Physical Exam: BP 110/79 Pulse 91 Ht 175.3 cm (5' 9) Wt 93.5 kg (206 lb 3.2 oz) SpO2 96% Comment: room air BMI 30.45 kg/m2 Lung: CTA CV: RRR, no murmur Symmetric pulses No edema A/P: Doing well, good BP control, no change in aortic size. I would like to see him again in one year with repeat ECHO. documented in this encounter Plan of Treatment Upcoming Encounters Date Type Department Care Team (Late st Contact Info) Description 02/08/2024 9:00 AM EST Appointment Non-Invasive Cardiology Lab [facility] [place] [address] Garth Gaspar MD [facility] [place] [address] documented as of this encounter Visit Diagnoses Diagnosis Ascending aorta dilatation Thoracic aortic ectasia documented in this encounter Care Teams Bun Icer Relationship Specialty Start Date End Date Corbin Caban MD [address] [place] [address] PCP - General 11/12/14 documented as of this encounter
--- OUTSIDE RECORDS SUMMARY | 2023-11-02 14:12 | XMS_ITS | Encounter Summary ---
Author Organization [facility] Address [facility] [place] [address] Care Team Providers Care Asbestos Brake Lining Finisher Name Role Phone Marisela Boland MD Primary Care Provider [phone] Encounter Details Date Type Department Care Team (Late st Contact Info) Description 11/08/2013 Orders Only [place] [address] Hayden Soto PA [facility] [place] [address] Ascending aorta dilatation Social History Tobacco Use [...] 9:00 AM EST Appointment Non-Invasive [place] [address] Garth Gaspar MD [facility] [address] documented as of this encounter Visit Diagnoses Diagnosis Ascending aorta dilatation Thoracic aortic ectasia documented in this encounter Care Teams Asbestos Brake Lining Finisher Relationship Specialty Start Date End Date Marisela Boland MD [address] [place] [address] PCP - General 09/22/11 11/11/14 documented as of this encounter
--- OUTSIDE RECORDS SUMMARY | 2023-11-02 14:12 | XMS_ITS | Encounter Summary ---
[facility] [place] [address] Care Team Providers Care Anime Artist Name Role Phone Marisela Boland MD Primary Care Provider [phone] Encounter Details Date Type Department Care Team (Latest Contact Info) Description 10/12/2013 9:44 AM EDT - 10/12/2013 11:59 PM EDT Hospital [place] [address] Cirrhosis of liver Social History Tobacco Use Types Packs/Day [...] 9:00 AM EST Appointment Non[place] [address] Garth Gaspar MD [facility] [place] [address] documented as of this encounter Procedures Procedure Name Priority Date/Time Associated Diagnosis Comments US ABDOMEN COMPLETE Routine 10/12/2013 1 1:26 AM EDT Cirrhosis of liver documented in this encounter Results * US abdomen complete (10/12/2013 11:26 AM EDT) Anatomical Region Laterality Modality Abdomen, Vascular Ultrasound 10/12/2013 11:2 6 AM EDT Narrative 10/12/2013 1:24 PM EDT Abdominal ?(Signed Final 10/12/2013 01:24 ? pm) Patient Info ID #: ? [id number] ?: ??[birth year] (63 yrs) Name: ? DB LEVIN ? Visit Date: 10/12/2013 11:22 am Performed By Performed By: ?Tory Noble RDMS Associate: ? Ally Maguire MD Attending: ? Gaby Choi MD Referred By: ? ABELINO QUEEN APRN Service(s) Provided ??BD - Abdominal Complete Survey - [id number] ? [id number] Indications ??cirrhosis Comparison Abdominal utlrasound 04/09/13. ----- [...] 10/12/2013 01:24 pm) Patient Info ID #: [id number] : 52 (63 yrs) Name: DB LEVIN Visit Date: 10/12/2013 11:22 am Performed By Performed By: Tory Noble RDMS Associate: Ally Maguire MD Attending: Gaby Choi MD Referred By: ABELINO QUEEN APRN Service(s) Provided [facility] - Abdominal Complete Survey - [id number] Indications cirrhosis Comparison Abdominal utlrasound 04/09/13. ----- [...] Hays MD IMG US GEN ORDERABL ES documented in this encounter Visit Diagnoses Diagnosis Cirrhosis of liver Cirrhosis of liver without mention of alcohol documented in this encounter Care Teams Anime Artist Relationship Specialty Start Date End Date Marisela Boland MD [address] [place], [place] [address] PCP - General 09/22/11 11/11/14 documented as of this encounter
--- OUTSIDE RECORDS SUMMARY | 2023-11-02 14:13 | XMS_ITS | Encounter Summary ---
Author Organization [facility] [address] Care Team Providers Care Railroad Hand Name Role Phone Marisela Boland MD Primary Care Provider [phone] Encounter Details Date Type Department Care Team (Late st Contact Info) Description 10/07/2011 7:58 AM EDT - 10/07/2011 11:59 PM EDT [place] [address] CLINIC, DR JORGE ALBERTO Kaur, Vitaly Grover MD [address] [place] [address] Discharge Disposition: Home Social History Tobacco Use [...] Sig Dispensed Refills Start Date End Date allopurinol (ZYLOPRIM) 300 mg tablet Take 150 mg by mouth daily. amlodipine-benazepril (LOTREL) 5-20 mg per capsule Take 1 capsule by mouth daily. multivitamin (THERAGRAN) tablet Take 1 tablet by mouth daily. ZINC ACETATE ORAL Take 1 tablet by mouth daily. fluticasone-salmeterol (ADVAIR) 250-50 mcg/dose diskus inhaler Inhale 1 puff into the lungs 2 times daily. 11/28/2013 documented as of this encounter Miscellaneous Notes * Miscellaneous - Provider, Scanning - 10/12/2011 9:44 AM EDT documented in this encounter Plan of Treatment Upcoming Encounters Date Type Department Care Team (Late st Contact Info) Description 02/08/2024 9:00 AM EST Appointment Non-Invasive [facility] [place] [address] Garth Gaspar MD [facility] [place] [address] documented as of this encounter Procedures Procedure Name Priority Date/Time Associated Diagnosis Comments MRI CARDIAC MORPHOLOGY FUNCTION WO CONTRAST Routine 10/07/2011 10:12 AM EDT documented in this encounter Results * MRI- CARDIAC FOR MORPH/FUNC WO CONTRAST (10/07/2011 10:12 AM EDT) Anatomical Region Laterality Modality Chest, Cardiac Magnetic Resonan ce 10/07/2011 10:1 2 AM EDT Narrative 10/11/2011 3:05 PM EDT Examination MR Cardiac morphology/function without contrast Clinical History ABNORMAL [place] NEED AORTIC ASCENDING/ROOT DIMENSIONS Technique Axial double inversion recovery without contrast. Short and long axis cine steady-state fast precession without contrast. ?? (Phase contrast imaging of the level of the aortic valve was inadvertently performed for quantitative analysis therefore the patient should not be charged for flow analysis.) Post processing performed on an independent computer workstation including volumetric functional analysis. Comparison No priors. Findings Normal morphology and structure of the cardiac chambers. No abnormal myocardial signal. No global or segmental wall motion abnormalities. No valvulopathy identified. There is no effacement of the sino-tubular ridge. ?? No pericardial thickening or effusion. Normal contour and caliber of the great vessels. The left common carotid artery and innominate artery share a common origin. Limited views of the upper abdomen demonstrate an 11 mm DIR series hyperintense and Fiesta series hyperintense focus in the posterior right lobe of the liver (segment 7). Quantitative data: Left ventricle: Anteroseptal wall thickness: 9 mm Posterolateral wall thickness: 9 mm End-diastolic dimension: 5.0 cm End-systolic dimension: 3.4 cm End-diastolic volume: 162 mL End systolic volume: 65 mL Stroke volume: 97 mL Ejection fraction: 60 % Left ventricular mass: approximately 104 g Right ventricle: End-diastolic volume: 183 mL End-systolic volume: 87 mL Stroke volume: 96 mL Ejection fraction: 53 % Aorta diameters at the following levels: Annulus diameter: 33 x 27 mm Aortic root at the level of the sinuses of Valsalva: 42 mm Proximal aorta above the level of the sinuses of Valsalva: 39 mm Mid ascending aorta at the level of the right main pulmonary artery: 43 mm Descending aorta at the level of the right main pulmonary artery: 30 mm Aortic valve area: 3.5 cm^2 Impression 1. Dilated ascending aorta/ root, as above. 2. 11 mm lesion in the liver is consistent with an hemangioma. Film and interpretation reviewed by the attending Procedure Note Nellie Vidal MD - 10/11/2011 Examination MR Cardiac morphology/function without contrast Clinical History ABNORMAL ECHO NEED AORTIC ASCENDING/ROOT DIMENSIONS Technique Axial double inversion recovery without contrast. Short and long axis cine steady-state fast precession without contrast. (Phase contrast imaging of the level of the aortic valve was inadvertently performed for quantitative analysis therefore the patient should not becharged for flow analysis.) Post processing performed on an independent computer workstation including volumetric functional analysis. Comparison No priors. Findings Normal morphology and structure of the cardiac chambers. No abnormal myocardial signal. No global or segmental wall motion abnormalities. No valvulopathy identified. There is no effacement of the sino-tubularridge. No pericardial thickening or effusion. Normal contour and caliber of the great vessels. The left common carotidartery and innominate artery share a common origin. Limited views of the upper abdomen demonstrate an 11 mm DIR serieshyperintense and Fiesta series hyperintense focus in the posterior right lobe of theliver (segment 7). Quantitative data: Left ventricle: Anteroseptal wall thickness: 9 mm Posterolateral wall thickness: 9 mm End-diastolic dimension: 5.0 cm End-systolic dimension: 3.4 cm End-diastolic volume: 162 mL End systolic volume: 65 mL Stroke volume: 97 mL Ejection fraction: 60 % Left ventricular mass: approximately 104 g Right ventricle: End-diastolic volume: 183 mL End-systolic volume: 87 mL Stroke volume: 96 mL Ejection fraction: 53 % Aorta diameters at the following levels: Annulus diameter: 33 x 27 mm Aortic root at the level of the sinuses of Valsalva: 42 mm Proximal aorta above the level of the sinuses of Valsalva: 39 mm Mid ascending aorta at the level of the right main pulmonary artery: 43 mm Descending aorta at the level of the right main pulmonary artery: 30 mm Aortic valve area: 3.5 cm^2 Impression 1. Dilated ascending aorta/ root, as above. 2. 11 mm lesion in the liver is consistent with an hemangioma. Film and interpretation reviewed by the attending Vitaly Kaur MD IMG MRI ORDERABLES documented in this encounter Visit Diagnoses Not on filedocumented in this encounter Care Teams Railroad Hand Relationship Specialty Start Date End Date Marisela Boland MD [address] [place] [address] PCP - General 09/22/11 11/11/14 documented as of this encounter
--- OUTSIDE RECORDS SUMMARY | 2023-11-02 14:13 | XMS_ITS | Encounter Summary ---
Author Organization [facility] Address [address] [place] [address] Care Team Providers Care Bun Machine Operator Name Role Phone Unavailable Primary Care Provider Unavailabl e Encounter Details Date Type Department Care Team (Late st Contact Info) Description 06/17/2021 Lab Requisition [facility] Pathology & Laboratory Medicine - [address] [address] Outr Resulting Lab, Provider Social History Tobacco Use Types Packs/Day Years Used Date Smoking Tobacco: Never Assessed Sex and Gender Information Value Date Recorded Sex Assigned at Not on file Gender Identity Not on file Sexual Orientation Not on file documented as of this encounter Plan of Treatment Not on file documented as of this encounter Procedures Procedure Name Priority Date/Time Associated Diagnosis Comments PSA TOTAL, DIAGNOSTIC Routine 06/17/2021 10:10 EDT documented in this encounter Results * PSA TOTAL, DIAGNOSTIC (06/17/2021 10:10 EDT) PSA 1.6 <=6.5 ng/mL 06/17/2021 18:[address] [facility] Blood VENOUS BLOOD / Unknown 06/17/2021 10:10 EDT 06/17/2021 16:44 EDT Narrative [facility] - 06/17/2021 18:07 EDT NOTE: Serum PSA concentration should not be interpreted as absolute evidence for the presence or absence of malignant disease. Assayed on Siemens ADVIA Centaur XPT using chemiluminescent technology.??Values obtained by using different assay methods cannot be used interchangeably. Provider Outr Resulting Lab CHEMISTRY & BLOOD GAS ORDERABLES [facility] [address] [place] [address] documented in this encounter Visit Diagnoses Not on filedocumented in this encounter
--- OUTSIDE RECORDS SUMMARY | 2023-11-02 14:13 | XMS_ITS | Encounter Summary ---
Author Organization [facility] [place] [address] Care Team Providers Care Beater Room Helper Name Role Phone Marisela Boland MD Primary Care Provider [phone] Reason for Visit * Reason Comments Follow-up Encounter Details Date Type Department Care Team (Late st Contact Info) Description 04/10/2012 11:30 AM EST Follow-[place] [address] Carmelina Bee APRN [facility] DR GASTROENTER[place]Y [place] [address] Iron overload (Primary Dx) Discharge Disposition: Home Social History [...] Sign Reading Time Taken Comments Blood Pressure 112/71 04/10/2012 11:55 AM EST Pulse 60 04/10/2012 11:55 AM EST Temperature - - Respiratory Rate - - Oxygen Saturation - - Inhaled Oxygen Concentration - - Weight 91.2 kg (201 lb) 04/10/2012 11:55 AM EST Height 176.5 cm (5' 9.49) 04/10/2012 11:[address] Body Mass Index 29.27 04/10/2012 11:55 AM EST documented in this encounter Progress Notes * Carmelina Bee APRN - 04/10/2012 12:14 PM EST Subjective: Patient ID: Ramiro Levin is a 62 y.o. male. HPI Mr. [place] is a 62 year old male who [...] months ago, he believes his ferritin was [id number] on last check. AFter his initial visit [...] tests were normal ast 19, alt 21. Outside Labs 02/11/12 tprot 7.3, alb 4.3, tbili 0.68, ap 93, ast 19, alt 21, ferritin 203 Review of Systems Constitutional: Negative for fever, chills and fatigue. HENT: Positive for nosebleeds. Eyes: Negative. Respiratory: Negative for cough, shortness of breath and wheezing. Cardiovascular: Negative for chest pain, palpitations and leg swelling. Gastrointestinal: Negative for nausea, vomiting, abdominal pain, diarrhea and blood in stool. Genitourinary: Negative for dysuria, urgency and frequency. Musculoskeletal: Positive for arthralgias (after working out in the yard). Negative for back pain. Skin: Negative for rash. Neurological: Negative for seizures and headaches. Hematological: Does not bruise/bleed easily. Psychiatric/Behavioral: Negative for suicidal ideas, self-injury and dysphoric mood. Objective: Physical Exam Constitutional: He is oriented [...] no wheezes. Abdominal: Soft. There is hepatomegaly (firm liver edge palpated 2 cm at the [facility]). No tenderness. Musculoskeletal: He exhibits no edema. Neurological: He is alert and oriented to person, place, and time. Skin: Skin is warm and dry. Psychiatric: He has a normal mood and affect. His behavior is normal. Assessment and Plan: Mr. Levin is a 62 year old male with elevated liver tests likely secondary to a combination of factors including , iron over load, alcohol related fatty liver. His liver tests most recently are normal and his ferritin level is not alarming at 203. We discussed the relevant issues including the utility of a liver biopsy to establish an HH diagnosis,however given that he has been de-ironed this would not be helpful, however I would expect some changes due to fatty liver to be evident. The other utility of biopsy is in staging liver disease. Hehas a firm liver edge which is concerning for advanced liver disease but he has no other stigmata on exam. At this time there is enough concern that I have recommended bi-annaul hepatoma surveillancewith abdominal ultrasound and afp testing. I would recommend liver tests and ferritin monitoring every 4-6 months. He is encouraged to stop orleast reduce his alcohol intake. I will follow up with him in six months, with an abdominal ultrasound and labs prior to his visit. documented in this encounter Plan of Treatment Upcoming Encounters Date Type Department Care Team (Late st Contact Info) Description 02/08/2024 9:00 AM EST Appointment Non[place] [address] Garth Gaspar MD [facility] [place] [address] documented as of this encounter Results * AFP tumor marker (10/12/2012 10:34 AM EDT) Alpha Fetoprotein 2.0 <=8.3 ng/mL [facility] Comment: Note: 09/19/2012; Methodology changed to Yehuda Elecsys Immunoassay. Please review the interpretive criteria for any associated changes in reference interval. If appropriate this sample will be rebaselined. Results of rebaselining may take up to one week. Blood specimen (specimen) 10/12/2012 10:34 AM EDT 10/12/2012 10:44 AM EDT Narrative Resulting Agency Comment Spec In Lab Ariel Hays MD CHEMISTRY ORDERABLE S Performing Organization Address [facility] Co de Phone Number CERNER MILLENNIUM * (ABNORMAL) CBC (with Diff) (10/12/2012 10:34 AM EDT) White Blood Cell 6.6 4.0 - 10.0 x10(3)/mc L CERNER MILLENNIUM Red Blood Cell 4.95 4.63 - 6.08 x10(6)/mc L CERNER MILLENNIUM Hemoglobin 16.3 13.7 - 17.5 gm/dL CERNER MILLENNIUM Hematocrit 46.4 40.0 - 51.0 % CERNER MILLENNIUM Mean Cell Volume 93.7(H) 79.0 - 92.0 fL CERNER MILLENNIUM Mean Cell Hemoglobin 32.9(H) 25.6 - 32.2 pg CERNER MILLENNIUM Mean Cell Hemoglobin Concentration 35.1 32.0 - 36.5 gm/dL CERNER MILLENNIUM Platelet 183 145 - 370 x10(3)/mc L CERNER MILLENNIUM RDW Standard Deviation 47.6(H) 35.0 - 46.0 fL CERNER MILLENNIUM RDW coefficient of variation 14.0 10.9 - 14.4 % CERNER MILLENNIUM Mean Platelet Volume 10.8 9.0 - 12.0 fL CERNER MILLENNIUM Blood specimen (specimen) 10/12/2012 10:34 AM EDT 10/12/2012 10:44 AM EDT Narrative Resulting Agency Comment Spec In Lab Ariel Hays MD HEMATOLOGY ORDERABL ES Performing Organization Address [facility]/ZIP Co de Phone Number CERFREEMAN BRUSHENNIUM * Hepatic Function Panel (10/12/2012 10:34 AM EDT) Protein, Total 7.3 6.4 - 8.3 gm/dL CERNER MILLENNIUM Albumin 4.7 3.2 - 5.2 gm/dL CERNER MILLENNIUM Aspartate Aminotransferase 24 0 - 39 unit/L CERNER MILLENNIUM Alanine Aminotransferase 20 0 - 55 unit/L CERNER MILLENNIUM Alkaline Phosphatase 87 40 - 120 unit/L CERNER MILLENNIUM Bilirubin, Total 0.8 0.2 - 1.3 mg/dL CERNER MILLENNIUM Bilirubin, Direct 0.2 0.0 - 0.3 mg/dL CERNER MILLENNIUM Blood specimen (specimen) 10/12/2012 10:34 AM EDT 10/12/2012 10:44 AM EDT Narrative Resulting Agency Comment Spec In Lab Ariel Hays MD CHEMISTRY ORDERABLE S [facility] documented in this encounter Visit Diagnoses Diagnosis Iron overload- Primary Other disorders of iron metabolism documented in this encounter Care Teams Beater Room Helper Relationship Specialty Start Date End Date Mariesla Boland MD [address] [place] [address] PCP - General 09/22/11 11/11/14 documented as of this encounter
--- OUTSIDE RECORDS SUMMARY | 2023-11-02 14:13 | XMS_ITS | Encounter Summary ---
Author Organization [facility] Address [address] [place] [address] Care Team Providers Care Senior Materials Analyst Name Role Phone Unavailable Primary Care Provider Unavailabl e Encounter Details Date Type Department Care Team (Late st Contact Info) Description 09/27/2019 Lab Requisition [facility] Pathology & Laboratory Medicine - [address] [address] Outr Resulting Lab, Provider Social History Tobacco [...] Associated Diagnosis Comments PSA TOTAL, DIAGNOSTIC Routine 09/27/2019 10:21 EDT documented in this encounter Results * PSA TOTAL, DIAGNOSTIC (09/27/2019 10:21 EDT) PSA 1.3 0.0 - 4.5 ng/mL 09/28/2019 8:58 EDT [facility] Blood VENOUS BLOOD / Unknown 09/27/2019 10:21 EDT 09/27/2019 16:55 EDT Narrative [facility] - 09/28/2019 8:58 EDT NOTE: Serum PSA concentration should not be interpreted as absolute evidence for the presence or absence of malignant disease. Assayed on Siemens ADVIA Centaur XPT using chemiluminescent technology.??Values obtained by using different assay methods cannot be used interchangeably. Provider Outr Resulting Lab CHEMISTRY & BLOOD GAS ORDERABLES [facility] [address] [place] [address] documented in this encounter Visit Diagnoses Not on filedocumented in this encounter
--- OUTSIDE RECORDS SUMMARY | 2023-11-02 14:13 | XMS_ITS | Referral Summary ---
Author Organization [facility] Address [address] [place] [address] Care Team Providers Care Sports Statistician Name Role Phone Unavailable Primary Care Provider Unavailabl e Social History Tobacco Use Types Packs/Day Years Used Date Smoking Tobacco: Never Assessed Sex and Gender Information Value Date Recorded Sex Assigned at Not on file Gender Identity Not on file Sexual Orientation Not on file Plan of Treatment Not on file
--- OUTSIDE RECORDS SUMMARY | 2023-11-02 14:13 | XMS_ITS | Encounter Summary ---
Author [facility] [place] [address] Care Team Providers Care Metallographer Name Role Phone Marisela Boland MD Primary Care Provider Reason for Visit * Reason Onset Date Comments Other 02/24/2013 Encounter Details Date Type Department Care Team (Late st Contact Info) Description 02/24/2013 Telephone Family Medicine at [facility] [address] [place] [id number] Marisela Boland MD [address] [place], [place] [id number] Other Social History Tobacco Use Types Packs/Day Years [...] encounter Miscellaneous Notes * Telephone Encounter - Faby Jewell - 02/24/2013 8:49 AM EST Ramiro called to cancel his Dermatology appt this morning but I don't have access to cancel it. His roads are not passable. He'll try a couple of Dermatology phone numbers after 9:00 to see if he can get through. documented in this encounter Plan of Treatment Upcoming Encounters Date Type Department Care Team (Late Contact Info) Description 02/08/2024 9:00 AM EST Appointment Non-[place] [address] Garth Gaspar MD [facility] [address] documented as of this encounter Visit Diagnoses Not on filedocumented in this encounter Care Teams Metallographer Relationship Specialty Start Date End Date Marisela Boland MD [address] [place] [address] PCP - General 09/22/11 11/11/14 documented as of this encounter
--- OUTSIDE RECORDS SUMMARY | 2023-11-02 14:13 | XMS_ITS | Encounter Summary ---
Author Organization [facility] [place] [address] Care Team Providers Care Bindery Machine Tender Name Role Phone Marisela Boland MD Primary Care Provider [phone] Reason for Visit * Reason Comments Hepatic Disease Encounter Details Date Type Department Care Team (Late st Contact Info) Description 10/07/2011 1:00 PM EDT Office [place] [id number] Carmelina Bee APRN [facility] [place] [address] Elevated liver function tests (Primary Dx) Discharge Disposition: Home Social History [...] Sign Reading Time Taken Comments Blood Pressure 119/90 10/07/2011 1:11 PM EDT Pulse 82 10/07/2011 1:11 PM EDT Temperature - - Respiratory Rate - - Oxygen Saturation - - Inhaled Oxygen Concentration - - Weight 88 kg (194 lb) 10/07/2011 1:11 PM EDT Height - - Body Mass Index - - documented in this encounter Progress Notes * Carmelina Bee APRN - 10/07/2011 1:57 PM EDT Subjective: Patient ID: Ramiro Levin is a 61 y.o. male. HPI Mr. Levin is a 61 year old male who had a new [...] months ago, he believes his ferritin was [id number] on last check. He again has a new PCP who has sent him here for futher evaluation as there is concern about fatty liver and a question of if he has HH. He has had an abdominal ultrasound recently which showed fattyliver. He drinks 4-5 drinks of hard alcohol on a nightly basis. He is not sure that he is willing to stop drinking alcohol at this time. He denies known family history of liver disease, he denies risk factors for viral hepatitis outsideof intransasal drug use in the 1979'. He has lost 20 pounds in the last year through following a low carb diet. Past Medical History Diagnosis Date ??? Asthma ??? Hypertension ??? Kidney stone ??? Elevated liver function tests 10/07/2011 Past Surgical History Procedure Date ??? Rotator cuff repair ??? Umbilical hernia repair ??? Cataract removal with implant Family History Problem Relation Age of Onset ??? Hypertension Father ??? Stroke Father ??? Hypertension Mother ??? Dementia Mother History Social History ??? Marital Status: Spouse Name: N/A Number of Children: N/A ??? Years of Education: N/A Social History Main Topics ??? Smoking status: Never Smoker ??? Smokeless tobacco: Never Used ??? Alcohol Use: Yes ??? Drug Use: No ??? Sexually Active: Not on file Other Topics Concern ??? Service No ??? 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 No tenderness. Musculoskeletal: He exhibits no edema. Neurological: He is alert and oriented to person, place, and time. Skin: Skin is warm and dry. Psychiatric: He has a normal mood and affect. His behavior is normal. Assessment and Plan: Mr. Levin is a 61 year old male with elevated liver tests likely secondary to fatty liver due to etoh use. I do not have access to his liver tests today during his evaluation. I will send him for HFEtesting however I think that it is unlikely he has HH. He did not require very many phlebotomies tode-iron his liver. And he had concominent etoh abuse which clouds the picture as etoh use can increase ferritin levels. We discussed the relevant issues including the [...] but he has no other stigmata on exam, I do not have labs to look for typical findings of advanced liver disease. He has had recentimaging which does not show any definitive signs of cirrhosis and also does not show mass lesions in the liver which is reassuring. We have requested copies of his recent blood tests. After a long discussion we have agreed to the following plan. He will consider stopping or at the very least cutting back in his alcohol on Nov 06, 2011. Will plan to recheck liver tests and ferritinlevels in 6 months. Will get HFE testing and liver tests today. He will follow up with me in six months. documented in this encounter Plan of Treatment Upcoming Encounters Date Type Department Care Team (Late st Contact Info) Description 02/08/2024 9:00 AM EST Appointment Non[place] [address] Garth Gaspar MD [facility] [place] [address] documented as of this encounter Procedures Procedure Name Priority Date/Time Associated Diagnosis Comments HFE MUT Routine 10/07/2011 2:18 PM EDT Elevated liver function tests HFE MUTATION Routine 10/07/2011 2:18 PM EDT Elevated liver function tests HEPATIC FUNCTION PANEL Routine 10/07/2011 2:18 PM EDT Elevated liver function tests documented in this encounter Results * HFE MUT (10/07/2011 2:18 PM EDT) HFE Mutation RESULTS: ??HETEROZYGOUS POSITIVE FOR BOTH THE C282Y AND H63D HFE ??MUTATIONS. The risk of a person with a C282Y/H63D compound heterozygote genotype developing clinical hemochromatosis is low, and has been estimated to be just 0.5% of the risk of a person with a C282Y/C282Y genotype. ??Thus, this patient's genotype is supportive of a diagnosis of hereditary hemochromatosis but should be interpreted only in the context of physical and biochemical findings (see COMMENT). COMMENT: In the study by Eber et al. (A novel MHC class I-like gene in patients with hereditary haemochromatosis. ??Nature Genetics 1996;13: 399-408), 83% of unrelated individuals with hereditary hemochromatosis (HH) were homozygous for the C282Y mutation, ??5% were C282Y/H63D compound heterozygotes, and less than 1% ??were heterozygous for the C282Y mutation only. ??Other studies have confirmed the high incidence of these mutations in individuals with HH. Neither of these HFE ??mutations was detected in the remaining 12% of individuals with hemochromatosis. This test provides information on the genetic basis for iron overload by detecting two missense mutations, C282Y and H63D, that occur commonly in Type I hereditary hemochromatosis (HFe). The gene frequency for C282Y and H63D is about 5 to 10%. Homozygosity, double heterozygosity, or heterozygosity for these mutations account for about 70% to 80% of cases of classical HFe. These mutations cause graded severity of iron accumulation with homozygosity for C282Y being the strongest and heterozygosity for H63D the weakest. Other mutations, non-genetic iron excess and various pathophysiologic conditions interact with genotype to alter clinical disease phenotype. Disease-producing iron overload can occur with any genotype depending on the level and duration of iron exposure, and interacting variables (eRilly Kilpatrick. Genetic mechanisms and modifying factors in hereditary hemochromatosis. Neeru Rev Gastroenterol Hepatol 2010;7:50-58). Genetic analysis assists diagnosis when expression of a clinical phenotype possibly due to excess iron is incomplete, for predicting future disease risk (e.g., in family members) or for explaining elevated levels of ferritin or % transferrin saturation. Referral is suggested for detailed clinico-pathologic correlation. METHOD: The regions of interest in the HFE gene (C282Y and H63D) are analyzed using Applied Biosystems pre-developed assays for SNP detection on an PETER Prism 7500 Sequence Detection System. DNA is isolated from peripheral blood and analyzed using primers and probes specific to the wild type and mutant sequences of each gene sequence of interest (C282Y and H63D). This assay was performed using analyte specific reagents which are regulated by the U.S. Food and Drug Administration. This test was developed and its performance characteristics determined by the Molecular Pathology Laboratory at [facility]. This test is used for clinical purposes and should not be considered as investigational or for research purposes. ??It has not been cleared or approved by the U.S. Food and Drug Administration. However, as a C[place] licensed laboratory, our facility is approved for such high complexity clinical testing. CERNER MILLENNIUM Comment: [VERIFIED DATE]10.18.11 Verified By:Stephenie TRUJILLO, Danitza Benavides Pathologist (Electronic Signature) Blood specimen (specimen) 10/07/2011 2:18 PM EDT 10/07/2011 3:21 PM EDT Narrative Resulting Agency Comment Spec In Lab Ariel Hays MD HEMATOLOGY ORDERABL ES Performing Organization Address [facility] Co de Phone Number CERNER MILLENNIUM * Hepatic Function Panel (10/07/2011 2:18 PM EDT) Protein, Total 7.6 6.4 - 8.3 gm/dL CERNER MILLENNIUM Albumin 4.9 3.2 - 5.2 gm/dL CERNER MILLENNIUM Aspartate Aminotransferase 21 0 - 39 unit/L CERNER MILLENNIUM Alanine Aminotransferase 19 0 - 55 unit/L CERNER MILLENNIUM Alkaline Phosphatase 67 40 - 120 unit/L CERNER MILLENNIUM Bilirubin, Total 0.8 0.2 - 1.3 mg/dL CERNER MILLENNIUM Bilirubin, Direct 0.2 0.0 - 0.3 mg/dL CERNER MILLENNIUM Blood specimen (specimen) 10/07/2011 2:18 PM EDT 10/07/2011 2:28 PM EDT Narrative Resulting Agency Comment Spec In Lab Ariel Hays MD CHEMISTRY ORDERABLE S Performing Organization Address [facility] de Phone Number CERNER MILLENNIUM documented in this encounter Visit Diagnoses Diagnosis Elevated liver function tests- Primary Other abnormal blood chemistry documented in this encounter Care Teams Bindery Machine Tender Relationship Specialty Start Date End Date Marisela Boland MD [address] [place] [address] PCP - General 09/22/11 11/11/14 documented as of this encounter
--- OUTSIDE RECORDS SUMMARY | 2023-11-02 14:13 | XMS_ITS | Encounter Summary ---
Author Organization [facility] Address [address] [place] [address] Care Team Providers Care Industrial Relations Director Name Role Phone Unavailable Primary Care Provider Unavailabl e Encounter Details Date Type Department Care Team (Late st Contact Info) Description 06/24/2020 Lab Requisition [facility] Pathology & Laboratory Medicine - [facility] [address] [place] [address] Outr Resulting Lab, Provider Social History Tobacco [...] Associated Diagnosis Comments PSA TOTAL, DIAGNOSTIC Routine 06/24/2020 9:35 EDT documented in this encounter Results * PSA TOTAL, DIAGNOSTIC (06/24/2020 9:35 EDT) PSA 1.5 0.0 - 4.5 ng/mL 06/24/2020 22:31 EDT [facility] Blood VENOUS BLOOD / Unknown 06/24/2020 9:35 EDT 06/24/2020 21:12 EDT Narrative [facility] - 06/24/2020 22:31 EDT NOTE: Serum PSA concentration should not be interpreted as absolute evidence for the presence or absence of malignant disease. Assayed on Siemens ADVIA Centaur XPT using chemiluminescent technology.??Values obtained by using different assay methods cannot be used interchangeably. Provider Outr Resulting Lab CHEMISTRY & BLOOD GAS ORDERABLES [facility] [address] [place] [address] documented in this encounter Visit Diagnoses Not on filedocumented in this encounter
--- OUTSIDE RECORDS SUMMARY | 2023-11-02 14:13 | XMS_ITS | Encounter Summary ---
Author Organization [facility] Address [facility] [place] [address] Care Team Providers Care Brand Recorder Name Role Phone Marisela Boland MD Primary Care Provider [phone] Encounter Details Date Type Department Care Team (Latest Contact Info) Description 10/12/2012 10:27 AM EDT - 10/12/2012 11:59 PM EDT [place] [address] Ariel Hays MD [facility] [place] [address] Iron overload Discharge Disposition: Home Social History [...] 9:00 AM EST Appointment Non-Invasive Cardiology Lab [facility] [place] [phone] Garth Gaspar MD [facility] [place] [address] documented as of this encounter Procedures Procedure Name Priority Date/Time Associated Diagnosis Comments DIFFERENTIAL, AUTOMATED Routine 10/12/2012 10:34 AM EDT AFP TUMOR MARKER Routine 10/12/2012 10:3 4 AM EDT Iron overload CBC (WITH DIFF) Routine 10/12/2012 10:34 AM EDT Iron overload HEPATIC FUNCTION PANEL Routine 10/12/2012 10:34 AM EDT Iron overload documented in this encounter Results * Differential, Automated (10/12/2012 10:34 AM EDT) Neutrophil % 56.8 34.0 - 71.0 % CERNER MILLENNIUM Neutrophil Absolute 3.78 1.50 - 6.30 x10(3)/mcL CERNER MILLENNIUM Lymph % 29.2 19.0 - 53.0 % CERNER MILLENNIUM Lymphocytes Abs 1.9 1.0 - 3.6 x10(3)/mcL CERNER MILLENNIUM Monocyte % 8.7 4.0 - 13.0 % CERNER MILLENNIUM Monocyte Abs 0.6 0.2 - 1.0 x10(3)/mcL CERNER MILLENNIUM Eos % 4.8 0.0 - 7.0 % CERNER MILLENNIUM Eosinophils Abs 0.3 0.0 - 0.5 x10(3)/mcL CERNER MILLENNIUM Basophil % 0.5 0.0 - 2.0 % CERNER MILLENNIUM Baso Absolute 0.0 0.0 - 0.2 x10(3)/mcL CERNER MILLENNIUM Immature Gran % 0.00 0.00 - 0.66 % CERNER MILLENNIUM Comment: Immature granulocytes(IG's)percentage and absolute count will include metamyelocytes, myelocytes, and promyelocytes. Blood smears from CBCs yielding IG's will be scanned manually for concordance. If this scan disagrees with the automated IG or if promyelocytes are noted, a manual differential will be performed. Immature Gran Absolute 0.00 0.00 - 0.05 x10(3)/mcL CERNER MILLENNIUM Blood specimen (specimen) 10/12/2012 10:34 AM EDT 10/12/2012 10:44 AM EDT Ariel Hays MD HEMATOLOGY ORDERABL ES Performing Organization Address [facility] de Phone Number [facility] * AFP tumor marker (10/12/2012 10:34 AM EDT) Alpha Fetoprotein 2.0 <=8.3 ng/mL [facility] Comment: Note: 09/19/2012; Methodology changed to Yehuda [...] MD CHEMISTRY ORDERABLE S Performing Organization Address [facility] de Phone Number [facility] * (ABNORMAL) CBC (with Diff) (10/12/2012 10:34 [...] MD HEMATOLOGY ORDERABL ES Performing Organization Address [facility] de Phone Number CERFREEMAN BRUSHENNIUM * Hepatic [...] MD CHEMISTRY ORDERABLE S Performing Organization Address [facility] Co de Phone Number LYSSA MALAGON documented in this encounter Visit Diagnoses Diagnosis Iron overload Other disorders of iron metabolism documented in this encounter Care Teams Brand Recorder Relationship Specialty Start Date End Date Marisela Boland MD [address] [place] [address] PCP - General 09/22/11 11/11/14 documented as of this encounter
--- OUTSIDE RECORDS SUMMARY | 2023-11-02 14:13 | XMS_ITS | Clinical Summary ---
Author Organization [facility] Address [address] [place] [address] Care Team Providers Care Brakes Inspector Name Role Phone Unavailable Primary Care Provider Unavailabl e Social History Tobacco Use Types Packs/Day Years Used Date Smoking Tobacco: Never Assessed Sex and Gender Information Value Date Recorded Sex Assigned at Not on file Gender Identity Not on file Sexual Orientation Not on file Plan of Treatment Health Maintenance Due Date Last Done Comments Hepatitis C Screen 1950 RSV Immunization ( o r 60+ Years) (1 - 1-dose 60+ series) 2011 Fall Risk Screening 2016 COVID-19 Vaccine ( season) 2022
--- OUTSIDE RECORDS SUMMARY | 2023-11-02 14:13 | XMS_ITS | Encounter Summary ---
Author Organization [facility] Address [facility] [place] [address] Care Team Providers Care Spraying Machine Operator Name Role Phone Marisela Boland MD Primary Care Provider [phone] Encounter Details Date Type Department Care Team (Late st Contact Info) Description 11/08/2012 Orders Only [place] [address] Gely Ritter MD [facility] [place] [address] Social History Tobacco Use Types Packs/Day Years [...] 9:00 AM EST Appointment Non-[place] [address] Garth Gaspar MD [facility] [place] [address] Pending Results Name Type Priority Associated Diagnoses Date /Time Film Library- Storage only CT Chest Imaging Routine 11/08/2012 8:31 AM EDT documented as of this encounter Visit Diagnoses Not on filedocumented in this encounter Care Teams Spraying Machine Operator Relationship Specialty Start Date End Date Marisela Boland MD [address] [place] [address] PCP - General 09/22/11 11/11/14 documented as of this encounter
--- OUTSIDE RECORDS SUMMARY | 2023-11-02 14:13 | XMS_ITS | Encounter Summary ---
Author Organization [facility] [place] [address] Care Team Providers Care General Warehouse Worker Name Role Phone Marisela Boland MD Primary Care Provider [phone] Reason for Visit * Reason Onset Date Comments Other 03/16/2013 Encounter Details Date Type Department Care Team (Late st Contact Info) Description 03/16/2013 Telephone [place] [phone] Kimberly Eubanks RN [facility] Other Social History Tobacco Use Types Packs/Day [...] encounter Miscellaneous Notes * Telephone Encounter - Kimberly Eubanks RN - 03/16/2013 9:20 AM EST Ramiro called today saying that he is having a ultrasound on Apr.09 and then see Carmelina Bee APRN.He wanted to know if he could have a chest ultrasound at the same time as he has to pay for the procedure himself. I told him that I would have to send a note to his tipping machine operator who is Dr. Coreas and ask him as it would be his decision if he needed a chest ultrasound and not Carmelina's. I told him that I would call him back when I had a answer. documented in this encounter Plan of Treatment Upcoming Encounters Date Type Department Care Team (Late st Contact Info) Description 02/08/2024 9:00 AM EST Appointment Non-[place] [address] Garth Gaspar MD [facility] [place] [address] documented as of this encounter Visit Diagnoses Not on filedocumented in this encounter Care Teams General Warehouse Worker Relationship Specialty Start Date End Date Marisela Boland MD [address] [place] [address] PCP - General 09/22/11 11/11/14 documented as of this encounter
--- OUTSIDE RECORDS SUMMARY | 2023-11-02 14:13 | XMS_ITS | Encounter Summary ---
Author Organization [facility] [place] [address] Care Team Providers Care Will Call Clerk Name Role Phone Marisela Boland MD Primary Care Provider [phone] Reason for Visit * Reason Comments Follow-up Encounter Details Date Type Department Care Team (Late st Contact Info) Description 10/12/2012 10:30 AM EDT [place] [phone] Carmelina Bee APRN [facility] DR GASTROENTEROLOGY [place] [address] Elevated liver function tests (Primary Dx); Iron overload Discharge Disposition: Home Social History [...] Sign Reading Time Taken Comments Blood Pressure 144/98 10/12/2012 9:54 AM EDT Pulse 77 10/12/2012 9:54 AM EDT Temperature - - Respiratory Rate - - Oxygen Saturation - - Inhaled Oxygen Concentration - - Weight 87.1 kg (192 lb) 10/12/2012 9:54 AM EDT Height 175.3 cm (5' 9) 10/12/2012 9:54 AM EDT Body Mass Index 28.35 10/12/2012 9:54 AM EDT documented in this encounter Progress Notes * Carmelina Bee APRN - 10/12/2012 10:00 AM EDT Subjective: Patient ID: Db Levin is a 62 y.o. male. GI PROBLEM LIST: 1. Iron [...] months ago, he believes his ferritin was on last check. AFter his initial visit [...] 10/02/12 shows a ferritin level of 151. Outside Labs: 10/02/12 Wbc 7, hg 15.7, plt 201 Creat 0.9, na 140, kcl 4.4 Ferritin 151 02/11/12 tprot 7.3, alb 4.3, tbili 0.68, ap 93, ast 19, alt 21, ferritin 203 Results for DB LEVIN ( ) as of 10/12/2012 10:01 Ref. 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 The risk of a person with a C282Y/H63D compound heterozygote genotype developing clinical hemochromatosis is low, and has been estimated to be just 0.5% of the risk of a person with a C282Y/C282Y genotype. Thus, this patient's 05/19/12 abd ultrasound Liver appears normal Review [...] iron over load, alcohol related fatty liver. He does not have a recent set of liver tests. Will check hepatic panel, INR and afp today. Given the suspicion of cirrhosis will continue with biannual hepatoma surveillance with abdominal ultrasound and labs. He will get this months ultras ound locally and then schedule a follow up visit with ultrasound and blood work the same day as theappointment in April or May of next year. We discussed the need to stop drinking but he does not want to quit etoh. Also discussed liver biopsy to establish the diagnosis and again he is reticent to proceed with biopsy. I will plan to see him back in six months with ultrasound and cmp, cbc, inr and afp prior to the appt. documented in this encounter Plan of Treatment Upcoming Encounters Date Type Department Care Team (Late st Contact Info) Description 02/08/2024 9:00 AM EST Appointment Non-[place] [address] Garth Gaspar MD [facility] [place] [address] documented as of this encounter Visit Diagnoses Diagnosis Elevated liver function tests- Primary Other abnormal blood chemistry Iron overload Other disorders of iron metabolism documented in this encounter Care Teams Will Call Clerk Relationship Specialty Start Date End Date Marisela Boland MD [address] [place] [address] PCP - General 09/22/11 11/11/14 documented as of this encounter
--- OUTSIDE RECORDS SUMMARY | 2023-11-02 14:13 | XMS_ITS | Encounter Summary ---
Author Organization [facility] Address [facility] [place] [address] Care Team Providers Care Supervisor Calibration Name Role Phone Marisela Boland MD Primary Care Provider [phone] Encounter Details Date Type Department Care Team (Late st Contact Info) Description 08/30/2011 Orders [place] [phone] Hermelinda Larsen MD [facility] [place] [address] Social History Tobacco Use Types Packs/Day Years [...] 9:00 AM EST Appointment Non-Invasive [place] [address] Garth Gaspar MD [facility] [place] [place] [address] documented as of this encounter Procedures Procedure Name Priority Date/Time Associated Diagnosis Comments FILM LIBRARY STORAGE ONLY ULTRASOUND STUDY Routine 08/30/2011 2:42 PM EDT documented in this encounter Results * FILM LIBRARY- STORAGE ONLY ULTRASOUND STUDY (08/30/2011 2:42 PM EDT) 08/30/2011 2:42 PM EDT Narrative [facility] - 09/18/2013 10:11 AM EDT This is a non-reportable exam. Procedure Note Thomas Gagnon - 09/18/2013 This is a non-reportable exam. Hermelinda Larsen MD IM FILM LIBRARY ORD ERABLES RAD [address] [place] [address] documented in this encounter Visit Diagnoses Not on filedocumented in this encounter Care Teams Supervisor Calibration Relationship Specialty Start Date End Date Marisela Boland MD [address] [place] [address] PCP - General 09/22/11 11/11/14 documented as of this encounter
--- OUTSIDE RECORDS SUMMARY | 2023-11-02 14:13 | XMS_ITS | Encounter Summary ---
Author Organization [facility] Address [facility] [place] [address] Care Team Providers Care Sheriffs Name Role Phone Marisela Boland MD Primary Care Provider [phone] Encounter Details Date Type Department Care Team (Late st Contact Info) Description 02/16/2013 1:00 PM EST Office Visit [place] [address] Carlos Alberto Coreas MD [facility] DR [place] [address] Hypertension (Primary Dx); Ascending aortic aneurysm Discharge Disposition: Home Social History Tobacco Use [...] Sign Reading Time Taken Comments Blood Pressure 110/80 02/16/2013 12:46 PM EST Pulse 86 02/16/2013 12:46 PM EST irre gular Temperature - - Respiratory Rate - - Oxygen Saturation 96% 02/16/2013 12:46 PM EST Inhaled Oxygen Concentration - - Weight 95.7 kg (211 lb) 02/16/2013 12:46 PM EST Height 175.3 cm (5' 9) 02/16/2013 12:46 PM EST Body Mass Index 31.16 02/16/2013 12:46 PM EST documented in this encounter Progress Notes * Carlos Alberto Coreas MD - 02/16/2013 2:00 PM EST I am seeing Mr. Levin at the request of Dr. Kaur for dilated ascending aorta. 62 yo male who was discovered to have a dilated ascending aorta. This has been imaged on ECHO, MRI and CT scan. The measurements have been stable over the past year. I have personally reviewed these studies. The ECHO shows a trileaflet aortic valve that functions normally. The sinus portion of the aorta measures 4.9 cm and the ascending aorta 4.0 cm The MRI suggested a trileaflet aortic valve. The aortic root measures about 4.8 cm. Ascending aortameasures 4.[address] scan shows significant motion artifact in the root. The official report says the root measures 5.0 cm, but I think the real measurement is 4.8 cm at maximum. The ascending aorta measures 4.1 cm. He denies chest pain. He does experience occasional shortness of breath. He denies palpitations or leg swelling. He is somewhat active, but does not do any regular exercise. His father had previous CABG surgery and had an abdominal aortic aneurysm. No other family history of aneurysm. No Known Allergies Outpatient Prescriptions Marked as Taking for the 02/16/13 encounter (Office Visit) with Carlos Alberto Coreas MD Medication Sig Dispense Refill ??? ascorbic acid [...] ??? ZINC ACETATE ORAL Take by mouth. Patient Active Problem List Diagnosis Code ??? Elevated liver function tests 790.6 ??? Hypertension 401.9 ??? Hemochromatosis 275.03 ??? Ascending aorta dilatation 447.71 PMH: Asthma/COPD ? Hemochromatosis HTN Ascending aortic dilation S/p umbilical hernia repair S/p rotator cuff Patient Active Problem List Diagnosis Code ??? Elevated liver function tests 790.6 ??? Hypertension 401.9 ??? Hemochromatosis 275.03 ??? Ascending aorta dilatation 447.71 FH: as stated above SH: lives alone. Occ. Smoker. Still drinking ETOH regularly. ROS: as stated above Physical Exam: BP 110/80 Pulse 86 Ht 175.3 cm (5' 9) Wt 95.709 kg (211 lb) BMI 31.16 kg/m2 SpO2 96% Lung: CTA CV: RRR, no audible murmur No edema Normal pulses in all extremities A/P: 62 yo male with dilated ascending aorta, particularly in the region of the root/sinus portion.The measurements seem to line up at around 4.8-4.9 cm for the sinus portion of the aorta and 4.1cm for the ascending portion. He has a trileaflet aortic valve, no known connective tissue disorder, and his familial component is an abdominal aneurysm (not dissection or thoracic aneurysm). By guidelines, the threshold for surgery in him would by 5.5-6.0 cm in diameter. SO he does not currently meet guidelines for aortic replacement. He should probably be on a beta-marty, but he did not know if he tried one in the past and had problems. His BP control now is good, so I would not press too hard to change his regimen. He should refrain from heavy lifting. We reviewed the signs and symptoms of rupture or dissection. I would like to see him in one year with a CT scan of the chest, abdomen and pelvis. documented in this encounter Plan of Treatment Upcoming Encounters Date Type Department Care Team (Late st Contact Info) Description 02/08/2024 9:00 AM EST Appointment Non-[place] [address] Garth Gaspar MD [facility] [place] [address] documented as of this encounter Visit Diagnoses Diagnosis Hypertension- Primary Unspecified essential hypertension Ascending aortic aneurysm Thoracic aneurysm without mention of rupture documented in this encounter Care Teams Sheriffs Relationship Specialty Start Date End Date Marisela Boland MD [address] [place] [address] PCP - General 09/22/11 11/11/14 documented as of this encounter
--- OUTSIDE RECORDS SUMMARY | 2023-11-02 14:13 | XMS_ITS | Encounter Summary ---
Author Organization [facility] Address [facility] [place] [address] Care Team Providers Care Senior Instructional Designer Name Role Phone Marisela Boland MD Primary Care Provider [phone] Encounter Details Date Type Department Care Team (Late st Contact Info) Description 10/16/2012 Orders Only Cardiothoracic [place] [address] Gely Ritter MD [facility] [place] [address] Social History Tobacco Use Types Packs/Day Years [...] AM EST Appointment Non-Invasive [place] [address] Garth Gaspar MD [facility] [place] [address] Pending Results Name Type Priority Associated Diagnoses Date /Time Film Library- Storage only Ultrasound Study Imaging Routine 10/16/2012 8:26 AM EDT documented as of this encounter Visit Diagnoses Not on filedocumented in this encounter Care Teams Senior Instructional Designer Relationship Specialty Start Date End Date Marisela Boland MD [address] [place] [address] PCP - General 09/22/11 11/11/14 documented as of this encounter
--- OUTSIDE RECORDS SUMMARY | 2023-11-02 14:13 | XMS_ITS | Encounter Summary ---
Author Organization [facility] Address [address] [place] [address] Care Team Providers Care Private Equity Analyst Name Role Phone Unavailable Primary Care Provider Unavailabl e Encounter Details Date Type Department Care Team (Late st Contact Info) Description 07/09/2022 Lab Requisition [facility] Pathology & [facility] [address] [place] [address] Outr Resulting Lab, Provider Social History Tobacco [...] Associated Diagnosis Comments PSA TOTAL, DIAGNOSTIC Routine 07/09/2022 9:46 EDT documented in this encounter Results * PSA TOTAL, DIAGNOSTIC (07/09/2022 9:46 EDT) PSA 1.8 <=6.5 ng/mL 07/12/2022 9:[address] [facility] Blood VENOUS BLOOD / Unknown 07/09/2022 9:46 EDT 07/10/2022 22:07 EDT [address]arr[address] [facility] - 07/12/2022 9:09 EDT NOTE: Serum PSA concentration should not be interpreted as absolute evidence for the presence or absence of malignant disease. Assayed on Siemens ADVIA Centaur XPT using chemiluminescent technology.??Values obtained by using different assay methods cannot be used interchangeably. Provider Outr Resulting Lab CHEMISTRY & BLOOD GAS ORDERABLES [facility] [address] [place] [address] documented in this encounter Visit Diagnoses Not on filedocumented in this encounter
--- OUTSIDE RECORDS SUMMARY | 2023-11-02 14:13 | XMS_ITS | Encounter Summary ---
Author Organization [facility] Address [facility] [place] [address] Care Team Providers Care Store Planner Name Role Phone Marisela Boland MD Primary Care Provider [phone] Encounter Details Date Type Department Care Team (Late st Contact Info) Description 04/18/2007 Orders [place] [address] Hermelinda Larsen MD [facility] [place] [address] Social History Tobacco Use Types Packs/Day Years [...] 9:00 AM EST Appointment Non[place] [address] Garth Gaspar MD [facility] [place] [address] documented as of this encounter Procedures Procedure Name Priority Date/Time Associated Diagnosis Comments FILM LIBRARY STORAGE ONLY ULTRASOUND STUDY Routine 04/18/2007 2:44 PM EST documented in this encounter Results * FILM LIBRARY- STORAGE ONLY ULTRASOUND STUDY (04/18/2007 2:44 PM EST) 04/18/2007 2:44 PM EST Narrative [facility] - 09/18/2013 10:11 AM EDT This is a non-reportable exam. Procedure Note Thomas Gagnon - 09/18/2013 This is a non-reportable exam. Hermelinda Larsen MD IM FILM LIBRARY ORD ERABLES RAD [address] [place] [address] documented in this encounter Visit Diagnoses Not on filedocumented in this encounter Care Teams Store Planner Relationship Specialty Start Date End Date Marisela Boland MD [address] [place] [address] PCP - General 09/22/11 11/11/14 documented as of this encounter
--- OUTSIDE RECORDS SUMMARY | 2023-11-02 14:13 | XMS_ITS | Encounter Summary ---
Author Organization [facility] Address [facility] [place] [address] Care Team Providers Care Classification And Treatment Director Name Role Phone Marisela Boland MD Primary Care Provider Encounter Details Date Type Department Care Team (Late st Contact Info) Description 05/19/2012 Orders Only [place] [address] Gely Ritter MD [facility] [place] [address] Social History Tobacco Use Types Packs/Day Years [...] 9:00 AM EST Appointment Non-[place] [address] Garth Gaspar MD [facility] [place] [address] Pending Results Name Type Priority Associated Diagnoses Date /Time Film Library- Storage only Ultrasound Study Imaging Routine 05/19/2012 8:23 AM EDT documented as of this encounter Visit Diagnoses Not on filedocumented in this encounter Care Teams Classification And Treatment Director Relationship Specialty Start Date End Date Marisela Boland MD [address] [place] [address] PCP - General 09/22/11 11/11/14 documented as of this encounter
--- OUTSIDE RECORDS SUMMARY | 2023-11-02 14:13 | XMS_ITS | Encounter Summary ---
Author Organization [facility] Address [address] [place] [id number] Care Team Providers Care Physician/Ophthalmologist Name Role Phone Unavailable Primary Care Provider Unavailabl e Encounter Details Date Type Department Care Team (Late st Contact Info) Description 07/06/2023 Lab Requisition [facility] Pathology & Laboratory Medicine - [facility] [address], [place] [address] Outr Resulting Lab, Provider Social History Tobacco [...] Associated Diagnosis Comments PSA TOTAL, DIAGNOSTIC Routine 07/06/2023 9:55 EDT documented in this encounter Results * PSA TOTAL, DIAGNOSTIC (07/06/2023 9:55 EDT) PSA 1.7 <=6.5 ng/mL 07/06/2023 18:18 EDT [facility] Blood VENOUS BLOOD / Unknown 07/06/2023 9:55 EDT 07/06/2023 17:30 EDT Narrative [facility] - 07/06/2023 18:18 EDT NOTE: Serum PSA concentration should not be interpreted as absolute evidence for the presence or absence of malignant disease. Assayed on Siemens ADVIA Centaur XPT using chemiluminescent technology.??Values obtained by using different assay methods cannot be used interchangeably. Provider Outr Resulting Lab CHEMISTRY & BLOOD GAS ORDERABLES [facility] [address] [place] [address] documented in this encounter Visit Diagnoses Not on filedocumented in this encounter
--- OUTSIDE RECORDS SUMMARY | 2023-11-02 14:13 | XMS_ITS | Encounter Summary ---
Author Organization [facility] Address [facility] [place] [address] Care Team Providers Care Cdl Truck Driver Name Role Phone Marisela Boland MD Primary Care Provider [phone] Encounter Details Date Type Department Care Team (Late st Contact Info) Description 01/13/2013 External Results XRay at [address] [place] [address] Provider, Scanning Social History Tobacco Use Types Packs/Day Years [...] 9:00 AM EST Appointment [place] [id number] Garth Gaspar MD [facility] [place] [address] documented as of this encounter Procedures Procedure Name Priority Date/Time Associated Diagnosis Comments CT SCAN (SCAN) Routine 11/08/2012 documented in this encounter Results * Scan Doc: CT Scan (11/08/2012) Anatomical Region Laterality Modality Other Scanning Provider MEDIA MGR SCAN EXT O RDR/RSLT documented in this encounter Visit Diagnoses Not on filedocumented in this encounter Care Teams Cdl Truck Driver Relationship Specialty Start Date End Date Marisela Boland MD [address] [place] [address] PCP - General 09/22/11 11/11/14 documented as of this encounter
--- OUTSIDE RECORDS SUMMARY | 2023-11-02 14:13 | XMS_ITS | Encounter Summary ---
Author Organization [facility] [place] [address] Care Team Providers Care Office Lead Name Role Phone Marisela Boland MD Primary Care Provider [phone] Encounter Details Date Type Department Care Team (Late st Contact Info) Description 05/23/2012 External Results [place] [phone] Carmelina Bee APRN [facility] [place] [address] Social History Tobacco Use Types Packs/Day Years [...] 9:00 AM EST Appointment Non-Invasive [place] [address] Garth Gaspar MD [facility] [place] [address] documented as of this encounter Procedures Procedure Name Priority Date/Time Associated Diagnosis Comments CT SCAN (SCAN) Routine 05/19/2012 documented in this encounter Results * Scan Doc: CT Scan (05/19/2012) Anatomical Region Laterality Modality Other Carmelina Bee APRN MEDIA MGR SCAN EXT O RDR/RSLT documented in this encounter Visit Diagnoses Not on filedocumented in this encounter Care Teams Office Lead Relationship Specialty Start Date End Date Marisela Boland MD [address] [place] [address] PCP - General 09/22/11 11/11/14 documented as of this encounter
[2023-11-02 14:36] LABS: Ferritin 129 ng/mL (26-388)
== END 2023-11-02 14:09 | disposition home or self-care (01) ==
LOC: LBO 14:09
PROVIDERS: PCP Family Medicine; Visit Provider Family Medicine
DX: D64.9 Anemia, unspecified (principal)
CPT/HCPCS: 36415; 82728

== ENCOUNTER 2024-06-20 02:24 | Outpatient (CLI) | payer MEDICARE, SELFPAY ==
[2024-06-20 16:01] LABS: ALT 22 U/L (16-63); AST 20 U/L (15-37); Albumin 4.3 g/dL (3.4-5.0); Alkaline Phosphatase 82 U/L (46-116); Anion Gap 9.8 mmol/L (3-11); BUN 8 mg/dL (7-18); Bilirubin, Total 0.9 mg/dL (0.2-1.0); CO2 28.2 mmol/L (21.0-32.0); CREATININE 0.9 mg/dL (0.70-1.30); Calcium 9.6 mg/dL (8.5-10.1); Calculated LDL 74 mg/dL (<100); Chloride 106 mmol/L (98-107); Cholesterol 156 mg/dL (<200); Estimated GFR 90.18 (mL/min/1.73m2); Ferritin 172 ng/mL (26-388); Glucose 87 mg/dL (74-106); HDL Cholesterol 70 mg/dL (>or=40); Potassium 3.9 mmol/L (3.5-5.1); Sodium 144 mmol/L (136-145); Total Protein 7.6 g/dL (6.4-8.2); Triglyceride 60 mg/dL (<150)
[2024-06-20 22:36] LABS: PSA, Screening 1.8 ng/mL (<=6.5)
[2024-06-21 08:57] LABS: HIV-1/2 Ag & Ab Screen Negative (Negative)
[2024-06-21 09:04] LABS: HBs Antibody, Quant >1000.0 mIU/mL (See Note); Hep B Surface Ab Positive (See Note); Hepatitis B Core Antibody Positive (Negative); Hepatitis B Surface Antigen Negative (Negative)
[2024-06-21 09:51] LABS: Hepatitis C Ab w Rflx HCV PCR Negative (Negative)
== END 2024-06-20 02:25 | disposition home or self-care (01) ==
PROVIDERS: PCP Family Medicine; Visit Provider Family Medicine
DX: R10.9 Unspecified abdominal pain (principal); E78.5 Hyperlipidemia, unspecified; Z00.00 Encounter for general adult medical examination without abnormal findings; D64.9 Anemia, unspecified; Z12.5 Encounter for screening for malignant neoplasm of prostate; Z11.59 Encounter for screening for other viral diseases
CPT/HCPCS: 36415; 80053; 80061; 84153; 86704; 86706; 86803; 87340; 87389; 82728